=== PATIENT | male | born 1950 | race Hispanic/Latino ===

== ENCOUNTER 2017-11-30 22:30 | Observation (INO) | payer MEDICARE, MEDICAID ==
[2017-11-30 23:05] LABS: #Eosinphils 0.3 thou/uL (0.0-0.7); #Lymphocytes 2.6 thou/uL (1.20-3.40); #Monocytes 0.7 thou/uL (0.11-0.59); #Neutrophils 9.5 thou/uL (1.40-6.50); %Basophils 0.3 % (0.0-1.0); %Eosinophils 2.1 % (0.0-10.0); %Lymphocytes 19.7 % (21.0-51.0); %Monocytes 5.2 % (0.0-10.0); %Neutrophils 72.7 % (42.0-75.0); Hemoglobin 12.4 g/dL (14.0-18.0); Mean Corpuscular Hemoglobin 28.3 pg (27.0-31.0); Mean Corpuscular Volume 88.2 fl (80.0-94.0); Mean Platelet Volume 7.5 fL (7.4-10.4); Platelet Count 179 thou/uL (130-400); RBC Distribution Width 14.1 % (11.5-14.5); Red Blood Cell (RBC) Count 4.37 mill/uL (4.70-6.10); White Blood Cell (WBC) Count 13.1 thou/uL (4.8-10.8)
[2017-11-30 23:17] LABS: ALT (SGPT) 16 U/L (8-55); AST (SGOT) 17 U/L (5-34); Albumin 3.5 g/dL (3.4-4.8); Alkaline Phosphatase 103 U/L (40-150); Anion Gap 16 mmol/L (10-20); BUN (Urea Nitrogen) 37 mg/dL (8.4-25.7); Bilirubin, Total 0.3 mg/dL (0.2-1.2); CK (CPK) 98 U/L (30-200); Calc. Creatinine Clearance 0 mL/min (70-130); Calcium 8.5 mg/dL (7.8-10.44); Carbon Dioxide 22 mmol/L (23-31); Chloride 105 mmol/L (98-107); Estimated GFR-MDRD 48; Globulin 3.5 g/dL (2.4-3.5); Glucose 203 mg/dL (80-115); Potassium 4.1 mmol/L (3.5-5.1); Sodium 139 mmol/L (136-145)
[2017-11-30 23:20] LABS: CKMB 0.8 ng/mL (0-6.6); Troponin I Less than 0.010 ng/mL (< 0.028)
--- NOTE | 2017-11-30 23:26 | RAD ---
CHEST ONE VIEW: 11/30/17 HISTORY: Chest pain. COMPARISON: Chest radiograph 11/05/16. FINDINGS: The heart size is enlarged. No focal air space consolidation, pneumothorax or effusion. Scarring left upper lobe. IMPRESSION: No acute intrathoracic abnormality. POS: [facility]
[2017-12-01 00:21] LABS: Bilirubin Negative (Negative); Blood, Urine Negative (Negative); Clarity CLEAR (Clear); Glucose, Urine (Dipstick) Negative (Negative); Leukocyte Negative (Negative); Nitrite Negative (Negative); Protein, Urine (Dipstick) Negative (Neg-Trace); Specific Gravity, Urine 1.014 (1.002-1.036); Urobilinogen 0.2 mg/dL (0.2-1.0); pH, Urine 6.5 (5.0-9.0)
[2017-12-01] MEDS ORDERED: Ondansetron ODT 4 MG TAB ONE (01:27)
[2017-12-01] MEDS ORDERED: Nitroglycerin 0.4 MG TAB (25 Tab Bottle) SL PRN (03:20)
[2017-12-01 05:31] VITALS: BMI 54.3
--- NOTE | 2017-12-01 08:24 | CT ---
PRELIMINARY REPORT/[facility]/EMERGENCY AFTER HOURS PROCEDURE: EXAM: CT Angiography Chest With Intravenous Contrast CLINICAL HISTORY: 67 years old, male; Pain; Chest pain; On breathing; Patient HX: M67 presents to ed for nausea and SOB . Pt also reports tingling and twitching on left side of face. Pt also reports a shooting pain from b ehind left shoulder to front of chest. Pt denies fever. Hx- quad bypass and valve replaced, hbp, chol esterol, sleep apnea. TECHNIQUE: Axial computed tomographic angiography images of the chest with intravenous contrast using pulmonary embolism protocol. MIP reconstructed images were created and reviewed. COMPARISON: No relevant prior studies available. FINDINGS: Pulmonary arteries: No pulmonary embolism. Aorta: No acute findings. Lungs: Linear atelectasis and/or scarring within the left upper lobe. Pleural space: Normal. No significant effusion. No pneumothorax. Heart: See below. Bones/joints: Changes of prior sternotomy and aortic valve repair. Multilevel thoracic spine degenera tive changes. No acute fracture. No dislocation. Soft tissues: Moderate-sized fat and bowel-containing ventral hernia, without acute complications. Lymph nodes: Normal. Kidneys and ureters: 2.3 cm simple right renal cyst. IMPRESSION: 1. No pulmonary embolism. 2. Incidental/non-acute findings are described above. Thank you for allowing us to participate in the care of your patient. Dictated and Authenticated by: Kain Phillips MD 12/01/2017 1:08 AM Central Time ([place] & [place]) FINAL REPORT CT ARTERIOGRAM CHEST WITH IV CONTRAST AND 3D MIP IMAGING PERFORMED ON AN EMERGENCY BASIS: Date: 11/30/17 Time: 0002 hours HISTORY: Chest pain. Dyspnea. COMPARISON: 11/05/16. FINDINGS: Findings agree with the preliminary report by Jacey. There is no CT evidence of pulmonary embolus. Lar ge anterior abdominal wall hernia containing colon is noted with the colon extending far superiorly a t the midline, lying anterior to the sternal metallic sutures. POS: [facility]
[2017-12-01] MEDS ORDERED: Ondansetron ODT 4 MG TAB PO PRN (08:52)
[2017-12-01] MEDS ORDERED: Ondansetron HCl/PF 4 MG/2 ML Vial IVP PRN (08:52)
[2017-12-01] MEDS ORDERED: Prevnar 13-Val Conj/PF 0.5 ML SYRINGE IM ONE (09:00)
[2017-12-01] MEDS: Acetaminophen 325 MG TAB PO PRN ×2 (09:12→20:11)
[2017-12-01] MEDS ORDERED: Regadenoson 0.4 MG/5 ML SYRINGE ONE (09:51)
[2017-12-01] MEDS ORDERED: Senokot 8.6 MG TAB PO PRN (11:00)
[2017-12-01 11:03] LABS: Troponin I 0.017 ng/mL (< 0.028)
[2017-12-01 11:21] LABS: Hemoglobin A1c 6.4 % (4.0-6.0)
--- NOTE | 2017-12-01 11:28 | HP ---
DATE OF ADMISSION: 12/01/2017 PRIMARY CARE PHYSICIAN: Patient has followed [facility] in the past , Dr. Goodwin. PRIMARY SUPERVISOR NURSE: The patient has seen [facility] in the past. CHIEF COMPLAINT: Chest discomfort. HISTORY OF PRESENT ILLNESS: Patient is a 67-year-old male with coronary artery disease, status post CABG, hypertension, morbid obesity with a BMI 54.4, presented to the emergency room with chest discomfort that has been ongoing for the last 1-2 days. The chest discomfort is on the left side of the chest radiating to his left arm. He also had some shortness of breath along with nausea and "twitching" on his left side of the face. He denies palpitations or syncope. No recent changes in his medications. He denies any cough, wheezing. No vomiting reported. In the emergency room, initial vital signs showed temperature 99.4, respirations 20, pulse of 76 with a blood pressure of 150/77. EKG showed sinus rhythm with nonspecific ST-T wave changes. The CT angiogram of the chest was negative for pulmonary embolism. He received 2 mg morphine with Zofran in the emergency room. His chest pain initially was intermittent; however, has been coming more often lasting each time for 10 minutes or so per patient report. He denies any aggravating or relieving factor. PAST MEDICAL HISTORY: 1. Coronary artery disease, status post coronary artery bypass graft. 2. Obstructive sleep apnea, unable to tolerate CPAP. 3. Morbid obesity with a BMI 54.4. 4. Abdominal hernia. 5. Hypertension. 6. Hyperlipidemia. 7. Benign prostatic hypertrophy. 8. Diabetes mellitus type 2. 9. Mild intermittent Asthma PAST SURGICAL HISTORY: 1. Coronary artery bypass grafting. 2. Hernia repair. 3. Bioprosthetic aortic valve replacement. ALLERGIES: No known drug allergies. CURRENT HOME MEDICATIONS: Albuterol inhaler as needed, aspirin 81 mg daily, Lipitor 40 mg daily, Lasix 80 mg daily, hydrochlorothiazide 25 mg daily, indomethacin 50 mg b.i.d., lisinopril 40 mg daily, Flomax 0.4 mg daily. SOCIAL HISTORY: Patient currently lives at home with his family. No current use of smoking, alcohol or drug use. He is FULL CODE, makes his own decisions with the help of his family. FAMILY HISTORY: Negative for diabetes mellitus type 2, hypertension. REVIEW OF SYSTEMS: The following complete review of systems was negative, unless otherwise mentioned in the HPI or below: Constitutional: Weight loss or gain, ability to conduct usual activities. Skin: Rash, itching. Eyes: Double vision, pain. ENT/Mouth: Nose bleeding, neck stiffness, pain, tenderness. Cardiovascular: Palpitations, dyspnea on exertion, orthopnea. Respiratory: Shortness of breath, wheezing, cough, hemoptysis, fever or night sweats. Gastrointestinal: Poor appetite, abdominal pain, heartburn, nausea, vomiting, constipation, or diarrhea. Genitourinary: Urgency, frequency, dysuria, nocturia. Musculoskeletal: Pain, swelling. Neurologic/Psychiatric: Anxiety, depression. Allergy/Immunologic: Skin rash, bleeding tendency. PHYSICAL EXAMINATION: VITAL SIGNS: As discussed above. GENERAL: A 67-year-old male in no apparent distress. His chest discomfort has improved. HEENT: Head is atraumatic, normocephalic. Sclerae are anicteric. Moist mucous membrane, no oral lesion. NECK: Supple, no JVD, no carotid bruit. LUNGS: Clear to auscultation bilaterally, no wheezing, rales or rhonchi. HEART: S1, S2 present. Regular rate and rhythm. Healed midline scar from previous CABG. There is questionable tenderness over the left chest wall. LUNGS: Clear to auscultation bilaterally, no wheezing, rales, rhonchi. ABDOMEN: Soft, mild epigastric tenderness, without any rebound, guarding, no costovertebral angle tenderness. Abdominal hernia noted. EXTREMITIES: No edema or calf tenderness. NEUROLOGIC: Grossly nonfocal, moves all four extremities. PSYCHIATRY: Alert, awake, oriented x3. SKIN: Warm and dry. LYMPH NODES: No palpable lymph nodes in the neck. PERIPHERAL VASCULAR: Radial pulses palpable bilaterally. MUSCULOSKELETAL: No joint swelling or tenderness. LABORATORY DATA AND IMAGING: Troponins were negative. BNP 65. CBC showed WBC 13.1 with hemoglobin 12.4, platelet 179. BUN 37, creatinine 1.47, glucose of 203. Hemoglobin A1c in 2016 was 6.7. EKG by my review as discussed above. CT angiogram of the chest by my review as discussed above. IMPRESSION: 1. Atypical chest pain, rule out acute coronary syndrome. 2. Morbid obesity with a BMI 54.4. 3. Obstructive sleep apnea, unable to tolerate CPAP. 4. Diabetes mellitus type 2, currently on no medications. 5. Hypertension. 6. Hyperlipidemia. 7. Chronic kidney disease stage 3. 8. Chronic back pain. 9. Abdominal hernia. 10. History of bioprosthetic aortic valve repair. 11. Benign prostatic hypertrophy. PLAN: The patient will be monitored as a 23-hour observation. He will benefit from a stress test since it has not been done for several years. We will resume his home medications including aspirin. We will avoid NSAIDs. He takes indomethacin every day, which will be discontinued. We will hold Lasix. The patient was extensively counseled to continue using his CPAP if possible. Plan of care was discussed with the patient in detail. He stated understanding. VITO
[2017-12-01] MEDS: PROVENTIL INHALER 6.7 G (200 INHALATIONS) INH SCH ×3 (13:52→23:50)
[2017-12-01 19:42] LABS: Troponin I Less than 0.010 ng/mL (< 0.028)
[2017-12-01] MEDS: Docusate 100 MG CAP PO SCH (20:06)
[2017-12-01] MEDS: Tamsulosin HCl 0.4 MG CAP PO SCH (20:06)
[2017-12-01 22:02] LABS: Troponin I Less than 0.010 ng/mL (< 0.028)
[2017-12-02] MEDS: PROVENTIL INHALER 6.7 G (200 INHALATIONS) INH SCH ×3 (07:15→19:08)
[2017-12-02] MEDS ORDERED: Prevnar 13-Val Conj/PF 0.5 ML SYRINGE IM ONE (09:00)
[2017-12-02] MEDS ORDERED: Lisinopril 20 MG TAB PO SCH (09:00)
[2017-12-02] MEDS ORDERED: Furosemide 80 MG TAB PO SCH (09:00)
[2017-12-02] MEDS ORDERED: Enoxaparin Sodium 40 MG/0.4 ML SYRINGE SC SCH (09:00)
[2017-12-02] MEDS: Aspirin 325 MG TAB PO SCH (10:20)
[2017-12-02] MEDS: Docusate 100 MG CAP PO SCH ×2 (10:21→19:39)
[2017-12-02] MEDS: Atorvastatin Calcium 40 MG TAB PO SCH (10:21)
--- NOTE | 2017-12-02 10:34 | NM ---
CARDIAC SPECT: CLINICAL HISTORY: 67-year-old male with chest pain, coronary artery disease, CABG, COPD, hypertension, and dys lipidemia. TECHNIQUE: A myocardial perfusion scan was performed using the single isotope two day protocol with 33 mCi techn etium-99m sestamibi injected intravenously for both stress and rest images. Pharmacologic stress with Lexiscan was monitored and interpreted by Dr. Aranda. FINDINGS: Fairly homogeneous tracer distribution is seen in the myocardial segments on the rest images. The str ess images demonstrate a small area of mildly decreased tracer localization in the distal lateral wal l. GATED SPECT LVEF: 74%. WALL MOTION EXAM: Normal. IMPRESSION: Small area of mild ischemia with complete reversibility in the distal lateral wall. POS: [facility]
[2017-12-02] MEDS ORDERED: Sodium Chloride 0.9% 1,000 ML IV SCH (18:45)
[2017-12-02] MEDS: Tamsulosin HCl 0.4 MG CAP PO SCH (19:39)
--- NOTE | 2017-12-02 20:10 | PDOC.PN ---
- Subjective Encounter Start Date: 12/02/17 Encounter Start Time: 12:00 Patient seen and examined for CP. CP improving. No Palpitations/syncope. No new complaints. No overnight events - Objective Resuscitation Status: Resuscitation Status FULL:Full Resuscitation MAR Reviewed: Yes Vital Signs & Weight: Vital Signs (12 hours) Temp Pulse Resp BP BP Pulse Ox 12/02/17 19:34 98.8 F 65 20 112/55 L 93 L 12/02/17 19:08 75 16 95 12/02/17 16:06 74 16 141/71 H 94 L 12/02/17 13:38 81 14 97 12/02/17 11:54 73 16 115/64 97 12/02/17 10:21 127/79 Weight Weight 394 lb 9.6 oz I&O: 12/01/17 12/02/17 12/03/17 06:59 06:59 06:59 Intake Total 0 540 Output Total 550 Balance 0 -10 Result Diagrams: 11/30/17 22:45 11/30/17 22:45 Additional Labs: Accuchecks 12/01/17 20:15 POC Glucose 122 H EKG Reviewed by me: Yes (Tele SR) Phys Exam - Physical Examination Constitutional: NAD Respiratory: no wheezing, no rales, no rhonchi Dec AE at bases Cardiovascular: RRR, no rub no heaves/pulsations Gastrointestinal: soft, non-tender, no distention, positive bowel sounds Musculoskeletal: no edema Neurological: non-focal, normal sensation, moves all 4 limbs Psychiatric: normal affect, A&O x 3 Dx/Plan - Plan DVT proph w/SCDs IMPRESSION: 1. Atypical chest pain, rule out acute coronary syndrome. Stress test abnormal 2. Morbid obesity with a BMI 54.4. 3. Obstructive sleep apnea, unable to tolerate CPAP. 4. Diabetes mellitus type 2, currently on no medications. A1c 6.4 5. Hypertension. 6. Hyperlipidemia. 7. Chronic kidney disease stage 3. 8. Chronic back pain. 9. Abdominal hernia. 10. History of bioprosthetic aortic valve repair. 11. Benign prostatic hypertrophy. PLAN: * Consult Cardiology due to abnormal stress test * BMP in AM * Cont Lisinopril * Cont ASA * Cont current meds as below Review of Systems - Review of Systems Respiratory: negative: Cough, Dry, Shortness of Breath, Hemoptysis, SOB with Excertion, Pleuritic Pain, Sputum, Wheezing Cardiovascular: negative: chest pain, palpitations, orthopnea, paroxysmal nocturnal dyspnea, edema, light headedness, other - Medications/Allergies Allergies/Adverse Reactions: Allergies Allergy/AdvReac Type Severity Reaction Status Date / Time No Known Drug Allergies Allergy Verified 12/01/17 05:18 Medications: Current Medications Acetaminophen (Tylenol) 650 mg PO Q4H PRN PRN Reason: Headache/Fever or Mild Pain Last Admin: 12/01/17 20:11 Dose: 650 mg Albuterol Sulfate (Proventil Hfa) 1 puff INH [id number] [facility] Last Admin: 12/02/17 19:08 Dose: 1 puff Aspirin (Aspirin) 325 mg PO DAILY [facility] Last Admin: 12/02/17 10:20 Dose: 325 mg Atorvastatin Calcium (Lipitor) 40 mg PO DAILY [facility] Last Admin: 12/02/17 10:21 Dose: 40 mg Docusate Sodium (Colace) 100 mg PO BID [facility] Last Admin: 12/02/17 19:39 Dose: 100 mg Sodium Chloride (Normal Saline 0.9%) 1,000 mls @ 75 mls/hr IV .[id number] [facility] Last Admin: 12/02/17 19:41 Dose: 1,000 mls Nitroglycerin (Nitrostat) 0.4 mg SL Q5MIN PRN PRN Reason: Chest Pain Ondansetron HCl (Zofran Odt) 4 mg PO Q6H PRN PRN Reason: Nausea/Vomiting Last Admin: 12/01/17 09:12 Dose: 4 mg Ondansetron HCl (Zofran) 4 mg IVP Q6H PRN PRN Reason: Nausea/Vomiting Senna (Senokot) 2 tab PO HSPRN PRN PRN Reason: Constipation Sodium Chloride (Flush - Normal Saline) 10 ml IVF Q12HR [facility] Last Admin: 12/02/17 19:40 Dose: 10 ml Sodium Chloride (Flush - Normal Saline) 10 ml IVF PRN PRN PRN Reason: Saline Flush Tamsulosin HCl (Flomax) 0.4 mg PO HS [facility] Last Admin: 12/02/17 19:39 Dose: 0.4 mg
[2017-12-03] MEDS: PROVENTIL INHALER 6.7 G (200 INHALATIONS) INH SCH ×4 (00:36→19:33)
--- NOTE | 2017-12-03 04:47 | CON ---
DATE OF CONSULTATION: 12/03/2017 HISTORY OF PRESENT ILLNESS: Martín Casillas is a 67-year-old [place] male admitted with chest discomfort. In 11/2007, he was hospitalized here with chest discomfort, underwent cardiac catheterization by Dr. Beltran. The peak gradient across the aortic valve was 29 mm and mild aortic stenosis. Left ventricular pressure was 181/32. Aorta 124/77. There was a 30%-40% distal left main. The LAD had [id number] luminal irregularities. There was a 60 % to 65% lesion in the proximal portion of the first diagonal. Circumflex had [id number] luminal irregularities and plaquing. The right coronary artery was small. He does not recall when he underwent cardiac surgery and he thought it was around the time of that catheterization; however, he did not have very significant disease at that time. At some other time, he was referred to [facility] in [place] and underwent CABG x4 and aortic valve replacement. He had been followed by [facility]; however, approximately 2 years ago , he was there as an outpatient to have an echo. He started to feel bad and became nauseous and the pulmonary function technologist took him to the emergency room. He became very upset having to wait in the emergency room. He left and then ultimately came to the emergency room here. He was found to have urosepsis. He now is admitted with chest discomfort. Initially, this was a sharp sticking like pain that started in his left back. It radiated around to the anterior part of the left chest. Initially, this would just last for a few seconds, but then last up to 30 minutes at a time. There was no pleuritic component to the pain. He did not feel significantly short of breath or become diaphoretic. He was admitted. Cardiac enzymes were unremarkable and underwent Cardiolite testing. This revealed a small area of mild ischemia in the distal lateral wall. Ejection fraction was 74%. PAST MEDICAL HISTORY: Remarkable for coronary artery disease, aortic stenosis with aortic valve replacement, morbid obesity, obstructive sleep apnea, unable to tolerate CPAP, hypertension, hyperlipidemia, diabetes, benign prostatic hypertrophy, asthma. OPERATIONS: Multiple ventral hernia repairs, CABG, bioprosthetic aortic valve replacement. MEDICATIONS: Albuterol 1 puff q.6 hours, aspirin 81 daily, atorvastatin 40 daily, furosemide 80 q.a.m., hydrochlorothiazide unknown dose q.p.m., indomethacin 50 b.i.d., lisinopril 40 daily, Flomax 0.4 daily. ALLERGIES: None. SOCIAL HISTORY: He stopped smoking 20 years ago. FAMILY HISTORY: Negative for coronary artery disease. REVIEW OF SYSTEMS: Twelve-point review of systems, otherwise unremarkable. PHYSICAL EXAMINATION: VITAL SIGNS: Blood pressure 141/71, pulse of 74, although at times during this admission, he has had blood pressures in the low 100s and even 99/69. HEENT: PERRL. NECK: Supple. LUNGS: Chest is clear. CARDIAC: S1 and S2 are normal, without any S3, S4. There is a 2/6 systolic murmur in the aortic area. ABDOMEN: Normal bowel sounds without tenderness, organomegaly, or masses. The abdomen is morbidly obese. MUSCULOSKELETAL: Revealed significant palpable tenderness on the left ribs that reproduces his pain. EXTREMITIES: Revealed trace pretibial edema. NEUROLOGIC: Grossly intact. SKIN: Warm and dry. LABORATORY DATA: EKG revealed normal sinus rhythm with nonspecific ST segment changes. Cardiolite finding as noted above. Hemoglobin 12.4, hematocrit 38.6, white count 13,100, platelets 179,000. Sodium 139, potassium 4.1, chloride 105 , carbon dioxide 22, BUN 37, creatinine 1.47. Cardiac enzymes are unremarkable. IMPRESSION: 1. Atypical chest discomfort with palpable chest tenderness as well as sharp stabbing type pain. 2. Abnormal Cardiolite with distal lateral wall ischemia. 3. Status post coronary artery bypass graft x4 and aortic valve replacement in [place]. 4. Hypertension. 5. Hyperlipidemia. 6. Diabetes. 7. Morbid obesity. 8. Former smoker. 9. Ventral and inguinal hernias. 10. Obstructive sleep apnea unable to tolerate CPAP. 11. Asthma. 12. Chronic kidney disease versus acute kidney injury. RECOMMENDATIONS: Mr. Casillas had a creatinine of 1.47 on admission and after that underwent CT angiogram of the chest. Creatinine has not been repeated since that time and as best I can tell, it did not receive any IV fluids. He will be started on saline at 75 mL per hour at this time and his renal function will be checked in the morning. His Lasix and hydrochlorothiazide have been held, and I also will discontinue his lisinopril at this time and he needs to stay off Indocin, which he takes at home also. An attempt will be made to obtain a copy of his operative report at the time of CABG and aortic valve replacement; however, I am not certain how long it will take to obtain that. We did discuss cardiac catheterization and risks involved including , myocardial infarction, dye reaction, vascular injury, CVA, transfusion, limb loss, vascular injury and especially kidney damage. We discussed risk of intervention with PTCA and stent placement including , myocardial infarction, emergent CABG, restenosis, stent thrombosis, vessel perforation etc. With his multiple medical problems and possible need for hernia repair in the future, we will only place a bare metal stent. His renal function will be reassessed in the morning before any decision regarding proceeding with catheterization. VITO
[2017-12-03 05:09] LABS: Anion Gap 11 mmol/L (10-20); BUN (Urea Nitrogen) 21 mg/dL (8.4-25.7); Calc. Creatinine Clearance 171 mL/min (70-130); Calcium 8.6 mg/dL (7.8-10.44); Carbon Dioxide 24 mmol/L (23-31); Chloride 106 mmol/L (98-107); Estimated GFR-MDRD 70; Glucose 99 mg/dL (80-115); Potassium 4.2 mmol/L (3.5-5.1); Sodium 137 mmol/L (136-145)
[2017-12-03] MEDS ORDERED: Communication Order-Pharmacy FS SCH (07:45)
[2017-12-03] MEDS ORDERED: Sodium Chloride 0.9% 1,000 ML IV SCH ×2 (07:45→11:15)
[2017-12-03] MEDS ORDERED: Lidocaine 1% (PF) 30 ML VIAL ONE (08:01)
[2017-12-03] MEDS ORDERED: Heparin 10,000 UNITS/1 ML VIAL ONE (08:23)
[2017-12-03] MEDS ORDERED: Fentanyl 100 MCG/2 ML VIAL ONE (09:16)
[2017-12-03] MEDS ORDERED: Midazolam HCl 2 mg/2 ml Vial ONE (09:16)
[2017-12-03] MEDS ORDERED: Iopamidol 370 76% 50 ML VIAL FS ONE (09:45)
[2017-12-03] MEDS ORDERED: Iopamidol 370 76% 100 ML VIAL ONE (09:45)
[2017-12-03] MEDS ORDERED: Metoprolol Tartrate 5 MG/5 ML VIAL ONE (10:35)
[2017-12-03] MEDS ORDERED: Nitroglycerin 100MG/250ML BOT 250 ML ONE (10:36)
[2017-12-03] MEDS ORDERED: Nitroglycerin 0.4 MG TAB (25 Tab Bottle) SL PRN (11:14)
[2017-12-03] MEDS ORDERED: traMADol HCl 50 MG TAB PO PRN (11:14)
[2017-12-03] MEDS ORDERED: Acetaminophen/Codeine 30-300mg Tablet PO PRN ×2 (11:14)
[2017-12-03] MEDS ORDERED: Lisinopril 10 MG TAB PO SCH (11:15)
[2017-12-03] MEDS ORDERED: Lisinopril 20 MG TAB PO SCH (11:15)
[2017-12-03] MEDS ORDERED: Sodium Chloride 0.9% 200 ML IV PRN (11:15)
[2017-12-03] MEDS: Aspirin 325 MG TAB PO SCH (12:04)
[2017-12-03] MEDS: Atorvastatin Calcium 40 MG TAB PO SCH (12:04)
[2017-12-03] MEDS: Docusate 100 MG CAP PO SCH ×2 (12:05→20:11)
--- NOTE | 2017-12-03 18:14 | PDOC.PN ---
- Subjective Encounter Start Date: 12/03/17 Encounter Start Time: 17:15 Patient seen and examined for CP. s/p Cardiac Cath. No new complaints. No overnight events - Objective Resuscitation Status: Resuscitation Status FULL:Full Resuscitation MAR Reviewed: Yes Vital Signs & Weight: Vital Signs (12 hours) Temp Pulse Resp BP BP Pulse Ox 12/03/17 15:25 63 16 159/65 H 94 L 12/03/17 12:05 139/67 12/03/17 07:48 98.5 F 64 15 114/63 93 L Weight Weight 394 lb 9.6 oz I&O: 12/02/17 12/03/17 12/04/17 06:59 06:59 06:59 Intake Total 540 1063 Output Total 550 750 600 Balance -10 313 -600 Result Diagrams: 11/30/17 22:45 12/03/17 04:15 EKG Reviewed by me: Yes (Tele SR) Phys Exam - Physical Examination Constitutional: NAD Respiratory: no wheezing, no rhonchi Cardiovascular: RRR, no rub Gastrointestinal: soft, non-tender, positive bowel sounds Musculoskeletal: no edema Neurological: moves all 4 limbs Dx/Plan - Plan IMPRESSION: 1. Atypical chest pain, rule out acute coronary syndrome. Stress test abnormal - s/p Cath 2. Morbid obesity with a BMI 54.4. 3. Obstructive sleep apnea, unable to tolerate CPAP. 4. Diabetes mellitus type 2, currently on no medications. A1c 6.4 5. Hypertension. 6. Hyperlipidemia. 7. DANAY on Chronic kidney disease stage 2. Improving 8. Chronic back pain. 9. Abdominal hernia. 10. History of bioprosthetic aortic valve repair. 11. Benign prostatic hypertrophy. PLAN: * Cardio input appreciated * Monitor overnight per Cardiology * BMP in AM * Cont ASA and other meds as below * ACEI dose reduced due to CKD Review of Systems - Review of Systems Respiratory: negative: Cough, Dry, Shortness of Breath, Hemoptysis, SOB with Excertion, Pleuritic Pain, Sputum, Wheezing Cardiovascular: negative: chest pain, palpitations, orthopnea, paroxysmal nocturnal dyspnea, edema, light headedness, other - Medications/Allergies Allergies/Adverse Reactions: Allergies Allergy/AdvReac Type Severity Reaction Status Date / Time No Known Drug Allergies Allergy Verified 12/01/17 05:18 Medications: Current Medications Acetaminophen (Tylenol) 650 mg PO Q4H PRN PRN Reason: Headache/Fever or Mild Pain Last Admin: 12/01/17 20:11 Dose: 650 mg Acetaminophen/Codeine Phosphate (Tylenol #3) 1 tab PO Q4H PRN PRN Reason: Mild Pain (1-3) Acetaminophen/Codeine Phosphate (Tylenol #3) 2 tab PO Q4H PRN PRN Reason: Moderate Pain (4-6) Albuterol Sulfate (Proventil Hfa) 1 puff INH [id number] Last Admin: 12/03/17 13:43 Dose: 1 puff Aspirin (Aspirin) 325 mg PO DAILY [facility] Last Admin: 12/03/17 12:04 Dose: 325 mg Atorvastatin Calcium (Lipitor) 40 mg PO DAILY [facility] Last Admin: 12/03/17 12:04 Dose: 40 mg Docusate Sodium (Colace) 100 mg PO BID [facility] Last Admin: 12/03/17 12:05 Dose: Not Given Sodium Chloride (Normal Saline 0.9%) 200 mls @ 0 mls/hr IV ONE PRN; As Directed PRN Reason: (Bolus PRN SBP < 90 mm Hg) Stop: 12/06/17 11:16 Lisinopril (Zestril) 20 mg PO DAILY [facility] Miscellaneous Information (Communication Order-Pharmacy) 0 each FS ONE [facility] Stop: 12/03/17 21:00 Nitroglycerin (Nitrostat) 0.4 mg SL Q5MIN PRN PRN Reason: Chest Pain Ondansetron HCl (Zofran Odt) 4 mg PO Q6H PRN PRN Reason: Nausea/Vomiting Last Admin: 12/01/17 09:12 Dose: 4 mg Ondansetron HCl (Zofran) 4 mg IVP Q6H PRN PRN Reason: Nausea/Vomiting Senna (Senokot) 2 tab PO HSPRN PRN PRN Reason: Constipation Sodium Chloride (Flush - Normal Saline) 10 ml IVF Q12HR [facility] Last Admin: 12/03/17 12:05 Dose: Not Given Sodium Chloride (Flush - Normal Saline) 10 ml IVF PRN PRN PRN Reason: Saline Flush Tamsulosin HCl (Flomax) 0.4 mg PO HS [facility] Last Admin: 12/02/17 19:39 Dose: 0.4 mg Tramadol HCl (Ultram) 50 mg PO Q6H PRN PRN Reason: Moderate Pain (4-6)
[2017-12-03] MEDS: Tamsulosin HCl 0.4 MG CAP PO SCH (20:12)
[2017-12-04 04:38] LABS: Anion Gap 10 mmol/L (10-20); BUN (Urea Nitrogen) 16 mg/dL (8.4-25.7); Calc. Creatinine Clearance 200 mL/min (70-130); Calcium 8.6 mg/dL (7.8-10.44); Carbon Dioxide 23 mmol/L (23-31); Chloride 108 mmol/L (98-107); Estimated GFR-MDRD 83; Glucose 110 mg/dL (80-115); Potassium 4.3 mmol/L (3.5-5.1); Sodium 137 mmol/L (136-145)
[2017-12-04] MEDS: PROVENTIL INHALER 6.7 G (200 INHALATIONS) INH SCH ×3 (06:37→11:48)
[2017-12-04 08:14] VITALS: TEMP 98.2
[2017-12-04] MEDS ORDERED: Lisinopril 20 MG TAB PO SCH (09:00)
[2017-12-04] MEDS: Atorvastatin Calcium 40 MG TAB PO SCH (09:04)
[2017-12-04] MEDS: Aspirin 325 MG TAB PO SCH (09:04)
[2017-12-04] MEDS: Docusate 100 MG CAP PO SCH (09:04)
[2017-12-04 12:19] VITALS: BP 145/82
--- NOTE | 2017-12-04 15:48 | DIS ---
DATE OF ADMISSION: 12/01/2017 DATE OF DISCHARGE: 12/04/2017 ADMITTING DIAGNOSIS: Unstable angina. DISCHARGE DIAGNOSIS: Unstable angina. SECONDARY DIAGNOSES: 1. Abnormal cardiac stress test. 2. Coronary artery disease with coronary artery bypass grafting. 3. Hypertension. 4. Hyperlipidemia. 5. Diabetes. 6. Morbid obesity. CONSULTANTS INVOLVED IN THIS CARE: Dr. Emery Varela. PROCEDURES DONE: Cardiac catheterization and a nuclear stress test, which was abnormal. HISTORY OF PRESENT ILLNESS AND HOSPITAL COURSE: In brief, this is a 67-year-old morbidly obese white male. He is admitted with chest discomfort and was hospitalized here with chest discomfort and unde rwent cardiac catheterization by Dr. Beltran. The patient had a 30%-40% distal left main of the LAD a nd dem-iv-dxsenzje luminal irregularities. There was 60%-65% lesion of the proximal portion of the f irst diagonal. Circumflex and vvas-lo-ryfnoclk luminal irregularities and plaquing was noted. Durin g this admission, the patient was having sharp sticking like pain that started in his left side of th e back and radiates around to the anterior part of the left chest initially for a few seconds, but la sts for almost 30 minutes. There was no pleuritic component in this chest pain. His cardiac enzymes were unremarkable and he underwent Cardiolite testing. This revealed a small area of mild ischemia in the distal lateral wall. The patient was admitted and was closely monitored by Cardiology and he had a following cardiac catheterization, which was described above. He was started on normal saline to improve his renal functions following the catheterization. His Lasix and hydrochlorothiazide were held and also his lisinopril was held at this time and also advised the patient to hold off on his I ndocin, which he should not be taking according to Dr. Varela. The patient was closely monitored after the cardiac catheterization and advised only medical manageme nt and Cardiology did address his lisinopril, which was reduced in dose and also the Lasix was reduce d in dose. The patient was explained about a complex heart at this time and advised to have a close followup with Cardiology at [facility]. The patient was discharged home in stable condition. PHYSICAL EXAMINATION: On the day of discharge, VITAL SIGNS: Blood pressure is 145/82, heart rate is 72, respirations are 18, saturation 95%. GENERAL: The patient is moderately built and moderately nourished. He does not appear to be in acut e distress. He is an alert and oriented x3. HEENT: Atraumatic, normocephalic. PERRLA. Extraocular movements were intact. Oral mucosa is pink and moist. CARDIOVASCULAR: S1, S2 normal. No murmurs, no rubs, no gallops. LUNGS: Bilateral air entry was equal. No wheezing, no crackles. ABDOMEN: Soft, nontender, no guarding, no rebound tenderness. Bowel sounds normal. MUSCULOSKELETAL: No calf tenderness. No pedal edema. No joint tenderness. No joint swelling. SKIN: No cyanosis, no erythema, no rash, no pallor. NEUROLOGIC: Cranial nerve examination II-XII intact. No focal deficits were noted. DISCHARGE MEDICATIONS: 1. Albuterol 1 puff inhalation q.6 hours. 2. Aspirin 81 mg daily. 3. Atorvastatin 40 mg daily. 4. Lasix 40 mg p.o. daily. 5. Lisinopril 20 mg p.o. daily. 6. Tamsulosin 0.4 mg p.o. daily. DISCHARGE INSTRUCTIONS: Continue activity as tolerated. Advised to follow up with Cardiology in 1-2 weeks. Advised to return back to the ER if the patient develops any further chest pains. Continue with the cardiac diet. Continue physical activity to reduce weight. I spent 35 minutes with this patient on the date of discharge.
[2017-12-05] MEDS ORDERED: Furosemide 40 MG TAB PO SCH (07:30)
== END 2017-12-04 14:32 | disposition home or self-care (01) ==
LOC: ERS 22:30 → 2SW 12-01 03:20
PROVIDERS: ADMIT Internal Medicine; ATTEND Internal Medicine
DX: I25.110 Atherosclerotic heart disease of native coronary artery with unstable angina pectoris (principal); E78.5 Hyperlipidemia, unspecified; E66.01 Morbid (severe) obesity due to excess calories; E11.22 Type 2 diabetes mellitus with diabetic chronic kidney disease; G47.33 Obstructive sleep apnea (adult) (pediatric); J45.909 Unspecified asthma, uncomplicated; E78.00 Pure hypercholesterolemia, unspecified; N17.9 Acute kidney failure, unspecified; I12.9 Hypertensive chronic kidney disease with stage 1 through stage 4 chronic kidney disease, or unspecified chronic kidney disease; G89.29 Other chronic pain; M54.9 Dorsalgia, unspecified; N18.3 Chronic kidney disease, stage 3 (moderate); Z95.5 Presence of coronary angioplasty implant and graft; Z79.82 Long term (current) use of aspirin; Z79.899 Other long term (current) drug therapy; Z87.891 Personal history of nicotine dependence; Z68.43 Body mass index [BMI] 50.0-59.9, adult
CPT/HCPCS: 71045; 71275; 78452; 80048 ×2; 80053; 81003; 82550; 82553; 82962; 83036; 83735; 83880; 84484 ×3; 85025; 85347; 87086; 90670; 93005; 93017; 93306; 93455; 93567; 93798; 94640 ×4; 94664; 94760 ×2; 96361 ×2; 96374; 99285; A9500; C1769; G0009; G0378 ×2; 36415; 36416; 90471; 99152; 99153; A4216; J1644; J2001; J2250; J2270; J2785; J3010; Q0162

== ENCOUNTER 2018-07-30 16:31 | Emergency (ER) | payer MEDICARE, MEDICAID ==
[2018-07-30] MEDS ORDERED: Ondansetron PF 4 MG/2 ML Vial ONE (18:19)
[2018-07-30] MEDS ORDERED: Morphine 4 MG/ML VIAL ONE (18:19)
[2018-07-30 18:25] LABS: #Eosinphils 0.2 thou/uL (0.0-0.7); #Lymphocytes 1.8 thou/uL (1.20-3.40); #Monocytes 0.8 thou/uL (0.11-0.59); #Neutrophils 9.3 thou/uL (1.40-6.50); %Basophils 0.2 % (0.0-1.0); %Eosinophils 1.5 % (0.0-10.0); %Lymphocytes 15.2 % (21.0-51.0); %Monocytes 6.4 % (0.0-10.0); %Neutrophils 76.7 % (42.0-75.0); Hemoglobin 12.1 g/dL (14.0-18.0); Mean Corpuscular HGB CONC 31.6 g/dL (32.0-36.0); Mean Corpuscular Hemoglobin 27.7 pg (27.0-31.0); Mean Corpuscular Volume 87.8 fL (78.0-98.0); Mean Platelet Volume 7.8 fL (7.4-10.4); Platelet Count 208 thou/uL (130-400); RBC Distribution Width 13.3 % (11.5-14.5); Red Blood Cell (RBC) Count 4.35 mill/uL (4.70-6.10); White Blood Cell (WBC) Count 12.1 thou/uL (4.8-10.8)
[2018-07-30 18:48] LABS: ALT (SGPT) 10 U/L (8-55); AST (SGOT) 15 U/L (5-34); Albumin 3.4 g/dL (3.4-4.8); Alkaline Phosphatase 95 U/L (40-150); Anion Gap 14 mmol/L (10-20); BUN (Urea Nitrogen) 19 mg/dL (8.4-25.7); Bilirubin, Total 0.5 mg/dL (0.2-1.2); Calc. Creatinine Clearance 0 mL/min (70-130); Calcium 8.7 mg/dL (7.8-10.44); Carbon Dioxide 23 mmol/L (23-31); Chloride 105 mmol/L (98-107); Estimated GFR-MDRD 55; Globulin 3.7 g/dL (2.4-3.5); Glucose 126 mg/dL (80-115); Protein, Total 7.1 g/dL (5.8-8.1); Sodium 138 mmol/L (136-145)
[2018-07-30] MEDS ORDERED: Ketorolac Tromethamine 30 MG/ML VIAL ONE (19:38)
[2018-07-30] MEDS ORDERED: Dexamethasone 10 MG/ML VIAL ONE (20:28)
[2018-07-30 20:51] LABS: Bilirubin Negative (Negative); Blood, Urine Negative (Negative); Clarity CLEAR (Clear); Glucose, Urine (Dipstick) Negative (Negative); Leukocyte Negative (Negative); Nitrite Negative (Negative); Protein, Urine (Dipstick) Negative (Neg-Trace); Urobilinogen 0.2 mg/dL (0.2-1.0)
== END 2018-07-30 21:23 | disposition home or self-care (01) ==
LOC: ERS 16:31
DX: M25.50 Pain in unspecified joint (principal); F41.9 Anxiety disorder, unspecified; J44.9 Chronic obstructive pulmonary disease, unspecified; E78.5 Hyperlipidemia, unspecified; I10 Essential (primary) hypertension; M10.9 Gout, unspecified; Z79.899 Other long term (current) drug therapy; Z79.82 Long term (current) use of aspirin
CPT/HCPCS: 80053; 81003; 85025; 85652; 86140; 87086; 96374; 96375; J1100; J1885; J2270; J2405

== ENCOUNTER 2018-09-24 15:06 | Emergency (ER) | payer MEDICARE, MEDICAID ==
--- NOTE | 2018-09-24 17:00 | RAD ---
FEXAM: Left index digit radiographs 3 views PROVIDED CLINICAL HISTORY: Pain FINDINGS: There is no evidence for fracture or other acute osseous abnormality. Alignment appears anatomic. Sosa nt spaces appear preserved. IMPRESSION: No evidence for an acute osseous abnormality. If there is persistent clinical concern, conservative m anagement and follow-up imaging advised.
[2018-09-24] MEDS ORDERED: Ketorolac Tromethamine 60 MG/2 ML VIAL ONE (17:20)
== END 2018-09-24 17:42 | disposition home or self-care (01) ==
LOC: ERS 15:06
DX: M79.645 Pain in left finger(s) (principal); M10.9 Gout, unspecified; J44.9 Chronic obstructive pulmonary disease, unspecified; E78.5 Hyperlipidemia, unspecified; I10 Essential (primary) hypertension; F41.9 Anxiety disorder, unspecified; Z79.899 Other long term (current) drug therapy; Z79.82 Long term (current) use of aspirin
CPT/HCPCS: 96372; J1885

== ENCOUNTER 2018-12-26 16:31 | Inpatient (IN) | payer MEDICARE, MEDICAID ==
[2018-12-26 17:40] LABS: #Eosinphils 0.2 thou/uL (0.0-0.7); #Lymphocytes 1.6 thou/uL (1.20-3.40); #Monocytes 0.7 thou/uL (0.11-0.59); %Basophils 0.2 % (0.0-1.0); %Eosinophils 1.5 % (0.0-10.0); %Lymphocytes 13.7 % (21.0-51.0); %Neutrophils 78.6 % (42.0-75.0); Hemoglobin 12.3 g/dL (14.0-18.0); Mean Corpuscular HGB CONC 32.5 g/dL (32.0-36.0); Mean Corpuscular Hemoglobin 27.9 pg (27.0-31.0); Mean Corpuscular Volume 85.9 fL (78.0-98.0); Mean Platelet Volume 7.9 fL (7.4-10.4); Platelet Count 216 thou/uL (130-400); RBC Distribution Width 13.3 % (11.5-14.5); Red Blood Cell (RBC) Count 4.41 mill/uL (4.70-6.10); White Blood Cell (WBC) Count 11.5 thou/uL (4.8-10.8)
--- NOTE | 2018-12-26 17:52 | RAD ---
RADIOGRAPH CHEST 1 VIEW: DATE: 12/26/2018 HISTORY: 68-year-old male with chest pain FINDINGS: There is no airspace density, pulmonary edema, or pneumothorax. The lateral costophrenic angles are n ot effaced. Magnification of the cardiac shadow. Prosthetic cardiac valve. Sternotomy wires. Mild linear scar in left upper lobe from hilum to pleural surface. IMPRESSION: 1. No acute pulmonary findings. 2. Prosthetic aortic valve.
[2018-12-26] MEDS ORDERED: Dexamethasone 4 mg/ml Vial ONE (17:58)
[2018-12-26 18:00] LABS: ALT (SGPT) 15 U/L (8-55); AST (SGOT) 16 U/L (5-34); Albumin 3.6 g/dL (3.4-4.8); Alkaline Phosphatase 99 U/L (40-150); Anion Gap 13 mmol/L (10-20); BUN (Urea Nitrogen) 21 mg/dL (8.4-25.7); Bilirubin, Total 0.7 mg/dL (0.2-1.2); Calc. Creatinine Clearance 0 mL/min (70-130); Calcium 8.9 mg/dL (7.8-10.44); Carbon Dioxide 25 mmol/L (23-31); Chloride 103 mmol/L (98-107); Estimated GFR-MDRD 62; Globulin 3.6 g/dL (2.4-3.5); Glucose 161 mg/dL (80-115); Potassium 3.1 mmol/L (3.5-5.1); Protein, Total 7.2 g/dL (5.8-8.1); Sodium 138 mmol/L (136-145)
[2018-12-26] MEDS ORDERED: Ondansetron PF 4 MG/2 ML Vial ONE (18:22)
--- NOTE | 2018-12-26 18:45 | CT ---
CT BRAIN NONCONTRAST: DATE: 12/26/2018 HISTORY: 68-year-old male with nausea FINDINGS: There is a horizontally oriented approximately 1.8 x 0.8 cm focal hypodense lesion in the right cereb ellar hemisphere laterally. There is no evidence of acute intra-axial or extra-axial hemorrhage. There is no midline shift or any other mass effect. There is no extra-axial fluid collection. There i s no evidence of obstructive hydrocephalus. Calvarium is intact. IMPRESSION: 1. Small infarction, probably old, in the right cerebellar hemisphere. 2. Otherwise no acute intracranial findings.
[2018-12-26] MEDS ORDERED: Potassium Chloride 20 MEQ TAB ONE (19:53)
[2018-12-26 21:09] LABS: Troponin I Less than 0.010 ng/mL (< 0.028)
[2018-12-26] MEDS ORDERED: Ondansetron ODT 4 MG TAB PO PRN (21:54)
[2018-12-26] MEDS ORDERED: Ondansetron PF 4 MG/2 ML Vial IVP PRN (21:54)
[2018-12-26] MEDS ORDERED: Acetaminophen 650 MG Suppository PR PRN (21:54)
[2018-12-27 00:07] LABS: Troponin I Less than 0.010 ng/mL (< 0.028)
[2018-12-27 05:06] VITALS: BMI 52.3
[2018-12-27 05:23] LABS: #Lymphocytes 0.8 thou/uL (1.20-3.40); #Monocytes 0.2 thou/uL (0.11-0.59); %Basophils 0.1 % (0.0-1.0); %Eosinophils 0.3 % (0.0-10.0); %Lymphocytes 7.5 % (21.0-51.0); %Monocytes 1.8 % (0.0-10.0); %Neutrophils 90.3 % (42.0-75.0); Hemoglobin 12.5 g/dL (14.0-18.0); Mean Corpuscular HGB CONC 32.6 g/dL (32.0-36.0); Mean Corpuscular Hemoglobin 28.5 pg (27.0-31.0); Mean Corpuscular Volume 87.4 fL (78.0-98.0); Mean Platelet Volume 7.9 fL (7.4-10.4); Platelet Count 228 thou/uL (130-400); RBC Distribution Width 13.1 % (11.5-14.5); Red Blood Cell (RBC) Count 4.38 mill/uL (4.70-6.10)
[2018-12-27 05:49] LABS: Anion Gap 12 mmol/L (10-20); BUN (Urea Nitrogen) 25 mg/dL (8.4-25.7); Calc. Creatinine Clearance 146 mL/min (70-130); Calcium 9.4 mg/dL (7.8-10.44); Carbon Dioxide 22 mmol/L (23-31); Cardiac Risk 3.7 (Less than 4.5); Chloride 105 mmol/L (98-107); Cholesterol 152 mg/dl (< 200 Desired); Estimated GFR-MDRD 60; Glucose 249 mg/dL (80-115); HDL Cholesterol 41 mg/dL (>60 Neg Risk); LDL Cholesterol, Calculated 89 mg/dL; Potassium 3.8 mmol/L (3.5-5.1); Sodium 135 mmol/L (136-145); Triglycerides 111 mg/dL (Less than 150)
[2018-12-27] MEDS ORDERED: Prevnar 13-Val Conj/PF 0.5 ML SYRINGE IM ONE (06:45)
--- NOTE | 2018-12-27 07:05 | HP ---
PRIMARY CARE DOCTOR: The patient goes to the [facility]. CODE STATUS: Full code. TIME OF EVALUATION: 2100 hours. CHIEF COMPLAINT: Left-sided pain in the shoulder, foot, and the knee. HISTORY OF PRESENT ILLNESS: A 68-year-old male patient with past medical history of COPD, hyperlipidemia, hypertension, came to the hospital after having left-sided shoulder pain, also including the left knee and the left foot. The symptoms started 3 days ago with no clear triggers, no alleviating factors. The symptoms were mild to moderate and improving. The CT scan showed stroke in the right cerebellar hemisphere; therefore, was concerned for possible TIA, the reason why the patient has been admitted to the hospital. REVIEW OF SYSTEMS: CONSTITUTIONAL: No fever, chills, or generalized weakness. RESPIRATORY: No cough, sputum production, or shortness of breath. CARDIOVASCULAR: No chest pain or palpitations. GASTROINTESTINAL: No nausea. No vomiting, diarrhea, or abdominal pain. MATERIALS BRANCH CHIEF: No dizziness, headache, or feeling lightheaded. The patient has left-sided weakness/pain. GENITOURINARY: No burning on urination. EXTREMITIES: No leg swelling. All other systems were reviewed and negative except for the findings mentioned above. PAST MEDICAL HISTORY: Includes hyperlipidemia, hypertension, and gout. PAST SURGICAL HISTORY: The patient had hernia repair in his stomach x3, CABG x4, aortic valve replacement, cardiac stent, and cyst removal in the right index finger. PSYCHIATRIC HISTORY: Anxiety. SOCIAL HISTORY: Lives at home with family. No alcohol. No drugs. FAMILY HISTORY: The patient has no family history. ALLERGIES: NO KNOWN DRUG ALLERGIES. FAMILY HISTORY: Reviewed. Noncontributory to the current presentation. REPORTED MEDICATIONS: 1. Indomethacin. 2. Furosemide. 3. Aspirin. 4. Hydrochlorothiazide. 5. Tamsulosin. 6. Lisinopril. 7. . 8. Naprosyn. PHYSICAL EXAMINATION: VITAL SIGNS: On presentation, blood pressure 120/65, heart rate 64, O2 saturation 96% on room air. GENERAL APPEARANCE: The patient is alert, oriented, in no acute distress. HEENT: Eyes, normal conjunctivae. Moist oral mucosa. Anicteric. No JVD. RESPIRATORY: Bilateral air entry. No rales. No wheezes. Symmetric expansion. CARDIOVASCULAR: Normal rate, regular rhythm. No murmurs. No gallops. No edema. ABDOMEN: Soft. Normal bowel sounds. The patient is obese. MUSCULOSKELETAL: Baseline range of motion and strength except for the left shoulder, left knee, and left foot, where the patient reports weakness. SKIN: Warm, intact. No pallor. No rash. No redness. Capillary refill seems to be intact. NEUROLOGIC: No evidence of any new focal weakness. Cranial nerves seems to be intact. PSYCH: The patient is in good mood. No anxiety. Optimal judgment. IMAGING: EKG was reviewed. The patient has sinus rhythm with some PVCs. QRS 104, QT corrected 438. Brain CT shows some infarction, probably old in the right cerebral hemisphere, otherwise no acute intracranial findings. The chest x-ray showed no acute pulmonary findings, prosthetic aortic valve. LABORATORY DATA: Reviewed. The patient has a white count of 11.5, hemoglobin 12.3, MCV 85.9, and platelet count 216. Chemistry, sodium 138, potassium 3.1, chloride 103, carbon dioxide 25, anion gap 13, BUN 31, creatinine 1.17, GFR 62, glucose 161, calcium 9.9, total bilirubin 0.7. LFTs were negative. Troponin was negative x2. ASSESSMENT AND PLAN: The patient will be placed in the hospital with the following medical problems: 1. Possible transient ischemic attack. The patient has left-sided tenderness with some old stroke in the CT, concerned for patient having left-sided numbness associated with the tenderness. Stroke protocol will be done. We will follow the results and recommendations . We will do echo, MRI, and carotid Doppler. 2. Hypokalemia, potassium 3.1. We will monitor and treat accordingly. 3. Hyperglycemia. No history of diabetes reported, reconcile home medications. We will monitor the blood sugar. We will treat accordingly. 4. History of chronic obstructive pulmonary disease exacerbation. This is chronic, seems to be stable, reconcile home medications. 5. Hyperlipidemia. Low-cholesterol diet is advised, reconcile home medications. 6. Uncontrolled hypertension on presentation with systolic blood pressure 154. We will allow permissive hypertension given neurological symptoms on presentation. 7. Deep venous thrombosis prophylaxis. Job ID: [id number]
[2018-12-27] MEDS ORDERED: Aspirin 325 mg Enteric Coated Tablet PO SCH (09:00)
[2018-12-27] MEDS: Acetaminophen 325 MG TAB PO PRN ×2 (09:15→19:27)
--- NOTE | 2018-12-27 13:43 | CON ---
DATE OF TELEMEDICINE CONSULTATION: 12/27/2018 CHIEF COMPLAINT: Pain in the left shoulder. HISTORY OF PRESENT ILLNESS: The patient is a 68-year-old man, who comes to the hospital following pain in the left shoulder. He could not raise his arms and pain went behind his ear, therefore, he came to the hospital. His knee also started to hurt. He could not bend his knee. He took 1200 mg of ibuprofen. His daughter called his primary care doctor, who told him to come to the hospital and during the ER visit, they thought he might have had a mild stroke. The patient does not report any weakness, numbness, incoordination, or vision problem. 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 He fell about 2 months ago when he was walking down the stairs. He reports pain in the shoulder is associated with movement. PREVIOUS MEDICAL HISTORY: Hypertension, hypercholesterolemia, gout, and arthritis. PAST SURGICAL HISTORY: Positive for coronary artery bypass graft in 2007. The patient also had a right knee surgery and abdominal surgeries for hernia repair and during this bypass graft for his heart, he also had aortic valve replacement. PSYCHIATRIC HISTORY: Positive for anxiety. SOCIAL HISTORY: He lives at home with his family. He does drink occasional alcohol. He used to smoke 25 years ago and does not smoke anymore. FAMILY HISTORY: Two brothers and five sisters. Diabetes and heart disease are common in his family. One sister of coronary artery disease and diabetes. One brother from heart disease and diabetes. One brother had a stroke. His mother at 75. She had a cardiac murmur and also had heart surgery. His father at 87. The patient does not know how he . He was short of breath and they could not figure out what the cause of was. REVIEW OF SYSTEMS: PULMONARY: Negative for shortness of breath or cough. CARDIAC: Negative for chest pain or palpitations. MUSCULOSKELETAL: Positive for left arm pain and arthritis. GENITOURINARY: Negative for any bladder issues. GASTROINTESTINAL: Negative for any vomiting, nausea, or diarrhea. NEUROLOGICAL: Negative for any acute stroke-like symptoms. DERMATOLOGIC: Negative for rash. LABORATORY WORKUP: White count 11, hemoglobin 12.5, hematocrit 38.2, platelet count 228. Sodium 135, potassium 3.8, chloride 105, bicarb 22, BUN 25, creatinine 1.2 , glucose 249. Cholesterol and lipid profile are within normal limits. His CT of the head showed small infarct possibly old in the right cerebellar hemisphere, otherwise no acute intracranial finding. I understand that he cannot have an MRI due to his mechanical valve. PHYSICAL EXAMINATION: VITAL SIGNS: Temperature 98.7, pulse 78, respiratory rate 18, blood pressure 150/67. GENERAL: Moderately obese individual, who is comfortable in bed. CHEST: Clear vesicular breathing. CARDIOVASCULAR: S1 and S2 heard. He has systolic murmur and mild click. NEUROLOGICAL: Higher intellectual functions. Normal orientation to time, place , and person. Appropriate conversation. Cranial nerves, normal extraocular movements. Pupils are 2 mm bilaterally. Tongue midline. No atrophy noted. Normal facial sensation bilaterally. No facial asymmetry. Normal hearing to finger rub bilaterally. Motor, bulk normal, tone normal. Strength 5/5 throughout in upper and lower extremities bilaterally. Deep tendon reflexes are 1+ throughout and there was some shoulder pain on the left side. Coordination normal. Tqqqwy-ug-cbzd gzho-xa-onbl was difficult to perform, but normal coordination. Sensory, normal bilaterally. IMPRESSION: The patient is a 68-year-old man, who was having some left shoulder pain and his examination does not show any weakness or numbness or cerebellar dysfunction. I do not think he has an acute stroke at this time and his neurological examination currently is normal. He might have had a transient ischemic attack, has done earlier physician's examination which documented some left-sided numbness and I am not sure if we can get an MRI done per nursing staff. He is unable to have an MRI. RECOMMENDATIONS: 1. Obtain MRI if possible. 2. Aspirin for stroke prophylaxis along with statin. Please call me if you have any further questions. I will see him as needed. Job ID: [id number] [facility]
--- NOTE | 2018-12-27 18:15 | PRG ---
DATE OF SERVICE: 12/27/2018 SUBJECTIVE: Mr. Casillas is a morbidly obese 68-year-old gentleman with past medical history significant for coronary artery disease, status post bypass; aortic stenosis, status post valve repair; chronic left shoulder and left knee pain, who presented with worsening pain and limited range of motion of his left shoulder and knee pain. There was concern for TIA, and so the patient was admitted for stroke rule out. Neurology has been consulted, who has diagnosed old CVA, was continued aspirin and statin. The patient at this time denies any chest pain or shortness of breath. He states that his left shoulder pain is improved along with its range of motion. He denies any further numbness of his left arm or left leg. OBJECTIVE: VITAL SIGNS: Blood pressure 146/74, pulse 69, respirations 20, O2 saturation is 95% on room air, temperature is 97.5. GENERAL: The patient is a morbidly obese gentleman, resting comfortably in bed, in no acute distress. HEENT: Head is atraumatic and normocephalic. Mucous membranes are moist. NECK: Obese. Trachea appears midline. CV: S1 and S2. Regular rate and rhythm. No appreciable murmurs, rubs, or gallops. LUNGS: Regular respiratory rate and pattern. Clear to auscultation bilaterally. ABDOMEN: Morbidly obese. Positive bowel sounds. The patient does have what appears to be a substernal herniation, which is nonreducible. EXTREMITIES: Trace edema. SKIN: Warm and dry. NEUROLOGIC: Cranial nerves 2 through 12 are intact. The patient has no focal weaknesses upon my exam. LABORATORY DATA: White blood cell count 11, RBC is 4.32, hemoglobin 12.5, platelets are 228. Sodium 135, potassium 3.8, BUN is 25, creatinine 1.2. Troponin is negative x2. Triglycerides 111, cholesterol 152, LDL 89, HDL 41. ASSESSMENT: 1. Left shoulder pain/tenderness along with limited range of motion, consistent with possible supraspinatus impingement versus bursitis. Also, chronic left knee pain. 2. Left-sided numbness associated with above originally concerning for transient ischemic attack, resolved. 3. Old cerebrovascular accident, nothing acute per Neurology. 4. Morbid obesity. 5. History of coronary artery bypass graft and aortic valve replacement. PLAN: At this time, the patient's carotid Dopplers are still pending and we will await results. We are awaiting physical therapy recommendations as well. He will continue aspirin and statin. The patient is unable to have MRI unfortunately due to his size. He may be able to have this at an outlying facility in the future as an outpatient. Hopeful to discharge tomorrow once workup is complete. Job ID: [id number]
--- NOTE | 2018-12-27 18:21 | ULT ---
Exam: Carotid ultrasound with Doppler HISTORY: Transient ischemic attack COMPARISON: None TECHNIQUE: Grayscale, color flow, Doppler imaging and spectral waveform analysis performed the paroti d and vertebral arteries FINDINGS: Right carotid: Minimal atherosclerotic disease of the bifurcation and proximal internal carotid arter y. Peak systolic velocity of the common carotid artery is 122.5 cm/s. Peak systolic velocity of the internal carotid artery is 113.0 cm/s. Systolic ICA to CCA ratio is 0.92. The left carotid: Calcified plaque with shadowing in the left carotid bifurcation. Peak systolic [place] in the common carotid arteries 81.2 cm/s. Peak systolic velocity internal carotid is 125.8 cm/s. Systolic ICA to CCA ratio is 1.6. Right vertebral is not appreciated. Antegrade flow in the left vertebral artery IMPRESSION: 1. Examination was technically difficult due to patient movement and body habitus. There is flow in t he left vertebral artery. Right vertebral artery cannot be appreciated. 2. Calcified plaque with possible moderate (50-69%) stenosis involving the proximal left internal car otid artery. Better interrogation with CT angiogram of the neck Transcribed Date/Time: 12/27/2018 6:25 PM
[2018-12-27] MEDS: Furosemide 80 MG TAB PO SCH (22:35)
[2018-12-27] MEDS: Atorvastatin Calcium 40 MG TAB PO SCH (22:35)
[2018-12-27] MEDS: Colchicine 0.3 MG TAB PO SCH (22:36)
[2018-12-27] MEDS: Metoprolol Tartrate 50 MG TAB PO SCH (22:36)
[2018-12-28] MEDS ORDERED: traMADol HCl 50 MG TAB PO SCH ×2 (04:45→12:30)
[2018-12-28] MEDS: Acetaminophen 325 MG TAB PO PRN (09:14)
[2018-12-28] MEDS: Cyanocobalamin (Vitamin B-12) 1,000 MCG TAB PO SCH (09:15)
[2018-12-28] MEDS: Furosemide 80 MG TAB PO SCH ×2 (09:15→23:12)
[2018-12-28] MEDS: Metoprolol Tartrate 50 MG TAB PO SCH ×2 (09:15→23:11)
[2018-12-28] MEDS: Lisinopril 20 MG TAB PO SCH (09:15)
[2018-12-28] MEDS: Aspirin 81 mg Enteric Coated Tablet PO SCH (09:16)
[2018-12-28] MEDS: Potassium Chloride 20 MEQ TAB PO SCH (09:16)
[2018-12-28] MEDS: Tamsulosin HCl 0.4 MG CAP PO SCH (09:16)
[2018-12-28] MEDS: Colchicine 0.3 MG TAB PO SCH (09:16)
[2018-12-28] MEDS: Hydrochlorothiazide 25 MG TAB PO SCH (09:16)
[2018-12-28] MEDS: Ferrous Gluconate 324 MG TAB PO SCH (09:16)
[2018-12-28] MEDS: Allopurinol 300 MG TAB PO SCH (09:18)
--- NOTE | 2018-12-28 12:31 | CT ---
CTA ANGIO HEAD WITH AND WITHOUT CONTRAST: CT BRAIN WITHOUT CONTRAST: HISTORY: Cerebrovascular accident. COMPARISON: CT brain 2 days prior. FINDINGS: Precontrast brain CT as well as postcontrast CT angiogram of the head was performed after the intrave nous ministration of contrast. 3-D rendering provided. Noncontrast portion of the examination, no acute hemorrhage or infarct. No midline shift. No mass eff ect. Ventricular size and extra-axial CSF spaces are normal. Old right cerebellar infarction, similar. Paranasal sinuses and mastoids are clear. There is high-grade narrowing of the right vertebral artery as it crosses the dura. There is also hig h-grade narrowing of the right vertebral artery at the level of C1 transverse foramen. Basilar artery is patent. Posterior cerebral arteries are patent. Both carotid terminus are patent. Anterior cerebral arteries are patent. Middle cerebral arteries are patent. Globes are intact. No retrobulbar hematoma. Mastoids are clear. Mild degenerative changes of both tem poromandibular joints. IMPRESSION: 1. Intact [place] with possible stenosis, thrombosis, nor aneurysm formation. 2. Multifocal high-grade 75-80% narrowing of the right V3 and V4 segments vertebral artery. Transcribed Date/Time: 12/28/2018 12:40 PM
[2018-12-28] MEDS ORDERED: ISOVUE-370 76%-LOCM 1 ML ONE (12:37)
--- NOTE | 2018-12-28 12:39 | CT ---
CTA ANGIO NECK WITH AND WITHOUT CONTRAST: HISTORY: Old right cerebellar cerebrovascular accident. COMPARISON: Ultrasound prior day. FINDINGS: CT angiogram of the neck was performed after the intravenous administration of contrast. 3-D renderin g provided. Multifocal occlusions right vertebral artery of the V1 and V2 segments. Left vertebral artery appears be patent although limited due to photon starvation from patient size. Common carotid arteries are patent. Per NASCET criteria, approximately 60-70% stenosis proximal right internal carotid artery for a length at 3 mm. Per NASCET criteria there is a high-grade 70-80% stenosis left internal carotid artery at the carotid bulb for a length of 2 mm. IMPRESSION:: 1. Multifocal occlusions right vertebral artery. 2. Per NASCET criteria 60-70% stenosis right internal carotid artery for a length of 3 mm at the childress tid bulb. 3. Per NASCET criteria 70-80% stenosis left internal carotid artery for a length of 2 mm at the carot id bulb. Transcribed Date/Time: 12/28/2018 12:47 PM
[2018-12-28] MEDS ORDERED: Clopidogrel Bisulfate 300 MG TAB PO SCH (15:30)
[2018-12-28] MEDS ORDERED: HumaLOG 300 UNITS/3 ML VIAL SC PRN ×2 (18:04)
[2018-12-28] MEDS ORDERED: Dextrose 5% in Water 1,000 ML IV PRN (18:04)
[2018-12-28] MEDS ORDERED: Dextrose 50% Abboject 50 ML SYRINGE SLOW IVP PRN (18:04)
[2018-12-28] MEDS: Ibuprofen 600 MG TAB PO PRN (18:25)
--- NOTE | 2018-12-28 18:26 | PRG ---
DATE OF SERVICE: 12/28/2018 SUBJECTIVE: Mr. Casillas is a morbidly obese 68-year-old gentleman with past medical history significant for coronary artery disease, type 2 diabetes mellitus, and hypertension, who presented to the hospital with complaints of left upper and lower extremity paresthesia. The patient was admitted for stroke rule out secondary to the above complaints. MRI was unable to be performed due to the patient's size. CT did show old right cerebellar infarct. The patient continues to complain of left shoulder pain along with chronic left knee pain. He was evaluated by Physical Therapy today. He has no cardiac complaints. He has no chest pain or shortness of breath. He denies any dizziness. No nausea or vomiting. OBJECTIVE: VITAL SIGNS: Blood pressure 104/57, pulse is 53, O2 saturation is 93% on room air, temperature is 97.9. GENERAL: The patient is morbidly obese gentleman, he is resting comfortably in bed. No acute distress. HEENT: Head is atraumatic and normocephalic. Mucous membranes are moist. NECK: Obese. Trachea appears midline. CV: S1 and S2. Regular rhythm, mildly bradycardic, no appreciable murmurs, rubs, or gallops. LUNGS: Regular respiratory rate and pattern, overall clear to auscultation bilaterally. ABDOMEN: Morbidly obese, positive bowel sounds. Positive hernia. Upper epigastric region. EXTREMITIES: Trace edema. SKIN: Warm and dry. NEUROLOGIC: Cranial nerves 2 through 12 are intact. Overall grossly nonfocal. LABORATORY DATA: White blood cell count 11, hemoglobin 12.5, hematocrit 38.2, platelets are 228. Sodium 135, potassium 3.8, chloride 105, CO2 of 22, anion gap 12, BUN 25, creatinine 1.2, glucose is 249, triglycerides 111, cholesterol 152, LDL 89, HDL 41. ASSESSMENT: 1. Left upper and lower extremity paresthesia at presentation, resolved, questionable for transient ischemic attack. 2. 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 3. Newly diagnosed carotid artery stenosis with 70% stenosis bilaterally of internal carotid arteries, and high-grade stenosis of right vertebral artery along with high-grade focal occlusion of some branching arteries. 4. Chronic left shoulder and left knee pain. 5. Morbid obesity. 6. Coronary artery disease, status post coronary artery bypass grafting. 7. Status post aortic valve replacement. 8. Type 2 diabetes mellitus. PLAN: I have discussed the case with Dr. Cardenas of Neurology. At this point, given the patient's CTA findings of the head and neck, she does recommend dual anti-platelet therapy with Plavix and aspirin. We will also go ahead and continue the patient's statin. Dr. Cardenas is also recommending CV surgery consult given the new diagnoses of carotid artery stenosis. The lesions are borderline and that will likely need intervention in the future at some point. We will cover the patient with sliding scale insulin at this time. He continues to complain of left knee pain and will get an x-ray to rule out any gross abnormalities. We will continue PT. The patient has numerous comorbidities and is high risk for complication. This case was discussed with Dr. Cardenas and with Dr. Jim who agrees with the above. Job ID: [id number]
[2018-12-28] MEDS ORDERED: Clopidogrel Bisulfate 75 MG TAB PO SCH (18:30)
--- NOTE | 2018-12-28 18:31 | RAD ---
Exam:4 views left knee HISTORY: Acute on chronic pain. COMPARISON: None FINDINGS: Moderate medial compartment and patellofemoral compartment degenerative change. No joint ef fusion. No fracture or malalignment. IMPRESSION: Moderate bicompartmental degenerative change.
[2018-12-28] MEDS: Atorvastatin Calcium 40 MG TAB PO SCH (23:12)
[2018-12-28] MEDS: traMADol HCl 50 MG TAB PO PRN (23:13)
[2018-12-28] MEDS: Colchicine 0.6 MG TAB PO SCH (23:13)
[2018-12-28] MEDS: Enoxaparin Sodium 40 MG/0.4 ML SYRINGE SC SCH (23:14)
--- NOTE | 2018-12-29 00:17 | CON ---
DATE OF CONSULTATION: HISTORY OF PRESENT ILLNESS: Mr. Casillas is a 68-year-old gentleman, who presented to the hospital with left knee pain. He is morbidly obese. It is not surprising to me that he has left knee pain. He also had left shoulder impingement type symptoms. He had no loss of function of either upper or lower extremity. He had no speech difficulties. He had no visual changes or facial droop. As part of his workup, he underwent a carotid Doppler study, which due to his size was technically difficult. The right vertebral artery appeared to be occluded. The left vertebral artery was normal. He had calcified plaque involving the proximal left internal carotid artery. This was followed with a CT angiogram which shows plaque, but no significant stenosis in either carotid system. His right vertebral artery is occluded. CT scan of the brain at the time of initial admission did show a cerebellar infarct. Currently, he is resting comfortably in bed without any complaints. PAST MEDICAL HISTORY: 1. Morbid obesity. 2. Old cerebellar infarct. 3. Hyperlipidemia. 4. Hypertension. 5. Gout. 6. Coronary artery disease, status post coronary artery bypass grafting in 2007 in [place]. PAST SURGICAL HISTORY: 1. Hernia repair x3. 2. Coronary artery bypass grafting with aortic valve replacement. 3. Coronary stenting. 4. Right ganglion cyst removal from his index finger. SOCIAL HISTORY: He does not use alcohol, drugs, or tobacco. He lives with his family. MEDICATIONS: Noted and include a statin and aspirin. ALLERGIES: NONE. REVIEW OF SYSTEMS: A 10-point review of systems is performed and was negative except as above. PHYSICAL EXAMINATION: GENERAL: This is a morbidly obese gentleman, resting comfortably in bed. VITAL SIGNS: Height is 6 feet, weight is 385 pounds. BSA is 2.98. Temperature is 97.9, heart rate is 53 and regular, blood pressure is 104/57. HEENT: Sclerae nonicteric. Pupils are equal and round bilaterally. NECK: Very large. I cannot auscultate a bruit, but I am not sure I could auscultate one even if he did have one. CHEST: Clear bilaterally. HEART: Rhythm is regular. ABDOMEN: Obese and soft. EXTREMITIES: No edema. VASCULAR: He has palpable radial pulses. I cannot palpate pulses anywhere else. RADIOLOGIC DATA: I reviewed all the above films personally. ASSESSMENT AND PLAN: Mr. Casillas is a morbidly obese 68-year-old gentleman, who has had an old cerebellar infarct, which does not impact his current presenting symptom of left knee and shoulder pain. He does not have significant carotid disease and is asymptomatic currently from a carotid standpoint. I would continue his aspirin and statin. Job ID: [id number]
[2018-12-29] MEDS: Cyanocobalamin (Vitamin B-12) 1,000 MCG TAB PO SCH (08:53)
[2018-12-29] MEDS: Allopurinol 300 MG TAB PO SCH (08:53)
[2018-12-29] MEDS: Colchicine 0.6 MG TAB PO SCH ×2 (08:53→22:36)
[2018-12-29] MEDS: Potassium Chloride 20 MEQ TAB PO SCH (08:53)
[2018-12-29] MEDS: Aspirin 81 mg Enteric Coated Tablet PO SCH (08:53)
[2018-12-29] MEDS: Clopidogrel Bisulfate 75 MG TAB PO SCH (08:53)
[2018-12-29] MEDS: Metoprolol Tartrate 50 MG TAB PO SCH ×2 (08:54→22:36)
[2018-12-29] MEDS: traMADol HCl 50 MG TAB PO PRN ×3 (08:54→22:36)
[2018-12-29] MEDS: Furosemide 80 MG TAB PO SCH ×2 (08:54→22:38)
[2018-12-29] MEDS: Hydrochlorothiazide 25 MG TAB PO SCH (08:54)
[2018-12-29] MEDS: Ferrous Gluconate 324 MG TAB PO SCH (08:54)
[2018-12-29] MEDS: Tamsulosin HCl 0.4 MG CAP PO SCH (08:54)
[2018-12-29] MEDS: Lisinopril 20 MG TAB PO SCH (08:54)
[2018-12-29] MEDS: Ibuprofen 600 MG TAB PO PRN (10:58)
[2018-12-29] MEDS ORDERED: Senokot S 8.6-50 MG TAB PO SCH (13:15)
[2018-12-29] MEDS ORDERED: Polyethylene Glycol 3350 17 GM Packet PO SCH (13:15)
--- NOTE | 2018-12-29 15:53 | RAD ---
THREE VIEWS LEFT SHOULDER: Comparison: None. History: Left shoulder pain. FINDINGS: Three views of the left shoulder shows no evidence of acute fracture or dislocation. No degenerative changes are seen. No soft tissue swelling is seen. IMPRESSION: No evidence of acute osseous abnormality. POS: C
--- NOTE | 2018-12-29 16:05 | PRG ---
DATE OF SERVICE: 12/29/2018 SUBJECTIVE: A 68-year-old male with morbid obesity, hypertension, hyperlipidemia, and gout, presented to the hospital with left knee pain as well as left shoulder pain. The family was concerned that the patient may have mild stroke. The pain in the shoulder is associated with movement. He was admitted to the Stroke Unit with the above diagnoses. CT scan of the brain showed probable old small infarction in the right cerebellar hemisphere. He was evaluated by Neurology, Dr. Cardenas, who recommended MRI of the brain. Due to body habitus, MRI could not be done. He underwent a CT angiogram of the head and neck that showed multifocal high-grade 75% to 80% narrowing of the right V3 and V4 segment vertebral artery as well as 60% to 70% stenosis in the right ICA and 70% to 80% stenosis in the left ICA. He was evaluated by cardiovascular, who recommended continuing aspirin along with statins. Telemetry monitoring by my review showed sinus rhythm. PHYSICAL EXAMINATION: VITAL SIGNS: Temperature 98.4, pulse 61, blood pressure of 106/55, respiration of 18, and O2 saturation 95% on room air. GENERAL: A 68-year-old male, in no apparent distress. Continues to have significant pain in the left knee. He is unable to ambulate due to this reason. LUNGS: Clear to auscultation bilaterally. No wheezing, rales, or rhonchi. HEART: S1 and S2 present. Regular rate and rhythm. ABDOMEN: Soft, obese. Bowel sounds present. EXTREMITIES: No edema or calf tenderness. NEUROLOGIC: No new focal findings. Cranial nerves 2 through 12 are normal on examination. SKIN: Warm and dry. PSYCHIATRY: Normal affect. The patient is alert, awake, and oriented x3. LABORATORY FINDINGS: Fasting lipid cholesterol 152, LDL 89, triglyceride 111, HDL of 41. Troponin negative. Potassium was 3.1 initially that has improved to 3.8. Left knee x-ray showed moderate bicompartmental degenerative disease. CT scan of the brain and CT angiogram of the head and neck by my review as discussed above. IMPRESSION: 1. Suspected small-vessel cerebrovascular accident versus transient ischemic attack. 2. Moderate obesity with a BMI 52.3. 3. Hypokalemia, replaced. 4. Bilateral internal carotid stenosis. 5. 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 6. Acute on chronic left shoulder and left knee pain. 7. Coronary artery disease, status post coronary artery bypass grafting. 8. History of aortic valve replacement. 9. Diabetes mellitus type 2, diet controlled. His hemoglobin A1c last year was 6.4. PLAN: The patient will undergo a left shoulder x-ray. We will consult Orthopedic Team. We will consult inpatient rehabilitation for evaluation due to significant left knee pain. He has been started on Plavix. I called Dr. Cardenas, who recommended to continue aspirin 81 mg with 75 mg Plavix until he is seen by Neurology, Dr. Davila. We will continue all other home medications including metoprolol, lisinopril, hydrochlorothiazide, and Lasix. We will recheck potassium in a.m. We will continue other medications including statins. Plan was discussed with the patient in detail. He stated understanding. DISPOSITION: Based on Orthopedic input. The patient can probably be discharged to inpatient rehabilitation if accepted. Job ID: [id number]
[2018-12-29] MEDS ORDERED: Ondansetron PF 4 MG/2 ML Vial IVP PRN (18:24)
[2018-12-29] MEDS ORDERED: Ondansetron ODT 4 MG TAB PO PRN (18:24)
[2018-12-29 20:00] LABS: Bilirubin Negative (Negative); Blood, Urine Negative (Negative); Glucose, Urine (Dipstick) Negative (Negative); Leukocyte Negative (Negative); Nitrite Negative (Negative); Protein, Urine (Dipstick) Negative (Neg-Trace); Urobilinogen 0.2 mg/dL (Less than 2)
[2018-12-29 20:02] LABS: Clarity Clear (Clear)
[2018-12-29 20:03] LABS: Bacteria/HPF None Seen HPF (None Seen); RBC/HPF 0-3 HPF (0-3); Squamous Epithelial None Seen HPF (0-3); WBC/HPF 0-3 HPF (0-3)
--- NOTE | 2018-12-29 22:25 | CON ---
DATE OF CONSULTATION: This is Barrett Ramirez PA-C dictating a report for Martin Rivers MD. HISTORY OF PRESENT ILLNESS: We were asked by the hospitalist to see patient. The patient is in the stroke unit, room 219 for a possible TIA. He has had some ongoing chronic left shoulder, left knee pain that we have been asked to see patient for. He is also apparently has some extensive health issues and history of old stroke. The patient had a shoulder x-ray a few years ago and it showed some significant degenerative changes to the acromial hook of articular joint. His knee was x-rayed while he was here and does show some collapse in the medial compartment and some arthritic changes. These have worsened a little bit since he has been unfortunately lying around in the hospital, but are not miserable. He is moving all his extremities. He is able to point to his left AC joint as where most of his pain is and also the surrounding tissues in the shoulder. He has a small nodule at the lateral knee that is mildly tender to palpation. Both areas show no signs of erythema though and for us today, he was able to move the left upper and lower extremities fairly well. His past medical history, surgical history, social history, family history, medications, allergies can all be gleaned from his very recent consults and history and physical. PHYSICAL EXAMINATION: GENERAL: Very pleasant, obese male, resting in the hospital bed in room 219, in no acute distress. Speech is clear. Affect pleasant. Answers questions appropriately. He is oriented x3. HEENT: Face is symmetric. Tongue is midline. NECK: Supple. Trachea is midline. EXTREMITIES: Upper extremities, he has significant tenderness to palpation over the left acromioclavicular joint. He can move the shoulder fairly well, but anything with abduction causes him some pain. His paper tester strength is equal. Lower extremities, equal size, shape, symmetry, normal bulk and tone with the exception of the left knee, a little bit of swelling, but no effusion appreciated. He does have a firm nodule, lateral aspect of the knee, could be a lipoma or some thickened bursa. DP and PT pulses are equal. X-RAYS: Again, x-ray of the shoulder 2 years ago shows significant acromioclavicular joint degeneration. The patient has a new film ordered of the shoulder. I told him we will discuss that tomorrow. As for the knee, again he has some medial compartment narrowing and some bony arthritic changes. ASSESSMENT: Chronic left shoulder, left knee pain. PLAN: I will talk to the patient tomorrow morning about new shoulder films and go over those with him. As for his chronic issues, we will get him to see one of our OA doctors on an outpatient basis, on a p.r.n. basis and will put all that information in the chart so we can follow up appropriately. Again, if the patient now wants his x-rays done, I would go over the films with him and discuss findings. He is happy with plan. Job ID: [id number]
[2018-12-29] MEDS: Senokot S 8.6-50 MG TAB PO SCH (22:36)
[2018-12-29] MEDS: Enoxaparin Sodium 40 MG/0.4 ML SYRINGE SC SCH (22:38)
[2018-12-29] MEDS: Atorvastatin Calcium 40 MG TAB PO SCH (22:39)
[2018-12-30 06:03] LABS: Anion Gap 12 mmol/L (10-20); BUN (Urea Nitrogen) 29 mg/dL (8.4-25.7); Calc. Creatinine Clearance 140 mL/min (70-130); Calcium 8.7 mg/dL (7.8-10.44); Carbon Dioxide 28 mmol/L (23-31); Chloride 98 mmol/L (98-107); Estimated GFR-MDRD 57; Glucose 112 mg/dL (80-115); Magnesium 1.7 mg/dL (1.6-2.6); Potassium 3.9 mmol/L (3.5-5.1); Sodium 134 mmol/L (136-145)
[2018-12-30] MEDS: Cyanocobalamin (Vitamin B-12) 1,000 MCG TAB PO SCH (08:45)
[2018-12-30] MEDS: Tamsulosin HCl 0.4 MG CAP PO SCH (08:47)
[2018-12-30] MEDS: Ferrous Gluconate 324 MG TAB PO SCH (08:47)
[2018-12-30] MEDS: traMADol HCl 50 MG TAB PO PRN ×2 (08:47→18:01)
[2018-12-30] MEDS: Senokot S 8.6-50 MG TAB PO SCH ×2 (08:47→21:50)
[2018-12-30] MEDS: Allopurinol 300 MG TAB PO SCH (08:50)
[2018-12-30] MEDS: Clopidogrel Bisulfate 75 MG TAB PO SCH (08:50)
[2018-12-30] MEDS: Aspirin 81 mg Enteric Coated Tablet PO SCH (08:50)
[2018-12-30] MEDS: Potassium Chloride 20 MEQ TAB PO SCH (08:50)
[2018-12-30] MEDS: Colchicine 0.6 MG TAB PO SCH ×2 (08:50→21:50)
[2018-12-30] MEDS: Polyethylene Glycol 3350 17 GM Packet PO SCH (08:51)
[2018-12-30] MEDS: Lisinopril 20 MG TAB PO SCH (11:55)
[2018-12-30] MEDS: Metoprolol Tartrate 50 MG TAB PO SCH ×2 (11:56→21:50)
[2018-12-30] MEDS: Hydrochlorothiazide 25 MG TAB PO SCH (11:56)
[2018-12-30] MEDS: Furosemide 80 MG TAB PO SCH ×2 (11:56→21:50)
[2018-12-30] MEDS ORDERED: Atorvastatin Calcium 10 MG TAB PO SCH (21:00)
[2018-12-30] MEDS: Ibuprofen 600 MG TAB PO PRN (21:50)
--- NOTE | 2018-12-30 21:54 | PRG ---
DATE OF SERVICE: 12/30/2018 SUBJECTIVE: A 68-year-old male with morbid obesity, hypertension, hyperlipidemia and gout, presented to the hospital with left knee as well as shoulder pain. The family was concerned that patient may have a mild stroke. CT scan showed probable old small infarction in the right cerebellar hemisphere. He was evaluated by Neurology, Dr. Cardenas, who recommended MRI. However, due to body habitus, MRI could not be done. CT angiogram of the head and neck showed multifocal high-grade stenosis of the vertebral artery, as well as bilateral internal carotid artery. Plavix has been added to aspirin. The patient continues to have significant pain in the left knee that gets worse with ambulation. He denies any new focal deficit. No chest pain, shortness of breath or palpitations. REVIEW OF SYSTEMS: He has mild nausea; however, denies any vomiting. He denies any constipation. No fever or chills. PHYSICAL EXAMINATION: VITAL SIGNS: Temperature 98.6, pulse 64, respirations 18, blood pressure 122/60, O2 saturation 92% on room air. GENERAL: A 68-year-old male, in no apparent distress. LUNGS: Clear to auscultation bilaterally. HEART: S1, S2 present. Regular rate and rhythm. ABDOMEN: Soft, nontender. Bowel sounds present. EXTREMITIES: No edema or calf tenderness. NEUROLOGIC: No new focal findings. MUSCULOSKELETAL: Unchanged. LABORATORY FINDINGS: Sodium 134, potassium 3.9, BUN 29, creatinine 1.25. IMAGING: Shoulder x-ray showed degenerative changes. IMPRESSION: 1. Suspected small vessel CVA versus transient ischemic attack, on aspirin and Plavix. 2. Significant left shoulder and left knee pain. The patient has been evaluated by Orthopedic Service. 3. Morbid obesity with a BMI of 52.3. 4. Bilateral internal carotid artery stenosis. 5. 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 6. Hypokalemia, corrected. 7. Coronary artery disease, status post coronary artery bypass grafting. 8. Diabetes mellitus type 2, diet controlled. 9. History of aortic valve replacement. PLAN: The patient is stable for discharge to inpatient rehab, however, there are no beds available today. We will continue current medications including aspirin, Plavix and statins. The patient will be discharged to inpatient rehabilitation when bed available. Plan was discussed with the patient in detail, he stated understanding. Job ID: [id number]
[2018-12-31] MEDS: Aspirin 81 mg Enteric Coated Tablet PO SCH (08:07)
[2018-12-31] MEDS: Cyanocobalamin (Vitamin B-12) 1,000 MCG TAB PO SCH (08:07)
[2018-12-31] MEDS: Colchicine 0.6 MG TAB PO SCH (08:09)
[2018-12-31] MEDS: Allopurinol 300 MG TAB PO SCH (08:10)
[2018-12-31] MEDS: Tamsulosin HCl 0.4 MG CAP PO SCH (08:10)
[2018-12-31] MEDS: Clopidogrel Bisulfate 75 MG TAB PO SCH (08:11)
[2018-12-31] MEDS: Metoprolol Tartrate 50 MG TAB PO SCH (08:11)
[2018-12-31] MEDS: Furosemide 80 MG TAB PO SCH (08:11)
[2018-12-31] MEDS: Lisinopril 20 MG TAB PO SCH (08:11)
[2018-12-31] MEDS: Ferrous Gluconate 324 MG TAB PO SCH (08:12)
[2018-12-31] MEDS: Potassium Chloride 20 MEQ TAB PO SCH (08:12)
[2018-12-31] MEDS: Hydrochlorothiazide 25 MG TAB PO SCH (08:12)
[2018-12-31] MEDS: Polyethylene Glycol 3350 17 GM Packet PO SCH (08:15)
[2018-12-31] MEDS: Senokot S 8.6-50 MG TAB PO SCH (08:15)
--- NOTE | 2018-12-31 11:23 | DIS ---
DATE OF ADMISSION: 12/28/2018 DATE OF DISCHARGE: 12/31/2018 DISCHARGE DISPOSITION: Inpatient rehabilitation. The patient was seen and examined on the day of discharge. Denies any new complaints. No new focal deficit. No chest pain or shortness of breath reported. DISCHARGE MEDICATIONS: 1. Aspirin 81 mg daily. 2. Plavix 75 mg daily. 3. Albuterol inhaler as needed. 4. Tylenol as needed. 5. MiraLAX as needed. 6. Low-dose tramadol as needed. 7. Lisinopril 40 mg daily. 8. Hydrochlorothiazide 25 mg daily. 9. Lasix 40 mg b.i.d. 10. Ferrous gluconate 324 mg daily. 11. Vitamin B12 daily. 12. Colchicine 0.6 mg b.i.d. 13. Lipitor 40 mg at bedtime. 14. Allopurinol 300 mg daily. INPATIENT CONSULTS: 1. Cardiovascular, Dr. Pk Castro. 2. Neurology, Dr. Cardenas. 3. Orthopedic, RENETTA Gaytan. BRIEF HOSPITAL COURSE: The patient is a 68-year-old male with morbid obesity with a BMI of 52.3, coronary artery disease status post CABG, hypertension, hyperlipidemia, and CVA in the past, presented to the emergency room with left-sided pain, mainly in the shoulder and the knee. Please refer to the history and physical for further details. The patient was admitted to the Stroke Unit with a diagnosis of possible transient ischemic attack. His CT scan of the brain in the emergency room showed a small infarction in the right cerebellar hemisphere. He was evaluated by Neurology, Dr. Cardenas. MRI was not done due to body habitus. Plavix was added by Neurology, Dr. Cardenas due to multifocal stenosis in the right vertebral artery as well as bilateral internal carotid artery stenosis. He was seen by Dr. Pk Castro, who recommended no surgical intervention at this time. Due to significant and persistent left shoulder and knee pain, he was evaluated by Orthopedic. He was advised to follow up with Orthopaedic as outpatient for possible steroid injection versus surgical intervention. He was evaluated by inpatient rehab and has been accepted. He will be discharged today. He was advised to follow up with his primary care physician at [facility], [place], operated by [facility]. He will follow up with Neurology, Dr. Davila; Cardiovascular, Dr. Castro; as well as Orthopedic, Dr. Rodriguez. He appears stable for discharge. FINAL DIAGNOSES: 1. Suspected small-vessel cerebrovascular accident versus transient ischemic attack. The patient has been started on Plavix in addition to his home dose of aspirin 81 mg. 2. Significant left shoulder and left knee pain. An Orthopedic followup as outpatient is recommended. 3. Morbid obesity with a BMI of 52.3. 4. Bilateral internal carotid artery stenosis. 5. 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 6. Coronary artery disease status post coronary artery bypass grafting. 7. Diabetes mellitus, type 2. 8. History of aortic valve replacement. 9. Anxiety. 10. Gout. 11. Hypokalemia, replaced. 12. Benign prostatic hypertrophy. SIGNIFICANT LABS: Fasting lipid profile showed triglyceride 111, cholesterol 152, LDL of 89. Plan was discussed with the patient in detail. He stated understanding. Job ID: [id number]
[2018-12-31 11:27] VITALS: TEMP 98.4
[2018-12-31 12:14] VITALS: BP 168/72
--- NOTE | 2019-01-03 12:10 | EKG ---
Test Reason : Blood Pressure : / mmHG Vent. Rate : 066 BPM Atrial Rate : 066 BPM P-R Int : 172 ms QRS Dur : 104 ms QT Int : 418 ms P-R-T Axes : 000 -06 038 degrees QTc Int : 438 ms Sinus rhythm with Premature supraventricular complexes Minimal voltage criteria for LVH, may be normal variant Borderline ECG Confirmed by KEMI GOMEZ ([id number]), assignment editor MARYSOL HUSSEIN ([id number]) on 01/03/2019 12:10:04 PM Referred By: PATRICIA Confirmed By:KEMI GOMEZ
== END 2018-12-31 14:01 | DRG 69 ==
LOC: ERS 16:31 → 2SE 20:41 → OBSVTOIN 20:41 → INTOOBSV 20:41 → 2SE 21:55 → OBSVTOIN 12-28 23:26
PROVIDERS: ADMIT Hospitalist; ATTEND Hospitalist
DX: G45.9 Transient cerebral ischemic attack, unspecified (principal); Z68.43 Body mass index [BMI] 50.0-59.9, adult; I65.23 Occlusion and stenosis of bilateral carotid arteries; J44.9 Chronic obstructive pulmonary disease, unspecified; I10 Essential (primary) hypertension; F41.9 Anxiety disorder, unspecified; E87.6 Hypokalemia; E78.00 Pure hypercholesterolemia, unspecified; M10.9 Gout, unspecified; M19.90 Unspecified osteoarthritis, unspecified site; I25.10 Atherosclerotic heart disease of native coronary artery without angina pectoris; E66.01 Morbid (severe) obesity due to excess calories; E11.65 Type 2 diabetes mellitus with hyperglycemia; M25.512 Pain in left shoulder; R29.700 NIHSS score 0; G89.29 Other chronic pain; M25.562 Pain in left knee; N40.0 Benign prostatic hyperplasia without lower urinary tract symptoms; Z79.899 Other long term (current) drug therapy; Z79.82 Long term (current) use of aspirin; Z95.1 Presence of aortocoronary bypass graft; Z95.2 Presence of prosthetic heart valve; Z86.73 Personal history of transient ischemic attack (TIA), and cerebral infarction without residual deficits
CPT/HCPCS: 36415; 36416; 70450; 70496; 70498; 71045; 80048; 80053; 80061; 81001; 83735; 84484; 85025; 93005; 93306; 93880; 96374; 96375; J1100; J1650; J2405; Q9966

== ENCOUNTER 2019-02-12 12:44 | Emergency (ER) | payer MEDICARE, OTHER ==
[2019-02-12] MEDS ORDERED: Ondansetron PF 4 MG/2 ML Vial ONE (13:27)
[2019-02-12 13:46] LABS: #Eosinphils 0.2 thou/uL (0.0-0.7); #Lymphocytes 1.6 thou/uL (1.20-3.40); #Monocytes 0.5 thou/uL (0.11-0.59); #Neutrophils 8.1 thou/uL (1.40-6.50); %Basophils 0.3 % (0.0-1.0); %Eosinophils 1.8 % (0.0-10.0); %Lymphocytes 15.4 % (21.0-51.0); %Monocytes 4.5 % (0.0-10.0); Mean Corpuscular HGB CONC 33.3 g/dL (32.0-36.0); Mean Corpuscular Hemoglobin 28.9 pg (27.0-31.0); Platelet Count 201 thou/uL (130-400); RBC Distribution Width 14.1 % (11.5-14.5); Red Blood Cell (RBC) Count 4.16 mill/uL (4.70-6.10); White Blood Cell (WBC) Count 10.3 thou/uL (4.8-10.8)
--- NOTE | 2019-02-12 13:59 | CT ---
Exam: Abdomen CT without contrast Pelvic CT without contrast HISTORY: Bilateral flank pain. COMPARISON: 02/08/2016 FINDINGS: Abdomen CT: Lung bases:Chronic changes. Heart size: Normal heart size. No significant pericardial fluid Aorta: Normal caliber aorta. No periaortic fat stranding. Solid organs: Limited evaluation due to the lack of IV contrast. Grossly no solid organ abnormality Lymph nodes: No gastrohepatic, retrocrural or periportal lymphadenopathy. Gallbladder: Unremarkable Mesentery: No mass, lymphadenopathy, free air or free fluid Kidneys: Bilaterally, no hydronephrosis, nephrolithiasis or perinephric fat stranding. Bilateral uret ers have a normal caliber. No hydroureter, periureteral fat stranding or ureterolithiasis. Exophytic isodense lesion emanating from the mid right renal cortex measuring 2.0 x 1.7 cm (previous the measuring 2.2 cm in maximum dimension). No appreciable change. Hypodensity in the left renal pelvis, measuring 1.8 cm with an attenuation coefficient of 18 Hounsfield units. A complex left parap elvic cyst is suspected. Incomplete evaluation Alimentary canal: Limited evaluation due to lack of oral contrast. No evidence of bowel obstruction. Ileocecal junction is normal. Normal caliber appendix. Scattered fecal material in a nondistended, nondilated colon. No evidence of small bowel or colon obstruction. There are 2 separate anterior abdominal wall hernias. Superior abdominal wall hernia containing a seg ment of transverse colon and mesentery extending defect. No evidence of associated bowel incarceration. The inferior abdominal wall hernia containing mesenteric fat with mild mesenteric stra nding. Both hernias are similar to the prior exam. CT PELVIS: No mass, adenopathy, free air or free fluid. Urinary bladder: Unremarkable. Osseous structures: No lytic or blastic lesions IMPRESSION: 1. Bilaterally no obstructive uropathy 2. Indeterminate lesion in the right renal cortex and left renal pelvis. Nonemergent renal mass prot ocol CT is recommended 3. 2 separate ventral abdominal wall hernias as described above. No evidence of bowel incarceration. Nonemergent general surgical consultation is recommended to assess for possible hernia repair.
[2019-02-12 14:23] LABS: ALT (SGPT) 16 U/L (8-55); AST (SGOT) 22 U/L (5-34); Albumin 3.6 g/dL (3.4-4.8); Alkaline Phosphatase 90 U/L (40-150); Anion Gap 17 mmol/L (10-20); BUN (Urea Nitrogen) 60 mg/dL (8.4-25.7); Bilirubin, Total 0.5 mg/dL (0.2-1.2); Calc. Creatinine Clearance 0 mL/min (70-130); Calcium 9.5 mg/dL (7.8-10.44); Carbon Dioxide 19 mmol/L (23-31); Chloride 107 mmol/L (98-107); Estimated GFR-MDRD 30; Glucose 127 mg/dL (80-115); Lipase 39 U/L (8-78); Protein, Total 7.6 g/dL (5.8-8.1); Sodium 139 mmol/L (136-145)
[2019-02-12 15:53] LABS: Bacteria/HPF None Seen HPF (None Seen); Bilirubin Negative (Negative); Blood, Urine Negative (Negative); Clarity Clear (Clear); Glucose, Urine (Dipstick) Normal (Negative); Leukocyte 25 Leu/uL (Negative); Nitrite Negative (Negative); Protein, Urine (Dipstick) Negative (Neg-Trace); RBC/HPF 0-3 HPF (0-3); Squamous Epithelial None Seen HPF (0-3); Urobilinogen Normal mg/dL (Less than 2)
== END 2019-02-12 16:35 | disposition home or self-care (01) ==
LOC: ERS 12:44
DX: N17.9 Acute kidney failure, unspecified (principal); R10.9 Unspecified abdominal pain; N39.0 Urinary tract infection, site not specified; J44.9 Chronic obstructive pulmonary disease, unspecified; E78.5 Hyperlipidemia, unspecified; E78.00 Pure hypercholesterolemia, unspecified; I10 Essential (primary) hypertension; Z86.73 Personal history of transient ischemic attack (TIA), and cerebral infarction without residual deficits; Z79.899 Other long term (current) drug therapy; Z79.82 Long term (current) use of aspirin
CPT/HCPCS: 74176; 80053; 81003; 81015; 83690; 85025; 87086; 96361; 96374; J2405

== ENCOUNTER 2019-02-24 17:52 | Inpatient (IN) | payer MEDICARE, MEDICAID ==
[2019-02-24 18:28] LABS: #Basophils 0.1 thou/uL (0.0-0.2); #Eosinphils 0.2 thou/uL (0.0-0.7); #Lymphocytes 1.8 thou/uL (1.20-3.40); #Monocytes 0.7 thou/uL (0.11-0.59); #Neutrophils 12.6 thou/uL (1.40-6.50); %Basophils 0.4 % (0.0-1.0); %Eosinophils 1.5 % (0.0-10.0); %Lymphocytes 11.7 % (21.0-51.0); %Monocytes 4.8 % (0.0-10.0); %Neutrophils 81.7 % (42.0-75.0); Hemoglobin 12.7 g/dL (14.0-18.0); Mean Corpuscular HGB CONC 33.2 g/dL (32.0-36.0); Mean Corpuscular Hemoglobin 29.3 pg (27.0-31.0); Mean Platelet Volume 7.6 fL (7.4-10.4); Platelet Count 227 thou/uL (130-400); RBC Distribution Width 14.6 % (11.5-14.5); Red Blood Cell (RBC) Count 4.34 mill/uL (4.70-6.10); White Blood Cell (WBC) Count 15.4 thou/uL (4.8-10.8)
[2019-02-24] MEDS ORDERED: Nitroglycerin 0.4 MG TAB 1 EACH ONE (18:29)
[2019-02-24] MEDS ORDERED: Aspirin Chewable 81 MG TAB ONE (18:29)
[2019-02-24 18:47] LABS: Anion Gap 16 mmol/L (10-20); BUN (Urea Nitrogen) 26 mg/dL (8.4-25.7); Calc. Creatinine Clearance 0 mL/min (70-130); Carbon Dioxide 19 mmol/L (23-31); Chloride 106 mmol/L (98-107); Estimated GFR-MDRD 59; Potassium 3.7 mmol/L (3.5-5.1); Sodium 137 mmol/L (136-145)
[2019-02-24 18:48] LABS: ALT (SGPT) 27 U/L (8-55); AST (SGOT) 30 U/L (5-34); Albumin 3.7 g/dL (3.4-4.8); Alkaline Phosphatase 102 U/L (40-150); Bilirubin, Total 0.5 mg/dL (0.2-1.2); CK (CPK) 60 U/L (30-200); Calcium 8.6 mg/dL (7.8-10.44); Globulin 3.1 g/dL (2.4-3.5); Glucose 117 mg/dL (80-115); Protein, Total 6.8 g/dL (5.8-8.1)
--- NOTE | 2019-02-24 19:13 | RAD ---
CHEST ONE VIEW: 02/24/19 INDICATION: Chest pain. COMPARISON: Prior exam dated 01/09/19. FINDINGS: Postoperative change consistent with a mid sternotomy is similar appearing. Aortic valvular replaceme nt is unchanged. Cardiomegaly is stable. No pleural effusion or pneumothorax evident. IMPRESSION: No definite acute abnormality. POS: [facility]
[2019-02-24] MEDS ORDERED: Nitroglycerin 2% Ointment 1 INCH/1 GM Packet ONE (22:58)
[2019-02-24] MEDS ORDERED: Morphine 4 MG/ML VIAL ONE (22:58)
[2019-02-25 00:24] LABS: Troponin I 0.022 ng/mL (< 0.028)
[2019-02-25] MEDS ORDERED: Morphine 4 MG/ML VIAL ONE (00:31)
[2019-02-25] MEDS ORDERED: Ketorolac Tromethamine 30 MG/ML VIAL IVP SCH (02:15)
[2019-02-25] MEDS ORDERED: Ondansetron ODT 4 MG TAB PO PRN (02:17)
[2019-02-25] MEDS ORDERED: Acetaminophen 325 MG TAB PO PRN (02:17)
[2019-02-25] MEDS ORDERED: Ondansetron PF 4 MG/2 ML Vial IVP PRN (02:17)
[2019-02-25] MEDS ORDERED: Acetaminophen 650 MG Suppository PR PRN (02:17)
[2019-02-25 02:42] LABS: #Eosinphils 0.1 thou/uL (0.0-0.7); #Monocytes 0.7 thou/uL (0.11-0.59); #Neutrophils 13.1 thou/uL (1.40-6.50); %Eosinophils 0.7 % (0.0-10.0); %Lymphocytes 12.3 % (21.0-51.0); %Monocytes 4.7 % (0.0-10.0); %Neutrophils 82.3 % (42.0-75.0); Hemoglobin 12.1 g/dL (14.0-18.0); Mean Corpuscular HGB CONC 33.1 g/dL (32.0-36.0); Mean Corpuscular Volume 87.7 fL (78.0-98.0); Mean Platelet Volume 7.5 fL (7.4-10.4); Platelet Count 202 thou/uL (130-400); RBC Distribution Width 14.6 % (11.5-14.5); Red Blood Cell (RBC) Count 4.16 mill/uL (4.70-6.10); White Blood Cell (WBC) Count 15.9 thou/uL (4.8-10.8)
[2019-02-25 02:54] VITALS: BMI 50.0
[2019-02-25 02:59] LABS: Lactic Acid 2.2 mmol/L (0.5-2.2)
[2019-02-25 03:08] LABS: Anion Gap 15 mmol/L (10-20); BUN (Urea Nitrogen) 27 mg/dL (8.4-25.7); Calc. Creatinine Clearance 124 mL/min (70-130); Calcium 9.5 mg/dL (7.8-10.44); Carbon Dioxide 22 mmol/L (23-31); Chloride 104 mmol/L (98-107); Estimated GFR-MDRD 53; Glucose 164 mg/dL (80-115); Potassium 3.7 mmol/L (3.5-5.1); Sodium 137 mmol/L (136-145)
[2019-02-25] MEDS ORDERED: Colchicine 0.6 MG TAB PO PRN (03:33)
--- NOTE | 2019-02-25 04:09 | HP ---
PRIMARY CARE PHYSICIAN: Piedad Joseph. CHIEF COMPLAINT: Right shoulder and chest pain. HISTORY OF PRESENT ILLNESS: Mr. Casillas is a 68-year-old gentleman, who is morbidly obese and presents with complaints of severe right shoulder pain. He states he woke up with pain rating 7/10 in severity and states they gradually got worse throughout the day. He states his main issue leading to multiple attendances to the ER for the last couple of months, has been due to persistent bilateral shoulder pain. He states when he comes in, he has been found to have other issues such as UTI on the more recent admission. The patient states he has had injections before, which helped to control his pain. Early December 2018, he had an x-ray showing no evidence of acute osseous abnormality. No dislocation. There were no degenerative changes seen. He denies any falls, injuries or trauma. He is morbidly obese and says he tends to take turns lying on his left side or right side and feels that might be contributing to the pain. He also does repetitively use his arms to pull his weight up when sitting or standing. Sometimes he his side in order to sit up from a lying position due to his weight and abdominal hernia. The patient denies having any numbness or weakness in either extremity. In the right shoulder, he states the pain radiates to the right side of his neck. He has not noted any swelling. No skin changes. He does report experiencing chest pain. He states he feels the right shoulder pain comes down onto the right side of his chest. Earlier today, however, he reports having some discomfort in the middle of his chest and through to his back. He states that resolved and he has had no issues with chest pain since. In the emergency department, he underwent an EKG showing normal sinus rhythm with no ST changes or T-wave abnormalities. Heart rate 84. He did have an elevated blood pressure of 183/110. He was treated with Nitro-Bid. The patient also given morphine 4 mg x2 for his shoulder pain. He states his pain is usually very well controlled with morphine and does not believe that the nurses have given him morphine in the emergency department due to not having any relief with that. He has limited range of motion in the right shoulder. Sensation, however, is intact. A chest x-ray was done in the emergency department showing no definite acute abnormality. Cardiomegaly appears stable and he was noted to have postoperative changes consistent with mid sternotomy similar to prior x-ray. Aortic valvular replacement unchanged. PAST MEDICAL HISTORY: 1. Morbidly obese. 2. Gout. 3. Abdominal hernia. 4. Hiatal hernia. 5. Chronic obstructive pulmonary disease. 6. Hyperlipidemia. 7. Hypertension. 8. Transient ischemic attack. 9. Chronic bilateral shoulder pain. PAST SURGICAL HISTORY: 1. Abdominal hernia repair x3. 2. Coronary artery bypass grafting x4. 3. Aortic valve replacement. 4. Cardiac stents. 5. Cyst removal from right index finger. SOCIAL HISTORY: The patient lives at home with his son and his roommate. Denies any alcohol consumption, tobacco use, or illicit drug use. ALLERGIES: NO KNOWN DRUG ALLERGIES. CURRENT MEDICATIONS: 1. Furosemide. 2. Aspirin. 3. Hydrochlorothiazide. 4. Tamsulosin. 5. Lisinopril. 6. Atorvastatin. 7. Clopidogrel. 8. Allopurinol. 9. Zofran. PHYSICAL EXAMINATION: GENERAL: The patient appears well developed, well nourished, is in no acute distress. VITAL SIGNS: Temperature 98, pulse 72, respirations 24, O2 saturation 98% on room air, and blood pressure 159/91. HEENT: Normocephalic and atraumatic. Pupils are equal, round, and reactive to light. Sclerae without icterus. Oropharynx is clear. NECK: Supple. LUNGS: Clear to auscultation bilaterally. CARDIAC: Regular rate and rhythm. ABDOMEN: Soft, obese. Palpable reducible abdominal hernia in the epigastric region. No guarding or rigidity. No renal angle tenderness. EXTREMITIES: Lower leg swelling, chronic and at baseline. No pitting edema. NEUROLOGIC: Alert and oriented x3. Power 5/5 in bilateral upper extremities with sensation intact. No neuro deficits. SKIN: No rash or jaundice. INVESTIGATIONS: As mentioned above in HPI. IMPRESSION AND PLAN: Mr. Casillas is a 68-year-old gentleman, who is morbidly obese, presenting with severe right shoulder pain. This has been ongoing for the last 2 months. He has been referred for management of the following. 1. Right shoulder pain/chest pain. The patient seems to think the pain is progressively worsening for the last 2 months and it radiates down into the right side of his chest. He did mention pain going through to his back between shoulder blades. Also has pain radiating up into his neck. There was concern regarding the chest pain. Therefore, troponins have been trended and negative x3. He is extremely sedentary and reports shortness of breath with ambulation, likely associated with morbid obesity. However, we will obtain a D-dimer. The patient has no chest pain at present, but continues complaining of severe right shoulder pain, which is very tender to palpation and his range of motion in the right shoulder is limited. We will obtain CT of the right shoulder. We will try Toradol for his pain. 2. Leukocytosis. The patient with a white count of 15.4. Reports having an occasional cough, but this is long-standing. No fevers, chills, or sweats. He does have complaints of dysuria and states his urine smells strong. We will obtain urinalysis/urine culture. We will add on procalcitonin and lactic acid to laboratory studies done today. 3. Coronary artery disease. We will resume home medications including Plavix. 4. Hypertension. We will resume home medications and monitor blood pressure. 5. Gastrointestinal prophylaxis. 6. Code status. The patient requesting to be DNAR. We will place a consultation to Palliative Care for advance directives. The patient's case to be discussed with attending for further recommendations. Job ID: [id number]
[2019-02-25] MEDS ORDERED: Enoxaparin Sodium 40 MG/0.4 ML SYRINGE SC SCH (05:00)
[2019-02-25] MEDS ORDERED: Enoxaparin Sodium 120 MG/0.8 ML SYRINGE SC SCH (05:00)
[2019-02-25] MEDS: Sodium Chloride 0.9% 1,000 ML IV SCH ×2 (06:06→19:03)
--- NOTE | 2019-02-25 08:44 | CT ---
PRELIMINARY REPORT/[facility]/EMERGENCY AFTER HOURS PROCEDURE: EXAM: CT Right Upper Extremity Without Contrast, Shoulder EXAM DATE/TIME: 02/25/2019 2:13 AM CLINICAL HISTORY: 68 years old, male; Patient HX: [id number] presents to ED for right shoulder pain radiating to chest. PT say s pain worsens with movement and is SOB. 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 PT states he was told he had a stroke and was sent to rehab. PT says he came back for similar pain a few days later and was told he had a kidney infection, was given tylenol 3 and abx but did not drink enough water, had difficulties with the pain killers. Last stress test unknown, "n ot too long ago". TECHNIQUE: Imaging protocol: CT of the Right upper extremity without contrast was performed. Exam focused on the shoulder. COMPARISON: No relevant prior studies available. FINDINGS: Bones/joints: Degenerative changes of the shoulder joint. No definite acute fracture. No dislocation. No lytic or blastic lesions. Soft tissues: Normal. IMPRESSION: No definite acute process. Thank you for allowing us to participate in the care of your patient. Dictated and Authenticated by: Ashley Whatley DO 02/25/2019 3:29 AM Central Time ([place] & [place]) FINAL REPORT CT RIGHT SHOULDER WITHOUT IV CONTRAST: 02/25/2019 2:15 a.m. FINDINGS: Severe arthrosis of the AC joint, as well as some degenerative changes of the glenohumeral joint. No fracture or dislocation. This report is in agreement with the preliminary report. POS: DARRIN
--- NOTE | 2019-02-25 08:54 | CT ---
PRELIMINARY REPORT/[facility]/EMERGENCY AFTER HOURS PROCEDURE: Addendum created by Ashley Whatley DO on 02/25/2019 4:58 AM Central Time ([place]) THIS REPORT CON TAINS FINDINGS THAT MAY BE CRITICAL TO PATIENT CARE. The findings were verbally communicated via tele phone conference with Dr. Jennings at 4:58 AM CDT on 02/25/2019. The findings were acknowledged and und erstood. Initial Report created on 02/25/2019 4:53 AM Central Time ([place] & [place]) EXAM: CT Angiography Chest With Contrast EXAM DATE/TIME: 02/25/2019 4:22 AM CLINICAL HISTORY: 68 years old, male; Chest pain; Patient HX: [id number] presents to ED for right shoulder pain radiating to c hest. PT says pain worsens with movement and is SOB. 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 PT states he was told he had a stroke and was sent to rehab. PT says he came back for similar pain a few days later and was told he had a kidney infection, was given tylenol 3 and abx but did not drink enough water, had difficulties with the pain killers. Last stres s test unknown, "not too long ago". TECHNIQUE: Imaging protocol: Computed tomographic angiography of the chest with intravenous contrast. 3D renderi ng: MIP reconstructed images were created and reviewed. COMPARISON: No relevant prior studies available. FINDINGS: Pulmonary arteries: There are filling defects involving subsegmental vessels to the right middle lobe . Great vessels off aortic arch: Aorta: small aneurysm of ascending thoracic aorta. The descending thoracic aorta is within normal hadley its for size. Aortic valve replacement. Lungs: No consolidation. Linear atelectasis at the left upper lobe. Pleural space: Unremarkable. No pneumothorax. No pleural effusion. Heart: Unremarkable. No cardiomegaly. No pericardial effusion. Stomach and bowel: There is ventral midline hernia containing partial segment of the colon. Lymph nodes: Unremarkable. No enlarged lymph nodes. Bones/joints: Postoperative change of median sternotomy. Soft tissues: Unremarkable. IMPRESSION: Nonocclusive filling defects involving subsegmental vessels to the right middle lobe. No lung consoli dation. Thank you for allowing us to participate in the care of your patient. Dictated and Authenticated by: Ashley Whatley DO 02/25/2019 4:53 AM Central Time ([place] & [place]) FINAL REPORT CT PULMONARY ANGIOGRAM CHEST WITH 3D RENDERIN02/25/2019 4:24 a.m. HISTORY: Chest pain. FINDINGS: There are severe nonocclusive subsegmental filling defects in the right middle lobe and right upper l obe branches. Large lower abdominal anterior wall hernia, containing colon. This report is in agreement with the preliminary report. POS: DONTE
[2019-02-25] MEDS ORDERED: Furosemide 40 MG TAB PO SCH (09:00)
[2019-02-25] MEDS ORDERED: Famotidine/PF 20 mg/2ml Vial SLOW IVP SCH (09:00)
[2019-02-25] MEDS ORDERED: Lisinopril 20 MG TAB PO SCH (09:00)
--- NOTE | 2019-02-25 11:21 | ULT ---
EXAM: Bilateral lower extremity venous ultrasound HISTORY: Bilateral lower extremity pain and edema COMPARISON: None TECHNIQUE: Multiplanar grayscale and color Doppler images were obtained in a bilateral lower extremit y venous ultrasound. Spectral analysis of the Doppler waveforms were performed. FINDINGS: The bilateral common femoral vein, profunda femoral veins, superficial femoral veins, and p opliteal veins are normal in appearance without visible thrombus. These vessels demonstrate normal compression, flow, and augmentation. The bilateral posterior tibial veins and greater saphenous veins are patent without evidence of throm bus. IMPRESSION: No evidence of DVT.
--- NOTE | 2019-02-25 12:26 | CON ---
DATE OF CONSULTATION: HISTORY OF PRESENT ILLNESS: Martín Casillas is a 68-year-old morbidly obese gentleman, whose primary care physician is at the [facility]. He is 167 kg, presented with right shoulder pain. In fact, he was in the hospital no more than several weeks ago with left shoulder pain. Told me he has had CVA and was at the rehab when he presented with right-sided shoulder pain and chest pain. No shortness of breath. No coughing. No wheezing. Nonpleuritic nature. Chest x-ray was clear. CT angio shows a small subsegmental defect in the right middle lobe branch. No other defects were seen. No other mass was seen. He can barely walk 50 feet without getting markedly short of breath. This has been going on for almost 10 years ever since he had a bypass surgery. He has sleep apnea, but he has been noncompliant with his CPAP machine. He is a nonsmoker and nondrinker. No history of TB, pneumonia, or asthma. PAST MEDICAL HISTORY: Morbid obesity, coronary artery disease, hyperlipidemia, high cholesterol, hypertension, previous CVA, arthritis, bilateral internal carotid artery stenosis, gout, BPH, and old cerebellar infarct. PAST SURGICAL HISTORY: Otherwise previous surgeries; hernia x3, bypass, aortic valve replacement, coronary artery stenting, and ganglion cyst. HOME MEDICATIONS: Includes; 1. Flomax 0.4. 2. Plavix 75. 3. Lipitor 40. 4. Aspirin. 5. Zyloprim. 6. Metoprolol 50 b.i.d. 7. Zestril 40. 8. Lasix 40 b.i.d. 9. Hydrochlorothiazide 25. 10. Colchicine p.r.n. ALLERGIES: NO KNOWN ALLERGIES. 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 REVIEW OF SYSTEMS: A 10-point negative. PHYSICAL EXAMINATION: VITAL SIGNS: Saturations are 98% on 2 L, temperature 97, pulse 74, and blood pressure 95/50. CHEST: No wheezing or crackles. CARDIAC: Normal S1 and S2. Regular. ABDOMEN: Massive. EXTREMITIES: Stasis changes. Minimal edema. LABORATORY DATA: Creatinine 1.35. Lytes are normal. White count 15,000, H and H 12 and 36, and platelet count is normal. Chest x-ray shows cardiomegaly. No other masses were seen. CT angio shows as noted small subsegmental defect right middle lobe branches only. CT of the upper extremities performed, which showed degenerative changes in the shoulder joint. ASSESSMENT AND PLAN: 1. Subsegmental PE right middle lobe, probably an incidental finding. I doubt this was his presenting symptom. 2. Morbid obesity and severe deconditioning. 3. Sleep apnea, poor compliance. 4. Azotemia. 5. Gout. 6. Hypertension and high cholesterol. Ultrasound of both legs have been ordered. Meantime, we have no choice but to continue Lovenox, switch him over to p.o. medication in the next 24 to 48 hours. Encourage use of CPAP. Encourage to lose weight. Eventually back to the rehab. This is a consultation note, 70 minutes, 50% direct patient care. Job ID: [id number]
--- NOTE | 2019-02-25 12:31 | PDOC.HOSPP ---
- Subjective Encounter Date: 02/25/19 Encounter Time: 08:00 Subjective: c/o right shoulder pain, no chest pain or palp no cough or expectoration - Objective Vital Signs & Weight: Vital Signs (12 hours) Temp Pulse Pulse Pulse Resp BP BP 02/25/19 11:30 97.7 F 74 24 H 02/25/19 10:03 83 85 108/56 L 106/60 02/25/19 07:52 97.9 F 74 20 02/25/19 02:17 98.2 F 89 19 BP Pulse Ox 02/25/19 11:30 108/60 99 02/25/19 10:03 02/25/19 07:52 95/50 L 98 02/25/19 02:17 141/72 H 94 L Weight Weight 368 lb 14.4 oz I&O: 02/24/19 02/25/19 02/26/19 06:59 06:59 06:59 Intake Total 360 Balance 360 Result Diagrams: 02/25/19 02:34 02/25/19 02:34 Hospitalist ROS - Medication Medications: Active Medications Generic Name Dose Route Start Last Admin Trade Name Freq PRN Reason Stop Dose Admin Sodium Chloride 1,000 mls @ 70 mls/hr 02/25/19 05:00 02/25/19 06:06 Normal Saline 0.9% IV 1,000 mls .[id number] JACQUE Administration - Exam General Appearance: NAD, awake alert Eye: PERRL, anicteric sclera ENT: no oropharyngeal lesions, moist mucosa Neck: supple, no JVD Heart: RRR, no murmur Respiratory: no wheezes, no rales Gastrointestinal: soft, non-tender, normal bowel sounds Extremities: no cyanosis, no edema Neurological: CN's grossly intact, no focal deficits Psychiatric: normal affect, A&O x 3 Hosp A/P (1) Pulmonary embolism Code(s): I26.99 - OTHER PULMONARY EMBOLISM WITHOUT ACUTE COR PULMONALE Status : Acute Qualifiers: Chronicity: acute (2) Right shoulder pain Code(s): M25.511 - PAIN IN RIGHT SHOULDER Status: Acute (3) CAD (coronary artery disease) Code(s): I25.10 - ATHSCL HEART DISEASE OF [place] CORONARY ARTERY W/O ANG PCTRS Status: Chronic Qualifiers: Coronary Disease-Associated Artery/Lesion type: bypass graft [place] vs. transplanted heart: [place] heart Associated angina: without angina Qualified Code(s): I25.810 - Atherosclerosis of coronary artery bypass graft(s) without angina pectoris (4) Dyslipidemia Code(s): E78.5 - HYPERLIPIDEMIA, UNSPECIFIED Status: Chronic (5) Gout Code(s): M10.9 - GOUT, UNSPECIFIED Status: Chronic Qualifiers: Gout site: unspecified site (6) HTN (hypertension) Code(s): I10 - ESSENTIAL (PRIMARY) HYPERTENSION Status: Chronic Qualifiers: Hypertension type: essential hypertension Qualified Code(s): I10 - Essential (primary) hypertension (7) Morbid (severe) obesity due to excess calories Code(s): E66.01 - MORBID (SEVERE) OBESITY DUE TO EXCESS CALORIES Status: Chronic (8) KOURTNEY (obstructive sleep apnea) Code(s): G47.33 - OBSTRUCTIVE SLEEP APNEA (ADULT) (PEDIATRIC) Status: Chronic - Plan is on full dose lovenox, may switch to coumadin or NOAC if he is eligible with 368lbs prior cath showed 1 of 4 grafts patent with normal ef ortho opinion for right shoulder pain usg venous doppler is -ve for dvt ambulate as tolerated switch to inpt status continue asp, plavix, lipitor, lopressor, lisinopril
[2019-02-25] MEDS: Metoprolol Tartrate 50 MG TAB PO SCH ×2 (12:54→20:12)
[2019-02-25] MEDS: Clopidogrel Bisulfate 75 MG TAB PO SCH (12:54)
[2019-02-25] MEDS: Aspirin 81 mg Enteric Coated Tablet PO SCH (12:54)
[2019-02-25] MEDS: Allopurinol 300 MG TAB PO SCH (12:54)
[2019-02-25 14:50] LABS: Bacteria/HPF None Seen HPF (None Seen); Bilirubin Negative (Negative); Blood, Urine Negative (Negative); Clarity Clear (Clear); Glucose, Urine (Dipstick) Normal (Negative); Leukocyte Negative Leu/uL (Negative); Nitrite Negative (Negative); Protein, Urine (Dipstick) Negative (Neg-Trace); RBC/HPF 0-3 HPF (0-3); Squamous Epithelial None Seen HPF (0-3); Urobilinogen Normal mg/dL (Less than 2); WBC/HPF 0-3 HPF (0-3)
[2019-02-25 14:51] LABS: Urine Culture Reflex No No
[2019-02-25] MEDS: Ketorolac Tromethamine 30 MG/ML VIAL IVP PRN (15:30)
[2019-02-25] MEDS ORDERED: ISOVUE-370 76%-LOCM 1 ML ONE (16:37)
--- NOTE | 2019-02-25 18:14 | CON ---
DATE OF CONSULTATION: 02/25/2019 REQUESTING PHYSICIAN: Freddy Lane MD CONSULTING PHYSICIAN: Epifanio De Souza MD REASON FOR CONSULTATION: Right shoulder pain. BRIEF CLINICAL HISTORY: Martín is a 68-year-old male, who was admitted to the Medicine Team this morning for right shoulder pain. He has had similar symptoms on the left side and this anterior upper thoracic and shoulder pain prompted an DE rule out since he has a significant cardiovascular history with prior CABG and stent placements. He has been morbidly obese most of his life. He has had three abdominal hernia repairs, four coronary artery bypass grafts, aortic valve replacement, multiple stents, and currently he has a diffuse pulmonary emboli. PHYSICAL EXAMINATION: Visual inspection of the right upper extremity demonstrates him to have discomfort with raising the shoulder, difficult to assess the rotator cuff, but external landmarks appear normal. He is obese and palpation is exquisitely tender and point tenderness is elicited with palpation of the AC joint, it is provocative and concordant pain. He also has diffuse discomfort with range of motion of the right shoulder to include internal and external rotation and abduction, which are limited due to pain and I cannot tell if he has cuff arthropathy. He is neurovascularly intact in the right upper extremity, however, and adequate motion is noted for his size. CT examination demonstrates a little bit of cephalad migration of the humeral head relative to the glenoid. His AC joint appears arthritic and it is tough to assess cuff integrity. IMPRESSION: 1. Right shoulder acromioclavicular arthropathy with pain. 2. Suspect right shoulder rotator cuff arthropathy due to cephalad migration noted on CT examination. PLAN: 1. This gentleman has multiple comorbidities to include cardiovascular disease, currently pulmonary emboli, however, he tends to think he is a surgical candidate. At this point, further workup would probably be a visit to the clinic, followed up by may be an outpatient open MRI due to his morbidly obese state, but I think he is a poor candidate for surgery currently. We will refrain from therapeutic AC injection since he is on thinners currently. 2. Follow up in clinic with either Dr. Rodriguez or . Job ID: [id number]
[2019-02-25] MEDS: Tamsulosin HCl 0.4 MG CAP PO SCH (20:09)
[2019-02-25] MEDS: Atorvastatin Calcium 40 MG TAB PO SCH (20:09)
[2019-02-25] MEDS: Acetaminophen 325 MG TAB PO PRN (20:12)
[2019-02-25] MEDS ORDERED: Lisinopril 10 MG TAB PO SCH (21:00)
--- NOTE | 2019-02-25 23:34 | CON ---
DATE OF CONSULTATION: HISTORY OF PRESENT ILLNESS: Martín Casillas is a 68-year-old male with previous bypass surgery, who was admitted with right shoulder and right neck discomfort. In November 2007, he was hospitalized here with chest discomfort, underwent cardiac catheterization by Dr. Beltran. The peak gradient across his aortic valve was 29 mm with mild aortic stenosis. Left ventricular pressure was 181/32, aorta 124/77. There was a 30% to 40% distal left main. The LAD had [id number] luminal irregularities. There was a 60% to 65% lesion in the proximal portion of the first diagonal. The circumflex had [id number] luminal irregularities and plaquing. The right coronary artery was small. He does not recall when he had cardiac surgery and he thought it was around the time of that catheterization; however, he did not have very significant disease at that time. At some other time, he was referred to [facility] in [place], underwent CABG x4 and aortic valve replacement. He has been followed by [facility]. However, approximately 3 years ago, he was there as an outpatient to have an echo. He started to feel bad, became nauseous and the certified scrub tech took him to the emergency room. He became very upset, having to wait in the emergency room. He left and ultimately came to the emergency room here and was found to have urosepsis. I first evaluated him in November 2017, when he was admitted with chest discomfort. Initially, this was a sharp sticking like pain that started in his left back. It radiated to the anterior part of his left chest. Initially, this just would last for a seconds but then it would last up to 30 minutes at a time. There was no pleuritic component to the pain. He did not feel significantly short of breath or become diaphoretic. Cardiac enzymes were unremarkable. He underwent Cardiolite testing, which revealed a small area of mild ischemia in the distal lateral wall, ejection fraction 74%. He underwent cardiac catheterization. Ejection fraction was normal at 60% to 65%. Aortic root revealed no prosthetic aortic valve insufficiency. There was a 50% left main, 40% proximal LAD. The ramus had a 30% lesion. The right coronary was small with an 80% proximal stenosis with pressure dampening with no change with intracoronary nitroglycerin. Bypass grafts revealed patent JULES to the LAD. The sequential ramus/obtuse marginal graft was occluded at the aorta; however, the distal portion of the graft between the ramus and the obtuse marginal was patent. The right coronary artery graft was occluded. It was felt best to treat him medically as he did not have any significant disease and he subsequently has a very small right coronary artery. He was seen in the office in January 2018 and continued to have sharp sticking pain lasting for 5 minutes. He was to return 6 weeks later for check of his cholesterol; however, I have not seen him since that time. He now is admitted with right shoulder pain and discomfort with movement of his shoulder and even very tender to the touch. This pain radiates to his left neck and then into his back and somewhat into his chest. Cardiac enzymes have been unremarkable. The episodes would last for 1-2 minutes at a time. PAST MEDICAL HISTORY: Coronary artery disease, aortic stenosis with aortic valve replacement, morbid obesity, obstructive sleep apnea, unable to tolerate CPAP, hypertension, hyperlipidemia, diabetes, benign prostatic hypertrophy, and asthma. He is morbidly obese. He has gout. PAST SURGICAL HISTORY: CABG x4 and aortic valve replacement, abdominal hernia repair x3, cyst removed from his right index finger. SOCIAL HISTORY: He does not smoke or drink at the present time. He stopped smoking 20 years ago. FAMILY HISTORY: Negative for coronary artery disease. MEDICATIONS: 1. Allopurinol 300 mg daily. 2. Aspirin 81 daily. 3. Atorvastatin 40 at bedtime. 4. Plavix 75 daily. 5. Lasix 40 mg b.i.d. 6. Hydrochlorothiazide 25 daily. 7. Lisinopril 40 daily. 8. Metoprolol 50 b.i.d. 9. Flomax 0.4 daily. ALLERGIES: NONE. REVIEW OF SYSTEMS: A 10-point review of systems unremarkable except as noted above. PHYSICAL EXAMINATION: VITAL SIGNS: Blood pressure 124/60, pulse of 81, sinus rhythm. HEENT: PERRL. NECK: Supple. CHEST: Clear. CARDIAC: S1 and S2 normal without any S3 or S4. There is a 2/6 systolic murmur in the aortic area. ABDOMEN: Morbidly obese. Normal bowel sounds. No tenderness. EXTREMITIES: Revealed trace pretibial edema. NEUROLOGICAL: Grossly intact. MUSCULOSKELETAL: Revealed severe palpable tenderness of his left shoulder that reproduces pain. NEUROLOGIC: Grossly intact. SKIN: Warm and dry. LABORATORY DATA: EKG reveals normal sinus rhythm and is unremarkable. Hemoglobin 12.1, hematocrit 36.5, white count 45357, platelets 202,000. Sodium 137, potassium 3.7, chloride 104, carbon dioxide 22, BUN 27, creatinine 1.35. Troponin I has been normal. IMPRESSION: 1. Musculoskeletal left shoulder pain that seems to be the main source of his current discomfort. 2. Status post CABG x4 and bioprosthetic aortic valve replacement with only one of his bypass grafts patent-JULES to the LAD. His disease in his [place] arteries is not that significant. 3. Hypertension. 4. Hypercholesterolemia. 5. Diabetes. 6. Morbid obesity. 7. Former smoker. 8. Ventral hernia. 9. Obstructive sleep apnea. 10. Asthma. 11. Acute kidney injury. PLAN: In December 2018, his LDL was 89 and this will be repeated. His atorvastatin may need to be increased. From a cardiac standpoint, I do not feel that this is cardiac pain and with his coronary anatomy at catheterization a little over a year ago, I do not feel any further cardiac evaluation is warranted. Job ID: [id number] [facility] SYSTEMJanine
[2019-02-26] MEDS: Lidocaine 5% Patch TD SCH (08:16)
[2019-02-26] MEDS: Enoxaparin Sodium 40 MG/0.4 ML SYRINGE SC SCH (08:16)
[2019-02-26] MEDS: Allopurinol 300 MG TAB PO SCH (08:17)
[2019-02-26] MEDS: Enoxaparin Sodium 120 MG/0.8 ML SYRINGE SC SCH (08:17)
[2019-02-26] MEDS: Aspirin 81 mg Enteric Coated Tablet PO SCH (08:17)
[2019-02-26] MEDS: Clopidogrel Bisulfate 75 MG TAB PO SCH (08:17)
[2019-02-26] MEDS: Lisinopril 5 MG TAB PO SCH ×2 (08:17→21:12)
[2019-02-26] MEDS: Metoprolol Tartrate 25 MG TAB PO SCH ×2 (08:17→21:12)
[2019-02-26] MEDS: Ketorolac Tromethamine 30 MG/ML VIAL IVP PRN ×3 (08:26→22:19)
--- NOTE | 2019-02-26 10:37 | PRG ---
DATE OF SERVICE: 02/26/2019 SUBJECTIVE: This morning, he is better. He said he is less short of breath, less pain, stand and walk in the hill. His ultrasound of his legs was negative. OBJECTIVE: VITAL SIGNS: His saturations were 99% on 3 L, temperature 98 resp 16, and blood pressure 110/67. CHEST: No wheezing or crackles. CARDIAC: Normal S1 and S2. No gallops. ABDOMEN: No masses. IMPRESSION: Pulmonary emboli, found incidental on CT angio. I doubt this is cause of his admission. No evidence of any deep venous thrombosis. Morbid obesity, sleep apnea, noncompliant, coronary artery disease. PLAN: encourage to lose weight. I guess_ anticoagulation for maybe 3 months. Disposition as per primary care physician. Job ID: [id number] MTDD
[2019-02-26 10:50] LABS: Hemoglobin 10.9 g/dL (14.0-18.0); Platelet Count 193 thou/uL (130-400)
[2019-02-26 10:56] LABS: Cardiac Risk 3.3 (Less than 4.5)
--- NOTE | 2019-02-26 12:29 | PDOC.HOSPP ---
- Subjective Encounter Date: 02/26/19 Encounter Time: 07:30 Subjective: no sob or chest pain right shoulder pain is better at rest now is ambulating in room - Objective Vital Signs & Weight: Vital Signs (12 hours) Temp Pulse Resp BP Pulse Ox 02/26/19 08:17 85 02/26/19 08:00 99 02/26/19 07:46 98.7 F 76 18 110/67 99 02/26/19 03:27 98.4 F 85 14 103/56 L 97 Weight Weight 375 lb 3.2 oz I&O: 02/25/19 02/26/19 02/27/19 06:59 06:59 06:59 Intake Total 360 480 Balance 360 480 Result Diagrams: 02/26/19 09:33 02/26/19 09:32 Hospitalist ROS - Medication Medications: Active Medications Generic Name Dose Route Start Last Admin Trade Name Freq PRN Reason Stop Dose Admin Acetaminophen 650 mg 02/25/19 03:33 02/25/19 20:12 Tylenol PO 650 mg Q4H PRN Administration Headache/Fever/Mild Pain (1-3) Allopurinol 300 mg 02/25/19 09:00 02/26/19 08:17 Zyloprim PO 300 mg DAILY JACQUE Administration Aspirin 81 mg 02/25/19 09:00 02/26/19 08:17 Ecotrin PO 81 mg DAILY JACQUE Administration Atorvastatin Calcium 40 mg 02/25/19 21:00 02/25/19 20:09 Lipitor PO 40 mg HS JACQUE Administration Clopidogrel Bisulfate 75 mg 02/25/19 09:00 02/26/19 08:17 Plavix PO 75 mg DAILY JACQUE Administration Enoxaparin Sodium 120 mg 02/26/19 09:00 02/26/19 08:17 Lovenox SC 120 mg 0900 JACQUE Administration Enoxaparin Sodium 40 mg 02/26/19 09:00 02/26/19 08:16 Lovenox SC 40 mg 0900 JACQUE Administration Ketorolac Tromethamine 15 mg 02/25/19 15:04 02/26/19 08:26 Toradol IVP 03/02/19 15:05 15 mg Q6H PRN Administration Pain Lidocaine 1 patch 02/26/19 09:00 02/26/19 08:16 Lidoderm 5% Patch TD 1 patch DAILY JACQUE Administration Lisinopril 5 mg 02/26/19 09:00 09/05/19 08:17 Zestril PO 5 mg BID JACQUE Administration Metoprolol Tartrate 25 mg 02/26/19 09:00 02/26/19 08:17 Lopressor PO 25 mg BID JACQUE Administration Pantoprazole Sodium 40 mg 02/26/19 09:00 02/26/19 08:17 Protonix PO 40 mg DAILY JACQUE Administration Tamsulosin HCl 0.4 mg 02/25/19 21:00 02/25/19 20:09 Flomax PO 0.4 mg HS JACQUE Administration - Exam General Appearance: NAD, awake alert Eye: PERRL, anicteric sclera ENT: no oropharyngeal lesions, moist mucosa Neck: supple, no JVD Heart: RRR, no murmur Respiratory: no wheezes, no rales Gastrointestinal: soft, non-tender, non-distended, normal bowel sounds Extremities: no cyanosis, no edema Neurological: CN's grossly intact, no focal deficits Psychiatric: normal affect, A&O x 3 Hosp A/P (1) Pulmonary embolism Code(s): I26.99 - OTHER PULMONARY EMBOLISM WITHOUT ACUTE COR PULMONALE Status : Acute Qualifiers: Chronicity: acute (2) Right shoulder pain Code(s): M25.511 - PAIN IN RIGHT SHOULDER Status: Acute (3) CAD (coronary artery disease) Code(s): I25.10 - ATHSCL HEART DISEASE OF [place] CORONARY ARTERY W/O ANG PCTRS Status: Chronic Qualifiers: Coronary Disease-Associated Artery/Lesion type: bypass graft [place] vs. transplanted heart: [place] heart Associated angina: without angina Qualified Code(s): I25.810 - Atherosclerosis of coronary artery bypass graft(s) without angina pectoris (4) Dyslipidemia Code(s): E78.5 - HYPERLIPIDEMIA, UNSPECIFIED Status: Chronic (5) Gout Code(s): M10.9 - GOUT, UNSPECIFIED Status: Chronic Qualifiers: Gout site: unspecified site (6) HTN (hypertension) Code(s): I10 - ESSENTIAL (PRIMARY) HYPERTENSION Status: Chronic Qualifiers: Hypertension type: essential hypertension Qualified Code(s): I10 - Essential (primary) hypertension (7) Morbid (severe) obesity due to excess calories Code(s): E66.01 - MORBID (SEVERE) OBESITY DUE TO EXCESS CALORIES Status: Chronic (8) KOURTNEY (obstructive sleep apnea) Code(s): G47.33 - OBSTRUCTIVE SLEEP APNEA (ADULT) (PEDIATRIC) Status: Chronic - Plan is on full dose lovenox, coumadin, weighs around 368lbs prior cath showed 1 of 4 grafts patent with normal ef right shoulder pain stable now, for outpt w/u usg venous doppler is -ve for dvt ambulate as tolerated continue asp, plavix, lipitor, lopressor, lisinopril tx to med floor
[2019-02-26] MEDS ORDERED: Warfarin Sodium 5 MG TAB PO SCH (17:00)
[2019-02-26 19:08] LABS: INR-International Normal Ratio 1.1; Prothrombin Time 14.4 SEC (12.0-14.7)
[2019-02-26 19:09] LABS: PTT 35.3 SEC (22.9-36.1)
[2019-02-26] MEDS: Tamsulosin HCl 0.4 MG CAP PO SCH (21:12)
[2019-02-26] MEDS: Atorvastatin Calcium 40 MG TAB PO SCH (21:12)
[2019-02-26] MEDS: Lidocaine Patch Removal 1 EACH TOP SCH (21:12)
[2019-02-26] MEDS: Acetaminophen 325 MG TAB PO PRN (22:19)
[2019-02-27 05:44] LABS: INR-International Normal Ratio 1.2; PTT 37.8 SEC (22.9-36.1); Prothrombin Time 14.9 SEC (12.0-14.7)
--- NOTE | 2019-02-27 08:57 | PRG ---
DATE OF SERVICE: 02/27/2019 SUBJECTIVE: This morning, he is awake, alert, and responsive. Less pain, less shortness of breath. OBJECTIVE: VITAL SIGNS: Saturations are 96% on 2 L, temperature 98,4, pulse 69, blood pressure 95/54, respirations 16. CHEST: No wheezing, crackles. CARDIAC: Normal S1, S2. No gallops. ABDOMEN: No masses. LABORATORY DATA: INR is 1.2. IMPRESSION: Small pulmonary embolism. No deep venous thrombosis. Morbid obesity, sleep apnea. Poor compliance. PLAN: Once INR is within therapeutic range around 2, could be discharged home. suggest three months of anticoagulation. Pulmonary will follow at a distance. Please call, if needed. Job ID: [id number] MTDD
[2019-02-27] MEDS: Enoxaparin Sodium 120 MG/0.8 ML SYRINGE SC SCH (09:17)
[2019-02-27] MEDS: Enoxaparin Sodium 40 MG/0.4 ML SYRINGE SC SCH (09:17)
[2019-02-27] MEDS: Ketorolac Tromethamine 30 MG/ML VIAL IVP PRN ×2 (09:18→21:16)
[2019-02-27] MEDS: Aspirin 81 mg Enteric Coated Tablet PO SCH (09:19)
[2019-02-27] MEDS: Lisinopril 5 MG TAB PO SCH ×2 (09:19→21:14)
[2019-02-27] MEDS: Clopidogrel Bisulfate 75 MG TAB PO SCH (09:19)
[2019-02-27] MEDS: Allopurinol 300 MG TAB PO SCH (09:19)
[2019-02-27] MEDS: Lidocaine 5% Patch TD SCH (09:20)
[2019-02-27] MEDS: Metoprolol Tartrate 25 MG TAB PO SCH ×2 (09:20→21:14)
--- NOTE | 2019-02-27 11:34 | PDOC.HOSPP ---
- Subjective Encounter Date: 02/27/19 Encounter Time: 10:00 Subjective: no sob or chest pain is amb in room - Objective Vital Signs & Weight: Vital Signs (12 hours) Temp Pulse Resp BP BP Pulse Ox 02/27/19 09:19 77 130/61 02/27/19 08:00 97.6 F 77 18 130/61 18 L 02/27/19 03:38 97.7 F 69 16 95/54 L 96 02/27/19 00:13 97.5 F L 60 16 106/63 96 Weight Weight 375 lb 3.2 oz I&O: 02/26/19 02/27/19 02/28/19 06:59 06:59 06:59 Intake Total 1930 Output Total 350 Balance 1580 Result Diagrams: 02/26/19 09:33 02/26/19 09:32 Hospitalist ROS - Medication Medications: Active Medications Generic Name Dose Route Start Last Admin Trade Name Freq PRN Reason Stop Dose Admin Acetaminophen 650 mg 02/25/19 03:33 02/26/19 22:19 Tylenol PO 650 mg Q4H PRN Administration Headache/Fever/Mild Pain (1-3) Allopurinol 300 mg 02/25/19 09:00 02/27/19 09:19 Zyloprim PO 300 mg DAILY JACQUE Administration Aspirin 81 mg 02/25/19 09:00 02/27/19 09:19 Ecotrin PO 81 mg DAILY JACQUE Administration Atorvastatin Calcium 40 mg 02/25/19 21:00 02/26/19 21:12 Lipitor PO 40 mg HS JACQUE Administration Clopidogrel Bisulfate 75 mg 02/25/19 09:00 02/27/19 09:19 Plavix PO 75 mg DAILY JACQUE Administration Enoxaparin Sodium 120 mg 02/26/19 09:00 02/27/19 09:17 Lovenox SC 120 mg 0900 JACQUE Administration Enoxaparin Sodium 40 mg 02/26/19 09:00 02/27/19 09:17 Lovenox SC 40 mg 0900 JACQUE Administration Ketorolac Tromethamine 15 mg 02/25/19 15:04 02/27/19 09:18 Toradol IVP 03/02/19 15:05 15 mg Q6H PRN Administration Pain Lidocaine 1 patch 02/26/19 09:00 02/27/19 09:20 Lidoderm 5% Patch TD 1 patch DAILY JACQUE Administration Lisinopril 5 mg 02/26/19 09:00 02/27/19 09:19 Zestril PO 5 mg BID JACQUE Administration Metoprolol Tartrate 25 mg 02/26/19 09:00 02/27/19 09:20 Lopressor PO 25 mg BID JACQUE Administration Miscellaneous Medication 1 each 02/26/19 21:00 02/26/19 21:12 Lidocaine Patch Removal TOP Not Given 2100 JACQUE Pantoprazole Sodium 40 mg 02/26/19 09:00 02/27/19 09:20 Protonix PO 40 mg DAILY JACQUE Administration Sodium Chloride 10 ml 02/25/19 02:17 02/26/19 16:21 Flush - Normal Saline IVF 10 ml PRN PRN Administration Saline Flush Tamsulosin HCl 0.4 mg 02/25/19 21:00 02/26/19 21:12 Flomax PO 0.4 mg HS JACQUE Administration - Exam General Appearance: NAD, awake alert Eye: PERRL, anicteric sclera ENT: no oropharyngeal lesions, moist mucosa Neck: supple, no JVD Heart: RRR, no murmur Respiratory: no wheezes, no rales Gastrointestinal: soft, non-tender, non-distended, normal bowel sounds Extremities: no cyanosis, no edema Neurological: CN's grossly intact, no focal deficits Psychiatric: normal affect, A&O x 3 Hosp A/P (1) Pulmonary embolism Code(s): I26.99 - OTHER PULMONARY EMBOLISM WITHOUT ACUTE COR PULMONALE Status : Acute Qualifiers: Chronicity: acute (2) Right shoulder pain Code(s): M25.511 - PAIN IN RIGHT SHOULDER Status: Acute (3) CAD (coronary artery disease) Code(s): I25.10 - ATHSCL HEART DISEASE OF [place] CORONARY ARTERY W/O ANG PCTRS Status: Chronic Qualifiers: Coronary Disease-Associated Artery/Lesion type: bypass graft [place] vs. transplanted heart: [place] heart Associated angina: without angina Qualified Code(s): I25.810 - Atherosclerosis of coronary artery bypass graft(s) without angina pectoris (4) Dyslipidemia Code(s): E78.5 - HYPERLIPIDEMIA, UNSPECIFIED Status: Chronic (5) Gout Code(s): M10.9 - GOUT, UNSPECIFIED Status: Chronic Qualifiers: Gout site: unspecified site (6) HTN (hypertension) Code(s): I10 - ESSENTIAL (PRIMARY) HYPERTENSION Status: Chronic Qualifiers: Hypertension type: essential hypertension Qualified Code(s): I10 - Essential (primary) hypertension (7) Morbid (severe) obesity due to excess calories Code(s): E66.01 - MORBID (SEVERE) OBESITY DUE TO EXCESS CALORIES Status: Chronic (8) KOURTNEY (obstructive sleep apnea) Code(s): G47.33 - OBSTRUCTIVE SLEEP APNEA (ADULT) (PEDIATRIC) Status: Chronic - Plan is on full dose lovenox, coumadin increased to 10mg today, weighs around 368lbs prior cath showed 1 of 4 grafts patent with normal ef right shoulder pain stable now, is able to mobilize with it a bit, for outpt w/u usg venous doppler is -ve for dvt ambulate as tolerated continue asp, plavix, lipitor, lopressor, lisinopril dc plan when INR is therapeutic, needs outpt coumadin clinic appt, 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
[2019-02-27] MEDS: Warfarin Sodium 10 MG TAB PO SCH (16:37)
[2019-02-27] MEDS: Acetaminophen 325 MG TAB PO PRN (21:14)
[2019-02-27] MEDS: Atorvastatin Calcium 40 MG TAB PO SCH (21:14)
[2019-02-27] MEDS: Lidocaine Patch Removal 1 EACH TOP SCH (21:15)
[2019-02-27] MEDS: Tamsulosin HCl 0.4 MG CAP PO SCH (21:15)
[2019-02-28 05:08] LABS: INR-International Normal Ratio 1.1; Prothrombin Time 14.6 SEC (12.0-14.7)
[2019-02-28] MEDS ORDERED: Cepastat Lozenges 1 LOZ PO PRN (08:04)
[2019-02-28] MEDS ORDERED: Sodium Chloride 0.65% Nasal 44 ML BOT EA NARE PRN (08:04)
[2019-02-28] MEDS ORDERED: Loperamide HCl 2 MG CAP PO PRN (08:04)
[2019-02-28] MEDS ORDERED: Loratadine 10 MG TAB PO PRN (08:04)
[2019-02-28] MEDS ORDERED: Senokot S 8.6-50 MG TAB PO PRN (08:04)
[2019-02-28] MEDS ORDERED: Calcium Carbonate 500 MG ChewTAB PO PRN (08:04)
[2019-02-28] MEDS ORDERED: hydrALAZINE 20 MG/ML VIAL SLOW IVP PRN (08:04)
[2019-02-28] MEDS ORDERED: Diabetic Tussin 200 MG/10 ML UDCUP PO PRN (08:04)
[2019-02-28] MEDS ORDERED: Bisacodyl 10 MG SUPP PR PRN (08:04)
[2019-02-28] MEDS: Lidocaine 5% Patch TD SCH (09:13)
[2019-02-28] MEDS: Enoxaparin Sodium 120 MG/0.8 ML SYRINGE SC SCH (09:13)
[2019-02-28] MEDS: Metoprolol Tartrate 25 MG TAB PO SCH ×2 (09:13→21:17)
[2019-02-28] MEDS: Enoxaparin Sodium 40 MG/0.4 ML SYRINGE SC SCH (09:13)
[2019-02-28] MEDS: Lisinopril 5 MG TAB PO SCH ×2 (09:14→21:17)
[2019-02-28] MEDS: Aspirin 81 mg Enteric Coated Tablet PO SCH (09:14)
[2019-02-28] MEDS: Clopidogrel Bisulfate 75 MG TAB PO SCH (09:14)
[2019-02-28] MEDS: Allopurinol 300 MG TAB PO SCH (09:14)
[2019-02-28] MEDS: HYDROcodone/Acetaminophen 5/325 mg Tablet PO PRN (09:25)
[2019-02-28] MEDS: Ketorolac Tromethamine 30 MG/ML VIAL IVP PRN ×2 (11:55→18:09)
--- NOTE | 2019-02-28 12:21 | PDOC.HOSPP ---
- Subjective Encounter Date: 02/28/19 Encounter Time: 08:00 Subjective: Patient seen and examined. No new complaints. No overnight events - Objective Vital Signs & Weight: Vital Signs (12 hours) Temp Pulse Resp BP BP Pulse Ox 02/28/19 09:14 72 142/84 H 96 02/28/19 07:35 97.6 F 72 16 142/84 H 96 02/28/19 04:37 98.3 F 82 16 130/83 96 Weight Weight 375 lb 3.2 oz I&O: 02/27/19 02/28/19 03/01/19 06:59 06:59 06:59 Intake Total 1930 810 Output Total 350 Balance 1580 810 Result Diagrams: 02/26/19 09:33 02/26/19 09:32 Radiology Reviewed by me: Yes Hospitalist ROS - Review of Systems ENT: denies: ear pain, ear discharge, nose pain, nose discharge, nose congestion , mouth pain, mouth swelling, throat pain, throat swelling, other Respiratory: denies: cough, dry, shortness of breath, hemoptysis, SOB with excertion, pleuritic pain, sputum, wheezing, other Cardiovascular: denies: chest pain, palpitations, orthopnea, paroxysmal noc. dyspnea, edema, light headedness, other Gastrointestinal: denies: nausea, vomitting, abdominal pain, diarrhea, constipation, melena, hematochezia, other Genitourinary: denies: dysuria, frequency, incontinence, hematuria, retention, other Musculoskeletal: denies: neck pain, shoulder pain, arm pain, back pain, hand pain, leg pain, foot pain, other Skin: denies: rash, lesions, [place], bruising, other - Medication Medications: Active Medications Generic Name Dose Route Start Last Admin Trade Name Freq PRN Reason Stop Dose Admin Acetaminophen 650 mg 02/25/19 03:33 02/27/19 21:14 Tylenol PO 650 mg Q4H PRN Administration Headache/Fever/Mild Pain (1-3) Hydrocodone Bitart/Acetaminophen 1 tab 02/28/19 08:04 02/28/19 09:25 [place] 5/325 PO 1 tab Q4H PRN Administration Moderate Pain (4-6) Allopurinol 300 mg 02/25/19 09:00 02/28/19 09:14 Zyloprim PO 300 mg DAILY JACQUE Administration Aspirin 81 mg 02/25/19 09:00 02/28/19 09:14 Ecotrin PO 81 mg DAILY JACQUE Administration Atorvastatin Calcium 40 mg 02/25/19 21:00 02/27/19 21:14 Lipitor PO 40 mg HS JACQUE Administration Clopidogrel Bisulfate 75 mg 02/25/19 09:00 02/28/19 09:14 Plavix PO 75 mg DAILY JACQUE Administration Enoxaparin Sodium 120 mg 02/26/19 09:00 02/28/19 09:13 Lovenox SC 120 mg 899 JACQUE Administration Enoxaparin Sodium 40 mg 02/26/19 09:00 02/28/19 09:13 Lovenox SC 40 mg 899 JACQUE Administration Ketorolac Tromethamine 15 mg 02/25/19 15:04 02/28/19 11:55 Toradol IVP 03/02/19 15:05 15 mg Q6H PRN Administration Pain Lidocaine 1 patch 02/26/19 09:00 02/28/19 09:13 Lidoderm 5% Patch TD 1 patch DAILY JACQUE Administration Lisinopril 5 mg 02/26/19 09:00 02/28/19 09:14 Zestril PO 5 mg BID [facility] Administration Metoprolol Tartrate 25 mg 02/26/19 09:00 02/28/19 09:13 Lopressor PO 25 mg BID JACQUE Administration Miscellaneous Medication 1 each 02/26/19 21:00 02/27/19 21:15 Lidocaine Patch Removal TOP Not Given 2100 [facility] Pantoprazole Sodium 40 mg 02/26/19 09:00 02/28/19 09:14 Protonix PO 40 mg DAILY JACQUE Administration Senna/Docusate Sodium 2 tab 02/28/19 08:04 02/28/19 09:21 Senokot S PO 2 tab BID PRN Administration Constipation Sodium Chloride 10 ml 02/25/19 02:17 02/26/19 16:21 Flush - Normal Saline IVF 10 ml PRN PRN Administration Saline Flush Tamsulosin HCl 0.4 mg 02/25/19 21:00 02/27/19 21:15 Flomax PO 0.4 mg HS JACQUE Administration Warfarin Sodium 10 mg 02/27/19 17:00 02/27/19 16:37 Coumadin PO 10 mg 1700 JACQUE Administration - Exam General Appearance: NAD, awake alert Eye: PERRL, anicteric sclera ENT: normocephalic atraumatic, no oropharyngeal lesions Neck: supple, symmetric, no JVD Heart: RRR, no murmur, no gallops Respiratory: CTAB, no wheezes, no rales, no ronchi Gastrointestinal: soft, non-tender, non-distended, normal bowel sounds Extremities: no cyanosis, no clubbing, no edema Skin: normal turgor, no lesions, no rashes Neurological: CN's grossly intact, normal sensation to touch Musculoskeletal: normal tone, normal strength Psychiatric: normal affect, normal behavior Hosp A/P (1) Pulmonary embolism Code(s): I26.99 - OTHER PULMONARY EMBOLISM WITHOUT ACUTE COR PULMONALE Status : Acute Qualifiers: Chronicity: acute (2) CAD (coronary artery disease) Code(s): I25.10 - ATHSCL HEART DISEASE OF [place] CORONARY ARTERY W/O ANG PCTRS Status: Chronic Qualifiers: Coronary Disease-Associated Artery/Lesion type: bypass graft [place] vs. transplanted heart: [place] heart Associated angina: without angina Qualified Code(s): I25.810 - Atherosclerosis of coronary artery bypass graft(s) without angina pectoris (3) Dyslipidemia Code(s): E78.5 - HYPERLIPIDEMIA, UNSPECIFIED Status: Chronic (4) Gout Code(s): M10.9 - GOUT, UNSPECIFIED Status: Chronic Qualifiers: Gout site: unspecified site (5) Morbid (severe) obesity due to excess calories Code(s): E66.01 - MORBID (SEVERE) OBESITY DUE TO EXCESS CALORIES Status: Chronic (6) KOURTNEY (obstructive sleep apnea) Code(s): G47.33 - OBSTRUCTIVE SLEEP APNEA (ADULT) (PEDIATRIC) Status: Chronic (7) BPH (benign prostatic hyperplasia) Code(s): N40.0 - BENIGN PROSTATIC HYPERPLASIA WITHOUT LOWER URINRY TRACT SYMP Status: Chronic (8) CKD (chronic kidney disease) stage 3, GFR 30-59 ml/min Code(s): N18.3 - CHRONIC KIDNEY DISEASE, STAGE 3 (MODERATE) Status: Chronic (9) Hypomagnesemia Code(s): E83.42 - HYPOMAGNESEMIA Status: Chronic (10) Anemia, normocytic normochromic Code(s): D64.9 - ANEMIA, UNSPECIFIED Status: Chronic - Plan old records reviewed/req he needs to continue lovenox and warfarin until INR therapeutic otherwise he is medically stable medication reviewed as above symptomatic treatment will repeat mag level tomorrow
[2019-02-28] MEDS: Warfarin Sodium 10 MG TAB PO SCH (17:03)
[2019-02-28] MEDS: Tamsulosin HCl 0.4 MG CAP PO SCH (21:17)
[2019-02-28] MEDS: Atorvastatin Calcium 40 MG TAB PO SCH (21:17)
[2019-02-28] MEDS: Acetaminophen 325 MG TAB PO PRN (21:17)
[2019-02-28] MEDS: Lidocaine Patch Removal 1 EACH TOP SCH (21:18)
[2019-03-01] MEDS: Ketorolac Tromethamine 30 MG/ML VIAL IVP PRN ×4 (00:41→22:01)
[2019-03-01 05:57] LABS: #Eosinphils 0.3 thou/uL (0.0-0.7); #Lymphocytes 1.8 thou/uL (1.20-3.40); #Monocytes 0.5 thou/uL (0.11-0.59); #Neutrophils 5.1 thou/uL (1.40-6.50); %Basophils 0.5 % (0.0-1.0); %Eosinophils 3.5 % (0.0-10.0); %Lymphocytes 22.9 % (21.0-51.0); %Monocytes 6.8 % (0.0-10.0); %Neutrophils 66.4 % (42.0-75.0); Hemoglobin 10.7 g/dL (14.0-18.0); Mean Corpuscular HGB CONC 32.9 g/dL (32.0-36.0); Mean Corpuscular Hemoglobin 29.2 pg (27.0-31.0); Mean Corpuscular Volume 88.9 fL (78.0-98.0); Mean Platelet Volume 7.9 fL (7.4-10.4); Platelet Count 196 thou/uL (130-400); RBC Distribution Width 14.3 % (11.5-14.5); Red Blood Cell (RBC) Count 3.66 mill/uL (4.70-6.10); White Blood Cell (WBC) Count 7.7 thou/uL (4.8-10.8)
[2019-03-01 06:04] LABS: INR-International Normal Ratio 1.4; PTT 39.4 SEC (22.9-36.1); Prothrombin Time 16.9 SEC (12.0-14.7)
[2019-03-01 06:18] LABS: Anion Gap 10 mmol/L (10-20); BUN (Urea Nitrogen) 24 mg/dL (8.4-25.7); Calc. Creatinine Clearance 151 mL/min (70-130); Calcium 8.4 mg/dL (7.8-10.44); Carbon Dioxide 23 mmol/L (23-31); Chloride 107 mmol/L (98-107); Estimated GFR-MDRD 65; Glucose 102 mg/dL (80-115); Magnesium 1.8 mg/dL (1.6-2.6); Potassium 4.1 mmol/L (3.5-5.1); Sodium 136 mmol/L (136-145)
[2019-03-01] MEDS: Enoxaparin Sodium 40 MG/0.4 ML SYRINGE SC SCH (08:27)
[2019-03-01] MEDS: Lisinopril 5 MG TAB PO SCH ×2 (08:27→21:56)
[2019-03-01] MEDS: Enoxaparin Sodium 120 MG/0.8 ML SYRINGE SC SCH (08:27)
[2019-03-01] MEDS: Lidocaine 5% Patch TD SCH (08:27)
[2019-03-01] MEDS: Aspirin 81 mg Enteric Coated Tablet PO SCH (08:28)
[2019-03-01] MEDS: Clopidogrel Bisulfate 75 MG TAB PO SCH (08:28)
[2019-03-01] MEDS: Metoprolol Tartrate 25 MG TAB PO SCH ×2 (08:28→21:57)
[2019-03-01] MEDS: Allopurinol 300 MG TAB PO SCH (08:28)
[2019-03-01 10:34] LABS: Hemoglobin 10.5 g/dL (14.0-18.0); Platelet Count 188 thou/uL (130-400)
--- NOTE | 2019-03-01 12:06 | PDOC.HOSPP ---
- Subjective Encounter Date: 03/01/19 Encounter Time: 08:30 Subjective: Patient seen and examined. No new complaints. No overnight events - Objective Vital Signs & Weight: Vital Signs (12 hours) Temp Pulse Resp BP BP BP Pulse Ox 03/01/19 08:28 93 L 03/01/19 08:27 51 L 141/65 H 03/01/19 07:36 97.8 F 51 L 18 141/65 H 93 L 03/01/19 03:20 97.6 F 70 18 166/71 H 97 Weight Weight 375 lb 3.2 oz I&O: 02/28/19 03/01/19 03/02/19 06:59 06:59 06:59 Intake Total 810 1675 Balance 810 1675 Result Diagrams: 03/01/19 10:11 03/01/19 10:11 Hospitalist ROS - Review of Systems ENT: denies: ear pain, ear discharge, nose pain, nose discharge, nose congestion , mouth pain, mouth swelling, throat pain, throat swelling, other Respiratory: denies: cough, dry, shortness of breath, hemoptysis, SOB with excertion, pleuritic pain, sputum, wheezing, other Cardiovascular: denies: chest pain, palpitations, orthopnea, paroxysmal noc. dyspnea, edema, light headedness, other Gastrointestinal: denies: nausea, vomitting, abdominal pain, diarrhea, constipation, melena, hematochezia, other Genitourinary: denies: dysuria, frequency, incontinence, hematuria, retention, other Musculoskeletal: denies: neck pain, shoulder pain, arm pain, back pain, hand pain, leg pain, foot pain, other Skin: denies: rash, lesions, [place], bruising, other - Medication Medications: Active Medications Generic Name Dose Route Start Last Admin Trade Name Freq PRN Reason Stop Dose Admin Acetaminophen 650 mg 02/25/19 03:33 02/28/19 21:17 Tylenol PO 650 mg Q4H PRN Administration Headache/Fever/Mild Pain (1-3) Hydrocodone Bitart/Acetaminophen 1 tab 02/28/19 08:04 02/28/19 09:25 [place] 5/325 PO 1 tab Q4H PRN Administration Moderate Pain (4-6) Allopurinol 300 mg 02/25/19 09:00 03/01/19 08:28 Zyloprim PO 300 mg DAILY JACQUE Administration Aspirin 81 mg 02/25/19 09:00 03/01/19 08:28 Ecotrin PO 81 mg DAILY JACQUE Administration Atorvastatin Calcium 40 mg 02/25/19 21:00 02/28/19 21:17 Lipitor PO 40 mg HS JACQUE Administration Clopidogrel Bisulfate 75 mg 02/25/19 09:00 03/01/19 08:28 Plavix PO 75 mg DAILY JACQUE Administration Enoxaparin Sodium 120 mg 02/26/19 09:00 03/01/19 08:27 Lovenox SC 120 mg 899 JACQUE Administration Enoxaparin Sodium 40 mg 02/26/19 09:00 03/01/19 08:27 Lovenox SC 40 mg 0900 JACQUE Administration Ketorolac Tromethamine 15 mg 02/25/19 15:04 03/01/19 07:28 Toradol IVP 03/02/19 15:05 15 mg Q6H PRN Administration Pain Lidocaine 1 patch 02/26/19 09:00 03/01/19 08:27 Lidoderm 5% Patch TD 1 patch DAILY JACQUE Administration Lisinopril 5 mg 02/26/19 09:00 03/01/19 08:27 Zestril PO 5 mg BID [facility] Administration Metoprolol Tartrate 25 mg 02/26/19 09:00 03/01/19 08:28 Lopressor PO 25 mg BID [facility] Administration Miscellaneous Medication 1 each 02/26/19 21:00 02/28/19 21:18 Lidocaine Patch Removal TOP Not Given 2100 [facility] Pantoprazole Sodium 40 mg 02/26/19 09:00 03/01/19 08:28 Protonix PO 40 mg DAILY JACQUE Administration Senna/Docusate Sodium 2 tab 02/28/19 08:04 02/28/19 09:21 Senokot S PO 2 tab BID PRN Administration Constipation Sodium Chloride 10 ml 02/25/19 02:17 03/01/19 00:42 Flush - Normal Saline IVF 10 ml PRN PRN Administration Saline Flush Tamsulosin HCl 0.4 mg 02/25/19 21:00 02/28/19 21:17 Flomax PO 0.4 mg HS JACQUE Administration Warfarin Sodium 10 mg 02/27/19 17:00 02/28/19 17:03 Coumadin PO 10 mg 1700 JACQUE Administration - Exam General Appearance: NAD, awake alert Eye: PERRL, anicteric sclera ENT: normocephalic atraumatic, no oropharyngeal lesions Neck: supple, symmetric, no JVD Heart: RRR, no murmur, no gallops, no rubs Respiratory: CTAB, no wheezes, no rales, no ronchi Gastrointestinal: soft, non-tender, non-distended, normal bowel sounds Extremities: no cyanosis, no clubbing, no edema Skin: normal turgor, no lesions Neurological: CN's grossly intact, normal sensation to touch Musculoskeletal: normal tone, normal strength, no muscle wasting Psychiatric: normal affect, normal behavior, A&O x 3 Hosp A/P (1) Pulmonary embolism Code(s): I26.99 - OTHER PULMONARY EMBOLISM WITHOUT ACUTE COR PULMONALE Status : Acute Qualifiers: Chronicity: acute (2) CAD (coronary artery disease) Code(s): I25.10 - ATHSCL HEART DISEASE OF [place] CORONARY ARTERY W/O ANG PCTRS Status: Chronic Qualifiers: Coronary Disease-Associated Artery/Lesion type: bypass graft [place] vs. transplanted heart: [place] heart Associated angina: without angina Qualified Code(s): I25.810 - Atherosclerosis of coronary artery bypass graft(s) without angina pectoris (3) Dyslipidemia Code(s): E78.5 - HYPERLIPIDEMIA, UNSPECIFIED Status: Chronic (4) Gout Code(s): M10.9 - GOUT, UNSPECIFIED Status: Chronic Qualifiers: Gout site: unspecified site (5) Morbid (severe) obesity due to excess calories Code(s): E66.01 - MORBID (SEVERE) OBESITY DUE TO EXCESS CALORIES Status: Chronic (6) KOURTNEY (obstructive sleep apnea) Code(s): G47.33 - OBSTRUCTIVE SLEEP APNEA (ADULT) (PEDIATRIC) Status: Chronic (7) BPH (benign prostatic hyperplasia) Code(s): N40.0 - BENIGN PROSTATIC HYPERPLASIA WITHOUT LOWER URINRY TRACT SYMP Status: Chronic (8) CKD (chronic kidney disease) stage 3, GFR 30-59 ml/min Code(s): N18.3 - CHRONIC KIDNEY DISEASE, STAGE 3 (MODERATE) Status: Chronic (9) Hypomagnesemia Code(s): E83.42 - HYPOMAGNESEMIA Status: Chronic (10) Anemia, normocytic normochromic Code(s): D64.9 - ANEMIA, UNSPECIFIED Status: Chronic - Plan old records reviewed/req he needs to continue lovenox and warfarin until INR therapeutic otherwise he is medically stable medication reviewed as above symptomatic treatment
[2019-03-01] MEDS: Warfarin Sodium 10 MG TAB PO SCH (17:41)
[2019-03-01] MEDS: Atorvastatin Calcium 40 MG TAB PO SCH (21:53)
[2019-03-01] MEDS: Lidocaine Patch Removal 1 EACH TOP SCH (21:56)
[2019-03-01] MEDS: Tamsulosin HCl 0.4 MG CAP PO SCH (21:57)
[2019-03-02] MEDS: HYDROcodone/Acetaminophen 5/325 mg Tablet PO PRN (00:50)
[2019-03-02] MEDS: Ketorolac Tromethamine 30 MG/ML VIAL IVP PRN ×2 (04:58→15:00)
[2019-03-02 06:15] LABS: INR-International Normal Ratio 1.9; PTT 43.2 SEC (22.9-36.1); Prothrombin Time 21.4 SEC (12.0-14.7)
[2019-03-02] MEDS: Lidocaine 5% Patch TD SCH (08:18)
[2019-03-02] MEDS: Allopurinol 300 MG TAB PO SCH (08:19)
[2019-03-02] MEDS: Aspirin 81 mg Enteric Coated Tablet PO SCH (08:19)
[2019-03-02] MEDS: Lisinopril 5 MG TAB PO SCH ×2 (08:19→20:03)
[2019-03-02] MEDS: Metoprolol Tartrate 25 MG TAB PO SCH ×2 (08:19→20:03)
[2019-03-02] MEDS: Clopidogrel Bisulfate 75 MG TAB PO SCH (08:19)
--- NOTE | 2019-03-02 08:49 | PRG ---
DATE OF SERVICE: 03/02/2019 SUBJECTIVE: This morning, he is better. No chest pain. No shortness of breath. His INR is 1.9. OBJECTIVE: VITAL SIGNS: His blood pressure is 152/78, pulse 69, temperature 98. _02 sat 96% no difficulty breathing. CHEST: Decreased breath sounds. No wheezing. CARDIAC: Normal S1, S2. No gallops. ABDOMEN: No mass. ASSESSMENT AND PLAN: Pulmonary embolism, morbid obesity, sleep apnea, severe deconditioning. I have told him to talk to his primary care physician regarding his CPAP machine , which can be finally tuned. He can be discharged home any time on Coumadin, followed by his primary care physician. Job ID: [id number] [facility]
[2019-03-02] MEDS: Warfarin Sodium 10 MG TAB PO SCH (17:16)
[2019-03-02] MEDS ORDERED: traMADol HCl 50 MG TAB PO PRN (17:22)
--- NOTE | 2019-03-02 20:00 | PRG ---
DATE OF SERVICE: 03/02/2019 SUBJECTIVE: A 68-year-old male with morbid obesity, coronary artery disease status post CABG with recent acute CVA, on aspirin and Plavix, presented to the hospital on 24 February 2019 with chest discomfort as well as right shoulder pain. He was found to have a right middle lobe subsegmental pulmonary embolism. He was started on Lovenox bridging with warfarin. He denies any chest discomfort at this time. He continues to have shoulder discomfort. No fever or chills reported. Current medications were reviewed. OBJECTIVE: VITAL SIGNS: Temperature 98.2, pulse 61, respirations of 16, blood pressure 152/82, and O2 saturation 95% on room air. GENERAL: A 68-year-old male, in no apparent distress. LUNGS: Clear to auscultation bilaterally. HEART: S1 and S2 present. Regular rate and rhythm. No rubs or gallops appreciated. ABDOMEN: Soft and nontender. Bowel sounds present. EXTREMITIES: No calf tenderness. SKIN: Warm and dry. LYMPH NODES: No palpable lymph nodes in the neck. LABORATORY FINDINGS: INR 1.9. Magnesium 1.[address] angiogram of the chest by my review as discussed above. Upper extremity CT showed severe degenerative disease. IMPRESSION: 1. Acute pulmonary embolism, started on anticoagulation. 2. Coronary artery disease, status post coronary artery bypass grafting. One of the four grafts are patent. 3. Recent acute cerebrovascular accident, on aspirin and Plavix. 4. Hypertension. 5. Hyperlipidemia. 6. Diabetes mellitus, type 2. 7. Morbid obesity with a BMI of 50.9. 8. Former smoker. 9. Obstructive sleep apnea. 10. Mild intermittent asthma. 11. Hypomagnesemia. 12. Mild acute kidney injury on chronic kidney disease, stage 2. 13. History of aortic valve replacement. 14. Gout. 15. Benign prostatic hypertrophy. 16. Bilateral internal carotid artery stenosis. 17. 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 18. Significant left shoulder pain secondary to degenerative disease. PLAN: The patient's INR today is 1.9. We will continue warfarin. Attempt was made to set up outpatient warfarin Clinic at [facility]. I discussed with Dr. Goodwin at [facility]. Dr. Goodwin is not working today. He will set up the Coumadin Clinic tomorrow. He also agreed to follow up the patient until the Coumadin Clinic takes over. We will recheck PT/INR in a.m. Lovenox will be discontinued. I discussed with Dr. Davila, who recommended discontinuation of Plavix. We will continue 81 mg of aspirin. We will avoid NSAIDs. We will continue warfarin at current dose. Monitor hemoglobin and hematocrit every 2 to 3 days. The patient is stable for discharge. However, due to lack of Coumadin Clinic setup, we will continue to monitor for one more day. Job ID: [id number]
[2019-03-02] MEDS: Atorvastatin Calcium 40 MG TAB PO SCH (20:03)
[2019-03-02] MEDS: Lidocaine Patch Removal 1 EACH TOP SCH (20:03)
[2019-03-02] MEDS: Tamsulosin HCl 0.4 MG CAP PO SCH (20:03)
[2019-03-03] MEDS: HYDROcodone/Acetaminophen 5/325 mg Tablet PO PRN (03:11)
[2019-03-03 04:42] LABS: INR-International Normal Ratio 2.3; Prothrombin Time 25.1 SEC (12.0-14.7)
[2019-03-03] MEDS: Lisinopril 5 MG TAB PO SCH (08:49)
[2019-03-03] MEDS: Allopurinol 300 MG TAB PO SCH (08:49)
[2019-03-03] MEDS: Metoprolol Tartrate 25 MG TAB PO SCH (08:49)
[2019-03-03] MEDS: Aspirin 81 mg Enteric Coated Tablet PO SCH (08:49)
[2019-03-03] MEDS: Lidocaine 5% Patch TD SCH (08:50)
[2019-03-03 11:19] VITALS: BP 185/64; TEMP 98.1
--- NOTE | 2019-03-04 08:21 | DIS ---
DATE OF ADMISSION: 02/25/2019 DATE OF DISCHARGE: 03/03/2019 DISCHARGE DISPOSITION: Home. FOLLOWUP: Follow up with primary care physician at [facility], Dr. Goodwin after 2 days. PT/INR at that time is recommended. ALLERGIES: NO KNOWN DRUG ALLERGIES. CODE STATUS: Do not resuscitate. DISCHARGE MEDICATIONS: 1. Warfarin 7.5 mg daily. 2. Plavix was discontinued. 3. The patient will continue 81 mg aspirin. All other home medications were left unchanged. The patient was seen and examined on the day of discharge. Denies any new complaints. No chest pain, shortness of breath, or palpitations reported. SIGNIFICANT LABORATORY DATA: INR on the day of discharge is 2.3 with creatinine 1.1 two days ago. Hemoglobin 10.[address] angiogram of the chest on February 25, 2019, showed nonocclusive filling defect involving the subsegmental vessels to the right middle lobe. Venous Doppler of bilateral lower extremity was negative for DVT. Upper extremity CT showed severe arthrosis of the acromioclavicular joint as well as some degenerative changes of the glenohumeral joint without any fractures or dislocation. BRIEF HOSPITAL COURSE: The patient is a 68-year-old male with morbid obesity, coronary artery disease, status post CABG with recent acute CVA, on aspirin and Plavix, presented to the hospital on February 24, 2019, with chest discomfort along with right shoulder pain. His workup was consistent with right middle lobe subsegmental pulmonary embolism. Venous Doppler was negative for bilateral lower extremity. He was started on Lovenox along with warfarin. His INR on the day of discharge is 2.3. I discussed with Neurology, Dr. Davila, who recommended discontinuation of Plavix. Cardiology was also involved during this hospitalization. The patient had significant pain in the right shoulder. He underwent CT scan of the upper extremity as discussed above. He was advised to follow up with Orthopedic Service as outpatient. He understands the risk associated with anticoagulation. FINAL DIAGNOSES: 1. Acute pulmonary embolism, started on anticoagulation. 2. Coronary artery disease status post coronary artery bypass grafting. One of the four grafts are patent. 3. Recent acute cerebrovascular accident. The patient was on aspirin and Plavix on admission. However, Plavix was discontinued while on warfarin. Once he completes warfarin, Plavix needs to be restarted. 4. Hypertension. 5. Hyperlipidemia. 6. Diabetes mellitus type 2. 7. Morbid obesity with a body mass index of 50.9. 8. Former smoker. 9. Obstructive sleep apnea. 10. Mild intermittent asthma. 11. Mild acute kidney injury on chronic kidney disease, stage 2, resolved. 12. History of aortic valve replacement. 13. Gout. 14. Hypomagnesemia. 15. Benign prostatic hypertrophy. 16. Bilateral internal carotid artery stenosis. The patient was advised to follow up with Dr. Castro as outpatient. 17. Significant right shoulder pain due to degenerative joint disease. 18. 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 19. Total time coordinating the discharge of this patient was 36 minutes. He was extensively counseled on warfarin as well as importance of followup and INR testing. Risk not limited to life threatening complications including was discussed with the patient, he stated understanding. Job ID: [id number]
== END 2019-03-03 14:50 | disposition home or self-care (01) | DRG 553 ==
LOC: ERS 17:52 → 2SW 23:59 → OBSVTOIN 02-25 09:57 → SJJU 02-26 20:46
PROVIDERS: ADMIT Hospitalist; ATTEND Hospitalist
DX: M19.011 Primary osteoarthritis, right shoulder (principal); I26.99 Other pulmonary embolism without acute cor pulmonale; Z68.43 Body mass index [BMI] 50.0-59.9, adult; N17.9 Acute kidney failure, unspecified; Z66 Do not resuscitate; E66.01 Morbid (severe) obesity due to excess calories; M10.9 Gout, unspecified; E78.5 Hyperlipidemia, unspecified; J44.9 Chronic obstructive pulmonary disease, unspecified; I25.10 Atherosclerotic heart disease of native coronary artery without angina pectoris; N40.0 Benign prostatic hyperplasia without lower urinary tract symptoms; K43.9 Ventral hernia without obstruction or gangrene; E78.00 Pure hypercholesterolemia, unspecified; G47.33 Obstructive sleep apnea (adult) (pediatric); I65.23 Occlusion and stenosis of bilateral carotid arteries; N18.3 Chronic kidney disease, stage 3 (moderate); D63.1 Anemia in chronic kidney disease; I65.01 Occlusion and stenosis of right vertebral artery; J45.20 Mild intermittent asthma, uncomplicated; E11.22 Type 2 diabetes mellitus with diabetic chronic kidney disease; I12.9 Hypertensive chronic kidney disease with stage 1 through stage 4 chronic kidney disease, or unspecified chronic kidney disease; D72.829 Elevated white blood cell count, unspecified; E83.42 Hypomagnesemia; Z79.02 Long term (current) use of antithrombotics/antiplatelets; Z79.82 Long term (current) use of aspirin; Z86.73 Personal history of transient ischemic attack (TIA), and cerebral infarction without residual deficits; Z95.2 Presence of prosthetic heart valve; Z95.5 Presence of coronary angioplasty implant and graft; Z95.1 Presence of aortocoronary bypass graft; Z87.891 Personal history of nicotine dependence; Z91.19 Patient's noncompliance with other medical treatment and regimen
CPT/HCPCS: 36415; 71045; 71275; 80048; 80053; 80061; 81001; 82550; 82565; 83605; 83735; 84145; 84484; 85014; 85018; 85025; 85049; 85379; 85610; 85730; 93005; 93970; 94760; 96374; 96376; J1650; J1885; J2270; Q9966; S0028

== ENCOUNTER 2019-03-31 09:12 | Emergency (ER) | payer MEDICARE, MEDICAID ==
[2019-03-31 10:03] LABS: #Basophils 0.1 thou/uL (0.0-0.2); #Eosinphils 0.4 thou/uL (0.0-0.7); #Monocytes 0.9 thou/uL (0.11-0.59); #Neutrophils 10.2 thou/uL (1.40-6.50); %Basophils 0.5 % (0.0-1.0); %Eosinophils 2.6 % (0.0-10.0); %Monocytes 6.7 % (0.0-10.0); %Neutrophils 75.3 % (42.0-75.0); Hemoglobin 11.8 g/dL (14.0-18.0); Mean Corpuscular HGB CONC 32.2 g/dL (32.0-36.0); Mean Corpuscular Hemoglobin 28.7 pg (27.0-31.0); Mean Corpuscular Volume 89.1 fL (78.0-98.0); Mean Platelet Volume 7.7 fL (7.4-10.4); Platelet Count 252 thou/uL (130-400); Red Blood Cell (RBC) Count 4.13 mill/uL (4.70-6.10); White Blood Cell (WBC) Count 13.5 thou/uL (4.8-10.8)
[2019-03-31] MEDS ORDERED: ISOVUE-370 76%-LOCM 1 ML ONE (10:04)
[2019-03-31 10:25] LABS: ALT (SGPT) 14 U/L (8-55); AST (SGOT) 13 U/L (5-34); Albumin 3.5 g/dL (3.4-4.8); Alkaline Phosphatase 91 U/L (40-110); Anion Gap 16 mmol/L (10-20); BUN (Urea Nitrogen) 15 mg/dL (8.4-25.7); Bilirubin, Total 0.7 mg/dL (0.2-1.2); Calc. Creatinine Clearance 0 mL/min (70-130); Calcium 8.9 mg/dL (7.8-10.44); Carbon Dioxide 22 mmol/L (23-31); Chloride 105 mmol/L (98-107); Estimated GFR-MDRD 65; Globulin 3.7 g/dL (2.4-3.5); Glucose 129 mg/dL (80-115); Lipase 52 U/L (8-78); Potassium 3.8 mmol/L (3.5-5.1); Protein, Total 7.2 g/dL (5.8-8.1); Sodium 139 mmol/L (136-145)
[2019-03-31] MEDS ORDERED: Ondansetron PF 4 MG/2 ML Vial ONE (10:53)
[2019-03-31] MEDS ORDERED: Morphine 4 MG/ML VIAL ONE ×2 (10:53→12:53)
[2019-03-31 12:34] LABS: Bilirubin Negative (Negative); Blood, Urine Negative (Negative); Clarity Clear (Clear); Glucose, Urine (Dipstick) Normal (Negative); Leukocyte Negative Leu/uL (Negative); Nitrite Negative (Negative); Protein, Urine (Dipstick) Negative (Neg-Trace); Urobilinogen Normal mg/dL (Less than 2)
--- NOTE | 2019-03-31 12:36 | CT ---
CT ABDOMEN AND PELVIS WITH IV CONTRAST: HISTORY: Right flank pain that started yesterday with a history of a UTI. Recently diagnosed with pyelonephrit is. COMPARISON: An 02/12/[address] study. FINDINGS: ABDOMEN: The lung bases are clear. The liver, spleen, pancreas and gallbladder regions appear unremarkable. The right and left adrenal glands are normal in appearance. The right and left kidneys are normal in size. The exophytic hypodensity involving the right kidney is stable in size, statistically most like ly a cyst, although CT numbers are higher than typically seen. This is in the mid pole region. There appears to be a smaller hypodensity in the medial cortex, also statistically most likely a cyst. Ther e is no significant periaortic or mesenteric adenopathy. Two ventral hernias are seen. A midline upper abdominal hernia just below the level of the xiphoid co ntains transverse colon without obstruction. The second is a fat-containing paraumbilical hernia. Thi s is a similar appearance to the previous study. PELVIS: No adenopathy, mass or free fluid. The appendix is retrocecal in location and normal in appea chaz. IMPRESSION: 1. Indeterminate hypodensities involving the right kidney, statistically most likely cysts. 2. Midline abdominal wall hernias, as described above. 3. No evidence of obstruction of either kidney or any evidence for pyelonephritis. POS: DARRIN
== END 2019-03-31 13:14 | disposition home or self-care (01) ==
LOC: ERS 09:12
DX: M54.5 Low back pain (principal); M53.3 Sacrococcygeal disorders, not elsewhere classified
CPT/HCPCS: 36415; 74177; 80053; 81003; 83690; 85025; 96374; 96375; 96376; J2270; J2405; Q9966

== ENCOUNTER 2019-04-09 12:07 | Emergency (ER) | payer MEDICARE, MEDICAID ==
[2019-04-09] MEDS ORDERED: Colchicine 0.6 MG TAB PO SCH (14:30)
== END 2019-04-09 14:49 | disposition home or self-care (01) ==
LOC: ERS 12:07
DX: M10.9 Gout, unspecified (principal); E78.5 Hyperlipidemia, unspecified; I10 Essential (primary) hypertension; J44.9 Chronic obstructive pulmonary disease, unspecified; Z79.899 Other long term (current) drug therapy
CPT/HCPCS: 99283

== ENCOUNTER 2019-11-24 16:16 | Inpatient (IN) | payer MEDICARE, MEDICAID ==
[~2019-11-24 16:16] MED LIST: Iopamidol-370 76% 500 ML 1 ML ONE
--- NOTE | 2019-11-24 16:33 | CT ---
CT OF BRAIN WITHOUT CONTRAST: 11/24/19 HISTORY: Level I stroke. Left sided weakness and facial droop. FINDINGS: Comparison is made with exam of 12/26/18. No evidence of acute infarct, hemorrhage, midline shift or abnormal extra-axial fluid collections ar e seen. The ventricular size is normal and the basilar cisterns patent. The bony calvarium is intact. The visualized paranasal sinuses and mastoid air cells are well aerated. IMPRESSION: No CT evidence of acute intracranial process. Discussed over the telephone with ER physician, Dr. Montejo at 4:29 p.m.
[2019-11-24] MEDS ORDERED: Ondansetron PF 4 MG/2 ML Vial ONE (16:35)
[2019-11-24 16:44] LABS: #Lymphocytes 1.1 thou/uL (1.20-3.40); #Monocytes 0.3 thou/uL (0.11-0.59); #Neutrophils 8.7 thou/uL (1.40-6.50); %Basophils 0.3 % (0.0-1.0); %Eosinophils 0.4 % (0.0-10.0); %Lymphocytes 10.4 % (21.0-51.0); %Monocytes 3.1 % (0.0-10.0); %Neutrophils 85.8 % (42.0-75.0); Mean Corpuscular HGB CONC 29.9 g/dL (32.0-36.0); Mean Corpuscular Volume 86.9 fL (78.0-98.0); Mean Platelet Volume 8.2 fL (7.4-10.4); Platelet Count 241 thou/uL (130-400); RBC Distribution Width 14.6 % (11.5-14.5); Red Blood Cell (RBC) Count 5.01 mill/uL (4.70-6.10); White Blood Cell (WBC) Count 10.1 thou/uL (4.8-10.8)
[2019-11-24 16:49] LABS: INR-International Normal Ratio 1.1
[2019-11-24] MEDS ORDERED: Aspirin Chewable 81 MG TAB ONE (16:55)
--- NOTE | 2019-11-24 17:00 | RAD ---
RADIOGRAPH CHEST 1 VIEW: DATE: 11/24/2019 HISTORY: 69-year-old male with acute stroke. Concern for aspiration. FINDINGS: There is no airspace density, pulmonary edema, or pneumothorax. The lateral costophrenic angles are n ot effaced. There are sternotomy wires. Magnification of cardiac shadow. IMPRESSION: 1. No acute pulmonary findings. 2. Evidence of previous open-heart surgery.
[2019-11-24 17:04] LABS: ALT (SGPT) 18 U/L (8-55); AST (SGOT) 19 U/L (5-34); Albumin 3.8 g/dL (3.4-4.8); Alkaline Phosphatase 123 U/L (40-110); Anion Gap 10 mmol/L (10-20); BUN (Urea Nitrogen) 27 mg/dL (8.4-25.7); Bilirubin, Total 0.5 mg/dL (0.2-1.2); CK (CPK) 87 U/L (30-200); Calc. Creatinine Clearance 0 mL/min (70-130); Calcium 9.1 mg/dL (7.8-10.44); Carbon Dioxide 30 mmol/L (23-31); Chloride 101 mmol/L (98-107); Estimated GFR-MDRD 57; Globulin 3.7 g/dL (2.4-3.5); Glucose 181 mg/dL (80-115); Potassium 4.7 mmol/L (3.5-5.1); Protein, Total 7.5 g/dL (5.8-8.1); Sodium 136 mmol/L (136-145)
--- NOTE | 2019-11-24 17:13 | CT ---
CT arteriogram neck with IV contrast and 3-D imaging CT arteriogram head with IV contrast and 3-D imaging HISTORY: Right-sided weakness. Facial droop. CVA. FINDINGS: Normal branching of the great vessels at the aortic arch with arterial calcification. A sma ll amount of intermittent flow is seen within the right vertebral artery, although much of the right vertebral artery shows no flow at all. Multifocal high-grade stenoses versus intermittent occlu charles and collateralization. Good flow into the carotid and left vertebral systems. Approximately 40% narrowing at the origin of t he left subclavian artery. At the right carotid bifurcation, there is calcified and noncalcified plaque. Short segment focus of approximately 70% stenosis at the origin of the ICA.. Good flow into the remainder of the right ICA. On the left, there is calcified and noncalcified plaque with a short segment focus of very high-grade stenosis, at least 90%, at the origin of the ICA. Intracranially, there is prominent calcification and narrowing of the cavernous portions of the carot id arteries. Good flow into each cerebral and cerebellar system. No focal aneurysm or occlusion evident. IMPRESSION : No acute intracranial vascular abnormalities are demonstrated. Prominent atherosclerosis, including very high-grade stenosis at the left carotid bifurcation ICA osmel gin. 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 Stenoses also involve the left subclavian artery and right ICA origin. Findings were called to Dr. Montejo in the emergency department at 1655 hours. Code CR.
[2019-11-24 17:26] LABS: CKMB 1.6 ng/mL (0-6.6)
[2019-11-24 19:50] LABS: Bilirubin Negative (Negative); Blood, Urine Negative (Negative); Clarity Clear (Clear); Glucose, Urine (Dipstick) Normal (Negative); Leukocyte Negative Leu/uL (Negative); Nitrite Negative (Negative); Protein, Urine (Dipstick) Negative (Neg-Trace); Urobilinogen Normal mg/dL (Less than 2)
[2019-11-24] MEDS ORDERED: Acetaminophen 325 MG TAB PO PRN ×3 (20:20→21:55)
[2019-11-24] MEDS ORDERED: Ondansetron PF 4 MG/2 ML Vial IVP PRN ×3 (20:20→21:55)
[2019-11-24] MEDS ORDERED: Ondansetron ODT 4 MG TAB PO PRN ×3 (20:20→21:55)
[2019-11-24] MEDS ORDERED: Acetaminophen 650 MG Suppository PR PRN ×2 (20:20→21:55)
[2019-11-24] MEDS ORDERED: Atorvastatin Calcium 40 MG TAB PO SCH ×2 (21:00)
[2019-11-24] MEDS ORDERED: Famotidine/PF 20 mg/2ml Vial SLOW IVP SCH ×2 (21:00)
--- NOTE | 2019-11-24 21:33 | PDOC.HHP ---
Hospitalist HPI - History of Present Illness Left facial numbness and tingling History of Present Illness: Patient presents with complaints of left facial numbness/tingling that started at 2pm this afternoon. Patient states he later began to experience discomfort on the right side of his chest wrapping around to the right lateral chest wall. He states he often has shortness of breath when he exerts himself and did not notice any trouble with his breathing that was worse than usual. Denies any associated extremity numbness or weakness. No dizziness. No headache. Reports having an episode of nausea with vomiting after having the contrast administered for the CTA done in the ED. He no longer has n/v. Has chronic RUQ discomfort which he states is associated with a cyst in his right kidney. Patient expressing concern over hernia repairs and worried that the discomfort maybe due to that. States he was told in the past he had "floating meshes". Of note patient had a recent stress test on 11/22/2019 which showed no evidence of reversible ischemia. He was noted to have septal hypokinesis, EF 61%. During recent admission he also had a CT A/P that showed no urinary tract calculi/obstruction and minimal increase in size of a right renal exophytic mass since 03/2019 with stable ventral abdominal wall hernias. ED Course: NSR< HR 76, No ST changes or T wave abnormalities. CT Head showed no acute intracranial abnormalities. Aspirin 162 mg PO given. Zofran 4 mg IV given. Labs notable for Trop of 0.057. CKMB 1.6 TSH 0.738. CTA head and neck: No acute intracranial vascular abnormalities are demonstrated. Prominent atherosclerosis, including very high-grade stenosis at the left carotid bifurcation ICA origin. 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 Stenoses also involve the left subclavian artery and right ICA origin. Hospitalist ROS - Medication Medications: ALLERGIES: No known drug allergies. CURRENT MEDICATIONS: furosemide oral SatNov 24, 2019 16:55 REESE Silvestre Bailey TABLET : Strength - 80 mg : ORAL Patient Dose: 40 mg Oral 2 times a day. aspirin oral SatNov 24, 2019 16:55 REESE Silvestre, Bailey TABLET : Strength - 81 mg : ORAL Patient Dose: 81 mg Oral once a day. lisinopril SatNov 24, 2019 16:55 Eiferle, RN, Bailey TABLET : Strength - 5 mg : ORAL Patient Dose: 40 mg Oral once a day. atorvastatin SatNov 24, 2019 16:55 REESE Silvestre Bailey TABLET : Strength - 40 mg : ORAL Patient Dose: 40 mg Oral once a day. metoprolol tartrate oral SatNov 24, 2019 16:55 REESE Silvestre Bailey TABLET : Strength - 50 mg : ORAL Patient Dose: 50 mg Oral 2 times a day. Eliquis SatNov 24, 2019 16:55 REESE Silvestre Bailey TABLET : Strength - 5 mg : ORAL Patient Dose: 5 mg Oral 2 times a day. hydroCHLOROthiazide SatNov 24, 2019 16:55 REESE Silvestre Bailey tablet : Strength - 25 mg : ORAL Patient Dose: 25 mg Oral 2 times a day. gabapentin SatNov 24, 2019 16:55 REESE Silvestre Bailey capsule : Strength - 100 mg : ORAL Patient Dose: 100 mg Oral 3 times a day. traZODone SatNov 24, 2019 16:55 REESE Silvestre Nicole tablet : Strength - 50 mg : ORAL Patient Dose: 50 mg Oral As Needed. tamsulosin SatNov 24, 2019 16:56 REESE Silvestre Nicole CAPSULE, EXT RELEASE 24 HR : Strength - 0.4 mg : ORAL Patient Dose: 1 tab(s) Oral once a day. Hospitalist History - Past Medical History Source: patient Cardiac: reports: CAD, HTN, Hyperlipidemia, Other (Morbid obesity) Pulmonary: reports: COPD [employer]: reports: TIA, Other (Carotid artery stenosis) Psych: reports: Anxiety - Past Surgical History Past Surgical History: reports: CABG, Hernia Repair, Other (coronary artery stents, AV replacement, right index finger surgery) - Family History Family History: reports: no pertinent history - Social History Smoking Status: Former smoker Alcohol: reports: None Drugs: reports: none Living Situation: With Family Activity level: uses cane/walker - Exam General Appearance: NAD, awake alert Eye: PERRL, anicteric sclera ENT: normocephalic atraumatic, moist mucosa Neck: supple, symmetric, no lymphadenopathy Heart: RRR, no murmur, no gallops, normal peripheral pulses Heart - other findings: right lateral wall chest tenderness to palpation Respiratory: CTAB, no wheezes, no rales, normal chest expansion Gastrointestinal: soft, non-tender, non-distended, normal bowel sounds, no palpable masses Extremities: no edema Skin: normal turgor, no lesions, no rashes Neurological - other findings: reduced sensation to left side of face, facial movements normal Musculoskeletal: no muscle wasting Psychiatric: normal affect, normal behavior, A&O x 3 Hospitalist Results - Labs Result Diagrams: 11/24/19 16:22 11/24/19 16:22 Lab results: WBC 10.1 thou/uL (4.8-10.8) 11/24/19 16:22 Hgb 13.0 g/dL (14.0-18.0) L 11/24/19 16:22 Hct 43.5 % (42.0-52.0) 11/24/19 16:22 MCV 86.9 fL (78.0-98.0) 11/24/19 16:22 Plt Count 241 thou/uL (130-400) 11/24/19 16:22 Neutrophils % 85.8 % (42.0-75.0) H 11/24/19 16:22 Sodium 136 mmol/L (136-145) 11/24/19 16:22 Potassium 4.7 mmol/L (3.5-5.1) 11/24/19 16:22 Chloride 101 mmol/L (98-107) 11/24/19 16:22 Carbon Dioxide 30 mmol/L (23-31) 11/24/19 16:22 BUN 27 mg/dL (8.4-25.7) H 11/24/19 16:22 Creatinine 1.25 mg/dL (0.7-1.3) 11/24/19 16:22 Glucose 181 mg/dL (80-115) H 11/24/19 16:22 Lactic Acid 1.2 mmol/L (0.5-2.2) 11/24/19 16:22 Calcium 9.1 mg/dL (7.8-10.44) 11/24/19 16:22 Total Bilirubin 0.5 mg/dL (0.2-1.2) 11/24/19 16:22 AST 19 U/L (5-34) 11/24/19 16:22 ALT 18 U/L (8-55) 11/24/19 16:22 Alkaline Phosphatase 123 U/L (40-110) H 11/24/19 16:22 Creatine Kinase 87 U/L (30-200) 11/24/19 16:22 CK-MB (CK-2) 1.6 ng/mL (0-6.6) 11/24/19 16:22 Troponin I 0.057 ng/mL (< 0.028) H 11/24/19 16:22 B-Natriuretic Peptide 120.6 pg/mL (0-100) H 11/24/19 16:22 Serum Total Protein 7.5 g/dL (5.8-8.1) 11/24/19 16:22 Albumin 3.8 g/dL (3.4-4.8) 11/24/19 16:22 Urine Ketones Negative mg/dL (Negative) 11/24/19 18:21 Urine Blood Negative (Negative) 11/24/19 18:21 Urine Nitrite Negative (Negative) 11/24/19 18:21 Ur Leukocyte Esterase Negative Rock/uL (Negative) 11/24/19 18:21 - Radiology Interpretation Chest x-ray Status: report reviewed by wa Hospitalist H&P A/P - Problem (1) Numbness and tingling of left side of face Code(s): R20.0 - ANESTHESIA OF SKIN; R20.2 - PARESTHESIA OF SKIN Status: Acute (2) Right-sided chest wall pain Code(s): R07.89 - OTHER CHEST PAIN Status: Acute (3) Elevated troponin Code(s): R79.89 - OTHER SPECIFIED ABNORMAL FINDINGS OF BLOOD CHEMISTRY Status : Acute (4) CAD (coronary artery disease) Code(s): I25.10 - ATHSCL HEART DISEASE OF [place] CORONARY ARTERY W/O ANG PCTRS Status: Chronic Qualifiers: (5) CKD (chronic kidney disease) stage 3, GFR 30-59 ml/min Code(s): N18.3 - CHRONIC KIDNEY DISEASE, STAGE 3 (MODERATE) Status: Chronic (6) Dyslipidemia Code(s): E78.5 - HYPERLIPIDEMIA, UNSPECIFIED Status: Chronic (7) HTN (hypertension) Code(s): I10 - ESSENTIAL (PRIMARY) HYPERTENSION Status: Chronic Qualifiers: (8) Morbid (severe) obesity due to excess calories Code(s): E66.01 - MORBID (SEVERE) OBESITY DUE TO EXCESS CALORIES Status: Chronic (9) KOURTNEY (obstructive sleep apnea) Code(s): G47.33 - OBSTRUCTIVE SLEEP APNEA (ADULT) (PEDIATRIC) Status: Chronic - Plan Plan: Cardiac monitoring. Trend troponins. Chest pain likely musculoskeletal in nature, given tenderness to palpation. Consider cardiology consult, as recent stress test last week was normal. MRI brain and Echo ordered. Neuro consulted. CV surgery consulted, given 90% stenosis at origin of the left ICA. Stenosis involving left subclavian artery as well. 70% stenosis at origin of right ICA. Lipid panel with AM labs. Continue daily aspirin and statin. Patient on anticoagulation with Eliquis, continue. Monitor BP. Reconcile home medications once verified. CODE status FULL. Surrogate decision maker: His daughter, Rakel Casillas.
[2019-11-24 23:11] LABS: CKMB 1.5 ng/mL (0-6.6)
[2019-11-24] MEDS ORDERED: Colchicine 0.6 MG TAB PO PRN (23:42)
[2019-11-24] MEDS ORDERED: Cyclobenzaprine 10 MG TAB PO PRN (23:42)
[2019-11-24] MEDS ORDERED: Apixaban 5 MG TAB PO SCH (23:45)
[2019-11-24] MEDS ORDERED: METHYLPREDNISOLONE 4 MG PO SCH (23:45)
[2019-11-25] MEDS: Acetaminophen/Codeine 30-300mg Tablet PO PRN ×3 (01:00→18:29)
[2019-11-25] MEDS: Lidocaine Patch Removal 1 EACH TOP SCH (08:36)
[2019-11-25] MEDS ORDERED: Aspirin 325 mg Enteric Coated Tablet PO SCH ×2 (09:00)
[2019-11-25] MEDS ORDERED: Apixaban 5 MG TAB PO SCH (09:00)
[2019-11-25] MEDS: Lisinopril 20 MG TAB PO SCH (09:02)
[2019-11-25] MEDS: Famotidine 20 MG TAB PO SCH ×2 (09:03→20:51)
[2019-11-25] MEDS: Aspirin 81 mg Enteric Coated Tablet PO SCH (09:03)
[2019-11-25] MEDS: Gabapentin 100 MG CAP PO SCH ×3 (09:03→20:50)
[2019-11-25] MEDS: methylPREDNISolone 4 mg Tablet PO SCH ×6 (09:03→20:51)
[2019-11-25] MEDS: Metoprolol Tartrate 50 MG TAB PO SCH ×2 (09:04→20:51)
[2019-11-25] MEDS: Furosemide 40 MG TAB PO SCH ×2 (09:04→20:51)
[2019-11-25] MEDS: Famotidine/PF 20 mg/2ml Vial SLOW IVP SCH ×2 (09:05→20:56)
--- NOTE | 2019-11-25 10:49 | CON ---
DATE OF CONSULTATION: 11/25/2019 HISTORY OF PRESENT ILLNESS: Mr. Casillas presented through the emergency department. He has had multiple emergency department visits and admissions over the last year. I saw him 1 year ago when he presented with left knee and shoulder pain. It was unclear to me why he ended up getting a carotid workup, but at that time, he had 60% to 70% bifurcation disease bilaterally in his carotid systems. He was asymptomatic. It was recommended that he stay on an aspirin and a cholesterol agent and try to lose some weight. Unfortunately, he has been unsuccessful in his weight loss and continues to weigh over 400 pounds. He presented through the emergency department this admission with a left-sided facial numbness. His motor system apparently worked without any difficulty - he never had any facial droop. He never had any paralysis of either upper or lower extremity. He did not have visual changes. His speech remained normal. As part of his workup, a CT angiogram of his neck and brain was obtained. The left internal carotid artery at the bifurcation has an approximately 90% lesion with an exophytic calcified plaque right at the bifurcation. On the right, the plaque appears to be softer by CT, but the lesion measures approximately 70%. The patient is currently back at his baseline. Has no numbness or other neurologic symptoms. PAST MEDICAL HISTORY: 1. Morbid obesity. 2. History of old cerebellar infarct. 3. Hypertension. 4. Dyslipidemia. 5. Gout. 6. Coronary artery disease/aortic stenosis, status post AVR and CABG in [place]. 7. Carotid disease. PAST SURGICAL HISTORY: 1. AVR, CABG in [place]. 2. Hernia repairs x3. 3. Removal of a right ganglion cyst from his index finger. SOCIAL HISTORY: He does not use alcohol, drugs, or tobacco. He lives with his family. HOME MEDICATIONS: 1. Eliquis 5 mg b.i.d. 2. Aspirin 81 mg daily. 3. Flomax 0.4 mg at bedtime. 4. Metoprolol 50 mg b.i.d. 5. Zestril 40 mg daily. 6. Gabapentin 100 mg t.i.d. 7. Lasix 40 mg b.i.d. 8. Pepcid 20 mg b.i.d. 9. Flexeril 10 mg t.i.d. p.r.n. 10. Colchicine 0.6 mg b.i.d. p.r.n. 11. Lipitor 40 mg at bedtime. ALLERGIES: NONE. PHYSICAL EXAMINATION: GENERAL: This is a morbidly obese gentleman who is sitting propped up in bed. VITAL SIGNS: His height is 6 feet, weight is 410 pounds. BSA is 3.06. BMI is 55. Temperature is 98.1, pulse is 68 and regular. Blood pressure is 171/88. HEENT: Sclerae nonicteric. Pupils are equal and round bilaterally. NECK: Supple. I cannot auscultate a bruit, although his neck is very thick. I have interrogated his carotid system with ultrasound. The common carotid is approximately 3.5 cm deep at the clavicle. Has approximately a 6.5-cm runway prior proximal to the carotid bifurcation. LUNGS: Have distant breath sounds bilaterally. HEART: Rhythm is regular without murmur. ABDOMEN: Soft and nontender without mass. EXTREMITIES: There is bilateral pitting edema. LABORATORY DATA: Of note, hemoglobin is 13, platelet count is 241,000. Creatinine is 1.25, potassium is 4.7. Troponin is 0.057. ASSESSMENT AND PLAN: Bilateral carotid disease greater than 70%. I have sent his films for TCAR (transcarotid artery revascularization)evaluation. Hopefully, we can approach him left first and then right at a later time. He will need to stay on aspirin and Plavix postoperatively along with his statin. I would stop his Eliquis postoperatively. Job ID: [id number]
--- NOTE | 2019-11-25 11:41 | PDOC.HOSPP ---
- Subjective Encounter Date: 11/25/19 Encounter Time: 09:00 Subjective: left facial tingling is gone but has some altered sensation over his left upper lip no weakness in legs or Upper extremities - Objective Vital Signs & Weight: Vital Signs (12 hours) Temp Pulse Resp BP BP Pulse Ox 11/25/19 09:02 171/88 H 11/25/19 07:36 98.1 F 68 18 171/88 H 94 L 11/25/19 04:00 98.1 F 52 L 20 152/84 H 94 L 11/25/19 00:20 97.8 F 59 L 18 146/78 H 96 Weight Weight 407 lb 3.1 oz I&O: 11/24/19 11/25/19 11/26/19 06:59 06:59 06:59 Intake Total 240 Output Total 550 Balance -310 Result Diagrams: 11/24/19 16:22 11/24/19 16:22 Additional Labs: Accuchecks 11/24/19 16:26 POC Glucose 167 H Hospitalist ROS - Medication Medications: Active Medications Generic Name Dose Route Start Last Admin Trade Name Freq PRN Reason Stop Dose Admin Acetaminophen/Codeine Phosphate 1 tab 11/24/19 23:27 11/25/19 11:24 Tylenol #3 PO 1 tab Q8H PRN Administration Mild-Moderate Pain (1-5) Aspirin 81 mg 11/25/19 09:00 11/25/19 09:03 Ecotrin PO 81 mg DAILY JACQUE Administration Famotidine 20 mg 11/25/19 09:00 11/25/19 09:05 Pepcid SLOW IVP Not Given Q12HR JACQUE Famotidine 20 mg 11/25/19 09:00 11/25/19 09:03 Pepcid PO 20 mg BID JACQUE Administration Furosemide 40 mg 11/25/19 09:00 11/25/19 09:04 Lasix PO 40 mg BID JACQUE Administration Gabapentin 100 mg 11/25/19 09:00 11/25/19 09:03 Neurontin PO 100 mg TID JACQUE Administration Lisinopril 40 mg 11/25/19 09:00 11/25/19 09:02 Zestril PO 40 mg DAILY JACQUE Administration Methylprednisolone 4 mg 11/25/19 07:00 11/25/19 11:26 Medrol PO 11/25/19 21:01 4 mg [id number] JACQUE Administration Metoprolol Tartrate 50 mg 11/25/19 09:00 11/25/19 09:04 Lopressor PO 50 mg BID JACQUE Administration Miscellaneous Medication 1 each 11/25/19 04:00 11/25/19 08:36 Lidocaine Patch Removal TOP Not Given 0400 JACQUE - Exam General Appearance: awake alert Eye: PERRL, anicteric sclera ENT: no oropharyngeal lesions, moist mucosa Neck: supple, no JVD Heart: RRR, no murmur Respiratory: no wheezes, no rales Gastrointestinal: soft, non-tender, non-distended, normal bowel sounds Extremities: no cyanosis, no edema Neurological: cranial nerve grossly intact, no new deficit Psychiatric: normal affect, A&O x 3 Hosp A/P (1) Carotid stenosis, bilateral Code(s): I65.23 - OCCLUSION AND STENOSIS OF BILATERAL CAROTID ARTERIES Status : Acute (2) Numbness and tingling of left side of face Code(s): R20.0 - ANESTHESIA OF SKIN; R20.2 - PARESTHESIA OF SKIN Status: Acute (3) Anemia, normocytic normochromic Code(s): D64.9 - ANEMIA, UNSPECIFIED Status: Chronic (4) BPH (benign prostatic hyperplasia) Code(s): N40.0 - BENIGN PROSTATIC HYPERPLASIA WITHOUT LOWER URINRY TRACT SYMP Status: Chronic Qualifiers: Lower urinary tract symptom presence: symptoms absent Qualified Code(s): N40.0 - Benign prostatic hyperplasia without lower urinary tract symptoms (5) CAD (coronary artery disease) Code(s): I25.10 - ATHSCL HEART DISEASE OF [place] CORONARY ARTERY W/O ANG PCTRS Status: Chronic Qualifiers: Coronary Disease-Associated Artery/Lesion type: bypass graft [place] vs. transplanted heart: [place] heart Associated angina: without angina Qualified Code(s): I25.810 - Atherosclerosis of coronary artery bypass graft(s) without angina pectoris (6) Dyslipidemia Code(s): E78.5 - HYPERLIPIDEMIA, UNSPECIFIED Status: Chronic (7) Gout Code(s): M10.9 - GOUT, UNSPECIFIED Status: Chronic Qualifiers: Gout site: unspecified site Chronicity: chronic Presence of tophus: without tophus (8) HTN (hypertension) Code(s): I10 - ESSENTIAL (PRIMARY) HYPERTENSION Status: Chronic Qualifiers: (9) Morbid (severe) obesity due to excess calories Code(s): E66.01 - MORBID (SEVERE) OBESITY DUE TO EXCESS CALORIES Status: Chronic (10) KOURTNEY (obstructive sleep apnea) Code(s): G47.33 - OBSTRUCTIVE SLEEP APNEA (ADULT) (PEDIATRIC) Status: Chronic - Plan d/w , will have carotid surgery/stent done during this hospitalization switch patient to inpatient status, has critical carotid stenosis with symptoms. He has to be full code for surgery and post op he can be switched to DNAR status if patient is willing then. prior h/o cabg with avr done in [place] (2007) Pt is right handed. stress test on 11/22/2019 is -ve but had septal hypokinesis will confirm why he is on steroids continue asp, lipitor, lisinopril, lopressor, flomax. Eliquis per CTS adv to ambulate as tolerated
--- NOTE | 2019-11-25 12:19 | CON ---
NEUROLOGY CONSULTATION DATE OF CONSULTATION: 11/25/2019 REASON FOR CONSULTATION: Left facial paresthesias. HISTORY OF PRESENT ILLNESS: Mr. Vinny Resendiz is a 69-year-old male with history significant for coronary artery disease, hypertension, hyperlipidemia, morbid obesity, prior TIAs, presented with left facial numbness and tingling that started around 2 p.m. on 11/24/2019. He later experienced discomfort on the right side of the chest with shortness of breath. He decided to come to the ER. The patient denies any focal weakness, focal paresthesias on either side, loss of vision, loss of consciousness, vertigo, headache, nausea, vomiting, dizziness associated with the episode. He does have one episode of nausea and vomiting after the contrast he received for CT angiogram. The patient had a recent stress test done on 2019, which shows reversible ischemia and septal hypokinesis with ejection fraction of 61%. In the emergency room, head CT was done, which did not reveal any acute intracranial pathology. He was given aspirin and Zofran. REVIEW OF SYSTEMS: Ten systems were reviewed and were negative except pertinent positives and negative mentioned in the HPI. HOME MEDICATIONS: 1. Furosemide 80 mg daily. 2. Aspirin 81 mg daily. 3. Lisinopril 5 mg daily. 4. Atorvastatin 40 mg daily. 5. Metoprolol 50 mg daily. 6. Eliquis 5 mg twice daily. 7. Hydrochlorothiazide 25 mg twice daily. 8. Gabapentin 100 mg three times a day. 9. Trazodone 50 mg daily. 10. Tamsulosin 0.4 mg daily. PAST MEDICAL HISTORY: Coronary artery disease, hypertension, hyperlipidemia, COPD, TIA, prior stroke. PAST SURGICAL HISTORY: Status post CABG, hernia repair. FAMILY HISTORY: No family history of stroke. SOCIAL HISTORY: . Lives with his . He is a former smoker. Denies alcohol or illegal drug use. He uses cane and a walker at baseline. - Objective Vital Signs & Weight: Vital Signs (12 hours) Temp Pulse Resp BP BP Pulse Ox 11/25/19 09:02 171/88 H 11/25/19 07:36 98.1 F 68 18 171/88 H 94 L 11/25/19 04:00 98.1 F 52 L 20 152/84 H 94 L 11/25/19 00:20 97.8 F 59 L 18 146/78 H 96 Weight Weight 407 lb 3.1 oz I&O: 11/24/19 11/25/19 11/26/19 06:59 06:59 06:59 Intake Total 240 Output Total 550 Balance -310 Result Diagrams: 11/24/19 16:22 11/24/19 16:22 Additional Labs: Accuchecks 11/24/19 16:26 POC Glucose 167 H - Medication Medications: Active Medications Generic Name Dose Route Start Last Admin Trade Name Freq PRN Reason Stop Dose Admin Acetaminophen/Codeine Phosphate 1 tab 11/24/19 23:27 11/25/19 11:24 Tylenol #3 PO 1 tab Q8H PRN Administration Mild-Moderate Pain (1-5) Aspirin 81 mg 11/25/19 09:00 11/25/19 09:03 Ecotrin PO 81 mg DAILY JACQUE Administration Famotidine 20 mg 11/25/19 09:00 11/25/19 09:05 Pepcid SLOW IVP Not Given Q12HR JACQUE Famotidine 20 mg 11/25/19 09:00 11/25/19 09:03 Pepcid PO 20 mg BID JACQUE Administration Furosemide 40 mg 11/25/19 09:00 11/25/19 09:04 Lasix PO 40 mg BID JACQUE Administration Gabapentin 100 mg 11/25/19 09:00 11/25/19 09:03 Neurontin PO 100 mg TID JACQUE Administration Lisinopril 40 mg 11/25/19 09:00 11/25/19 09:02 Zestril PO 40 mg DAILY JACQUE Administration Methylprednisolone 4 mg 11/25/19 07:00 11/25/19 11:26 Medrol PO 11/25/19 21:01 4 mg [id number] JACQUE Administration Metoprolol Tartrate 50 mg 11/25/19 09:00 11/25/19 09:04 Lopressor PO 50 mg BID JACQUE Administration Miscellaneous Medication 1 each 11/25/19 04:00 11/25/19 08:36 Lidocaine Patch Removal TOP Not Given 0400 JACQUE - Exam General Appearance: awake alert Eye: PERRL, anicteric sclera ENT: no oropharyngeal lesions, moist mucosa Neck: supple, no JVD Heart: RRR, no murmur Respiratory: no wheezes, no rales Gastrointestinal: soft, non-tender, non-distended, normal bowel sounds Extremities: no cyanosis, no edema NEUROLOGIC: Mental status, the patient is alert and oriented to person, place, and time. Speech is clear. Motor, muscle tone and bulk are normal. Strength 5/5 bilaterally. Sensory intact except decreased sensation on the left side of the face with tingling and paresthesias, hypersensitivity to touch. Cranial nerves 2 through 12 intact except hypersensitivity to touch with decreased sensation in V1, V2, V3 distribution. Reflexes symmetric bilaterally. Cerebellar finger-nose testing intact. Sensory intact. Gait now deferred due to patient's safety reasons. LABORATORY DATA: Data reviewed. I reviewed the CT scan which was negative for acute intracranial pathology. abs were essentially unremarkable. ASSESSMENT AND PLAN: Mr. Martín Casillas is consulted for tingling and numbness on the left side of the face which is now much improved.. No other focal deficits evident on exam. Telemetry, neuro checks every 4 hours. Recommend MRI to rule out acute intracranial pathology. He did have 90% stenosis at the origin of the left ICA. Recommend CV consult. Continue aspirin and statin for secondary stroke prevention. Continue Eliquis. PT/OT/Speech. Monitor blood pressure. Strict control of blood glucose. Continue home medications. Continue medical management per primary team. Thank you for the consult. Job ID: [id number] [facility]
--- NOTE | 2019-11-25 15:42 | CT ---
CT arteriogram neck with IV contrast and 3-D imaging CT arteriogram head with IV contrast and 3-D imaging HISTORY: Right-sided weakness. Facial droop. CVA. FINDINGS: Normal branching of the great vessels at the aortic arch with arterial calcification. A sma ll amount of intermittent flow is seen within the right vertebral artery, although much of the right vertebral artery shows no flow at all. Multifocal high-grade stenoses versus intermittent occlu charles and collateralization. Good flow into the carotid and left vertebral systems. Approximately 40% narrowing at the origin of t he left subclavian artery. At the right carotid bifurcation, there is calcified and noncalcified plaque. Short segment focus of approximately 70% stenosis at the origin of the ICA.. Good flow into the remainder of the right ICA. On the left, there is calcified and noncalcified plaque with a short segment focus of very high-grade stenosis, at least 90%, at the origin of the ICA. Intracranially, there is prominent calcification and narrowing of the cavernous portions of the carot id arteries. Good flow into each cerebral and cerebellar system. No focal aneurysm or occlusion evident. IMPRESSION : No acute intracranial vascular abnormalities are demonstrated. Prominent atherosclerosis, including very high-grade stenosis at the left carotid bifurcation ICA osmel gin. 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 Stenoses also involve the left subclavian artery and right ICA origin. Findings were called to Dr. Montejo in the emergency department at 1655 hours. Code CR. Transcribed Date/Time: 11/25/2019 3:42 PM
[2019-11-25] MEDS: Lidocaine 5% Patch TD SCH (16:05)
[2019-11-25] MEDS: Tamsulosin HCl 0.4 MG CAP PO SCH (20:50)
[2019-11-25] MEDS: Atorvastatin Calcium 40 MG TAB PO SCH (20:50)
[2019-11-26] MEDS: Lidocaine Patch Removal 1 EACH TOP SCH (04:33)
[2019-11-26 07:39] VITALS: BP 199/93
[2019-11-26] MEDS ORDERED: Clopidogrel Bisulfate 75 MG TAB PO SCH (09:00)
[2019-11-26] MEDS ORDERED: Protamine Sulfate 50 MG/5 ML VIAL ONE ×2 (10:14→14:00)
[2019-11-26] MEDS ORDERED: Heparin 5,000 UNITS/ML VIAL ONE (10:14)
[2019-11-26] MEDS ORDERED: Lorazepam 2 MG/ML VIAL SLOW IVP SCH (10:30)
--- NOTE | 2019-11-26 10:58 | PDOC.HOSPP ---
- Subjective Encounter Date: 11/26/19 Subjective: NEUROLOGY PROGRESS NOTE No acute events overnight. Scheduled for surgery today. - Objective Vital Signs & Weight: Vital Signs (12 hours) Temp Pulse Resp BP Pulse Ox 11/26/19 07:38 97.8 F 57 L 18 199/93 H 95 11/26/19 04:00 97.5 F L 50 L 18 157/73 H 95 11/26/19 00:00 97.2 F L 60 18 176/86 H 94 L Weight Weight 407 lb 3.1 oz I&O: 11/25/19 11/26/19 11/27/19 06:59 06:59 06:59 Intake Total 240 1500 Output Total 550 Balance -310 1500 Result Diagrams: 11/24/19 16:22 11/24/19 16:22 Radiology Reviewed by me: Yes EKG Reviewed by me: Yes Hospitalist ROS - Review of Systems Constitutional: denies: fever, chills, sweats, weakness, malaise, other Eyes: denies: pain, vision change, conjunctivae inflammation, eyelid inflammation, redness, other ENT: denies: ear pain, ear discharge, nose pain, nose discharge, nose congestion , mouth pain, mouth swelling, throat pain, throat swelling, other Respiratory: denies: cough, dry, shortness of breath, hemoptysis, SOB with excertion, pleuritic pain, sputum, wheezing, other Cardiovascular: denies: chest pain, palpitations, orthopnea, paroxysmal noc. dyspnea, edema, light headedness, other Gastrointestinal: denies: nausea, vomiting, abdominal pain, diarrhea, constipation, melena, hematochezia, other Genitourinary: denies: dysuria, frequency, incontinence, hematuria, retention, other Musculoskeletal: denies: neck pain, shoulder pain, arm pain, back pain, hand pain, leg pain, foot pain, other Skin: denies: rash, lesions, [place], bruising, other Neurological: reports: numbness Other: left face - Medication Medications: Active Medications Generic Name Dose Route Start Last Admin Trade Name Freq PRN Reason Stop Dose Admin Acetaminophen/Codeine Phosphate 1 tab 11/24/19 23:27 11/25/19 18:29 Tylenol #3 PO 1 tab Q8H PRN Administration Mild-Moderate Pain (1-5) Aspirin 81 mg 11/25/19 09:00 11/25/19 09:03 Ecotrin PO 81 mg DAILY JACQUE Administration Atorvastatin Calcium 40 mg 11/25/19 21:00 11/25/19 20:50 Lipitor PO 40 mg HS JACQUE Administration Famotidine 20 mg 11/25/19 09:00 11/25/19 20:51 Pepcid PO 20 mg BID JACQUE Administration Furosemide 40 mg 11/25/19 09:00 11/25/19 20:51 Lasix PO 40 mg BID JACQUE Administration Gabapentin 100 mg 11/25/19 09:00 11/25/19 20:50 Neurontin PO 100 mg TID JACQUE Administration Lidocaine 1 patch 11/25/19 16:00 11/25/19 16:05 Lidoderm 5% Patch TD 1 patch 1600 JACQUE Administration Lisinopril 40 mg 11/25/19 09:00 11/25/19 09:02 Zestril PO 40 mg DAILY JACQUE Administration Metoprolol Tartrate 50 mg 11/25/19 09:00 11/25/19 20:51 Lopressor PO 50 mg BID JACQUE Administration Miscellaneous Medication 1 each 11/25/19 04:00 11/26/19 04:33 Lidocaine Patch Removal TOP 1 each 0400 JACQUE Administration Tamsulosin HCl 0.4 mg 11/25/19 21:00 11/25/19 20:50 Flomax PO 0.4 mg HS JACQUE Administration - Exam General Appearance: awake alert Eye: PERRL ENT: normocephalic atraumatic Neck: supple Heart: RRR Respiratory: CTAB Gastrointestinal: soft Extremities: no cyanosis, no clubbing, no edema Skin: normal turgor, no lesions, no rashes Neurological: cranial nerve grossly intact, normal sensation to touch, no weakness, no focal deficits, no new deficit Neurological - other findings: left facial numbness almost resolved Musculoskeletal: normal tone, normal strength, no muscle wasting Psychiatric: normal affect, normal behavior, A&O x 3, oriented to person, oriented to place, oriented to time Hosp A/P (1) TIA (transient ischemic attack) Code(s): G45.9 - TRANSIENT CEREBRAL ISCHEMIC ATTACK, UNSPECIFIED Status: Acute (2) Carotid stenosis, bilateral Code(s): I65.23 - OCCLUSION AND STENOSIS OF BILATERAL CAROTID ARTERIES Status : Acute (3) Elevated troponin Code(s): R79.89 - OTHER SPECIFIED ABNORMAL FINDINGS OF BLOOD CHEMISTRY Status : Acute (4) Numbness and tingling of left side of face Code(s): R20.0 - ANESTHESIA OF SKIN; R20.2 - PARESTHESIA OF SKIN Status: Acute (5) Pulmonary embolism Code(s): I26.99 - OTHER PULMONARY EMBOLISM WITHOUT ACUTE COR PULMONALE Status : Acute (6) Right shoulder pain Code(s): M25.511 - PAIN IN RIGHT SHOULDER Status: Acute (7) Right-sided chest wall pain Code(s): R07.89 - OTHER CHEST PAIN Status: Acute (8) Anemia, normocytic normochromic Code(s): D64.9 - ANEMIA, UNSPECIFIED Status: Chronic - Plan PT/OT 69 year old consulted for left facial numbness which is almost resolved. He had symptomatic critical carotid stenosis. carotid surgery/stent scheduled today by CV surgery. switch patient to inpatient status, has with symptoms. Echocardiogram showed EF 50-55 %. No thrombus. Stress test from 11/22/2019 reviewed which was negative with septal hypokinesis Continue aspirin and high intensity statin for secondary stroke prevention. Strict control of BP and BG. Continue Eliquis. PT/OT Continue home medications. Continue medical management per primary team.
[2019-11-26] MEDS ORDERED: Fentanyl 100 MCG/2 ML VIAL ONE ×2 (11:14→15:35)
[2019-11-26] MEDS ORDERED: Midazolam HCl 2 mg/2 ml Vial ONE (11:14)
[2019-11-26] MEDS: methylPREDNISolone 4 mg Tablet PO SCH ×3 (11:27→17:54)
[2019-11-26] MEDS: Famotidine 20 MG TAB PO SCH ×2 (11:27→21:44)
[2019-11-26] MEDS: Aspirin 81 mg Enteric Coated Tablet PO SCH (11:27)
[2019-11-26] MEDS: Gabapentin 100 MG CAP PO SCH ×3 (11:28→21:45)
[2019-11-26] MEDS: Metoprolol Tartrate 50 MG TAB PO SCH ×2 (11:28→21:45)
[2019-11-26] MEDS: Lisinopril 20 MG TAB PO SCH (11:28)
[2019-11-26] MEDS: Furosemide 40 MG TAB PO SCH ×2 (11:28→21:45)
[2019-11-26] MEDS ORDERED: CEFAZOLIN 1 GM VIAL SLOW IVP SCH (12:00)
[2019-11-26] MEDS ORDERED: CEFAZOLIN 2 GM in Premix Bag 1 BAG IVPB SCH (12:00)
[2019-11-26] MEDS ORDERED: Rocuronium Bromide 10 MG/ML (10ML VIAL) ONE (12:51)
[2019-11-26] MEDS ORDERED: Glycopyrrolate 0.2 MG/ML 5 ML SYRINGE ONE (12:51)
[2019-11-26] MEDS ORDERED: EPHEDRINE 25 MG/5 ML SYRINGE ONE (12:51)
[2019-11-26] MEDS ORDERED: Ketorolac Tromethamine 30 MG/ML VIAL ONE (12:51)
[2019-11-26] MEDS ORDERED: PHENYLEPHRINE-NS 100 MCG/ML 10 ML SYRINGE ONE (12:51)
[2019-11-26] MEDS ORDERED: Ondansetron PF 4 MG/2 ML Vial ONE (12:51)
[2019-11-26] MEDS ORDERED: PROPOFOL 200 MG/20 ML VIAL ONE (12:51)
[2019-11-26] MEDS ORDERED: Lidocaine 1% PF 5 ML VIAL ONE (12:51)
[2019-11-26] MEDS ORDERED: Ondansetron HCl/PF 4 MG/2 ML Vial IVP PRN (14:31)
--- NOTE | 2019-11-26 15:42 | OP ---
DATE OF PROCEDURE: 11/26/2019 PREOPERATIVE DIAGNOSES: Symptomatic left carotid stenosis/hypertension/dyslipidemia/morbid obesity. POSTOPERATIVE DIAGNOSES: Symptomatic left carotid stenosis/hypertension/dyslipidemia/morbid obesity. PROCEDURES PERFORMED: 1. Ultrasound-guided right femoral vein access. 2. Ultrasound interrogation of the left carotid system for measurement. 3. TCAR with a 10 x 30 Enroute stent. CIRCULAR RIPSAW OPERATOR: Dwayne Alfaro MD ANESTHESIA: General endotracheal. ANESTHESIOLOGIST: Britney Acevedo MD TOTAL CONTRAST: 30 mL. TOTAL FLUORO TIME: 3 minutes 39 seconds. DESCRIPTION OF PROCEDURE: After appropriate consent was obtained, the patient was brought to the operating room, placed in supine position on the operating table. Appropriate central line was placed and general endotracheal anesthesia was induced. Using ultrasound guidance, the left carotid system was interrogated. Common carotid artery was marked just above the clavicle. Distance between the common carotid artery and bifurcation was measured at greater than 6 cm. Left neck and right groin were prepped and draped in usual sterile fashion. Using ultrasound interrogation, the left femoral vein was accessed and the [place] sheath placed in the femoral vein. This was flushed with heparinized saline. A skin incision was made above the clavicle over the carotid artery. The sternocleidomastoid heads were split. The common carotid was dissected free and circumferentially controlled with an umbilical tape. The patient was given 10,000 units of heparin. A 5-0 Prolene pursestring suture was placed in the common carotid artery. Proximal control with the clamp was obtained. The clamp was not clamped at this time. After an ACT of greater than 250, the carotid was accessed with micropuncture needle and wire. Micropuncture sheath was passed a 3 cm. Hand-injected arteriogram was performed. The carotid bifurcation laid out. The microwire was then replaced and guided up the external carotid artery. The sheath was guided up the external carotid artery. The micropuncture wire was removed and a J-wire placed in the external carotid artery. The Enroute sheath was then placed. A 5 x 2 angioplasty balloon was then passed over 0.014 wire. The 0.014 wire was stopped short of the carotid bulb. Common carotid artery was clamped. Retrograde flow was confirmed from the arterial sheath through the filter into the venous sheath. The angioplasty balloon was then guided into the internal carotid artery and inflated at the level of the critical stenosis. Followup angiogram showed a wider internal carotid artery. A 10 x 30 stent was selected and this was passed and positioned just distal to our angioplasty site. This crossed the bifurcation into the common carotid artery. Stent was deployed and then posted with a 5 x 2 balloon. Followup angiogram showed spasm just distal to the stent. Two views were taken. After another minute, another view was taken and the spasm had appeared to significantly decreased. The guidewire was removed. The clamp was removed. The arteriovenous shunt was then drained and removed. The arterial sheath was removed and pursestring suture secured. The venous sheath was removed and manual pressure held for hemostasis. 75 mg of protamine was given. After adequate hemostasis had been obtained, the wound was copiously irrigated and closed in layers. The wound was injected with 1% lidocaine with epinephrine. The patient tolerated the procedure well, was awakened, neurologically intact, and transferred to the intensive care unit in stable condition. Needle, sponge, and instrument counts were all reported as correct at the end of the procedure. Job ID: [id number]
[2019-11-26] MEDS ORDERED: Fentanyl 100 MCG/2 ML VIAL SLOW IVP PRN ×2 (15:49)
[2019-11-26] MEDS ORDERED: Ondansetron PF 4 MG/2 ML Vial IVP PRN (15:49)
[2019-11-26] MEDS ORDERED: hydrALAZINE 20 MG/ML VIAL SLOW IVP PRN (15:49)
[2019-11-26] MEDS ORDERED: Promethazine HCl 25 MG/ML VIAL IM PRN (15:49)
[2019-11-26] MEDS ORDERED: HYDROcodone/Acetaminophen 5/325 mg Tablet PO PRN ×2 (15:49)
[2019-11-26] MEDS ORDERED: Phenylephrine 10 MG/NS 250 ML 250 ML IVPB PRN (15:49)
[2019-11-26] MEDS ORDERED: Acetaminophen 325 MG TAB PO PRN (15:49)
--- NOTE | 2019-11-26 16:10 | PDOC.HOSPP ---
- Subjective Encounter Date: 11/26/19 Encounter Time: 08:30 Subjective: is a bit anxious about today's procedure no chest pain or sob or weakness daughter at bedside - Objective Vital Signs & Weight: Vital Signs (12 hours) Temp Pulse Resp BP Pulse Ox 11/26/19 07:38 97.8 F 57 L 18 199/93 H 95 Weight Weight 407 lb 3.1 oz I&O: 11/25/19 11/26/19 11/27/19 06:59 06:59 06:59 Intake Total 240 1500 Output Total 550 Balance -310 1500 Result Diagrams: 11/24/19 16:22 11/24/19 16:22 Hospitalist ROS - Medication Medications: Active Medications Generic Name Dose Route Start Last Admin Trade Name Freq PRN Reason Stop Dose Admin Acetaminophen/Codeine Phosphate 1 tab 11/24/19 23:27 11/25/19 18:29 Tylenol #3 PO 1 tab Q8H PRN Administration Mild-Moderate Pain (1-5) Aspirin 81 mg 11/25/19 09:00 11/26/19 11:27 Ecotrin PO Not Given DAILY [facility] Atorvastatin Calcium 40 mg 11/25/19 21:00 11/25/19 20:50 Lipitor PO 40 mg HS JACQUE Administration Clopidogrel Bisulfate 75 mg 11/26/19 09:00 11/26/19 11:27 Plavix PO Not Given DAILY [facility] Famotidine 20 mg 11/25/19 09:00 11/26/19 11:27 Pepcid PO Not Given BID [facility] Furosemide 40 mg 11/25/19 09:00 11/26/19 11:28 Lasix PO Not Given BID [facility] Gabapentin 100 mg 11/25/19 09:00 11/26/19 11:28 Neurontin PO Not Given TID [facility] Lidocaine 1 patch 11/25/19 16:00 11/25/19 16:05 Lidoderm 5% Patch TD 1 patch 1600 JACQUE Administration Lisinopril 40 mg 11/25/19 09:00 11/26/19 11:28 Zestril PO Not Given DAILY [facility] Methylprednisolone 4 mg 11/26/19 08:00 11/26/19 15:53 Medrol PO 11/26/19 18:01 Not Given 0800,1300,1800 [facility] Metoprolol Tartrate 50 mg 11/25/19 09:00 11/26/19 11:28 Lopressor PO Not Given BID JACQUE Miscellaneous Medication 1 each 11/25/19 04:00 11/26/19 04:33 Lidocaine Patch Removal TOP 1 each 0400 JACQUE Administration Tamsulosin HCl 0.4 mg 11/25/19 21:00 11/25/19 20:50 Flomax PO 0.4 mg HS JACQUE Administration - Exam General Appearance: awake alert Eye: PERRL, anicteric sclera ENT: no oropharyngeal lesions, moist mucosa Neck: supple, no JVD Heart: RRR, no murmur Respiratory: no wheezes, no rales Gastrointestinal: soft, non-tender, non-distended, normal bowel sounds Extremities: no cyanosis, no edema Neurological: cranial nerve grossly intact, no focal deficits Psychiatric: normal affect, A&O x 3 Hosp A/P (1) Carotid stenosis, bilateral Code(s): I65.23 - OCCLUSION AND STENOSIS OF BILATERAL CAROTID ARTERIES Status : Acute (2) Numbness and tingling of left side of face Code(s): R20.0 - ANESTHESIA OF SKIN; R20.2 - PARESTHESIA OF SKIN Status: Resolved (3) Anemia, normocytic normochromic Code(s): D64.9 - ANEMIA, UNSPECIFIED Status: Chronic (4) BPH (benign prostatic hyperplasia) Code(s): N40.0 - BENIGN PROSTATIC HYPERPLASIA WITHOUT LOWER URINRY TRACT SYMP Status: Chronic Qualifiers: Lower urinary tract symptom presence: symptoms absent Qualified Code(s): N40.0 - Benign prostatic hyperplasia without lower urinary tract symptoms (5) CAD (coronary artery disease) Code(s): I25.10 - ATHSCL HEART DISEASE OF [place] CORONARY ARTERY W/O ANG PCTRS Status: Chronic Qualifiers: Coronary Disease-Associated Artery/Lesion type: bypass graft [place] vs. transplanted heart: [place] heart Associated angina: without angina Qualified Code(s): I25.810 - Atherosclerosis of coronary artery bypass graft(s) without angina pectoris (6) Dyslipidemia Code(s): E78.5 - HYPERLIPIDEMIA, UNSPECIFIED Status: Chronic (7) Gout Code(s): M10.9 - GOUT, UNSPECIFIED Status: Chronic Qualifiers: Gout site: unspecified site Chronicity: chronic Presence of tophus: without tophus (8) HTN (hypertension) Code(s): I10 - ESSENTIAL (PRIMARY) HYPERTENSION Status: Chronic Qualifiers: (9) Morbid (severe) obesity due to excess calories Code(s): E66.01 - MORBID (SEVERE) OBESITY DUE TO EXCESS CALORIES Status: Chronic (10) KOURTNEY (obstructive sleep apnea) Code(s): G47.33 - OBSTRUCTIVE SLEEP APNEA (ADULT) (PEDIATRIC) Status: Chronic - Plan pt is s/p carotid stent done today for critical stenosis with symptoms prior h/o cabg with avr done in [place] (2007) Pt is right handed. stress test on 11/22/2019 is -ve but had septal hypokinesis continue asp, lipitor, lisinopril, lopressor, flomax. to ambulate as tolerated
[2019-11-26] MEDS: Lidocaine 5% Patch TD SCH (17:58)
[2019-11-26] MEDS ORDERED: methylPREDNISolone 4 mg Tablet PO SCH (21:00)
[2019-11-26] MEDS: Atorvastatin Calcium 40 MG TAB PO SCH (21:45)
[2019-11-26] MEDS: Tamsulosin HCl 0.4 MG CAP PO SCH (21:45)
[2019-11-26] MEDS: CEFAZOLIN 2 GM in Premix Bag 1 BAG IVPB SCH (21:45)
[2019-11-26] MEDS: Sodium Chloride 0.9% 1,000 ML IV SCH (21:46)
[2019-11-27] MEDS: CEFAZOLIN 2 GM in Premix Bag 1 BAG IVPB SCH (04:15)
[2019-11-27] MEDS: Sodium Chloride 0.9% 1,000 ML IV SCH (06:12)
[2019-11-27] MEDS: Lidocaine Patch Removal 1 EACH TOP SCH (06:23)
[2019-11-27 06:43] VITALS: BMI 55.3
[2019-11-27] MEDS ORDERED: Sodium Bicarb 50 MEQ/50 ML Abboject 8.4% SYRINGE ONE (06:49)
--- NOTE | 2019-11-27 07:16 | DIS ---
DATE OF ADMISSION: 11/24/2019 DATE OF DISCHARGE: 11/27/2019 DIAGNOSIS: Symptomatic left carotid stenosis with severe right carotid stenosis. PROCEDURE: TCAR carotid stenting of the left internal carotid artery. DESCRIPTION OF HOSPITAL STAY: Mr. Casillas presented with left facial numbness. He underwent workup including CT angiogram of the neck, which showed a critical left carotid stenosis. He also had 70% right carotid stenosis. He was taken to the operating room and underwent TCAR stenting of the left system. He has done well postoperatively and being sent home. He will follow up with me in 2 weeks for discussion about his right carotid at that time. DISCHARGE MEDICATIONS: Unchanged with the exception of the addition of Plavix 75 mg daily for one month. Job ID: [id number]
[2019-11-27 07:41] VITALS: TEMP 97.9
[2019-11-27] MEDS ORDERED: methylPREDNISolone 4 mg Tablet PO SCH (08:00)
[2019-11-28] MEDS ORDERED: methylPREDNISolone 4 mg Tablet PO SCH (08:00)
--- NOTE | 2019-11-28 14:10 | EKG ---
Test Reason : Blood Pressure : / mmHG Vent. Rate : 076 BPM Atrial Rate : 076 BPM P-R Int : 170 ms QRS Dur : 110 ms QT Int : 402 ms P-R-T Axes : 074 078 -17 degrees QTc Int : 452 ms Normal sinus rhythm Cannot rule out Inferior infarct , age undetermined Abnormal ECG Confirmed by KARINA MENCHACA DO ([id number]), copy editor MARYSOL HUSSEIN ([id number]) on 11/28/2019 2:10:14 PM Referred By: Confirmed By:KARINA MENCHACA DO
[2019-11-29] MEDS ORDERED: methylPREDNISolone 4 mg Tablet PO SCH (08:00)
[2019-11-30] MEDS ORDERED: methylPREDNISolone 4 mg Tablet PO SCH (08:00)
--- NOTE | 2019-11-30 10:50 | PQF ---
JAYLEEN SHELBY CHARLES H MD [id number] [facility] [id number] CLINICAL DOCUMENTATION CLARIFICATION FORM: POST DISCHARGE Addendum to original discharge summary date: ____ Late entry note date: __ DATE: 11/30/2019 ATTN: Pk Castro Please exercise your independent, professional judgment in responding to the clarification form. Clinical indicators are provided on the bottom of this form for your review Please check appropriate box(s): TIA TYPE: [ ] TIA Stenosis / Syndrome related to: [ ] Carotid Artery [ ] Other TIA [ ] Other diagnosis [ ] Unable to determine For continuity of documentation, please document condition throughout progress notes and discharge summary. Thank You. CLINICAL INDICATORS - SIGNS / SYMPTOMS / LABS PN 11/25 "TIA" PN 11/25 consulted for left facial numbness which is almost resolved. He had symptomatic critical carotid stenosis" HP 11/23 "CC:left facial numbness and tingling" Brain CT 11/23 "no acute intracranial process" ED Notes 11/23 "Left facial sensory changes" RISK FACTORS 69 years old-HP 11/23 Carotid stenosis-HP 11/23 CAD-HP 11/23 HTN-HP 11/23 HLD-HP 11/23 Morbid Obesity- 11/23 TREATMENT: Brain CT-Collected 11/23 CT angiogram of brain-Collected 11/23 Electrocardiogram-Collected 11/23 Stenting of carotid artery-OP Note 11/25 Aspirin 81mg Oral-AUG 27 (This form is maintained as a part of the permanent medical record) 2014 [employer]. All Rights Reserved Price [email or web address]
--- NOTE | 2019-11-30 10:53 | PQF ---
JAYLEEN SHELBY CHARLES H MD [id number] [facility] [id number] CLINICAL DOCUMENTATION CLARIFICATION FORM: POST DISCHARGE Addendum to original discharge summary date: ____ Late entry note date: __ DATE: 11/30/2019 ATTN:Pk Castro Please exercise your independent, professional judgment in responding to the clarification form. Clinical indicators are provided on the bottom of this form for your review Please check appropriate box(s) to clarify if the following diagnosis has been ruled in or ruled out: PULMONARY EMBOLISM [ ] Ruled in diagnosis [ ] Continue to treat [ ] Resolved [ ] Ruled out diagnosis [ ] Cannot rule out diagnosis [ ] Other diagnosis [ ] Unable to determine In addition, please specify: Present on Admission (POA): [ ] Yes [ ] No [ ] Unable to determine For continuity of documentation, please document condition throughout progress notes and discharge summary. Thank You. CLINICAL INDICATORS - SIGNS / SYMPTOMS / LABS PN 11/25 "acute pulmonary embolism" PN 11/25 "right shoulder pain" Chest Xray 11/23 "no acute pulmonary findings" HP 11/23 "CC:left facial numbness and tingling" ED Notes 11/23 "Left facial sensory changes" PN 11/25 "denies SOB" RISK FACTORS 69 years old-HP / Carotid stenosis-HP 11/23 CAD-HP 11/23 HTN-HP 11/23 HLD-HP 11/23 Morbid Obesity-HP 11/23 s/p carotid stenting-OP Note 11/25 TREATMENTS Chest Xray-Collected 11/23 IVF-MAR 11/23 (This form is maintained as a part of the permanent medical record) 2014 [employer]. All Rights Reserved Price [email or web address] [phone] [facility] HEALTHJanine
== END 2019-11-27 08:17 | disposition home or self-care (01) | DRG 35 ==
LOC: ERS 16:16 → OBSVTOIN 21:54 → 2SE 21:54 → CCU 11-26 13:37
PROVIDERS: ADMIT Internal Medicine; ATTEND Internal Medicine
PROC: 037L34Z Dilation of Left Internal Carotid Artery with Drug-eluting Intraluminal Device, Percutaneous Approach (ICD-10-PCS; principal; 2019-11-26)
DX: I65.23 Occlusion and stenosis of bilateral carotid arteries (principal); Z68.43 Body mass index [BMI] 50.0-59.9, adult; N28.1 Cyst of kidney, acquired; I25.10 Atherosclerotic heart disease of native coronary artery without angina pectoris; I12.9 Hypertensive chronic kidney disease with stage 1 through stage 4 chronic kidney disease, or unspecified chronic kidney disease; E78.5 Hyperlipidemia, unspecified; E66.01 Morbid (severe) obesity due to excess calories; J44.9 Chronic obstructive pulmonary disease, unspecified; F41.9 Anxiety disorder, unspecified; N18.3 Chronic kidney disease, stage 3 (moderate); G47.33 Obstructive sleep apnea (adult) (pediatric); M10.9 Gout, unspecified; D63.1 Anemia in chronic kidney disease; N40.0 Benign prostatic hyperplasia without lower urinary tract symptoms; Z79.02 Long term (current) use of antithrombotics/antiplatelets; Z79.82 Long term (current) use of aspirin; Z79.899 Other long term (current) drug therapy; Z86.73 Personal history of transient ischemic attack (TIA), and cerebral infarction without residual deficits; Z95.1 Presence of aortocoronary bypass graft; Z95.5 Presence of coronary angioplasty implant and graft; Z95.2 Presence of prosthetic heart valve
CPT/HCPCS: 36415; 36416; 70450; 70496; 70498; 71045; 74176; 76000; 78452; 80048; 80053; 81003; 82550; 82553; 83605; 83690; 83735; 83880; 84443; 84484; 85025; 85610; 93005; 93017; 93306; 94640; 94760; 96374; 96375; 96376; A9500; C1876; C1884; G0378; J0690; J1642; J1644; J1885; J2001; J2060; J2250; J2270; J2405; J2704; J2720; J2785; J3010; J7509; J7512; J7620; Q9967

== ENCOUNTER 2019-12-16 22:20 | Emergency (ER) | payer MEDICARE, MEDICAID, OTHER ==
[2019-12-16 23:12] LABS: #Eosinphils 0.5 thou/uL (0.0-0.7); #Lymphocytes 2.4 thou/uL (1.20-3.40); #Monocytes 0.6 thou/uL (0.11-0.59); #Neutrophils 7.8 thou/uL (1.40-6.50); %Basophils 0.4 % (0.0-1.0); %Eosinophils 4.1 % (0.0-10.0); %Lymphocytes 21.3 % (21.0-51.0); %Monocytes 5.3 % (0.0-10.0); Hemoglobin 12.2 g/dL (14.0-18.0); Mean Corpuscular HGB CONC 33.4 g/dL (32.0-36.0); Mean Corpuscular Hemoglobin 28.1 pg (27.0-31.0); Mean Corpuscular Volume 84.1 fL (78.0-98.0); Platelet Count 207 thou/uL (130-400); RBC Distribution Width 14.4 % (11.5-14.5); Red Blood Cell (RBC) Count 4.36 mill/uL (4.70-6.10); White Blood Cell (WBC) Count 11.2 thou/uL (4.8-10.8)
[2019-12-16 23:33] LABS: ALT (SGPT) 18 U/L (8-55); AST (SGOT) 16 U/L (5-34); Albumin 3.5 g/dL (3.4-4.8); Alkaline Phosphatase 130 U/L (40-110); Anion Gap 13 mmol/L (10-20); BUN (Urea Nitrogen) 26 mg/dL (8.4-25.7); Bilirubin, Total 0.3 mg/dL (0.2-1.2); Calc. Creatinine Clearance 0 mL/min (70-130); Calcium 8.9 mg/dL (7.8-10.44); Carbon Dioxide 23 mmol/L (23-31); Chloride 105 mmol/L (98-107); Estimated GFR-MDRD 53; Globulin 3.5 g/dL (2.4-3.5); Glucose 183 mg/dL (80-115); Sodium 137 mmol/L (136-145)
[2019-12-17] MEDS ORDERED: Ondansetron PF 4 MG/2 ML Vial ONE (00:02)
--- NOTE | 2019-12-17 07:57 | CT ---
CT ANGIO OF NECK PERFORMED WITH INTRAVENOUS CONTRAST ENHANCEMENT WITH 3D RECONSTRUCTIONS: HISTORY: Patient reports coming to the ER 2 weeks ago and having a stent placed in the left carotid artery bec ause of stenosis. Complaining of swelling and numbness on that side. COMPARISON: CT examination of 11/24/2019. FINDINGS: The lung apices are clear. No thyroid nodules are identified. No significant jugular chain adenopat hy. The parotid and submandibular glands appear unremarkable. Angiographic portions of the study yielded a good examination. There is a separate origin of the lef t common carotid artery from the aortic arch. Evaluation at the level of the aortic arch is difficul t due to body habitus. There is intermittent flow again demonstrated within a very small right verte bral. Flow is better seen more distally and the right vertebral disk contributed to the formation of the basilar artery. The right common carotid artery is tortuous proximally. There is some moderate plaque formation at t he origin of the internal carotid artery. There is a moderate stenosis of the origin of the right in ternal carotid artery. It is difficult to estimate the exact degree of narrowing, although focally i t may approach 50-60% or possibly even more. On the left side, there has been placement of a stent. There is flow demonstrated through the stent. The external carotid artery appears patent. I do not see any inflammatory change associated with this region. No dissection is visualized. IMPRESSION: 1. Patent left internal carotid stent. 2. Moderate stenosis of the right internal carotid artery at its origin. 3. 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 POS: CLIFFORD
[2019-12-17 15:11] LABS: SARS-CoV-2 MS2 Positive; SARS-CoV-2 N Gene Negative; SARS-CoV-2 S Gene Negative; SARS-CoV-2 orf1ab Negative
--- NOTE | 2019-12-20 10:17 | EKG ---
Test Reason : Blood Pressure : / mmHG Vent. Rate : 076 BPM Atrial Rate : 076 BPM P-R Int : 196 ms QRS Dur : 118 ms QT Int : 390 ms P-R-T Axes : 001 -19 025 degrees QTc Int : 438 ms Normal sinus rhythm Left ventricular hypertrophy with QRS widening Abnormal ECG Confirmed by JAZ CALABRESE ([id number]), movie editor MARYSOL HUSSEIN ([id number]) on 12/20/2019 10:17:45 AM Referred By: Confirmed By:JAZ CALABRESE
== END 2019-12-17 00:58 | disposition home or self-care (01) ==
LOC: ERS 22:20
DX: R20.2 Paresthesia of skin (principal); E78.5 Hyperlipidemia, unspecified; I10 Essential (primary) hypertension; J44.9 Chronic obstructive pulmonary disease, unspecified; F41.9 Anxiety disorder, unspecified; Z87.891 Personal history of nicotine dependence; Z95.828 Presence of other vascular implants and grafts; Z86.73 Personal history of transient ischemic attack (TIA), and cerebral infarction without residual deficits; Z79.899 Other long term (current) drug therapy; Z79.82 Long term (current) use of aspirin; Z79.01 Long term (current) use of anticoagulants; Z20.828 Contact with and (suspected) exposure to other viral communicable diseases
CPT/HCPCS: 70498; 80053; 85025; 93005; 96374; 99284; U0003; 87635; J2405; Q9967

== ENCOUNTER 2020-01-20 06:18 | Outpatient (CLI) | payer MEDICARE, MEDICAID, OTHER ==
[2020-01-21 14:03] LABS: SARS-CoV-2 MS2 Positive; SARS-CoV-2 N Gene Negative; SARS-CoV-2 S Gene Negative; SARS-CoV-2 by NAA Not Detected (NotDetected); SARS-CoV-2 orf1ab Negative
== END 2020-01-20 06:19 | disposition home or self-care (01) ==
LOC: LABBT 06:18
PROVIDERS: ATTEND Thoracic Surgery (Cardiothoracic Vascular Surgery)
DX: Z01.812 Encounter for preprocedural laboratory examination (principal); Z11.59 Encounter for screening for other viral diseases; I65.21 Occlusion and stenosis of right carotid artery
CPT/HCPCS: 87635; U0003

== ENCOUNTER 2020-03-03 15:09 | Emergency (ER) | payer MEDICARE, MEDICAID ==
[2020-03-03 15:51] LABS: #Eosinphils 0.4 thou/uL (0.0-0.7); #Lymphocytes 1.5 thou/uL (1.20-3.40); #Monocytes 0.7 thou/uL (0.11-0.59); #Neutrophils 10.2 thou/uL (1.40-6.50); %Basophils 0.3 % (0.0-1.0); %Eosinophils 2.8 % (0.0-10.0); %Lymphocytes 11.9 % (21.0-51.0); %Monocytes 5.5 % (0.0-10.0); %Neutrophils 79.5 % (42.0-75.0); Hemoglobin 10.5 g/dL (14.0-18.0); Mean Corpuscular HGB CONC 31.2 g/dL (32.0-36.0); Mean Corpuscular Hemoglobin 26.5 pg (27.0-31.0); Mean Platelet Volume 7.9 fL (7.4-10.4); Platelet Count 290 thou/uL (130-400); RBC Distribution Width 15.2 % (11.5-14.5); Red Blood Cell (RBC) Count 3.95 mill/uL (4.70-6.10); White Blood Cell (WBC) Count 12.8 thou/uL (4.8-10.8)
[2020-03-03 16:01] LABS: INR-International Normal Ratio 1.1; PTT 34.6 sec (22.9-36.1); Prothrombin Time 14.6 sec (12.0-14.7)
[2020-03-03] MEDS ORDERED: Acetaminophen 500 MG TAB ONE (18:38)
--- NOTE | 2020-03-03 18:49 | CT ---
CT BRAIN NONCONTRAST: 03/03/20 at 6:11 p.m. HISTORY: 69-year-old male with headache and epistaxis. FINDINGS: There is no midline shift or any other mass effect. There is no evidence of acute intracranial hemor rhage, large cortical infarct, obstructive hydrocephalus, or extraaxial fluid collection. The calvar ium is intact. Nasal cavity, visualized portions of paranasal sinuses, and the bilateral tympanomasto id cavities, are clear. IMPRESSION: No acute intracranial findings. jn [] POS: OFF
== END 2020-03-03 18:48 | disposition home or self-care (01) ==
LOC: ERS 15:09
DX: R04.0 Epistaxis (principal); R51 Headache; Z86.73 Personal history of transient ischemic attack (TIA), and cerebral infarction without residual deficits; E78.5 Hyperlipidemia, unspecified; I10 Essential (primary) hypertension; J44.9 Chronic obstructive pulmonary disease, unspecified; F41.9 Anxiety disorder, unspecified; Z87.891 Personal history of nicotine dependence; Z79.01 Long term (current) use of anticoagulants; Z79.82 Long term (current) use of aspirin; Z79.84 Long term (current) use of oral hypoglycemic drugs; Z79.899 Other long term (current) drug therapy
CPT/HCPCS: 36415; 70450; 85025; 85610; 85730

== ENCOUNTER 2020-05-10 18:30 | Inpatient (IN) | payer MEDICARE, MEDICAID ==
[~2020-05-10 18:30] MED LIST changes: +Heparin 10,000 UNITS/ 10 ML VIAL ONE; -Iopamidol-370 76% 500 ML 1 ML ONE
[2020-05-10] MEDS ORDERED: Nitroglycerin 0.4 MG TAB 1 EACH ONE (18:33)
--- NOTE | 2020-05-10 18:51 | RAD ---
RADIOGRAPH CHEST 1 VIEW: DATE: 05/10/2020 HISTORY: 69-year-old male with chest pain COMPARISON: 11/24/2019 FINDINGS: There is no airspace density, pulmonary edema, or pneumothorax. The lateral costophrenic angles are n ot effaced. Sternotomy wires. No interval change. IMPRESSION: No acute pulmonary findings.
[2020-05-10 18:58] LABS: #Basophils 0.1 thou/uL (0.0-0.2); #Eosinphils 0.3 thou/uL (0.0-0.7); #Lymphocytes 2.3 thou/uL (1.20-3.40); #Monocytes 0.7 thou/uL (0.11-0.59); #Neutrophils 10.8 thou/uL (1.40-6.50); %Basophils 0.6 % (0.0-1.0); %Eosinophils 2.4 % (0.0-10.0); %Lymphocytes 15.9 % (21.0-51.0); %Monocytes 4.8 % (0.0-10.0); %Neutrophils 76.2 % (42.0-75.0); Hemoglobin 7.3 g/dL (14.0-18.0); Mean Corpuscular HGB CONC 30.5 g/dL (32.0-36.0); Mean Corpuscular Hemoglobin 25.2 pg (27.0-31.0); Mean Corpuscular Volume 82.7 fL (78.0-98.0); Mean Platelet Volume 7.5 fL (7.4-10.4); Platelet Count 339 thou/uL (130-400); RBC Distribution Width 17.2 % (11.5-14.5); White Blood Cell (WBC) Count 14.1 thou/uL (4.8-10.8)
[2020-05-10 19:03] LABS: INR-International Normal Ratio 1.2; PTT 31.2 sec (22.9-36.1); Prothrombin Time 15.6 sec (12.0-14.7)
[2020-05-10 19:24] LABS: ALT (SGPT) 26 U/L (8-55); AST (SGOT) 28 U/L (5-34); Albumin 3.8 g/dL (3.4-4.8); Alkaline Phosphatase 93 U/L (40-110); Anion Gap 19 mmol/L (10-20); BUN (Urea Nitrogen) 69 mg/dL (8.4-25.7); Bilirubin, Total 0.3 mg/dL (0.2-1.2); CK (CPK) 130 U/L (30-200); Calc. Creatinine Clearance 0 mL/min (70-130); Carbon Dioxide 20 mmol/L (23-31); Chloride 105 mmol/L (98-107); Estimated GFR-MDRD 36; Globulin 3.9 g/dL (2.4-3.5); Glucose 145 mg/dL (80-115); Lipase 50 U/L (8-78); Potassium 4.5 mmol/L (3.5-5.1); Protein, Total 7.7 g/dL (5.8-8.1); Sodium 139 mmol/L (136-145)
[2020-05-10 19:59] LABS: CKMB 6.6 ng/mL (0-6.6)
[2020-05-10] MEDS ORDERED: Nitroglycerin 50 MG/250 ML BOT 250 ML ONE (20:05)
[2020-05-10] MEDS ORDERED: Nitroglycerin 0.4 MG TAB (25 Tab Bottle) SL PRN (20:12)
[2020-05-10] MEDS ORDERED: Acetaminophen 325 MG TAB PO PRN (20:12)
[2020-05-10 21:39] LABS: Troponin I 1.181 ng/mL (< 0.028)
--- NOTE | 2020-05-10 22:00 | PDOC.BPN ---
- Brief Progress Note [id number] HP
[2020-05-11 00:32] LABS: Troponin I 1.459 ng/mL (< 0.028)
--- NOTE | 2020-05-11 00:43 | CON ---
DATE OF CONSULTATION: This is a critical care note, time will be 40 minutes. HISTORY OF PRESENT ILLNESS: Patient is an unfortunate 69-year-old gentleman with a long history of coronary artery disease, who presented with chest discomfort. The patient has a long history of coronary artery disease. He is status post coronary artery bypass graft surgery and aortic valve replaced in 2007. The patient states this was done at [facility] in [place]. He is followed primarily at [facility]. He has been admitted here on several occasions with chest discomfort. The patient has subsequently been on medical therapy. He was in his usual state of health when he presented with acute onset of severe substernal chest discomfort. PAST MEDICAL HISTORY: 1. Coronary artery disease. 2. Aortic valve replacement. 3. Sleep apnea. 4. Hypertension. 5. Dyslipidemia. 6. History of TIA's. PAST SURGICAL HISTORY: Coronary artery bypass surgery, aortic valve replacement, abdominal hernia surgery,and finger surgery. SOCIAL HISTORY: Nonsmoker. MEDICATIONS: See nursing list. PHYSICAL EXAMINATION: GENERAL: Ill-appearing pale gentleman, in no acute distress. VITAL SIGNS: Blood pressure was 140/70. NECK: No jugular venous distention. LUNGS: Clear to auscultation. HEART: Regular rate and rhythm. Normal S1, S2 with a 2/6 systolic murmur. ABDOMEN: Distended. EXTREMITIES: Moderate bilateral edema. LABORATORY RESULTS: White blood cell count 14.1, hemoglobin 7.3, hematocrit 24.0, platelets are 339. Sodium is 139, potassium 4.5, chloride 105, bicarbonate 20, BUN 69, creatinine 1.8. Troponin 1.2. White blood cell count 14.1, hemoglobin 7.3, hematocrit 24.0, platelets 339. EKG #1 revealed normal sinus rhythm with marked ST depression suggestive of ischemia. Followup EKG revealed normal sinus rhythm with mild ST depression. IMPRESSION: 1. Possible GI hemorrhage. 2. Non-Q-wave myocardial infarction. 3. History of coronary artery bypass surgery x4. 4. Aortic valve replacement. 5. History of transient ischemia attack. 6. Hypertension. 7. Morbid obesity. This gentleman presents with probable non-Q-wave myocardial infarction. He may have had a severe GI hemorrhage. From a cardiac standpoint, he will be transfused. He will be placed in ICU. The patient will be placed on IV nitroglycerin. We will follow this patient with you through his hospitalization. Job ID: [id number] VITO
--- NOTE | 2020-05-11 01:29 | HP ---
CHIEF COMPLAINT: Chest pain. HISTORY OF PRESENT ILLNESS: Mr. Casillas is a 69-year-old male, with past medical history of hyperlipidemia, hypertension, COPD, coronary artery bypass graft surgery, cardiac stents x4, among others, presented to the emergency room with chest pain that started 1.5 hours prior to arrival. Chest pain is associated with shortness of breath with any minimal exertion. Pain was severe, radiating to the arm. No sweating. Patient was given aspirin by EMS, was brought to the emergency room. Patient continued to have chest pain, was given nitro with partial relief of pain. Lab work, patient had elevated troponin of 1.1. EKG showed a sinus rhythm with ST depression in leads 1, aVL, V3, V4, V5, elevation in aVR. The ED physician consulted with mail superintendent and as per mail superintendent, no need for urgent heart cath. Cardiology came and saw the patient at the bedside, advised to start the patient on IV nitro drip. No need for anticoagulation since the patient is on Eliquis at home. Also, it was noted that the patient is anemic with hemoglobin of 7.3. Type and cross and blood transfusion started in the emergency room. Patient is being admitted to the critical care unit for further management. PAST MEDICAL HISTORY: As mentioned above in history of present illness. PAST SURGICAL HISTORY: 1. Cardiac stents x4. 2. Coronary artery bypass graft surgery. 3. Hernia repair. 4. Right index surgery. 5. Bilateral carotid surgery. FAMILY HISTORY: Reviewed and noncontributory. HOME MEDICATIONS: Please see home medication reconciliation form for updated medications. ALLERGIES: NO KNOWN ALLERGIES. REVIEW OF SYSTEMS: Review of 14 systems negative, except what is mentioned in history of present illness. PHYSICAL EXAMINATION: GENERAL: Patient is awake, alert, in moderate distress, morbidly obese. VITAL SIGNS: Blood pressure 112/67, pulse is 85, respiratory rate is 22, oxygen saturation is 100% on room air, and temperature 98.3. HEAD AND NECK: Normocephalic, atraumatic. NECK: Supple. No JVD. CHEST: Fair bilateral air entry. HEART: S1, S2. Regular. ABDOMEN: Obese, soft. Bowel sounds present. NEUROLOGIC: Awake, alert, and oriented x3. No focal deficits. PSYCH: Unable to assess. EXTREMITIES: No clubbing, no cyanosis. GENITOURINARY: No suprapubic tenderness. No flank tenderness. LABORATORY DATA: As mentioned above in history of present illness. Chest x-ray, no acute finding. ASSESSMENT: 1. [id number] myocardial infarction. 2. Coronary artery disease with history of cardiac stents and coronary artery bypass graft surgery. 3. Morbid obesity with BMI more than 40. 4. Hypertension. 5. Chronic obstructive pulmonary disease. 6. Hyperlipidemia. 7. Anemia, blood loss cannot be ruled out, patient is on Eliquis. Patient is anticoagulated. PLAN: 1. Admit to critical care unit. 2. Aspirin was already given. 3. Patient is already anticoagulated, on Eliquis. 4. Nitro drip was started as per mail superintendent's recommendations. 5. Cardiology consulted for evaluation further management. 6. Reconcile home medications. 7. Monitor hemoglobin, hematocrit. 8. Stool for occult blood. 9. DVT prophylaxis as appropriate. 10. Expected length of stay, 2 midnights or more. Job ID: [id number]
[2020-05-11] MEDS ORDERED: Famotidine/PF 20 mg/2ml Vial ONE ×2 (02:08→08:34)
[2020-05-11] MEDS: Famotidine/PF 20 mg/2ml Vial SLOW IVP SCH ×2 (02:12→08:55)
[2020-05-11] MEDS ORDERED: Atorvastatin Calcium 40 MG TAB PO SCH (02:15)
[2020-05-11] MEDS: Atorvastatin Calcium 40 MG TAB PO SCH ×2 (02:43→21:28)
[2020-05-11 05:37] LABS: #Eosinphils 0.2 thou/uL (0.0-0.7); #Lymphocytes 1.6 thou/uL (1.20-3.40); #Monocytes 0.9 thou/uL (0.11-0.59); #Neutrophils 9.4 thou/uL (1.40-6.50); %Basophils 0.3 % (0.0-1.0); %Eosinophils 1.8 % (0.0-10.0); %Lymphocytes 12.8 % (21.0-51.0); %Monocytes 7.6 % (0.0-10.0); %Neutrophils 77.4 % (42.0-75.0); Hemoglobin 7.8 g/dL (14.0-18.0); Mean Corpuscular Hemoglobin 26.5 pg (27.0-31.0); Mean Corpuscular Volume 82.9 fL (78.0-98.0); Mean Platelet Volume 7.6 fL (7.4-10.4); Platelet Count 309 thou/uL (130-400); RBC Distribution Width 16.9 % (11.5-14.5); Red Blood Cell (RBC) Count 2.94 mill/uL (4.70-6.10); White Blood Cell (WBC) Count 12.1 thou/uL (4.8-10.8)
[2020-05-11 05:54] LABS: Anion Gap 15 mmol/L (10-20); BUN (Urea Nitrogen) 55 mg/dL (8.4-25.7); Calc. Creatinine Clearance 0 mL/min (70-130); Calcium 8.8 mg/dL (7.8-10.44); Carbon Dioxide 21 mmol/L (23-31); Cardiac Risk 4.7 (Less than 4.5); Chloride 109 mmol/L (98-107); Cholesterol 122 mg/dl (< 200 Desired); Estimated GFR-MDRD 45; Glucose 132 mg/dL (80-115); HDL Cholesterol 26 mg/dL (>60 Neg Risk); LDL Cholesterol, Calculated 55 mg/dL; Potassium 4.1 mmol/L (3.5-5.1); Sodium 141 mmol/L (136-145); Triglycerides 206 mg/dL (Less than 150)
[2020-05-11] MEDS ORDERED: Aspirin Chewable 81 MG TAB ONE (08:34)
[2020-05-11] MEDS: Carvedilol 6.25 MG TAB PO SCH ×2 (08:48→19:40)
[2020-05-11] MEDS: Aspirin 81 mg Enteric Coated Tablet PO SCH (08:55)
[2020-05-11 11:20] LABS: SARS-CoV-2 NAA Rapid Test Not Detected (NotDetected)
[2020-05-11] MEDS ORDERED: Metoprolol Tartrate 5 MG/5 ML VIAL IVP PRN (12:03)
[2020-05-11] MEDS ORDERED: hydrALAZINE 20 MG/ML VIAL SLOW IVP PRN (12:03)
[2020-05-11 13:31] LABS: Critical Call Chem Troponin I RESULT DECREASING
[2020-05-11 13:49] LABS: CKMB 5.8 ng/mL (0-6.6)
--- NOTE | 2020-05-11 15:41 | PDOC.HOSPP ---
- Subjective Encounter Date: 05/11/20 Encounter Time: 10:10 Subjective: Patient seen in the ER room 18. He still has some ongoing chest pain. troponin elevation. - Objective Result Diagrams: 05/11/20 05:20 05/11/20 05:20 Hospitalist ROS - Medication Medications: Active Medications Generic Name Dose Route Start Last Admin Trade Name Kamila PRN Reason Stop Dose Admin Aspirin 81 mg 05/11/20 09:00 05/11/20 08:55 Aspirin 81 Mg Enteric Coated Tablet PO 81 mg DAILY JACQUE Administration Atorvastatin Calcium 40 mg 05/10/20 21:00 05/11/20 02:43 Atorvastatin Calcium 40 Mg Tab PO 40 mg HS JACQUE Administration Carvedilol 6.25 mg 05/11/20 08:00 05/11/20 08:48 Carvedilol 6.25 Mg Tab PO 6.25 mg BID-WM JACQUE Administration Famotidine 20 mg 05/10/20 21:00 05/11/20 08:55 Famotidine/Pf 20 Mg/2ml Vial SLOW IVP 20 mg Q12HR JACQUE Administration - Exam General Appearance: NAD, awake alert Eye: PERRL ENT: normocephalic atraumatic Neck: supple Heart: RRR, normal peripheral pulses Respiratory: CTAB, normal chest expansion Gastrointestinal: soft, normal bowel sounds Neurological: no focal deficits Psychiatric: A&O x 3 Hosp A/P - Plan NSTEMI--with EKG changes with ST depression and elevated troponin Coronary artery disease with history of stent placement as well as CABG remotely Hypertensive urgency status post nitro drip that has been discontinued as his blood pressure improved. -Lopressor and hydralazine as needed to keep the systolic below 150 --- Patient was on Eliquis which is on hold due to questionable GI bleed -Aspirin Coreg and statin. -he was on Plavix and Eliquis at home which is on hold until GI bleed ruled out. COPD -Looks clinically stable without exacerbation. Hyperlipidemia with LDL of 55 -Continue with lipid Leukocytosis Acute blood loss anemia -Status post 1 unit transfusion -Occult blood test pending. History of aortic valve replacement History of TIA [place]bit obesity Acute on chronic kidney disease -Hold his lisinopril.
--- NOTE | 2020-05-11 17:37 | PDOC.BPN ---
- Brief Progress Note No consult placed for GI at the time of admission, and It appears that his hgb dropped sign'ly from 10.5 in oct to 7.3 during admission. will do 1 unit transfusion, hold eliquis, start PPI bid IV, and I talk to Annamarie in IMCU, placed GI consult. serial H & H.
[2020-05-11 19:24] LABS: Hemoglobin 8.3 g/dL (14.0-18.0)
[2020-05-11] MEDS: Pantoprazole 40 MG VIAL IVP SCH (21:28)
[2020-05-12] MEDS: traMADol HCl 50 MG TAB PO PRN ×2 (06:32→20:00)
[2020-05-12] MEDS: Aspirin 81 mg Enteric Coated Tablet PO SCH (07:29)
[2020-05-12] MEDS: Pantoprazole 40 MG VIAL IVP SCH ×2 (07:29→20:05)
[2020-05-12] MEDS: Carvedilol 6.25 MG TAB PO SCH ×2 (07:29→15:07)
[2020-05-12] MEDS ORDERED: FLU VACC QS2020-21(65YR UP)/PF 240 MCG/0.7 ML SYRINGE IM ONE (09:00)
[2020-05-12 10:24] LABS: #Eosinphils 0.4 thou/uL (0.0-0.7); #Monocytes 0.8 thou/uL (0.11-0.59); #Neutrophils 8.4 thou/uL (1.40-6.50); %Basophils 0.3 % (0.0-1.0); %Eosinophils 3.2 % (0.0-10.0); %Monocytes 6.7 % (0.0-10.0); %Neutrophils 72.7 % (42.0-75.0); Hemoglobin 8.1 g/dL (14.0-18.0); Mean Corpuscular HGB CONC 31.3 g/dL (32.0-36.0); Mean Corpuscular Hemoglobin 26.5 pg (27.0-31.0); Mean Corpuscular Volume 84.6 fL (78.0-98.0); Mean Platelet Volume 7.5 fL (7.4-10.4); Platelet Count 335 thou/uL (130-400); RBC Distribution Width 17.1 % (11.5-14.5); Red Blood Cell (RBC) Count 3.05 mill/uL (4.70-6.10); White Blood Cell (WBC) Count 11.5 thou/uL (4.8-10.8)
[2020-05-12 10:37] LABS: Anion Gap 12 mmol/L (10-20); BUN (Urea Nitrogen) 32 mg/dL (8.4-25.7); Calc. Creatinine Clearance 109 mL/min (70-130); Carbon Dioxide 22 mmol/L (23-31); Chloride 111 mmol/L (98-107); Estimated GFR-MDRD 43; Glucose 139 mg/dL (80-115); Potassium 4.3 mmol/L (3.5-5.1); Sodium 141 mmol/L (136-145)
--- NOTE | 2020-05-12 12:25 | PDOC.HOSPP ---
- Subjective Encounter Date: 05/12/20 Encounter Time: 11:00 Subjective: Patient was seen and examined at the bedside. Patient report some pain in his left big toe due to possible gout exacerbation. Patient reports that he slept well last night. - Objective Vital Signs & Weight: Vital Signs (12 hours) Temp BP Pulse Ox 05/12/20 11:21 98.2 F 05/12/20 07:30 98.6 F 05/12/20 07:29 167/83 H 05/12/20 07:13 100 05/12/20 03:51 98.4 F Weight Weight 390 lb 9.6 oz Most Recent Monitor Data Heart Rate from ECG 78 NIBP 131/74 NIBP BP-Mean 93 Respiration from ECG 25 SpO2 100 I&O: 05/11/20 05/12/20 05/13/20 06:59 06:59 06:59 Intake Total 430 Output Total 1250 Balance -820 Result Diagrams: 05/12/20 10:07 05/12/20 10:07 Hospitalist ROS - Review of Systems Constitutional: reports: weakness. denies: fever, chills Respiratory: reports: cough, shortness of breath, sputum Cardiovascular: reports: chest pain, edema. denies: palpitations, orthopnea, paroxysmal noc. dyspnea Gastrointestinal: denies: nausea, vomiting, abdominal pain, diarrhea, constipation - Medication Medications: Active Medications Generic Name Dose Route Start Last Admin Trade Name Freq PRN Reason Stop Dose Admin Aspirin 81 mg 05/11/20 09:00 05/12/20 07:29 Aspirin 81 Mg Enteric Coated Tablet PO 81 mg DAILY JACQUE Administration Atorvastatin Calcium 40 mg 05/10/20 21:00 05/11/20 21:28 Atorvastatin Calcium 40 Mg Tab PO 40 mg HS JACQUE Administration Carvedilol 6.25 mg 05/11/20 08:00 05/12/20 07:29 Carvedilol 6.25 Mg Tab PO 6.25 mg BID-WM JACQUE Administration Pantoprazole Sodium 40 mg 05/11/20 21:00 05/12/20 07:29 Pantoprazole 40 Mg Vial IVP 40 mg BID JACQUE Administration Tramadol HCl 50 mg 05/12/20 06:28 05/12/20 06:32 Tramadol Hcl 50 Mg Tab PO 50 mg Q6H PRN Administration Pain - Exam General Appearance: awake alert Heart: RRR, no murmur, no gallops, no rubs, normal peripheral pulses Respiratory: CTAB, no wheezes, no rales, no ronchi, normal chest expansion, no t achypnea, normal percussion Gastrointestinal: soft, non-tender, non-distended, normal bowel sounds, no palpable masses, no hepatomegaly, no splenomegaly, no bruit, no guarding, no rigidity Extremities: 2+ LE edema Hosp A/P - Plan NSTEMI--with EKG changes with ST depression and elevated troponin Coronary artery disease with history of stent placement as well as CABG remotely Hypertensive urgency status post nitro drip that has been discontinued as his blood pressure improved. -Lopressor and hydralazine as needed to keep the systolic below 150 --- Patient was on Eliquis which is on hold due to questionable GI bleed -Aspirin Coreg and statin. -he was on Plavix and Eliquis at home which is on hold until GI bleed ruled out. COPD -Looks clinically stable without exacerbation. Hyperlipidemia with LDL of 55 -Continue with lipid Leukocytosis Acute blood loss anemia -Status post 1 unit transfusion -Occult blood test pending. History of aortic valve replacement History of TIA [place] obesity Acute on chronic kidney disease -Hold his lisinopril. 19th NSTEMI -Aspirin Coreg and Lipitor -Lopressor and hydralazine as needed to keep the systolic below 150 -he was on Plavix and Eliquis at home which is on hold until GI bleed ruled out. Acute gout/mild skin erythema along with blisters --- presumed cellulitis on left great toe -will manage with empiric augmentin -will not put patient on colchicine until renal function improves-- -contra for steroid given the GI bleed -Resume home regimen of allopurinol GI Bleed -cannot give NSAIDS, colchicine, and prednisone -1 units of packed RBCs was given -Eilquis on hold -GI evaluation for possible endoscopy is pending. He is stable to transfer him to the telemetry bed. Care discussed with the student and agree with the above plan.
[2020-05-12] MEDS: Morphine 2 MG/ML VIAL SLOW IVP PRN (15:07)
[2020-05-12] MEDS: Potassium Chloride 20 MEQ in Sodium Chloride 0.45% 1,000 ML IV SCH (15:07)
[2020-05-12] MEDS ORDERED: GoLYTELY 4,000 ml Bottle PO SCH (16:45)
--- NOTE | 2020-05-12 18:34 | CON ---
DATE OF CONSULTATION: 05/12/2020 CHIEF COMPLAINT: Chest pain and shortness of breath. HISTORY OF PRESENT ILLNESS: Mr. Casillas is a 69-year-old man with a history of aortic valve replacement and TIAs and peripheral vascular disease and coronary artery disease, who presented to the emergency room with severe aching pain in the substernal region that does not radiate. This pain worsens when he walks about 20 feet. He also gets shortness of breath on exertion. He has had no nausea or vomiting or abdominal pain or diarrhea or constipation. He has had brown stools. His weight has been stable. He was found to have an acute anemia with a hemoglobin of 7.3 on presentation on 05/10/2020, which was down from 10.5 on 03/03/2020. The patient has seen no overt bleeding, but does not really watch his stools. He did receive 1 unit blood transfusion on 05/10/2020, and his hemoglobin is stabilized at 8.1. PAST MEDICAL HISTORY: Significant for coronary artery disease, peripheral vascular disease, morbid obesity, diabetes, BPH, hypertension, gout, hyperlipidemia. PAST SURGICAL HISTORY: He has had carotid stent placement back in January 2020. He has had an aortic valve replacement, coronary artery bypass graft, coronary stents, hernia repairs. FAMILY HISTORY: Negative for GI malignancy. SOCIAL HISTORY: No alcohol, tobacco, or drugs. ALLERGIES: NO KNOWN DRUG ALLERGIES. OUTPATIENT MEDICATIONS: Include: 1. Trazodone. 2. Metformin. 3. Tamsulosin. 4. Metoprolol. 5. Lisinopril. 6. Gabapentin. 7. Furosemide. 8. Colchicine. 9. Clopidogrel. 10. Aspirin 81 mg daily. 11. Atorvastatin. 12. Eliquis. 13. Allopurinol. REVIEW OF SYSTEMS: Negative x10 systems reviewed except as stated in history of present illness. PHYSICAL EXAMINATION: VITAL SIGNS: Temperature is 98.2, blood pressure 167/83, pulse 77, weight 390 pounds. GENERAL: He is in no acute distress. He is alert and oriented x3. HEENT: Eyes have no scleral icterus. Oropharynx is clear without lesions. NECK: No cervical or supraclavicular lymphadenopathy. LUNGS: Clear to auscultation bilaterally. HEART: Regular rate and rhythm without murmur. ABDOMEN: Soft, obese, nontender, and nondistended. Bowel sounds are present. EXTREMITIES: Trace lower extremity edema. Cranial nerves are grossly intact. LABORATORY DATA: White blood cell count 11.5; hemoglobin is 8.1 after 1 unit transfusion and prior to that it was 7.3, back in February, his hemoglobin was 10.5; platelets 335. INR 1.2. Creatinine 1.6. Troponin peaked at 1.45. Bilirubin 0.3, AST 28, ALT 26, alkaline phosphatase 93, albumin 3.8, lipase 50. IMPRESSION: 1. Symptomatic anemia, presenting with a hemoglobin of 7.3, and shortness of breath and chest pain on exertion. He does not have overt bleeding and has brown stool on digital rectal exam currently. He did have a 3 g drop in his hemoglobin over the last 2 months, which indicates an acute drop, which certainly could indicate GI bleed as a source given that he is on Eliquis and Plavix and aspirin. He states he does not look at his stools. His last esophagogastroduodenoscopy and colonoscopy were normal in 2008, which I performed. I discussed his case with Dr. Varela, his road engineer. He believes that the mild increase in his troponin is from demand ischemia related to his anemia and that the anemia is a primary issue at hand leading to the other symptoms. He has peripheral vascular disease and has had a recent carotid stent. He has coronary stents. He has an aortic valve. He requires chronic anticoagulation and antiplatelet medication, which are currently held due to the anemia. 2. Coronary artery disease and prior aortic valve replacement. 3. Morbid obesity. History of obstructive sleep apnea. 4. Shortness of breath and chest pain on exertion. This has been evaluated by Cardiology and was felt to largely be secondary to the anemia. Cardiology has recommended a GI workup prior to further invasive cardiac procedures. RECOMMENDATIONS: 1. We will check iron studies and B12 and folate. However, given the abrupt drop in his hemoglobin and use of anticoagulation chronically, GI bleed is suspected. He is not actively bleeding now as he has brown stool on rectal exam. 2. We will plan to proceed with EGD and colonoscopy for tomorrow. 3. His Eliquis and Plavix are currently on hold. 4. He is on pantoprazole twice daily. Job ID: [id number]
[2020-05-12] MEDS: Amoxicillin/Potassium Clav 500 MG TAB PO SCH (20:01)
[2020-05-12] MEDS: Atorvastatin Calcium 40 MG TAB PO SCH (20:01)
[2020-05-13] MEDS: traMADol HCl 50 MG TAB PO PRN (01:28)
[2020-05-13] MEDS: Allopurinol 300 MG TAB PO SCH (07:05)
[2020-05-13] MEDS: Aspirin 81 mg Enteric Coated Tablet PO SCH (07:06)
[2020-05-13] MEDS: Amoxicillin/Potassium Clav 500 MG TAB PO SCH ×2 (07:06→22:32)
[2020-05-13 07:15] LABS: #Eosinphils 0.4 thou/uL (0.0-0.7); #Lymphocytes 1.9 thou/uL (1.20-3.40); #Monocytes 0.7 thou/uL (0.11-0.59); #Neutrophils 6.7 thou/uL (1.40-6.50); %Eosinophils 4.6 % (0.0-10.0); %Lymphocytes 19.2 % (21.0-51.0); %Neutrophils 69.1 % (42.0-75.0); Hemoglobin 8.2 g/dL (14.0-18.0); Mean Corpuscular HGB CONC 31.5 g/dL (32.0-36.0); Mean Corpuscular Hemoglobin 26.9 pg (27.0-31.0); Mean Corpuscular Volume 85.2 fL (78.0-98.0); Platelet Count 304 thou/uL (130-400); RBC Distribution Width 16.7 % (11.5-14.5); Red Blood Cell (RBC) Count 3.06 mill/uL (4.70-6.10); White Blood Cell (WBC) Count 9.6 thou/uL (4.8-10.8)
[2020-05-13] MEDS: Pantoprazole 40 MG VIAL IVP SCH (07:18)
[2020-05-13] MEDS: Carvedilol 6.25 MG TAB PO SCH ×2 (07:18→17:21)
[2020-05-13 07:27] LABS: Anion Gap 14 mmol/L (10-20); BUN (Urea Nitrogen) 26 mg/dL (8.4-25.7); Calc. Creatinine Clearance 121 mL/min (70-130); Calcium 8.7 mg/dL (7.8-10.44); Carbon Dioxide 21 mmol/L (23-31); Chloride 107 mmol/L (98-107); Estimated GFR-MDRD 49; Glucose 113 mg/dL (80-115); Potassium 4.1 mmol/L (3.5-5.1); Sodium 138 mmol/L (136-145)
[2020-05-13] MEDS ORDERED: 1/2 NS w/KCL 20 mEq 1,000 ML IV SCH (07:45)
[2020-05-13] MEDS: Potassium Chloride 20 MEQ in Sodium Chloride 0.45% 1,000 ML IV SCH (09:36)
--- NOTE | 2020-05-13 11:31 | PDOC.HOSPP ---
- Subjective Encounter Date: 05/13/20 Encounter Time: 15:00 Subjective: Patient seen after he came back from endoscopy he had both EGD as well as colonoscopy. - Objective Vital Signs & Weight: Vital Signs (12 hours) Temp Pulse Resp BP BP Pulse Ox 05/13/20 08:00 100 05/13/20 07:18 167/83 H 05/13/20 07:11 98.4 F 05/13/20 04:43 98.3 F 05/13/20 04:00 79 18 109/62 98 05/12/20 23:54 97.4 F L Weight Weight 390 lb 9.6 oz Most Recent Monitor Data Heart Rate from ECG 69 NIBP 133/73 NIBP BP-Mean 93 Respiration from ECG 19 SpO2 97 I&O: 05/12/20 05/13/20 05/14/20 06:59 06:59 06:59 Intake Total 430 4750 Output Total 1250 700 Balance -820 4050 Result Diagrams: 05/13/20 06:58 05/13/20 06:58 Hospitalist ROS - Medication Medications: Active Medications Generic Name Dose Route Start Last Admin Trade Name Freq PRN Reason Stop Dose Admin Allopurinol 300 mg 05/13/20 09:00 05/13/20 07:05 Allopurinol 300 Mg Tab PO Not Given DAILY JACQUE Amoxicillin/Clavulanate Potassium 500 mg 05/12/20 21:00 05/13/20 07:06 Amoxicillin/Potassium Clav 500 Mg Tab PO Not Given Q12HR JACQUE Aspirin 81 mg 05/11/20 09:00 05/13/20 07:06 Aspirin 81 Mg Enteric Coated Tablet PO Not Given DAILY JACQUE Atorvastatin Calcium 40 mg 05/10/20 21:00 05/12/20 20:01 Atorvastatin Calcium 40 Mg Tab PO 40 mg HS JACQUE Administration Carvedilol 6.25 mg 05/11/20 08:00 05/13/20 07:18 Carvedilol 6.25 Mg Tab PO 6.25 mg BID-WM JACQUE Administration Potassium Chloride/Sodium Chloride 1,000 mls @ 65 mls/hr 05/13/20 07:45 05/13/20 09:36 1/2 Ns W/Kcl 20 Meq IV 05/13/20 21:00 1,000 mls .[id number] JACQUE Administration Morphine Sulfate 2 mg 05/11/20 12:03 05/12/20 15:07 Morphine 2 Mg/Ml Vial SLOW IVP 2 mg Q6H PRN Administration Chest Pain Pantoprazole Sodium 40 mg 05/11/20 21:00 05/13/20 07:18 Pantoprazole 40 Mg Vial IVP 40 mg BID JACQUE Administration Tramadol HCl 50 mg 05/12/20 06:28 05/13/20 01:28 Tramadol Hcl 50 Mg Tab PO 50 mg Q6H PRN Administration Pain - Exam General Appearance: NAD, awake alert Eye: PERRL ENT: normocephalic atraumatic Neck: supple Heart: RRR Respiratory: CTAB, normal chest expansion Gastrointestinal: soft, normal bowel sounds Neurological: no focal deficits Psychiatric: A&O x 3 Hosp A/P - Plan NSTEMI--with EKG changes with ST depression and elevated troponin Coronary artery disease with history of stent placement as well as CABG remotely Hypertensive urgency status post nitro drip that has been discontinued as his blood pressure improved. -Lopressor and hydralazine as needed to keep the systolic below 150 --- Patient was on Eliquis which is on hold due to questionable GI bleed -Aspirin Coreg and statin. -he was on Plavix and Eliquis at home which is on hold until GI bleed ruled out. COPD -Looks clinically stable without exacerbation. Hyperlipidemia with LDL of 55 -Continue with lipid Leukocytosis Acute blood loss anemia -Status post 1 unit transfusion -Occult blood test pending. History of aortic valve replacement History of TIA [place] obesity Acute on chronic kidney disease -Hold his lisinopril. Acute gout/mild skin erythema along with blisters --- presumed cellulitis on left great toe -will manage with empiric augmentin -will not put patient on colchicine until renal function improves-- -contra for steroid given the GI bleed -Resume home regimen of allopurinol GI Bleed -cannot give NSAIDS, colchicine, and prednisone -1 units of packed RBCs was given -Eilquis on hold -EGD showed small antral erosion ventral epigastric hernia containing colon that was reduced. -On PPI 6-minute millimeter polyp removed -otherwise normal colonoscopy up to the terminal ileum. Given NSTEMI, he needs to be on anticoagulation/antithrombotic. -Start him on Eliquis tomorrow, and Dr. Crowley okay with starting him on anticoagulation tomorrow. Pay close attention to hemoglobin and any signs of bleeding. Follow-up on iron study panel.
--- NOTE | 2020-05-13 11:33 | PDOC.HOSPP ---
- Objective Vital Signs & Weight: Vital Signs (12 hours) Temp Pulse Resp BP BP Pulse Ox 05/13/20 08:00 100 05/13/20 07:18 167/83 H 05/13/20 07:11 98.4 F 05/13/20 04:43 98.3 F 05/13/20 04:00 79 18 109/62 98 05/12/20 23:54 97.4 F L Weight Weight 390 lb 9.6 oz Most Recent Monitor Data Heart Rate from ECG 69 NIBP 133/73 NIBP BP-Mean 93 Respiration from ECG 19 SpO2 97 I&O: 05/12/20 05/13/20 05/14/20 06:59 06:59 06:59 Intake Total 430 4750 Output Total 1250 700 Balance -820 4050 Result Diagrams: 05/13/20 06:58 05/13/20 06:58 Hospitalist ROS - Medication Medications: Active Medications Generic Name Dose Route Start Last Admin Trade Name Freq PRN Reason Stop Dose Admin Allopurinol 300 mg 05/13/20 09:00 05/13/20 07:05 Allopurinol 300 Mg Tab PO Not Given DAILY JACQUE Amoxicillin/Clavulanate Potassium 500 mg 05/12/20 21:00 05/13/20 07:06 Amoxicillin/Potassium Clav 500 Mg Tab PO Not Given Q12HR JACQUE Aspirin 81 mg 05/11/20 09:00 05/13/20 07:06 Aspirin 81 Mg Enteric Coated Tablet PO Not Given DAILY JACQUE Atorvastatin Calcium 40 mg 05/10/20 21:00 05/12/20 20:01 Atorvastatin Calcium 40 Mg Tab PO 40 mg HS JACQUE Administration Carvedilol 6.25 mg 05/11/20 08:00 05/13/20 07:18 Carvedilol 6.25 Mg Tab PO 6.25 mg BID-WM JACQUE Administration Potassium Chloride/Sodium Chloride 1,000 mls @ 65 mls/hr 05/13/20 07:45 09:36 1/2 Ns W/Kcl 20 Meq IV 05/13/20 21:00 1,000 mls .[id number] JACQUE Administration Morphine Sulfate 2 mg 05/11/20 12:03 05/12/20 15:07 Morphine 2 Mg/Ml Vial SLOW IVP 2 mg Q6H PRN Administration Chest Pain Pantoprazole Sodium 40 mg 05/11/20 21:00 05/13/20 07:18 Pantoprazole 40 Mg Vial IVP 40 mg BID JACQUE Administration Tramadol HCl 50 mg 05/12/20 06:28 05/13/20 01:28 Tramadol Hcl 50 Mg Tab PO 50 mg Q6H PRN Administration Pain Hosp A/P - Plan NSTEMI--with EKG changes with ST depression and elevated troponin Coronary artery disease with history of stent placement as well as CABG remotely Hypertensive urgency status post nitro drip that has been discontinued as his blood pressure improved. -Lopressor and hydralazine as needed to keep the systolic below 150 --- Patient was on Eliquis which is on hold due to questionable GI bleed -Aspirin Coreg and statin. -he was on Plavix and Eliquis at home which is on hold until GI bleed ruled out. COPD -Looks clinically stable without exacerbation. Hyperlipidemia with LDL of 55 -Continue with lipid Leukocytosis Acute blood loss anemia -Status post 1 unit transfusion -Occult blood test pending. History of aortic valve replacement History of TIA [place] obesity Acute on chronic kidney disease -Hold his lisinopril. NSTEMI -Aspirin Coreg and Lipitor -Lopressor and hydralazine as needed to keep the systolic below 150 -he was on Plavix and Eliquis at home which is on hold until GI bleed ruled out. Acute gout/mild skin erythema along with blisters --- presumed cellulitis on left great toe -will manage with empiric augmentin -will not put patient on colchicine until renal function improves-- -contra for steroid given the GI bleed -Resume home regimen of allopurinol GI Bleed -cannot give NSAIDS, colchicine, and prednisone -1 units of packed RBCs was given -Eilquis on hold -GI evaluation for possible endoscopy is pending. He is stable to transfer him to the telemetry bed. Care discussed with the student and agree with the above plan.
[2020-05-13] MEDS ORDERED: Midazolam HCl 2 mg/2 ml Vial ONE (12:12)
[2020-05-13] MEDS ORDERED: PROPOFOL 200 MG/20 ML VIAL ONE (12:38)
--- NOTE | 2020-05-13 14:16 | OP ---
DATE OF PROCEDURE: 05/13/2020 PROCEDURES PERFORMED: Esophagogastroduodenoscopy and colonoscopy with snare polypectomy. PREOPERATIVE DIAGNOSES: Symptomatic anemia with acute drop in his hemoglobin while on anticoagulation. Also substernal chest pain and question of GI bleed. DESCRIPTION OF PROCEDURE: Informed consent was obtained from the patient. He was sedated with total intravenous anesthesia. The bite block was placed and the endoscope was advanced easily to the second portion of the duodenum and retroflexion was performed in the stomach. The esophagus was normal. The GE junction was normal. There was a small erosion in the antrum, but no significant bleeding source in the stomach. Retroflexed views in the stomach were normal. The pylorus and first and second portions of the duodenum were normal. The patient was turned around. Rectal exam was performed and was normal. The colonoscope was advanced to the terminal ileum with some difficulty. There was a ventral hernia in the epigastric region that contained colon and this was reduced and pressure placed over this to help the scope get around. The preparation quality was fair to good. I removed a single 6 mm polyp from the descending colon by cold snare polypectomy. The mucosa of the terminal ileum was normal. The colonic mucosa was otherwise normal. Retroflexed views in the rectum were normal. IMPRESSION: 1. Small antral erosion, otherwise normal esophagogastroduodenoscopy. 2. Ventral epigastric hernia containing colon, which was reduced. 3. 6 mm descending polyp removed by cold snare. 4. Otherwise, normal colonoscopy to the terminal ileum. 5. No bleeding source was identified. There was no stigmata of recent bleeding. RECOMMENDATIONS: 1. Await histopathology. 2. Check iron studies. 3. No contraindication to anticoagulation identified by this exam. 4. I will sign off. Please call if GI can be of assistance. Job ID: [id number]
[2020-05-13] MEDS ORDERED: Apixaban 5 MG TAB PO SCH (21:00)
[2020-05-13] MEDS: Atorvastatin Calcium 40 MG TAB PO SCH (22:31)
[2020-05-14] MEDS: traMADol HCl 50 MG TAB PO PRN ×3 (00:22→15:47)
[2020-05-14 04:43] LABS: #Eosinphils 0.5 thou/uL (0.0-0.7); #Monocytes 0.8 thou/uL (0.11-0.59); #Neutrophils 8.1 thou/uL (1.40-6.50); %Basophils 0.3 % (0.0-1.0); %Eosinophils 4.5 % (0.0-10.0); %Lymphocytes 17.3 % (21.0-51.0); %Monocytes 6.8 % (0.0-10.0); %Neutrophils 71.2 % (42.0-75.0); Mean Corpuscular HGB CONC 30.7 g/dL (32.0-36.0); Mean Corpuscular Hemoglobin 25.7 pg (27.0-31.0); Mean Corpuscular Volume 83.8 fL (78.0-98.0); Mean Platelet Volume 7.1 fL (7.4-10.4); Platelet Count 317 thou/uL (130-400); RBC Distribution Width 16.5 % (11.5-14.5); Red Blood Cell (RBC) Count 3.11 mill/uL (4.70-6.10); White Blood Cell (WBC) Count 11.4 thou/uL (4.8-10.8)
[2020-05-14] MEDS: Morphine 2 MG/ML VIAL SLOW IVP PRN (04:53)
[2020-05-14 05:06] LABS: Anion Gap 14 mmol/L (10-20); BUN (Urea Nitrogen) 22 mg/dL (8.4-25.7); Calc. Creatinine Clearance 133 mL/min (70-130); Calcium 8.5 mg/dL (7.8-10.44); Carbon Dioxide 20 mmol/L (23-31); Chloride 105 mmol/L (98-107); Estimated GFR-MDRD 54; Glucose 101 mg/dL (80-115); Iron 23 ug/dL (65-175); Iron Binding Capacity, Total 339 mcg/dL (261-462); Potassium 4.2 mmol/L (3.5-5.1); Sodium 135 mmol/L (136-145)
[2020-05-14] MEDS: Carvedilol 6.25 MG TAB PO SCH ×2 (08:44→17:44)
[2020-05-14] MEDS: Aspirin 81 mg Enteric Coated Tablet PO SCH (08:45)
[2020-05-14] MEDS: Allopurinol 300 MG TAB PO SCH (08:45)
[2020-05-14] MEDS: Amoxicillin/Potassium Clav 500 MG TAB PO SCH ×2 (10:40→22:00)
[2020-05-14] MEDS ORDERED: Communication Order-Pharmacy FS SCH (14:15)
--- NOTE | 2020-05-14 15:54 | PDOC.HOSPP ---
- Subjective Encounter Date: 05/14/20 Encounter Time: 15:52 Subjective: F/u: NSTEMI Chest pain - patient walked with PT today. He reports chest pressure on exertion and shortness of breath on exertion Abd pain - patient reports chronic abdominal pain. He states he has had hernias repaired and needs to have them repaired again . No nausea or vomiting Left foot pain - patient states he thinks he hurt his foot when he came to the hospital, but is not sure how. He states the pain was unbearable and he was not able to sleep through the night. Morphine IV did not relieve his pain He says there is a blister on his left toe that was covered today. He is having pain while walking - Objective Vital Signs & Weight: Vital Signs (12 hours) Temp Pulse Pulse Pulse Resp BP BP 05/14/20 12:50 70 73 108/51 L 120/65 05/14/20 11:50 98.5 F 62 16 05/14/20 08:50 05/14/20 07:09 98.3 F 72 16 05/14/20 04:40 98.1 F 73 17 BP Pulse Ox Pulse Ox Pulse Ox 05/14/20 12:50 97 95 05/14/20 11:50 137/65 96 05/14/20 08:50 95 05/14/20 07:09 140/70 95 05/14/20 04:40 143/64 H 94 L Weight Weight 388 lb 3.2 oz Most Recent Monitor Data Heart Rate from ECG 72 NIBP 142/64 NIBP BP-Mean 90 Respiration from ECG 19 SpO2 100 I&O: 05/13/20 05/14/20 05/15/20 06:59 06:59 06:59 Intake Total 4750 455 Output Total 700 Balance 4050 455 Result Diagrams: 05/14/20 04:06 05/14/20 04:06 Hospitalist ROS - Review of Systems Constitutional: denies: fever, chills - Medication Medications: Active Medications Generic Name Dose Route Start Last Admin Trade Name Freq PRN Reason Stop Dose Admin Allopurinol 300 mg 05/13/20 09:00 05/14/20 08:45 Allopurinol 300 Mg Tab PO 300 mg DAILY JACQUE Administration Amoxicillin/Clavulanate Potassium 500 mg 05/12/20 21:00 05/14/20 10:40 Amoxicillin/Potassium Clav 500 Mg Tab PO 500 mg Q12HR JACQUE Administration Aspirin 81 mg 05/11/20 09:00 05/14/20 08:45 Aspirin 81 Mg Enteric Coated Tablet PO 81 mg DAILY JACQUE Administration Atorvastatin Calcium 40 mg 05/10/20 21:00 05/13/20 22:31 Atorvastatin Calcium 40 Mg Tab PO 40 mg HS JACQUE Administration Carvedilol 6.25 mg 05/11/20 08:00 05/14/20 08:44 Carvedilol 6.25 Mg Tab PO 6.25 mg BID-WM JACQUE Administration Morphine Sulfate 2 mg 05/11/20 12:03 05/14/20 04:53 Morphine 2 Mg/Ml Vial SLOW IVP 2 mg Q6H PRN Administration Chest Pain Pantoprazole Sodium 40 mg 05/14/20 09:00 05/14/20 08:45 Pantoprazole 40 Mg Tab PO 40 mg DAILY JACQUE Administration Tramadol HCl 50 mg 05/12/20 06:28 05/14/20 15:47 Tramadol Hcl 50 Mg Tab PO 50 mg Q6H PRN Administration Moderate Pain (4-6) - Exam General Appearance: NAD, awake alert General - other findings: obese Eye: PERRL, anicteric sclera ENT: normocephalic atraumatic, no oropharyngeal lesions Neck: no JVD Heart: RRR, no murmur, no gallops, no rubs, normal peripheral pulses Respiratory: CTAB, no wheezes, no rales, no ronchi Gastrointestinal: soft, non-tender, non-distended, normal bowel sounds Extremities: no cyanosis, no clubbing, no edema Skin: normal turgor, no lesions, no rashes Neurological: cranial nerve grossly intact, normal sensation to touch, no focal deficits, no new deficit Musculoskeletal: normal tone, normal strength, no muscle wasting Psychiatric: normal affect, normal behavior, A&O x 3, oriented to person Hosp A/P - Plan ECHO: EF 55-60%, mild MR Endoscopy: small antral erosion. Epigastric hernia containing colon which was reduced. 6 mm descending polyp This is a 69 year old male who presented with chest pain and was found to have ST depressions. He was anemic and underwent endoscopy which is normal. He is awaiting a cath NSTEMI - troponin was elevated at 1.22. He still has chest pressure on exertion - continue aspirin, statin, coreg - cardiology is following, plan for cardiac cath this week Left foot pain - possibly acute gout vs cellulitis vs musculoskeletal etiology -patient with severe tenderness to mild palpation. Has an ulcer on left toe, but no erythema to suggest cellulitis but has been on antibiotics since 05/12 - continue augmentin. Obtain left foot Xray - add morphine 10 mg po q4 hours prn for pain DANAY - resolving, creatinine down to 1.31. Continue IV fluids Anemia - check iron panel, folate, B12. EGD showed no evidence of bleeding 6 mm descending colon polyp - noted on colonoscopy. This was biopsied, results pending Small antral erosion - noted on EGD. Started on protonix daily
--- NOTE | 2020-05-14 17:21 | RAD ---
Left foot 3 views: 05/14/2020 HISTORY: Pain and swelling FINDINGS: There is a comminuted fracture of the first proximal phalanx with extension into the first metatarsal-phalangeal joint. No evidence for associated dislocation. This acute fracture demonstrates mild displacement. There is mid foot degenerative change. There is enthesophyte formation at the origin of the plantar a poneurosis. Old fractures of the distal left tibia and fibula suspected, incompletely assessed on this exam. IMPRESSION: Acute fracture of the first proximal phalanx with comminution and mild displacement exten ding into the first metatarsal-phalangeal joint.
--- NOTE | 2020-05-14 17:35 | EKG ---
Test Reason : Blood Pressure : / mmHG Vent. Rate : 094 BPM Atrial Rate : 094 BPM P-R Int : 168 ms QRS Dur : 108 ms QT Int : 436 ms P-R-T Axes : 021 -15 101 degrees QTc Int : 545 ms Sinus rhythm with Premature atrial complexes Marked ST abnormality, possible lateral subendocardial injury Prolonged QT Abnormal ECG Confirmed by BECKIE BONILLA ([id number]), script editor MARYSOL HUSSEIN ([id number] on 05/14/2020 5:35:23 PM Referred By: Confirmed By:BECKIE Mehta
--- NOTE | 2020-05-14 17:35 | EKG ---
Test Reason : Blood Pressure : / mmHG Vent. Rate : 085 BPM Atrial Rate : 085 BPM P-R Int : 146 ms QRS Dur : 108 ms QT Int : 374 ms P-R-T Axes : 058 -15 126 degrees QTc Int : 445 ms Sinus rhythm with Premature atrial complexes Marked ST abnormality, possible lateral subendocardial injury Abnormal ECG Confirmed by BECKIE BONILLA ([id number]), digital editor MARYSOL HUSSEIN ([id number] on 05/14/2020 5:35:25 PM Referred By: Confirmed By:BECKIE Mehta
[2020-05-14] MEDS: Morphine IR 10 MG/5 ML UDCUP PO PRN (18:44)
[2020-05-14 20:20] LABS: Bacteria/HPF None Seen HPF (None Seen); Bilirubin Negative (Negative); Blood, Urine Negative (Negative); Clarity Clear (Clear); Glucose, Urine (Dipstick) Normal (Negative); Ketone, Urine Negative (Negative); Leukocyte Negative Leu/uL (Negative); Nitrite Negative (Negative); Protein, Urine (Dipstick) Negative (Neg-Trace); RBC/HPF 0-3 HPF (0-3); Specific Gravity, Urine 1.013 (1.002-1.036); Squamous Epithelial None Seen HPF (0-3); Urobilinogen Normal mg/dL (Less than 2); WBC/HPF 0-3 HPF (0-3); pH, Urine 6.5 (5.0-9.0)
[2020-05-14 20:22] LABS: Urine Culture Reflex No No
[2020-05-14] MEDS: Atorvastatin Calcium 40 MG TAB PO SCH (21:59)
[2020-05-15 04:12] LABS: #Eosinphils 0.6 thou/uL (0.0-0.7); #Lymphocytes 1.8 thou/uL (1.20-3.40); #Monocytes 0.8 thou/uL (0.11-0.59); #Neutrophils 6.4 thou/uL (1.40-6.50); %Basophils 0.4 % (0.0-1.0); %Eosinophils 5.7 % (0.0-10.0); %Lymphocytes 18.9 % (21.0-51.0); %Monocytes 8.5 % (0.0-10.0); %Neutrophils 66.4 % (42.0-75.0); Hemoglobin 7.5 g/dL (14.0-18.0); Mean Corpuscular HGB CONC 30.6 g/dL (32.0-36.0); Mean Corpuscular Hemoglobin 25.6 pg (27.0-31.0); Mean Corpuscular Volume 83.5 fL (78.0-98.0); Mean Platelet Volume 7.5 fL (7.4-10.4); Platelet Count 311 thou/uL (130-400); RBC Distribution Width 16.6 % (11.5-14.5); Red Blood Cell (RBC) Count 2.95 mill/uL (4.70-6.10); White Blood Cell (WBC) Count 9.6 thou/uL (4.8-10.8)
[2020-05-15 04:30] LABS: Iron 34 ug/dL (65-175); Iron Binding Capacity, Total 315 mcg/dL (261-462)
[2020-05-15 04:31] LABS: Anion Gap 13 mmol/L (10-20); BUN (Urea Nitrogen) 19 mg/dL (8.4-25.7); Calc. Creatinine Clearance 137 mL/min (70-130); Calcium 8.3 mg/dL (7.8-10.44); Carbon Dioxide 19 mmol/L (23-31); Chloride 108 mmol/L (98-107); Estimated GFR-MDRD 56; Glucose 94 mg/dL (80-115); Iron 31 ug/dL (65-175); Iron Binding Capacity, Total 315 mcg/dL (261-462); Potassium 4.7 mmol/L (3.5-5.1); Sodium 135 mmol/L (136-145)
[2020-05-15 04:37] LABS: Ferritin 15.58 ng/mL (22-322); Thyroid Stimulating Hormone 0.9305 uIU/mL (0.35-4.94)
[2020-05-15] MEDS: Morphine IR 10 MG/5 ML UDCUP PO PRN ×3 (08:17→21:43)
[2020-05-15] MEDS: Carvedilol 6.25 MG TAB PO SCH ×2 (08:18→17:29)
[2020-05-15] MEDS: Amoxicillin/Potassium Clav 500 MG TAB PO SCH (08:18)
[2020-05-15] MEDS: Allopurinol 300 MG TAB PO SCH (08:18)
[2020-05-15] MEDS: Aspirin 81 mg Enteric Coated Tablet PO SCH (08:18)
[2020-05-15] MEDS: Ferrous Sulfate 325 MG TAB PO SCH ×2 (08:18→17:29)
--- NOTE | 2020-05-15 12:51 | CON ---
DATE OF CONSULTATION: 05/15/2020 HISTORY OF PRESENT ILLNESS: The patient is a 69-year-old male who states that he has been diagnosed with cardiac disease and had a mild heart attack. The patient states that he might have fallen and may have injured his left great toe, but is not sure. He does state that he has an open wound over the dorsum of the left great toe and that the toe is painful, swollen, and bruised and pain increases with weightbearing. He had x-rays obtained of the left foot yesterday and x-ray showed fracture at the base of the proximal phalanx of the left great toe. I reviewed him and agreed that the patient does have fracture at the base of the proximal phalanx, but overall the alignment of the fractures were very good. PHYSICAL EXAMINATION: The patient does have an open superficial wound over the dorsum of the left great toe. There is no erythema. No active drainage. No sign of infection. The great toe is in good alignment clinically and is neurovascularly intact. IMPRESSION: Essentially nondisplaced fracture of the base of the proximal phalanx of the left great toe. PLAN: I recommend that the patient jonnie tape his big toe to the second toe. He can also use postoperative shoe to help protect the great toe when he is up ambulating. I do not recommend any surgery. The fracture should be allowed to heal and he has extremely high chance of ending up with excellent result for the fracture. Job ID: [id number]
--- NOTE | 2020-05-15 15:30 | PDOC.HOSPP ---
- Subjective Encounter Date: 05/15/20 Encounter Time: 10:00 Subjective: Left foot pain - the patient states his pain is still severe, but tolerable. I explained that he had a fracture. He states that it has been broken in three places in the same foot before and wants to have it chopped off CAD - he has mild dyspnea and fatigue on exertion. He denies chest pain - Objective Vital Signs & Weight: Vital Signs (12 hours) Temp Pulse Resp BP BP Pulse Ox 05/15/20 11:40 99 F 73 16 151/70 H 96 05/15/20 08:09 98.5 F 75 22 H 113/59 L 95 05/15/20 04:00 71 20 112/54 L 94 L Weight Weight 388 lb 6.4 oz Most Recent Monitor Data Heart Rate from ECG 72 NIBP 142/64 NIBP BP-Mean 90 Respiration from ECG 19 SpO2 100 I&O: 05/14/20 05/15/20 05/16/20 06:59 06:59 06:59 Intake Total 455 1200 Balance 455 1200 Result Diagrams: 05/15/20 03:25 05/15/20 03:25 Hospitalist ROS - Review of Systems Constitutional: denies: fever, chills - Medication Medications: Active Medications Generic Name Dose Route Start Last Admin Trade Name Freq PRN Reason Stop Dose Admin Allopurinol 300 mg 05/13/20 09:00 05/15/20 08:18 Allopurinol 300 Mg Tab PO 300 mg DAILY JACQUE Administration Amoxicillin/Clavulanate Potassium 500 mg 05/12/20 21:00 05/15/20 08:18 Amoxicillin/Potassium Clav 500 Mg Tab PO 500 mg Q12HR JACQUE Administration Aspirin 81 mg 05/11/20 09:00 05/15/20 08:18 Aspirin 81 Mg Enteric Coated Tablet PO 81 mg DAILY JACQUE Administration Atorvastatin Calcium 40 mg 05/10/20 21:00 05/14/20 21:59 Atorvastatin Calcium 40 Mg Tab PO 40 mg HS JACQUE Administration Carvedilol 6.25 mg 05/11/20 08:00 05/15/20 08:18 Carvedilol 6.25 Mg Tab PO 6.25 mg BID-WM JACQUE Administration Ferrous Sulfate 325 mg 05/15/20 08:00 05/15/20 08:18 Ferrous Sulfate 325 Mg Tab PO 325 mg BID-WM JACQUE Administration Morphine Sulfate 2 mg 05/11/20 12:03 05/14/20 04:53 Morphine 2 Mg/Ml Vial SLOW IVP 2 mg Q6H PRN Administration Chest Pain Morphine Sulfate 10 mg 05/14/20 15:47 05/15/20 08:17 Morphine Ir 10 Mg/5 Ml Udcup PO 10 mg Q4H PRN Administration Severe Pain (7-10) Pantoprazole Sodium 40 mg 05/14/20 09:00 05/15/20 08:18 Pantoprazole 40 Mg Tab PO 40 mg DAILY JACQUE Administration Tramadol HCl 50 mg 05/12/20 06:28 05/14/20 15:47 Tramadol Hcl 50 Mg Tab PO 50 mg Q6H PRN Administration Moderate Pain (4-6) - Exam General Appearance: NAD, awake alert Eye: PERRL, anicteric sclera ENT: normocephalic atraumatic, no oropharyngeal lesions Neck: no JVD Heart: RRR, no murmur, no gallops, no rubs Respiratory: CTAB, no wheezes, no rales, no ronchi Gastrointestinal: soft, non-tender, non-distended, normal bowel sounds Extremities: no cyanosis, no clubbing, no edema Skin: normal turgor, no lesions, no rashes Neurological: cranial nerve grossly intact, normal sensation to touch, no weakness Musculoskeletal - other findings: left foot swollen, appears black and blue from bruising. Tend to palpation Psychiatric: normal affect, normal behavior, A&O x 3 Hosp A/P - Plan ECHO: EF 55-60%, mild MR Endoscopy: small antral erosion. Epigastric hernia containing colon which was reduced. 6 mm descending polyp Left foot X ray: acute fracture of first proximal phalanx with comminution and mild displacement extending into the first metatarsal-phalangeal joint This is a 69 year old male who presented with chest pain and was found to have ST depressions. He was anemic and underwent endoscopy which is normal. He is awaiting a cath NSTEMI - troponin was elevated at 1.22. He still has chest pressure on exertion - continue aspirin, statin, coreg - cardiology is following, plan for cardiac cath this week Left toe fracture - possibly acute gout vs cellulitis vs musculoskeletal etiology -patient with severe tenderness to mild palpation. Has an ulcer on left toe, but no surrounding erythema. Left foot X ray showed acute fracture of first proximal phalanx with communition and mild displacement extending to first MTP joint - ortho was consulted, recommended a post-operative shoe. Patient can walk with heels on ground, but should not put weight on his toes - will discontinue augmentin since no cellulitis currently. Uric acid normal , no suspicion of gout - continue morphine prn for pain DANAY - resolving, creatinine down to 1.31. Continue IV fluids Iron deficiency Anemia -ferritin was 16. EGD was normal - start iron supplementation. B12/folate/TSH normal 6 mm descending colon polyp - noted on colonoscopy. This was biopsied, results pending Small antral erosion - noted on EGD. Started on protonix daily Dispo: plan for cath tomorrow
[2020-05-15] MEDS: Atorvastatin Calcium 40 MG TAB PO SCH (21:04)
[2020-05-16] MEDS: traMADol HCl 50 MG TAB PO PRN ×2 (03:08→09:42)
[2020-05-16 04:39] LABS: #Basophils 0.1 thou/uL (0.0-0.2); #Eosinphils 0.5 thou/uL (0.0-0.7); #Neutrophils 7.3 thou/uL (1.40-6.50); %Basophils 0.6 % (0.0-1.0); %Eosinophils 4.7 % (0.0-10.0); %Lymphocytes 18.8 % (21.0-51.0); %Monocytes 8.7 % (0.0-10.0); %Neutrophils 67.2 % (42.0-75.0); Hemoglobin 8.4 g/dL (14.0-18.0); Mean Corpuscular HGB CONC 29.9 g/dL (32.0-36.0); Mean Corpuscular Hemoglobin 25.1 pg (27.0-31.0); Mean Platelet Volume 7.2 fL (7.4-10.4); Platelet Count 302 thou/uL (130-400); RBC Distribution Width 16.2 % (11.5-14.5); Red Blood Cell (RBC) Count 3.33 mill/uL (4.70-6.10); White Blood Cell (WBC) Count 10.9 thou/uL (4.8-10.8)
[2020-05-16] MEDS: Aspirin 81 mg Enteric Coated Tablet PO SCH (05:33)
[2020-05-16] MEDS: Allopurinol 300 MG TAB PO SCH (05:34)
[2020-05-16] MEDS: Carvedilol 6.25 MG TAB PO SCH ×2 (05:34→17:07)
[2020-05-16] MEDS: Ferrous Sulfate 325 MG TAB PO SCH ×2 (05:34→17:07)
[2020-05-16] MEDS: Sodium Chloride 0.9% 1,000 ML IV SCH ×2 (06:15→14:11)
[2020-05-16] MEDS: Morphine IR 10 MG/5 ML UDCUP PO PRN ×2 (14:10→18:19)
[2020-05-16 15:15] VITALS: BMI 55.7
--- NOTE | 2020-05-16 18:21 | PDOC.HOSPP ---
- Subjective Encounter Date: 05/16/20 Encounter Time: 09:00 Subjective: F/u: chest pain and left toe fracture He continues to report fatigue on exertion after a few steps. He also still left toe pain. He states the liquid morphine helps the most and lasts six hours. He gets intense throbbing pain when the morphine wears off and worries about his pain meds being coordinated with when his cath is happening because when he gets the throbbing pain, he starts to shiver The patient was supposed to get a cardiac cath today, however his procedure got post-poned from 8:30 to 1 pm and the patient was very upset. He stated he hadn't eaten since 5 pm yesterday. He says he was supposed to have a cath on Saturday and was NPO for most of Saturday as well. He wants to do the procedure tomorrow when there is a set time and his mindset is right. He understands there could be a risk of an emergency happening and his procedure being delayed again. Discussed with Dr. Varela who states he has a 7 am slot tomorrow. - Objective Vital Signs & Weight: Vital Signs (12 hours) Temp Pulse Pulse Resp BP BP BP 05/16/20 16:46 98.9 F 72 16 123/63 05/16/20 13:08 80 135/56 L 05/16/20 12:18 98.6 F 70 16 110/56 L 05/16/20 06:55 98.7 F 70 18 BP Pulse Ox Pulse Ox Pulse Ox 05/16/20 16:46 94 L 05/16/20 13:08 95 94 L 05/16/20 12:18 94 L 05/16/20 06:55 115/55 L 94 L Weight Admit Weight 390 lb 9.6 oz Weight 388 lb 6.4 oz Most Recent Monitor Data Heart Rate from ECG 72 NIBP 142/64 NIBP BP-Mean 90 Respiration from ECG 19 SpO2 100 I&O: 05/15/20 05/16/20 05/17/20 06:59 06:59 06:59 Intake Total 1200 1110 Balance 1200 1110 Result Diagrams: 05/16/20 04:20 05/15/20 03:25 Additional Labs: Accuchecks 05/16/20 06:48 POC Glucose 109 H Hospitalist ROS - Review of Systems Constitutional: denies: fever, chills - Medication Medications: Active Medications Generic Name Dose Route Start Last Admin Trade Name Freq PRN Reason Stop Dose Admin Acetaminophen 650 mg 05/10/20 20:12 05/15/20 15:30 Acetaminophen 325 Mg Tab PO 650 mg Q4H PRN Administration Headache/Fever/Mild Pain (1-3) Allopurinol 300 mg 05/13/20 09:00 05/16/20 05:34 Allopurinol 300 Mg Tab PO 300 mg DAILY JACQUE Administration Aspirin 81 mg 05/11/20 09:00 05/16/20 05:33 Aspirin 81 Mg Enteric Coated Tablet PO 81 mg DAILY JACQUE Administration Atorvastatin Calcium 40 mg 05/10/20 21:00 05/15/20 21:04 Atorvastatin Calcium 40 Mg Tab PO 40 mg HS JACQUE Administration Carvedilol 6.25 mg 05/11/20 08:00 05/16/20 17:07 Carvedilol 6.25 Mg Tab PO 6.25 mg BID-WM JACQUE Administration Ferrous Sulfate 325 mg 05/15/20 08:00 05/16/20 17:07 Ferrous Sulfate 325 Mg Tab PO 325 mg BID-WM JACQUE Administration Sodium Chloride 1,000 mls @ 100 mls/hr 05/16/20 06:00 05/16/20 14:11 Normal Saline 0.9% IV Not Given .Q10H JACQUE Morphine Sulfate 2 mg 05/11/20 12:03 05/14/20 04:53 Morphine 2 Mg/Ml Vial SLOW IVP 2 mg Q6H PRN Administration Chest Pain Morphine Sulfate 10 mg 05/14/20 15:47 05/16/20 14:10 Morphine Ir 10 Mg/5 Ml Udcup PO 10 mg Q4H PRN Administration Severe Pain (7-10) Pantoprazole Sodium 40 mg 05/14/20 09:00 05/16/20 05:35 Pantoprazole 40 Mg Tab PO 40 mg DAILY JACQUE Administration Tramadol HCl 50 mg 05/12/20 06:28 05/16/20 09:42 Tramadol Hcl 50 Mg Tab PO 50 mg Q6H PRN Administration Moderate Pain (4-6) - Exam General Appearance: NAD, awake alert Eye: PERRL ENT: normocephalic atraumatic, no oropharyngeal lesions Neck: no JVD Heart: RRR, no murmur, no gallops, no rubs Respiratory: CTAB, no wheezes, no rales, no ronchi Gastrointestinal: soft, non-tender, non-distended, normal bowel sounds Extremities - other findings: left toe pain and swelling, some bruising of left foot Skin: normal turgor, no lesions, no rashes Neurological: cranial nerve grossly intact, normal sensation to touch, no weakness Hosp A/P - Plan ECHO: EF 55-60%, mild MR Endoscopy: small antral erosion. Epigastric hernia containing colon which was reduced. 6 mm descending polyp Left foot X ray: acute fracture of first proximal phalanx with comminution and mild displacement extending into the first metatarsal-phalangeal joint This is a 69 year old male who presented with chest pain and was found to have ST depressions. He was anemic and underwent endoscopy which is normal. He is awaiting a cath NSTEMI - troponin was elevated at 1.22. He still has chest pressure on exertion - continue aspirin, statin, coreg - cardiology is following, plan for cardiac cath this week Left toe fracture -patient with severe tenderness to mild palpation. Has an ulcer on left toe, but no surrounding erythema. Left foot X ray showed acute fracture of first proximal phalanx with communition and mild displacement extending to first MTP joint - ortho was consulted, recommended a post-operative shoe. Patient can walk with heels on ground, but should not put weight on his toes -antibiotics discontinued . Uric acid was normal - continue morphine (liquid) prn for pain DANAY - resolved. Dc IV fluids Iron deficiency Anemia -ferritin was 16. Hb 8.4. EGD was normal - started iron supplementation. B12/folate/TSH normal Leukocytosis - WBC up to 10.9, no signs of infection currently, will monitor. If it continues to increase, will resume augmentin 6 mm descending colon polyp - noted on colonoscopy. This was biopsied, results pending Small antral erosion - noted on EGD. Started on protonix daily Dispo: plan for cath tomorrow
[2020-05-16] MEDS: Atorvastatin Calcium 40 MG TAB PO SCH (20:09)
[2020-05-17] MEDS: Morphine IR 10 MG/5 ML UDCUP PO PRN ×3 (00:47→11:05)
[2020-05-17 04:15] LABS: #Basophils 0.1 thou/uL (0.0-0.2); #Eosinphils 0.5 thou/uL (0.0-0.7); #Lymphocytes 1.8 thou/uL (1.20-3.40); #Neutrophils 8.2 thou/uL (1.40-6.50); %Basophils 0.5 % (0.0-1.0); %Eosinophils 4.6 % (0.0-10.0); %Lymphocytes 15.9 % (21.0-51.0); %Monocytes 8.6 % (0.0-10.0); %Neutrophils 70.4 % (42.0-75.0); Hemoglobin 8.7 g/dL (14.0-18.0); Mean Corpuscular HGB CONC 31.1 g/dL (32.0-36.0); Mean Corpuscular Hemoglobin 26.2 pg (27.0-31.0); Mean Corpuscular Volume 84.1 fL (78.0-98.0); Mean Platelet Volume 7.5 fL (7.4-10.4); Platelet Count 303 thou/uL (130-400); RBC Distribution Width 16.4 % (11.5-14.5); Red Blood Cell (RBC) Count 3.32 mill/uL (4.70-6.10); White Blood Cell (WBC) Count 11.6 thou/uL (4.8-10.8)
[2020-05-17] MEDS: Carvedilol 6.25 MG TAB PO SCH ×2 (05:25→18:03)
[2020-05-17] MEDS: Allopurinol 300 MG TAB PO SCH (05:25)
[2020-05-17] MEDS: Aspirin 81 mg Enteric Coated Tablet PO SCH (05:25)
[2020-05-17] MEDS: Ferrous Sulfate 325 MG TAB PO SCH ×2 (05:25→18:03)
[2020-05-17] MEDS: Sodium Chloride 0.9% 1,000 ML IV SCH (05:27)
[2020-05-17] MEDS ORDERED: Heparin 10,000 UNITS/ 10 ML VIAL ONE (06:10)
[2020-05-17] MEDS ORDERED: Fentanyl 100 MCG/2 ML VIAL ONE (07:04)
[2020-05-17] MEDS ORDERED: Midazolam HCl 2 mg/2 ml Vial ONE (07:04)
[2020-05-17] MEDS ORDERED: Ondansetron PF 4 MG/2 ML Vial ONE (07:22)
[2020-05-17] MEDS ORDERED: Lidocaine 1% (PF) 30 ML VIAL ONE (07:48)
[2020-05-17] MEDS ORDERED: Protamine Sulfate 50 MG/5 ML VIAL ONE (08:28)
[2020-05-17] MEDS ORDERED: Iopamidol 370 76% 100 ML VIAL ONE (08:46)
[2020-05-17] MEDS ORDERED: Iopamidol 370 76% 50 ML VIAL FS ONE (08:46)
[2020-05-17] MEDS ORDERED: Nitroglycerin 0.4 MG TAB (25 Tab Bottle) SL PRN (08:53)
[2020-05-17] MEDS ORDERED: Sodium Chloride 0.9% 200 ML IV PRN (08:53)
[2020-05-17] MEDS ORDERED: Acetaminophen/Codeine 30-300mg Tablet PO PRN ×2 (08:53)
[2020-05-17] MEDS ORDERED: Sodium Chloride 0.9% 1,000 ML IV SCH (08:55)
[2020-05-17] MEDS ORDERED: Amoxicillin/Potassium Clav 875 MG TAB PO SCH (09:00)
--- NOTE | 2020-05-17 10:18 | CON ---
DATE OF CONSULTATION: HISTORY OF PRESENT ILLNESS: Mr. Casillas has been admitted with a non-ST elevation myocardial infarction and chest pain. He has undergone cardiac catheterization today. He has a patent left internal mammary artery to LAD and a patent saphenous vein graft to his right coronary artery. He has a nonvisualized saphenous vein graft that was sequential to the ramus and OM. He has left main disease. The patient underwent bypass with aortic valve replacement in [place] in 2012. He has a #27 bioprosthetic valve along with the bypass grafts as outlined above. Unfortunately, the patient is 5 feet 10 inches, 388 pounds with a BSA of 2.95. BMI is 56. His size, deconditioning, and overall medical health make redo coronary artery bypass grafting an unreasonable undertaking. PAST MEDICAL HISTORY: 1. Morbid obesity. 2. Coronary artery disease. 3. Aortic stenosis status post aortic valve replacement. 4. Carotid stenosis status post bilateral TCAR. PAST SURGICAL HISTORY: 1. Coronary artery bypass grafting as above. 2. Aortic valve replacement. 3. Bilateral TCAR. 4. Hernia repair. 5. Right index finger surgery. MEDICATIONS: Reviewed. ALLERGIES: NONE. PHYSICAL EXAMINATION: GENERAL: This is a morbidly obese gentleman, resting in the telemetry unit. VITAL SIGNS: Temperature is 99.6, pulse is 70 and regular, and blood pressure is 120/63. LUNGS: Have diminished breath sounds bilaterally. HEART: Rhythm is regular. Sternotomy is healed. ABDOMEN: Obese and soft. There are no masses that we can palpate. EXTREMITIES: There is bilateral edema. ASSESSMENT AND PLAN: Medical therapy for recurrent coronary artery disease. Job ID: [id number]
[2020-05-17 11:51] VITALS: TEMP 98.5
[2020-05-17] MEDS: Morphine 2 MG/ML VIAL SLOW IVP PRN (15:08)
[2020-05-17 15:19] VITALS: BP 135/73
[2020-05-17 16:59] LABS: Hemoglobin A1c 5.4 % (4.0-6.0)
--- NOTE | 2020-05-17 19:17 | PDOC.DS.DS ---
Provider - Provider Date of Admission: 05/10/20 20:21 Date of Discharge: 05/17/20 Admitting Provider: Mukul Caputo MD Consultations: Cardiology (Dr. Emery Varela), Other (Vascular surgery with Dr Pk Castro) Primary Care Physician: EMILY BOURGEOIS MD Course - Hospital Course Hospital Course: Discharge Diagnoses: 1. NSTEMI with three-vessel CAD needing repeat CABG 2. Iron deficiency anemia 3. First toe fracture of the left foot 4. Hospital cellulitis of the left foot Brief HPI: This 69-year-old male with past medical history of COPD, CAD status post CABG who presented to the emergency room with chest pain. EKG showed ST depressions in leads I, aVL, V3, V4, V5. Patient had an elevated troponin of 1.122. He started on nitroglycerin drip and admitted for further work-up. Hospital Course: NSTEMI: Patient was originally admitted to the ICU on nitroglycerin drip. Since he initially presented with a hemoglobin of 7.3 he was transfused and cardiac cath was held off. GI was consulted and EGD and colonoscopy was performed with no active bleeding. On 05/16, patient underwent a cardiac cath which showed 99% blockage of the right coronary artery, 70% stenosis of the LAD. One of the 4 grafts were determined to be patent. Cardiovascular surgery was consulted and they felt the patient was not a good surgical candidate due to his BMI of 55 and multiple other medical problems. Medical management was recommended. The patient will be discharged on aspirin, statin, Coreg, and Plavix. 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 Castro in 1 to 2 weeks. Iron deficiency anemia: Patient had a ferritin of 15. He underwent upper endoscopy which showed a small antral erosion. Colonoscopy showed a 6 mm polyp in the descending colon which was biopsied and showed a tubular adenoma. He was discharged on iron supplementation. First toe fracture: Patient reported having left-sided foot pain. He reported a fracture in that foot in the past and is not sure if he injured himself. Left foot x-rays showed a first proximal phalanx fracture with mild displacement. Orthopedics was consulted and recommended that the patient wear a postop shoe. He should avoid bearing weight on his toes and walk on his heels. He is advised to follow-up with orthopedics in 3 weeks for consideration of repeat x-rays. His pain was controlled with liquid morphine so we will discharge with this for 3 days. Possible cellulitis of left foot: Patient had a blister on his left toe. Was very erythematous and swollen and originally there is a concern for cellulitis. He was started on Augmentin. This was discontinued when 05/16 when he was discovered to have a toe fracture. However after discontinuation, his white blood cell count continued to increase and he reported throbbing pain in his foot. Therefore Augmentin was restarted and he will be discharged with Augmentin for 4 days to complete a 7-day course of antibiotics Pertinent Studies: ECHO: EF 55-60%, mild MR Endoscopy: small antral erosion. Epigastric hernia containing colon which was reduced. 6 mm descending polyp Left foot X ray: acute fracture of first proximal phalanx with comminution and mild displacement extending into the first metatarsal-phalangeal joint Procedures: Cardiac cath 05/16 Resuscitation Status: 05/10/20 20:12 Resuscitation Status Routine Resuscitation Status: FULL: Full Resuscitation - Labs Lab Results: 05/17/20 03:20 05/15/20 03:25 Abnormal Lab Results - Last 48 hrs 05/15/20 13:36: Crossmatch See Detail 05/16/20 04:20: WBC 10.9 H, RBC 3.33 L, Hgb 8.4 L, Hct 27.9 L, MCH 25.1 L, MCHC 29.9 L, RDW 16.2 H, MPV 7.2 L, Lymphocytes % 18.8 L, Neutrophils # 7.3 H, Monocytes # 1.0 H 05/17/20 03:20: WBC 11.6 H, RBC 3.32 L, Hgb 8.7 L, Hct 27.9 L, MCH 26.2 L, MCHC 31.1 L, RDW 16.4 H, Lymphocytes % 15.9 L, Neutrophils # 8.2 H, Monocytes # 1.0 H - Physical Exam Vitals: Vital Signs (12 hours) Temp Pulse Resp BP BP BP Pulse Ox 05/17/20 15:15 98.5 F 73 16 135/73 93 L 05/17/20 11:50 98.5 F 68 16 105/50 L 93 L 05/17/20 09:00 97.8 F 69 16 127/60 95 Weight Admit Weight 390 lb 9.6 oz Weight 388 lb 6.4 oz Most Recent Monitor Data Heart Rate from ECG 72 NIBP 142/64 NIBP BP-Mean 90 Respiration from ECG 19 SpO2 100 Physical Exam: The patient was seen and examined on the day of discharge. General: Patient is alert, awake, oriented times three. Patient is morbidly obese CVS: RRR, no murmurs, rubs, gallops Lungs: CTAB Abdomen: +BS, soft, nontender, nondistended Extremities: Left foot is slightly swollen and tender to palpation to light touch. There is no significant erythema Problem - Time spent with Patient (mins): 35 Plan - Discharge Medications Prescriptions: Amoxicillin/Potassium Clav [Augmentin] 875 mg PO Q12HR #14 tab Docusate [Colace] 100 mg PO BID #60 tab Carvedilol [Coreg] 6.25 mg PO BID-WM #60 tab Ferrous Sulfate [Feosol] 325 mg PO BID-WM #60 tab Pantoprazole [Protonix] 40 mg PO DAILY #30 tab Sennosides [Senna] 8.6 mg PO HS PRN #30 tablet PRN Reason: Constipation Home Medications: Medication Instructions Recorded Confirmed Type Aspirin [Low Dose Aspirin EC] 81 mg PO DAILY 02/08/16 05/11/20 History Atorvastatin Calcium [Lipitor] 40 mg PO DAILY 02/08/16 05/11/20 History Tamsulosin HCl [Flomax] 0.4 mg PO HS 02/08/16 05/11/20 History Colchicine [Colcrys] 0.6 mg PO BID PRN 12/27/18 05/11/20 History Lisinopril [Zestril] 40 mg PO DAILY 12/27/18 05/11/20 History Apixaban [Eliquis] 5 mg PO DAILY 11/21/19 05/11/20 History Gabapentin 300 mg PO TID PRN 11/21/19 05/11/20 History Lidocaine 5% Patch [Lidoderm 5% 1 patch TD 1600 #30 patch 11/23/19 05/11/20 Rx Patch] Clopidogrel Bisulfate [Plavix] 75 mg PO DAILY 01/20/20 05/11/20 History Allopurinol 300 mg PO DAILY 05/11/20 05/11/20 History metFORMIN [Glucophage] 500 mg PO BID-WM 05/11/20 05/11/20 History traZODone HCl [Trazodone HCl] 50 mg PO HS PRN 05/11/20 05/11/20 History Amoxicillin/Potassium Clav 875 mg PO Q12HR #14 tab 05/17/20 Rx [Augmentin] Carvedilol [Coreg] 6.25 mg PO BID-WM #60 tab 05/17/20 Rx Docusate [Colace] 100 mg PO BID #60 tab 05/17/20 Rx Ferrous Sulfate [Feosol] 325 mg PO BID-WM #60 tab 05/17/20 Rx Pantoprazole [Protonix] 40 mg PO DAILY #30 tab 05/17/20 Rx Sennosides [Senna] 8.6 mg PO HS PRN #30 tablet 05/17/20 Rx Allergies: No Known Drug Allergies Allergy (Verified 01/20/20 11:00) - Discharge Instructions Activity:: Activity as Tolerated Nourishment:: Heart Healthy Diet - Follow up Plan Referrals: Emery Varela MD [Active] - 14 Days (Please follow up with Dr. Varela in 1-2 weeks. ) EMILY BOURGEOIS MD [Primary Care Provider] - 7 Days (Please follow up with your primary care provider in 7 days. ) Pk Castro MD [Active] - 14 Days (Please follow up with Dr. Castro in 1-2 weeks as well. ) Mulugeta Enriquez MD [Active] - 3-4 Weeks (Please follow up with Dr. Enriquez in 3 weeks to discuss getting follow up foot x-rays. ) Disposition: HOME Quality - Care Measures CORE MEASURES:: AMI - Stroke/TIA Did you prescribe antithrombotic therapy?: Yes Did you prescribe anticoagulant for A Fib/Flutter?: No Specify reason for no DC anticoagulant: Treatment not indicated Did you prescribe a statin medication?: Yes
== END 2020-05-17 18:15 | disposition home or self-care (01) | DRG 281 ==
LOC: ERS 18:30 → ERHOLD 20:21 → IMCU/EMU 05-11 18:37 → 2NO 05-13 19:12
PROVIDERS: ADMIT Internal Medicine; ATTEND Internal Medicine
PROC: 30233N1 Transfusion of Nonautologous Red Blood Cells into Peripheral Vein, Percutaneous Approach (ICD-10-PCS; 2020-05-10)
PROC: 0DJ08ZZ Inspection of Upper Intestinal Tract, Via Natural or Artificial Opening Endoscopic (ICD-10-PCS; 2020-05-13)
PROC: 0DBM8ZZ Excision of Descending Colon, Via Natural or Artificial Opening Endoscopic (ICD-10-PCS; 2020-05-13)
PROC: 4A023N8 Measurement of Cardiac Sampling and Pressure, Bilateral, Percutaneous Approach (ICD-10-PCS; principal; 2020-05-17)
PROC: B2131ZZ Fluoroscopy of Multiple Coronary Artery Bypass Grafts using Low Osmolar Contrast (ICD-10-PCS; 2020-05-17)
PROC: B2111ZZ Fluoroscopy of Multiple Coronary Arteries using Low Osmolar Contrast (ICD-10-PCS; 2020-05-17)
PROC: B2161ZZ Fluoroscopy of Right and Left Heart using Low Osmolar Contrast (ICD-10-PCS; 2020-05-17)
DX: I21.4 Non-ST elevation (NSTEMI) myocardial infarction (principal); L03.116 Cellulitis of left lower limb; Z68.43 Body mass index [BMI] 50.0-59.9, adult; D62 Acute posthemorrhagic anemia; N17.9 Acute kidney failure, unspecified; Z20.828 Contact with and (suspected) exposure to other viral communicable diseases; I25.10 Atherosclerotic heart disease of native coronary artery without angina pectoris; D50.9 Iron deficiency anemia, unspecified; J44.9 Chronic obstructive pulmonary disease, unspecified; G47.33 Obstructive sleep apnea (adult) (pediatric); E78.5 Hyperlipidemia, unspecified; E66.01 Morbid (severe) obesity due to excess calories; I16.0 Hypertensive urgency; D72.829 Elevated white blood cell count, unspecified; I12.9 Hypertensive chronic kidney disease with stage 1 through stage 4 chronic kidney disease, or unspecified chronic kidney disease; M10.9 Gout, unspecified; E11.51 Type 2 diabetes mellitus with diabetic peripheral angiopathy without gangrene; E11.22 Type 2 diabetes mellitus with diabetic chronic kidney disease; K25.9 Gastric ulcer, unspecified as acute or chronic, without hemorrhage or perforation; S92.415A Nondisplaced fracture of proximal phalanx of left great toe, initial encounter for closed fracture; X58.XXXA Exposure to other specified factors, initial encounter; N18.9 Chronic kidney disease, unspecified; Z86.73 Personal history of transient ischemic attack (TIA), and cerebral infarction without residual deficits; Z79.84 Long term (current) use of oral hypoglycemic drugs; Z79.82 Long term (current) use of aspirin; Z79.01 Long term (current) use of anticoagulants; Z95.2 Presence of prosthetic heart valve; Z95.1 Presence of aortocoronary bypass graft
CPT/HCPCS: 36415; 36416; 36430; 71045; 76942; 80048; 80053; 80061; 81001; 82550; 82553; 82607; 82728; 82746; 83036; 83540; 83550; 83690; 84443; 84484; 84550; 85025; 85347; 85610; 85730; 86850; 86900; 86901; 88305; 93005; 93306; 93461; 93798; 96365; 96375; 99152; 99153; 99292; C9113; J1644; J2001; J2250; J2270; J2405; J2704; J2720; J3010; J3480; P9016; Q9967; S0028; U0002

== ENCOUNTER 2020-07-22 18:58 | Inpatient (IN) | payer MEDICARE, MEDICAID ==
[2020-07-22] MEDS ORDERED: Ondansetron PF 4 MG/2 ML Vial ONE (19:52)
[2020-07-22 19:58] LABS: #Eosinphils 0.4 thou/uL (0.0-0.7); #Lymphocytes 1.3 thou/uL (1.20-3.40); #Monocytes 0.8 thou/uL (0.11-0.59); #Neutrophils 10.5 thou/uL (1.40-6.50); %Basophils 0.2 % (0.0-1.0); %Eosinophils 3.3 % (0.0-10.0); %Lymphocytes 10.3 % (21.0-51.0); %Monocytes 5.9 % (0.0-10.0); %Neutrophils 80.3 % (42.0-75.0); Hemoglobin 9.9 g/dL (14.0-18.0); Mean Corpuscular Hemoglobin 26.4 pg (27.0-31.0); Mean Corpuscular Volume 85.2 fL (78.0-98.0); Mean Platelet Volume 8.2 fL (7.4-10.4); Platelet Count 241 thou/uL (130-400); RBC Distribution Width 16.3 % (11.5-14.5); Red Blood Cell (RBC) Count 3.76 mill/uL (4.70-6.10)
[2020-07-22 20:18] LABS: ALT (SGPT) 23 U/L (8-55); AST (SGOT) 22 U/L (5-34); Albumin 3.8 g/dL (3.4-4.8); Alkaline Phosphatase 101 U/L (40-110); Anion Gap 17 mmol/L (10-20); BUN (Urea Nitrogen) 66 mg/dL (8.4-25.7); Bilirubin, Total 0.4 mg/dL (0.2-1.2); Calc. Creatinine Clearance 0 mL/min (70-130); Calcium 9.2 mg/dL (7.8-10.44); Carbon Dioxide 24 mmol/L (23-31); Chloride 99 mmol/L (98-107); Globulin 3.9 g/dL (2.4-3.5); Glucose 122 mg/dL (80-115); Potassium 4.4 mmol/L (3.5-5.1); Protein, Total 7.7 g/dL (5.8-8.1); Sodium 136 mmol/L (136-145)
[2020-07-22] MEDS ORDERED: Acetaminophen 500 MG TAB ONE (21:24)
[2020-07-22 22:19] LABS: SARS-CoV-2 NAA Rapid Test Not Detected (NotDetected)
[2020-07-22 22:30] LABS: Clarity Hazy (Clear)
[2020-07-22 22:31] LABS: Glucose, Urine (Dipstick) Unable to Interpret mg/dL (Negative); Ketone, Urine Unable to Interpret mg/dL (Negative); Leukocyte Unable to Interpret Leu/uL (Negative); Nitrite Unable to Interpret (Negative); Protein, Urine (Dipstick) Unable to Interpret mg/dL (Neg-Trace); Specific Gravity, Urine 1.016 (1.002-1.036); pH, Urine 4.9 (5.0-9.0)
[2020-07-22 22:32] LABS: Bacteria/HPF Rare-Few HPF (None Seen); Bilirubin Unable to Interpret (Negative); Blood, Urine Unable to Interpret (Negative); RBC/HPF None Seen HPF (0-3); Squamous Epithelial 0-3 HPF (0-3); Urobilinogen UNABLE TO INTERPRET mg/dL (Less than 2); WBC/HPF 0-3 HPF (0-3)
[2020-07-22 22:33] LABS: Calcium Oxalate Crystals Rare HPF (None Seen)
[2020-07-23] MEDS ORDERED: hydrALAZINE 20 MG/ML VIAL SLOW IVP PRN (00:56)
[2020-07-23] MEDS ORDERED: Guaifenesin DM 100-10/5 ML UDCUP PO PRN (00:56)
[2020-07-23] MEDS ORDERED: cloNIDine 0.1 MG TAB PO PRN (00:56)
[2020-07-23] MEDS ORDERED: HYDROcodone/Acetaminophen 5/325 mg Tablet PO PRN (00:56)
[2020-07-23] MEDS ORDERED: Ondansetron PF 4 MG/2 ML Vial IVP PRN ×2 (00:56→11:17)
[2020-07-23] MEDS ORDERED: Promethazine HCl 12.5 MG in Sodium Chloride 0.9% 50 ML IVPB PRN (00:56)
[2020-07-23] MEDS ORDERED: Labetalol HCl 100 MG/20 ML VIAL SLOW IVP PRN (00:56)
[2020-07-23] MEDS ORDERED: Electrolyte Replacement Protocol 1 EACH FS SCH (01:00)
[2020-07-23] MEDS ORDERED: traZODone HCl 50 MG TAB PO PRN (01:01)
[2020-07-23 01:13] VITALS: BMI 50.6
[2020-07-23] MEDS ORDERED: Gabapentin 300 MG CAP PO PRN (01:16)
[2020-07-23] MEDS: Sodium Chloride 0.9% 1,000 ML IV SCH ×3 (02:55→20:24)
[2020-07-23] MEDS: Transdermal Patch Removal TOP SCH (04:37)
[2020-07-23 06:01] LABS: #Basophils 0.1 thou/uL (0.0-0.2); #Eosinphils 0.9 thou/uL (0.0-0.7); #Lymphocytes 1.9 thou/uL (1.20-3.40); #Monocytes 0.7 thou/uL (0.11-0.59); #Neutrophils 9.3 thou/uL (1.40-6.50); %Basophils 0.4 % (0.0-1.0); %Lymphocytes 14.6 % (21.0-51.0); %Monocytes 5.5 % (0.0-10.0); %Neutrophils 72.5 % (42.0-75.0); Hemoglobin 9.3 g/dL (14.0-18.0); Mean Corpuscular Hemoglobin 26.2 pg (27.0-31.0); Mean Corpuscular Volume 84.4 fL (78.0-98.0); Mean Platelet Volume 8.3 fL (7.4-10.4); Platelet Count 212 thou/uL (130-400); RBC Distribution Width 16.2 % (11.5-14.5); Red Blood Cell (RBC) Count 3.54 mill/uL (4.70-6.10); White Blood Cell (WBC) Count 12.8 thou/uL (4.8-10.8)
[2020-07-23 06:20] LABS: Anion Gap 13 mmol/L (10-20); BUN (Urea Nitrogen) 64 mg/dL (8.4-25.7); Calc. Creatinine Clearance 51 mL/min (70-130); Calcium 8.7 mg/dL (7.8-10.44); Carbon Dioxide 25 mmol/L (23-31); Chloride 100 mmol/L (98-107); Glucose 107 mg/dL (80-115); Phosphorus 4.4 mg/dL (2.3-4.7); Sodium 134 mmol/L (136-145)
[2020-07-23] MEDS: Acetaminophen 325 MG TAB PO PRN ×2 (08:37→15:32)
[2020-07-23] MEDS: Clopidogrel Bisulfate 75 MG TAB PO SCH (08:38)
[2020-07-23] MEDS: Atorvastatin Calcium 40 MG TAB PO SCH (08:38)
[2020-07-23] MEDS: Aspirin 81 mg Enteric Coated Tablet PO SCH (08:38)
[2020-07-23] MEDS: Carvedilol 6.25 MG TAB PO SCH ×2 (08:38→17:41)
[2020-07-23] MEDS: Famotidine 20 MG TAB PO SCH ×2 (08:38→20:22)
[2020-07-23] MEDS: Heparin 5,000 UNITS/ML VIAL SC SCH ×2 (08:39→20:22)
[2020-07-23] MEDS ORDERED: FLU VACC QS2020-21(65YR UP)/PF 240 MCG/0.7 ML SYRINGE IM ONE (09:00)
[2020-07-23] MEDS ORDERED: Ondansetron ODT 4 MG TAB PO PRN (11:17)
[2020-07-23] MEDS: Lidocaine 5% Patch TD SCH (15:33)
[2020-07-23] MEDS: Acetaminophen 325 MG TAB PO SCH (20:22)
[2020-07-23] MEDS: Tamsulosin HCl 0.4 MG CAP PO SCH (20:22)
[2020-07-24] MEDS: Acetaminophen 325 MG TAB PO PRN ×2 (00:06→12:48)
[2020-07-24] MEDS: Transdermal Patch Removal TOP SCH (04:58)
[2020-07-24] MEDS: Sodium Chloride 0.9% 1,000 ML IV SCH ×4 (06:20→19:00)
[2020-07-24 08:09] LABS: #Basophils 0.1 thou/uL (0.0-0.2); #Eosinphils 0.6 thou/uL (0.0-0.7); #Lymphocytes 1.5 thou/uL (1.20-3.40); #Monocytes 0.3 thou/uL (0.11-0.59); #Neutrophils 5.9 thou/uL (1.40-6.50); %Basophils 0.7 % (0.0-1.0); %Eosinophils 7.6 % (0.0-10.0); %Lymphocytes 17.6 % (21.0-51.0); %Monocytes 3.8 % (0.0-10.0); %Neutrophils 70.3 % (42.0-75.0); Hemoglobin 9.2 g/dL (14.0-18.0); Mean Corpuscular HGB CONC 31.8 g/dL (32.0-36.0); Mean Corpuscular Hemoglobin 27.2 pg (27.0-31.0); Mean Corpuscular Volume 85.4 fL (78.0-98.0); Mean Platelet Volume 8.2 fL (7.4-10.4); Platelet Count 204 thou/uL (130-400); RBC Distribution Width 15.9 % (11.5-14.5); Red Blood Cell (RBC) Count 3.37 mill/uL (4.70-6.10); White Blood Cell (WBC) Count 8.4 thou/uL (4.8-10.8)
[2020-07-24 08:33] LABS: Anion Gap 10 mmol/L (10-20); BUN (Urea Nitrogen) 43 mg/dL (8.4-25.7); Calc. Creatinine Clearance 88 mL/min (70-130); Calcium 8.8 mg/dL (7.8-10.44); Carbon Dioxide 25 mmol/L (23-31); Chloride 107 mmol/L (98-107); Glucose 153 mg/dL (80-115); Phosphorus 2.2 mg/dL (2.3-4.7); Potassium 4.2 mmol/L (3.5-5.1); Sodium 138 mmol/L (136-145)
[2020-07-24] MEDS: Famotidine 20 MG TAB PO SCH (09:00)
[2020-07-24] MEDS: Acetaminophen 325 MG TAB PO SCH ×3 (09:00→20:52)
[2020-07-24] MEDS: Aspirin 81 mg Enteric Coated Tablet PO SCH (09:01)
[2020-07-24] MEDS: Carvedilol 6.25 MG TAB PO SCH ×2 (09:01→17:26)
[2020-07-24] MEDS: Heparin 5,000 UNITS/ML VIAL SC SCH ×2 (09:01→20:53)
[2020-07-24] MEDS: Clopidogrel Bisulfate 75 MG TAB PO SCH (09:01)
[2020-07-24] MEDS: Atorvastatin Calcium 40 MG TAB PO SCH (09:01)
[2020-07-24] MEDS: K-Phos Neutral 250 MG TAB PO SCH ×2 (12:20→17:26)
[2020-07-24] MEDS: Lidocaine 5% Patch TD SCH (17:26)
[2020-07-24] MEDS: Tamsulosin HCl 0.4 MG CAP PO SCH (20:52)
[2020-07-24] MEDS ORDERED: Fluticasone Propionate Nasal Spray 16 gm Bottle NASAL SCH (21:00)
[2020-07-24] MEDS ORDERED: Loratadine 10 MG TAB PO SCH (21:00)
[2020-07-25] MEDS: Transdermal Patch Removal TOP SCH (04:52)
[2020-07-25] MEDS: Acetaminophen 325 MG TAB PO PRN (04:58)
[2020-07-25] MEDS: Sodium Chloride 0.9% 1,000 ML IV SCH (04:59)
[2020-07-25 07:17] VITALS: TEMP 98.3
[2020-07-25 07:43] LABS: Anion Gap 9 mmol/L (10-20); BUN (Urea Nitrogen) 29 mg/dL (8.4-25.7); Calc. Creatinine Clearance 111 mL/min (70-130); Calcium 8.3 mg/dL (7.8-10.44); Carbon Dioxide 24 mmol/L (23-31); Chloride 111 mmol/L (98-107); Glucose 115 mg/dL (80-115); Potassium 4.2 mmol/L (3.5-5.1); Sodium 140 mmol/L (136-145)
[2020-07-25 07:51] LABS: Phosphorus 1.9 mg/dL (2.3-4.7)
[2020-07-25] MEDS: K-Phos Neutral 250 MG TAB PO SCH (08:44)
[2020-07-25] MEDS: Atorvastatin Calcium 40 MG TAB PO SCH (09:44)
[2020-07-25] MEDS: Acetaminophen 325 MG TAB PO SCH (09:44)
[2020-07-25] MEDS ORDERED: Amlodipine 5 MG TAB PO SCH (09:45)
[2020-07-25] MEDS: Clopidogrel Bisulfate 75 MG TAB PO SCH (09:45)
[2020-07-25] MEDS: Heparin 5,000 UNITS/ML VIAL SC SCH (09:45)
[2020-07-25] MEDS: Carvedilol 6.25 MG TAB PO SCH (09:45)
[2020-07-25] MEDS: Aspirin 81 mg Enteric Coated Tablet PO SCH (09:55)
[2020-07-25 10:49] VITALS: BP 156/73
[2020-07-26] MEDS ORDERED: Amlodipine 5 MG TAB PO SCH (09:00)
== END 2020-07-25 11:06 | disposition home or self-care (01) | DRG 683 ==
LOC: ERS 18:58 → T4-B 20:54 → OBSVTOIN 07-23 11:19
PROVIDERS: ADMIT Internal Medicine; ATTEND Internal Medicine
DX: N17.9 Acute kidney failure, unspecified (principal); E87.1 Hypo-osmolality and hyponatremia; Z68.43 Body mass index [BMI] 50.0-59.9, adult; Z20.822 Contact with and (suspected) exposure to COVID-19; N18.30 Chronic kidney disease, stage 3 unspecified; E78.5 Hyperlipidemia, unspecified; I12.9 Hypertensive chronic kidney disease with stage 1 through stage 4 chronic kidney disease, or unspecified chronic kidney disease; I25.10 Atherosclerotic heart disease of native coronary artery without angina pectoris; B34.9 Viral infection, unspecified; E83.39 Other disorders of phosphorus metabolism; G47.33 Obstructive sleep apnea (adult) (pediatric); E66.01 Morbid (severe) obesity due to excess calories; E11.22 Type 2 diabetes mellitus with diabetic chronic kidney disease; N40.0 Benign prostatic hyperplasia without lower urinary tract symptoms; J45.20 Mild intermittent asthma, uncomplicated; D63.1 Anemia in chronic kidney disease; J44.9 Chronic obstructive pulmonary disease, unspecified; Z28.21 Immunization not carried out because of patient refusal; Z79.82 Long term (current) use of aspirin; Z79.01 Long term (current) use of anticoagulants; Z95.1 Presence of aortocoronary bypass graft; Z79.899 Other long term (current) drug therapy; Z79.02 Long term (current) use of antithrombotics/antiplatelets; Z79.84 Long term (current) use of oral hypoglycemic drugs; Z86.73 Personal history of transient ischemic attack (TIA), and cerebral infarction without residual deficits; I25.2 Old myocardial infarction; Z95.2 Presence of prosthetic heart valve; Z95.5 Presence of coronary angioplasty implant and graft; Z90.49 Acquired absence of other specified parts of digestive tract; Z87.891 Personal history of nicotine dependence
CPT/HCPCS: 0240U; 36415; 36416; 51701; 70450; 71045; 80048; 80053; 81003; 81015; 83735; 84100; 85025; 86140; 87086; 93005; 96372; 96374; G0378; J1644; J2405

== ENCOUNTER 2020-07-26 14:34 | Emergency (ER) | payer MEDICARE, MEDICAID ==
[2020-07-26 15:17] LABS: #Eosinphils 0.6 thou/uL (0.0-0.7); #Monocytes 0.9 thou/uL (0.11-0.59); #Neutrophils 8.6 thou/uL (1.40-6.50); %Basophils 0.4 % (0.0-1.0); %Eosinophils 4.8 % (0.0-10.0); %Lymphocytes 16.3 % (21.0-51.0); %Monocytes 7.1 % (0.0-10.0); %Neutrophils 71.4 % (42.0-75.0); Hemoglobin 9.2 g/dL (14.0-18.0); Mean Corpuscular HGB CONC 31.4 g/dL (32.0-36.0); Mean Corpuscular Hemoglobin 26.4 pg (27.0-31.0); Mean Corpuscular Volume 84.1 fL (78.0-98.0); Platelet Count 230 thou/uL (130-400); RBC Distribution Width 16.4 % (11.5-14.5); Red Blood Cell (RBC) Count 3.49 mill/uL (4.70-6.10)
--- NOTE | 2020-07-26 15:23 | RAD ---
PORTABLE CHEST: HISTORY: Cough, chest pain. COMPARISON: 07/22/2020 study. FINDINGS: Heart size is enlarged with postop sternotomy changes. No signs of failure. No focal infiltrates. IMPRESSION: Cardiomegaly. POS: [facility]
[2020-07-26 15:45] LABS: ALT (SGPT) 20 U/L (8-55); AST (SGOT) 31 U/L (5-34); Albumin 3.4 g/dL (3.4-4.8); Alkaline Phosphatase 87 U/L (40-110); Anion Gap 11 mmol/L (10-20); BUN (Urea Nitrogen) 14 mg/dL (8.4-25.7); Bilirubin, Total 0.3 mg/dL (0.2-1.2); CK (CPK) 163 U/L (30-200); Calc. Creatinine Clearance 0 mL/min (70-130); Calcium 8.6 mg/dL (7.8-10.44); Carbon Dioxide 20 mmol/L (23-31); Chloride 110 mmol/L (98-107); Globulin 3.6 g/dL (2.4-3.5); Glucose 102 mg/dL (80-115); Lipase 58 U/L (8-78); Potassium 4.6 mmol/L (3.5-5.1); Sodium 136 mmol/L (136-145)
[2020-07-26] MEDS ORDERED: Acetaminophen 500 MG TAB ONE ×2 (16:46→16:52)
[2020-07-26 18:41] LABS: Bacteria/HPF None Seen HPF (None Seen); Bilirubin Negative (Negative); Blood, Urine Trace (Negative); Clarity Clear (Clear); Glucose, Urine (Dipstick) Normal (Negative); Ketone, Urine Negative (Negative); Leukocyte Negative Leu/uL (Negative); Nitrite Negative (Negative); Protein, Urine (Dipstick) Negative (Neg-Trace); RBC/HPF 0-3 HPF (0-3); Specific Gravity, Urine 1.015 (1.002-1.036); Squamous Epithelial None Seen HPF (0-3); Urobilinogen Normal mg/dL (Less than 2); WBC/HPF 0-3 HPF (0-3); pH, Urine 6.5 (5.0-9.0)
[2020-07-26 19:16] LABS: CKMB 2.1 ng/mL (0-6.6)
== END 2020-07-26 19:13 | disposition left against medical advice (07) ==
LOC: ERS 14:34
DX: R07.89 Other chest pain (principal); R51.9 Headache, unspecified; E78.5 Hyperlipidemia, unspecified; J44.9 Chronic obstructive pulmonary disease, unspecified; I12.9 Hypertensive chronic kidney disease with stage 1 through stage 4 chronic kidney disease, or unspecified chronic kidney disease; N18.9 Chronic kidney disease, unspecified; Z87.891 Personal history of nicotine dependence
CPT/HCPCS: 71045; 80053; 81003; 81015; 82550; 82553; 83690; 84484; 85025; 93005; 94760

== ENCOUNTER 2020-10-04 16:02 | Emergency (ER) | payer MEDICARE, MEDICAID | END 2020-10-04 19:21 | disposition home or self-care (01) | LOC: ERS 16:02 | DX: M79.81 Nontraumatic hematoma of soft tissue (principal); Z79.899 Other long term (current) drug therapy; Z79.82 Long term (current) use of aspirin; Z79.01 Long term (current) use of anticoagulants; Z79.84 Long term (current) use of oral hypoglycemic drugs; E78.5 Hyperlipidemia, unspecified; I12.9 Hypertensive chronic kidney disease with stage 1 through stage 4 chronic kidney disease, or unspecified chronic kidney disease; N18.9 Chronic kidney disease, unspecified; I25.2 Old myocardial infarction; Z87.891 Personal history of nicotine dependence; J44.9 Chronic obstructive pulmonary disease, unspecified ==

== ENCOUNTER 2020-10-10 22:52 | Inpatient (IN) | payer MEDICARE, MEDICAID ==
[~2020-10-10 22:52] MED LIST changes: -Heparin 10,000 UNITS/ 10 ML VIAL ONE; +Iopamidol-370 76% 500 ML 1 ML ONE
[2020-10-10 23:14] LABS: #Eosinphils 0.6 thou/uL (0.0-0.7); #Monocytes 0.8 thou/uL (0.11-0.59); #Neutrophils 9.2 thou/uL (1.40-6.50); %Basophils 0.3 % (0.0-1.0); %Eosinophils 4.9 % (0.0-10.0); %Monocytes 5.9 % (0.0-10.0); %Neutrophils 72.9 % (42.0-75.0); Hemoglobin 9.5 g/dL (14.0-18.0); Mean Corpuscular HGB CONC 30.6 g/dL (32.0-36.0); Mean Corpuscular Hemoglobin 24.9 pg (27.0-31.0); Mean Corpuscular Volume 81.3 fL (78.0-98.0); Mean Platelet Volume 8.1 fL (7.4-10.4); Platelet Count 222 thou/uL (130-400); RBC Distribution Width 17.5 % (11.5-14.5); Red Blood Cell (RBC) Count 3.81 mill/uL (4.70-6.10); White Blood Cell (WBC) Count 12.6 thou/uL (4.8-10.8)
[2020-10-10 23:23] LABS: INR-International Normal Ratio 1.1; PTT 31.9 sec (22.9-36.1); Prothrombin Time 14.4 sec (12.0-14.7)
[2020-10-10] MEDS ORDERED: Labetalol HCl 100 MG/20 ML VIAL ONE (23:38)
[2020-10-10 23:39] LABS: ALT (SGPT) 14 U/L (8-55); AST (SGOT) 15 U/L (5-34); Albumin 3.6 g/dL (3.4-4.8); Alkaline Phosphatase 96 U/L (40-110); Anion Gap 12 mmol/L (10-20); BUN (Urea Nitrogen) 41 mg/dL (8.4-25.7); Bilirubin, Total 0.3 mg/dL (0.2-1.2); Calc. Creatinine Clearance 0 mL/min (70-130); Carbon Dioxide 28 mmol/L (23-31); Chloride 101 mmol/L (98-107); Globulin 3.3 g/dL (2.4-3.5); Glucose 127 mg/dL (80-115); Potassium 3.8 mmol/L (3.5-5.1); Protein, Total 6.9 g/dL (5.8-8.1); Sodium 137 mmol/L (136-145)
[2020-10-10] MEDS ORDERED: Ondansetron PF 4 MG/2 ML Vial ONE (23:48)
[2020-10-11] MEDS ORDERED: Acetaminophen 500 MG TAB ONE (00:02)
[2020-10-11 00:16] LABS: CKMB 1.5 ng/mL (0-6.6)
[2020-10-11 02:09] VITALS: BMI 49.4
[2020-10-11 06:07] LABS: Troponin I 0.078 ng/mL (< 0.028)
[2020-10-11] MEDS ORDERED: Ondansetron PF 4 MG/2 ML Vial IVP PRN (07:08)
[2020-10-11] MEDS ORDERED: Acetaminophen 325 MG TAB PO PRN (07:08)
[2020-10-11] MEDS ORDERED: Sodium Chloride 0.9% 1,000 ML IV SCH (07:30)
[2020-10-11] MEDS ORDERED: Aspirin Chewable 81 MG TAB ONE ×3 (08:27→09:05)
[2020-10-11] MEDS ORDERED: Enoxaparin Sodium 40 MG/0.4 ML SYRINGE ONE (08:28)
[2020-10-11] MEDS: Aspirin 81 mg Enteric Coated Tablet PO SCH (09:02)
[2020-10-11] MEDS: Apixaban 5 MG TAB PO SCH (09:02)
[2020-10-11 10:04] LABS: SARS-CoV-2 PCR by NAA Not Detected (NotDetected)
[2020-10-11 14:02] LABS: Bacteria/HPF None Seen HPF (None Seen); Bilirubin Negative (Negative); Blood, Urine Negative (Negative); Clarity Clear (Clear); Glucose, Urine (Dipstick) Normal (Negative); Ketone, Urine Negative (Negative); Leukocyte 25 Leu/uL (Negative); Nitrite Negative (Negative); Protein, Urine (Dipstick) Negative (Neg-Trace); RBC/HPF 0-3 HPF (0-3); Specific Gravity, Urine 1.023 (1.002-1.036); Squamous Epithelial 0-3 HPF (0-3); Urobilinogen Normal mg/dL (Less than 2); WBC/HPF 0-3 HPF (0-3)
[2020-10-11 14:04] LABS: Urine Culture Reflex Yes Yes
[2020-10-11] MEDS: Clopidogrel Bisulfate 75 MG TAB PO SCH (20:48)
[2020-10-11] MEDS: Atorvastatin Calcium 40 MG TAB PO SCH (20:49)
[2020-10-11 23:39] LABS: Troponin I 0.045 ng/mL (< 0.028)
[2020-10-12] MEDS ORDERED: Melatonin 3 MG TAB PO SCH ×2 (01:40→20:00)
[2020-10-12 05:51] LABS: #Eosinphils 0.7 thou/uL (0.0-0.7); #Lymphocytes 1.9 thou/uL (1.20-3.40); #Monocytes 0.7 thou/uL (0.11-0.59); #Neutrophils 7.7 thou/uL (1.40-6.50); %Basophils 0.4 % (0.0-1.0); %Eosinophils 6.5 % (0.0-10.0); %Lymphocytes 17.1 % (21.0-51.0); Anion Gap 12 mmol/L (10-20); BUN (Urea Nitrogen) 31 mg/dL (8.4-25.7); Calc. Creatinine Clearance 117 mL/min (70-130); Calcium 8.6 mg/dL (7.8-10.44); Carbon Dioxide 24 mmol/L (23-31); Cardiac Risk 3.6 (Less than 4.5); Chloride 107 mmol/L (98-107); Cholesterol 114 mg/dl (< 200 Desired); Glucose 100 mg/dL (80-115); HDL Cholesterol 32 mg/dL (>60 Neg Risk); Hemoglobin 8.8 g/dL (14.0-18.0); LDL Cholesterol, Calculated 65 mg/dL; Mean Corpuscular HGB CONC 31.5 g/dL (32.0-36.0); Mean Corpuscular Hemoglobin 25.9 pg (27.0-31.0); Mean Corpuscular Volume 82.3 fL (78.0-98.0); Mean Platelet Volume 8.3 fL (7.4-10.4); Platelet Count 205 thou/uL (130-400); Potassium 4.2 mmol/L (3.5-5.1); RBC Distribution Width 17.6 % (11.5-14.5); Red Blood Cell (RBC) Count 3.41 mill/uL (4.70-6.10); Sodium 139 mmol/L (136-145); Triglycerides 84 mg/dL (Less than 150)
[2020-10-12 06:22] LABS: Troponin I 0.052 ng/mL (< 0.028)
[2020-10-12] MEDS: Apixaban 5 MG TAB PO SCH (09:09)
[2020-10-12] MEDS: Aspirin 81 mg Enteric Coated Tablet PO SCH (09:09)
[2020-10-12] MEDS: Atorvastatin Calcium 40 MG TAB PO SCH (20:45)
[2020-10-12] MEDS: Clopidogrel Bisulfate 75 MG TAB PO SCH (20:45)
[2020-10-13 08:35] LABS: #Eosinphils 0.6 thou/uL (0.0-0.7); #Lymphocytes 1.6 thou/uL (1.20-3.40); #Monocytes 0.5 thou/uL (0.11-0.59); #Neutrophils 7.4 thou/uL (1.40-6.50); %Basophils 0.4 % (0.0-1.0); %Eosinophils 5.9 % (0.0-10.0); %Lymphocytes 15.4 % (21.0-51.0); %Monocytes 5.1 % (0.0-10.0); %Neutrophils 73.2 % (42.0-75.0); Hemoglobin 9.9 g/dL (14.0-18.0); Mean Corpuscular HGB CONC 31.1 g/dL (32.0-36.0); Mean Corpuscular Hemoglobin 25.5 pg (27.0-31.0); Mean Platelet Volume 8.6 fL (7.4-10.4); Platelet Count 220 thou/uL (130-400); RBC Distribution Width 18.3 % (11.5-14.5); Red Blood Cell (RBC) Count 3.89 mill/uL (4.70-6.10); White Blood Cell (WBC) Count 10.1 thou/uL (4.8-10.8)
[2020-10-13 08:54] LABS: Anion Gap 12 mmol/L (10-20); BUN (Urea Nitrogen) 18 mg/dL (8.4-25.7); Calc. Creatinine Clearance 148 mL/min (70-130); Calcium 9.3 mg/dL (7.8-10.44); Carbon Dioxide 23 mmol/L (23-31); Chloride 107 mmol/L (98-107); Glucose 117 mg/dL (80-115); Sodium 138 mmol/L (136-145)
[2020-10-13] MEDS: Aspirin 81 mg Enteric Coated Tablet PO SCH (10:52)
[2020-10-13] MEDS: Apixaban 5 MG TAB PO SCH (10:53)
[2020-10-13 11:31] VITALS: BP 147/67; TEMP 98
[2020-10-13] MEDS ORDERED: Polyethylene Glycol 3350 17 GM Packet PO SCH (12:15)
[2020-10-13] MEDS ORDERED: Amlodipine 5 MG TAB PO SCH (12:30)
== END 2020-10-13 13:57 | disposition home or self-care (01) | DRG 69 ==
LOC: ERS 22:52 → OBSVTOIN 10-11 01:03 → INTOOBSV 10-11 01:03 → ERHOLD 10-11 01:03 → 2SE 10-11 18:30 → OBSVTOIN 10-12 18:23
PROVIDERS: ADMIT Internal Medicine; ATTEND Internal Medicine
DX: G45.9 Transient cerebral ischemic attack, unspecified (principal); N17.9 Acute kidney failure, unspecified; Z68.42 Body mass index [BMI] 45.0-49.9, adult; I25.10 Atherosclerotic heart disease of native coronary artery without angina pectoris; I12.9 Hypertensive chronic kidney disease with stage 1 through stage 4 chronic kidney disease, or unspecified chronic kidney disease; E78.5 Hyperlipidemia, unspecified; J44.9 Chronic obstructive pulmonary disease, unspecified; N18.30 Chronic kidney disease, stage 3 unspecified; R77.8 Other specified abnormalities of plasma proteins; E66.01 Morbid (severe) obesity due to excess calories; D72.829 Elevated white blood cell count, unspecified; I73.9 Peripheral vascular disease, unspecified; Z79.01 Long term (current) use of anticoagulants; Z95.1 Presence of aortocoronary bypass graft; Z95.5 Presence of coronary angioplasty implant and graft; Z98.890 Other specified postprocedural states; Z87.891 Personal history of nicotine dependence
CPT/HCPCS: 36415; 70450; 70496; 70498; 80048; 80053; 80061; 81001; 82553; 84443; 84484; 85025; 85610; 85730; 87077; 87086; 87186; 87635; 90471; 90732; 93005; 93010; 93306; 94760; 95712; 95819; 95957; 96374; 96375; 96376; G0009; G0378; J1650; J2405; Q9967; U0003; U0005

== ENCOUNTER 2020-11-21 21:35 | Emergency (ER) | payer MEDICARE, MEDICAID ==
[2020-11-21 22:18] LABS: #Eosinphils 0.2 thou/uL (0.0-0.7); #Lymphocytes 1.9 thou/uL (1.20-3.40); #Neutrophils 11.5 thou/uL (1.40-6.50); %Basophils 0.2 % (0.0-1.0); %Eosinophils 1.4 % (0.0-10.0); %Monocytes 6.5 % (0.0-10.0); %Neutrophils 78.8 % (42.0-75.0); Mean Corpuscular HGB CONC 32.9 g/dL (32.0-36.0); Mean Corpuscular Hemoglobin 27.9 pg (27.0-31.0); Mean Corpuscular Volume 84.7 fL (78.0-98.0); Mean Platelet Volume 8.3 fL (7.4-10.4); Platelet Count 287 thou/uL (130-400); RBC Distribution Width 17.9 % (11.5-14.5); White Blood Cell (WBC) Count 14.5 thou/uL (4.8-10.8)
[2020-11-21 22:35] LABS: ALT (SGPT) 15 U/L (8-55); AST (SGOT) 14 U/L (5-34); Albumin 3.7 g/dL (3.4-4.8); Alkaline Phosphatase 101 U/L (40-110); Anion Gap 13 mmol/L (10-20); BUN (Urea Nitrogen) 50 mg/dL (8.4-25.7); Bilirubin, Total 0.5 mg/dL (0.2-1.2); Calc. Creatinine Clearance 0 mL/min (70-130); Calcium 9.2 mg/dL (7.8-10.44); Carbon Dioxide 28 mmol/L (23-31); Chloride 98 mmol/L (98-107); Globulin 3.6 g/dL (2.4-3.5); Glucose 116 mg/dL (80-115); Potassium 4.2 mmol/L (3.5-5.1); Protein, Total 7.3 g/dL (5.8-8.1); Sodium 135 mmol/L (136-145)
[2020-11-22] MEDS ORDERED: Metoclopramide HCl 10 MG/2 ML VIAL ONE (00:49)
[2020-11-22] MEDS ORDERED: diphenhydrAMINE 50 MG/ML VIAL ONE (00:49)
[2020-11-22] MEDS ORDERED: Metoclopramide 10 MG/10 ML UDCUP ONE (00:49)
[2020-11-22 01:24] LABS: Lactic Acid 1.5 mmol/L (0.5-2.2)
[2020-11-22 01:34] LABS: Bacteria/HPF None Seen HPF (None Seen); Bilirubin Negative (Negative); Blood, Urine 1+ (Negative); Clarity Clear (Clear); Glucose, Urine (Dipstick) Normal (Negative); Ketone, Urine Negative (Negative); Leukocyte 25 Leu/uL (Negative); Nitrite Negative (Negative); Protein, Urine (Dipstick) Negative (Neg-Trace); RBC/HPF 0-3 HPF (0-3); Specific Gravity, Urine 1.019 (1.002-1.036); Squamous Epithelial 0-3 HPF (0-3); Urobilinogen Normal mg/dL (Less than 2); WBC/HPF 0-3 HPF (0-3)
[2020-11-22 01:44] LABS: CKMB 1.2 ng/mL (0-6.6)
== END 2020-11-22 02:12 | disposition home or self-care (01) ==
LOC: ERS 21:35
DX: R42 Dizziness and giddiness (principal); R07.89 Other chest pain; R51.9 Headache, unspecified; E78.5 Hyperlipidemia, unspecified; I12.9 Hypertensive chronic kidney disease with stage 1 through stage 4 chronic kidney disease, or unspecified chronic kidney disease; N18.9 Chronic kidney disease, unspecified; I25.2 Old myocardial infarction; J44.9 Chronic obstructive pulmonary disease, unspecified; Z87.891 Personal history of nicotine dependence; Z79.899 Other long term (current) drug therapy; Z79.82 Long term (current) use of aspirin
CPT/HCPCS: 36415; 36416; 70450; 71045; 80053; 81003; 81015; 82553; 83605; 83880; 84484; 85025; 93005; 96374; 96375; J1200; J2765

== ENCOUNTER 2020-12-08 22:02 | Emergency (ER) | payer MEDICARE, MEDICAID | END 2020-12-09 01:13 | disposition home or self-care (01) | LOC: ERS 22:02 | DX: M54.2 Cervicalgia (principal); E78.5 Hyperlipidemia, unspecified; J44.9 Chronic obstructive pulmonary disease, unspecified; I25.2 Old myocardial infarction; I12.9 Hypertensive chronic kidney disease with stage 1 through stage 4 chronic kidney disease, or unspecified chronic kidney disease; N18.9 Chronic kidney disease, unspecified; Z87.891 Personal history of nicotine dependence; Z79.899 Other long term (current) drug therapy; Z79.82 Long term (current) use of aspirin | CPT/HCPCS: 71046; 72040; 93005 ==

== ENCOUNTER 2021-03-11 15:18 | Inpatient (IN) | payer MEDICARE, MEDICAID ==
[2021-03-11] MEDS ORDERED: Ondansetron PF 4 MG/2 ML Vial ONE (15:40)
[2021-03-11] MEDS ORDERED: Pantoprazole 40 MG VIAL ONE (15:54)
[2021-03-11] MEDS ORDERED: Pantoprazole 80 MG, Admixture Fee 1 EACH in Sodium Chloride 0.9% 100 ML IVPB SCH (16:00)
[2021-03-11] MEDS ORDERED: [UNRECOGNIZED DRUG - OTHER] IV SCH (16:00)
[2021-03-11] MEDS ORDERED: HUMAN PROTHROMBIN COMPLX IV SCH (16:00)
[2021-03-11] MEDS ORDERED: HUM PROTHROMBIN CPLX IV SCH (16:00)
[2021-03-11 16:05] LABS: #Basophils 0.1 thou/uL (0.0-0.2); #Eosinphils 0.2 thou/uL (0.0-0.7); #Lymphocytes 2.6 thou/uL (1.20-3.40); #Monocytes 0.8 thou/uL (0.11-0.59); #Neutrophils 12.3 thou/uL (1.40-6.50); %Basophils 0.4 % (0.0-1.0); %Lymphocytes 16.4 % (21.0-51.0); %Neutrophils 77.2 % (42.0-75.0); Hemoglobin 6.5 g/dL (14.0-18.0); Mean Corpuscular HGB CONC 30.5 g/dL (32.0-36.0); Mean Corpuscular Hemoglobin 24.9 pg (27.0-31.0); Mean Corpuscular Volume 81.5 fL (78.0-98.0); Platelet Count 186 thou/uL (130-400); RBC Distribution Width 17.7 % (11.5-14.5); Red Blood Cell (RBC) Count 2.61 mill/uL (4.70-6.10); White Blood Cell (WBC) Count 15.9 thou/uL (4.8-10.8)
[2021-03-11 16:21] LABS: ALT (SGPT) 11 U/L (8-55); AST (SGOT) 13 U/L (5-34); Albumin 2.9 g/dL (3.4-4.8); Alkaline Phosphatase 57 U/L (40-110); Anion Gap 17 mmol/L (10-20); BUN (Urea Nitrogen) 115 mg/dL (8.4-25.7); Bilirubin, Total 0.4 mg/dL (0.2-1.2); Calc. Creatinine Clearance 0 mL/min (70-130); Calcium 8.5 mg/dL (7.8-10.44); Carbon Dioxide 18 mmol/L (23-31); Chloride 111 mmol/L (98-107); Globulin 2.5 g/dL (2.4-3.5); Glucose 149 mg/dL (80-115); Potassium 5.5 mmol/L (3.5-5.1); Protein, Total 5.4 g/dL (5.8-8.1); Sodium 140 mmol/L (136-145)
[2021-03-11] MEDS ORDERED: Norepinephrine 8 MG/0.9% NS 250 ML ONE (17:04)
[2021-03-11] MEDS ORDERED: PROPOFOL 200 MG/20 ML VIAL ONE (17:45)
[2021-03-11] MEDS ORDERED: Succinylcholine 200 MG/10 ml SYRINGE FS ONE (17:45)
[2021-03-11 18:04] LABS: SARS-CoV-2 NAA Rapid Test Not Detected (NotDetected)
[2021-03-11 20:03] LABS: Hemoglobin 9.7 g/dL (14.0-18.0)
[2021-03-11] MEDS ORDERED: Nitroglycerin 0.4 MG TAB (25 Tab Bottle) ONE (20:53)
[2021-03-11] MEDS: Nitroglycerin 0.4 MG TAB (25 Tab Bottle) SL PRN ×2 (20:55→21:50)
[2021-03-11] MEDS ORDERED: Ondansetron PF 4 MG/2 ML Vial IVP PRN (21:02)
[2021-03-11 21:44] LABS: INR-International Normal Ratio 1.3; PTT 28.8 sec (22.9-36.1); Prothrombin Time 16.4 sec (12.0-14.7)
[2021-03-11 21:50] LABS: Anion Gap 13 mmol/L (10-20); BUN (Urea Nitrogen) 114 mg/dL (8.4-25.7); Calc. Creatinine Clearance 0 mL/min (70-130); Calcium 8.4 mg/dL (7.8-10.44); Carbon Dioxide 20 mmol/L (23-31); Chloride 112 mmol/L (98-107); Glucose 119 mg/dL (80-115); Potassium 5.4 mmol/L (3.5-5.1); Sodium 140 mmol/L (136-145)
[2021-03-11 22:16] VITALS: BMI 48.1
[2021-03-11 22:18] LABS: CKMB 9.4 ng/mL (0-6.6)
[2021-03-11] MEDS ORDERED: HumaLOG 300 UNITS/3 ML VIAL SC PRN ×2 (22:41)
[2021-03-11] MEDS ORDERED: Dextrose 50% Abboject 50 ML SYRINGE SLOW IVP PRN (22:41)
[2021-03-11] MEDS ORDERED: Dextrose 5% in Water 1,000 ML IV PRN (22:41)
[2021-03-11] MEDS: Pantoprazole 80 MG, Admixture Fee 1 EACH in Sodium Chloride 0.9% 100 ML IVPB SCH (23:34)
[2021-03-11] MEDS: Sodium Chloride 0.9% 1,000 ML IV SCH (23:35)
[2021-03-12 00:28] LABS: Bacteria/HPF None Seen HPF (None Seen); Bilirubin Negative (Negative); Blood, Urine Negative (Negative); Clarity Clear (Clear); Glucose, Urine (Dipstick) Normal (Negative); Ketone, Urine Negative (Negative); Leukocyte Negative Leu/uL (Negative); Nitrite Negative (Negative); Protein, Urine (Dipstick) Negative (Neg-Trace); RBC/HPF 0-3 HPF (0-3); Specific Gravity, Urine 1.012 (1.002-1.036); Squamous Epithelial None Seen HPF (0-3); Urobilinogen Normal mg/dL (Less than 2); WBC/HPF None Seen HPF (0-3)
[2021-03-12 00:42] LABS: Urine Culture Reflex No No
[2021-03-12 01:00] LABS: Hemoglobin 8.6 g/dL (14.0-18.0)
[2021-03-12 02:14] LABS: Troponin I 6.157 ng/mL (< 0.028)
[2021-03-12] MEDS: Nitroglycerin 2% Ointment 1 INCH/1 GM Packet TOP SCH ×3 (03:32→21:00)
[2021-03-12] MEDS ORDERED: Metoprolol Tartrate 50 MG TAB PO SCH (09:00)
[2021-03-12 09:35] LABS: #Eosinphils 0.2 thou/uL (0.0-0.7); #Lymphocytes 1.5 thou/uL (1.20-3.40); #Monocytes 0.8 thou/uL (0.11-0.59); #Neutrophils 10.2 thou/uL (1.40-6.50); %Basophils 0.2 % (0.0-1.0); %Eosinophils 1.2 % (0.0-10.0); %Lymphocytes 12.1 % (21.0-51.0); %Neutrophils 80.5 % (42.0-75.0); Hemoglobin 8.4 g/dL (14.0-18.0); Mean Corpuscular HGB CONC 32.1 g/dL (32.0-36.0); Mean Corpuscular Hemoglobin 26.8 pg (27.0-31.0); Mean Corpuscular Volume 83.4 fL (78.0-98.0); Mean Platelet Volume 8.8 fL (7.4-10.4); Platelet Count 177 thou/uL (130-400); RBC Distribution Width 16.8 % (11.5-14.5); Red Blood Cell (RBC) Count 3.15 mill/uL (4.70-6.10); White Blood Cell (WBC) Count 12.7 thou/uL (4.8-10.8)
[2021-03-12] MEDS ORDERED: Aspirin 300 MG Suppository ONE (09:42)
[2021-03-12] MEDS ORDERED: Aspirin 300 MG Suppository PR SCH (09:45)
[2021-03-12 09:55] LABS: Anion Gap 11 mmol/L (10-20); BUN (Urea Nitrogen) 95 mg/dL (8.4-25.7); Calc. Creatinine Clearance 91 mL/min (70-130); Calcium 8.8 mg/dL (7.8-10.44); Carbon Dioxide 21 mmol/L (23-31); Chloride 116 mmol/L (98-107); Glucose 102 mg/dL (80-115); Potassium 4.4 mmol/L (3.5-5.1); Sodium 144 mmol/L (136-145)
[2021-03-12 10:08] LABS: Troponin I 17.418 ng/mL (< 0.028)
[2021-03-12] MEDS ORDERED: Morphine 4 MG/ML VIAL ONE (13:21)
[2021-03-12] MEDS: Morphine 4 MG/ML VIAL SLOW IVP PRN ×2 (13:33→20:33)
[2021-03-12] MEDS: Furosemide 20 MG/2 ML VIAL SLOW IVP SCH (13:34)
[2021-03-12] MEDS: Atorvastatin Calcium 40 MG TAB PO SCH (20:37)
[2021-03-12] MEDS: Pantoprazole 80 MG, Admixture Fee 1 EACH in Sodium Chloride 0.9% 100 ML IVPB SCH (20:37)
[2021-03-12] MEDS: Tamsulosin HCl 0.4 MG CAP PO SCH (20:37)
[2021-03-12] MEDS: Sodium Chloride 0.9% 1,000 ML IV SCH (21:05)
[2021-03-13] MEDS: Morphine 4 MG/ML VIAL SLOW IVP PRN ×3 (02:09→11:17)
[2021-03-13] MEDS: Nitroglycerin 2% Ointment 1 INCH/1 GM Packet TOP SCH ×3 (03:43→21:00)
[2021-03-13] MEDS: Melatonin 3 MG TAB PO PRN ×2 (03:43→21:01)
[2021-03-13 05:09] LABS: #Eosinphils 0.4 thou/uL (0.0-0.7); #Lymphocytes 1.7 thou/uL (1.20-3.40); #Monocytes 0.8 thou/uL (0.11-0.59); #Neutrophils 9.5 thou/uL (1.40-6.50); %Basophils 0.4 % (0.0-1.0); %Eosinophils 3.3 % (0.0-10.0); %Lymphocytes 13.6 % (21.0-51.0); %Monocytes 6.3 % (0.0-10.0); %Neutrophils 76.5 % (42.0-75.0); Hemoglobin 7.9 g/dL (14.0-18.0); Mean Corpuscular HGB CONC 32.7 g/dL (32.0-36.0); Mean Corpuscular Hemoglobin 27.9 pg (27.0-31.0); Mean Corpuscular Volume 85.2 fL (78.0-98.0); Mean Platelet Volume 9.2 fL (7.4-10.4); Platelet Count 149 thou/uL (130-400); RBC Distribution Width 17.6 % (11.5-14.5); Red Blood Cell (RBC) Count 2.83 mill/uL (4.70-6.10); White Blood Cell (WBC) Count 12.5 thou/uL (4.8-10.8)
[2021-03-13] MEDS: Pantoprazole 80 MG, Admixture Fee 1 EACH in Sodium Chloride 0.9% 100 ML IVPB SCH ×3 (05:30→22:33)
[2021-03-13] MEDS: Sodium Chloride 0.9% 1,000 ML IV SCH (05:30)
[2021-03-13 05:36] LABS: Anion Gap 8 mmol/L (10-20); BUN (Urea Nitrogen) 69 mg/dL (8.4-25.7); Calc. Creatinine Clearance 86 mL/min (70-130); Calcium 8.6 mg/dL (7.8-10.44); Carbon Dioxide 23 mmol/L (23-31); Chloride 116 mmol/L (98-107); Glucose 100 mg/dL (80-115); Magnesium 2.1 mg/dL (1.6-2.6); Potassium 4.4 mmol/L (3.5-5.1); Sodium 143 mmol/L (136-145)
[2021-03-13] MEDS: Furosemide 20 MG/2 ML VIAL SLOW IVP SCH ×2 (06:02→13:44)
[2021-03-13] MEDS: Aspirin 81 mg Enteric Coated Tablet PO SCH (08:39)
[2021-03-13] MEDS: Morphine 2 MG/ML VIAL SLOW IVP PRN ×2 (16:05→21:07)
[2021-03-13] MEDS: Tamsulosin HCl 0.4 MG CAP PO SCH (21:01)
[2021-03-13] MEDS: Atorvastatin Calcium 40 MG TAB PO SCH (21:01)
[2021-03-14] MEDS: Morphine 2 MG/ML VIAL SLOW IVP PRN (02:49)
[2021-03-14 05:33] LABS: #Eosinphils 0.5 thou/uL (0.0-0.7); #Monocytes 0.7 thou/uL (0.11-0.59); #Neutrophils 9.4 thou/uL (1.40-6.50); %Basophils 0.2 % (0.0-1.0); %Eosinophils 4.6 % (0.0-10.0); %Lymphocytes 8.5 % (21.0-51.0); %Monocytes 5.7 % (0.0-10.0); Hemoglobin 7.5 g/dL (14.0-18.0); Mean Corpuscular HGB CONC 31.8 g/dL (32.0-36.0); Mean Corpuscular Hemoglobin 27.2 pg (27.0-31.0); Mean Corpuscular Volume 85.6 fL (78.0-98.0); Mean Platelet Volume 9.1 fL (7.4-10.4); Platelet Count 135 thou/uL (130-400); Red Blood Cell (RBC) Count 2.76 mill/uL (4.70-6.10); White Blood Cell (WBC) Count 11.6 thou/uL (4.8-10.8)
[2021-03-14 05:57] LABS: Anion Gap 12 mmol/L (10-20); BUN (Urea Nitrogen) 65 mg/dL (8.4-25.7); Calc. Creatinine Clearance 80 mL/min (70-130); Calcium 8.4 mg/dL (7.8-10.44); Carbon Dioxide 22 mmol/L (23-31); Chloride 110 mmol/L (98-107); Glucose 106 mg/dL (80-115); Potassium 4.5 mmol/L (3.5-5.1); Sodium 139 mmol/L (136-145)
[2021-03-14] MEDS: Nitroglycerin 2% Ointment 1 INCH/1 GM Packet TOP SCH ×3 (05:58→23:02)
[2021-03-14] MEDS: Furosemide 20 MG/2 ML VIAL SLOW IVP SCH ×2 (05:58→14:25)
[2021-03-14] MEDS: Morphine 4 MG/ML VIAL SLOW IVP PRN ×3 (11:00→21:47)
[2021-03-14] MEDS: Aspirin 81 mg Enteric Coated Tablet PO SCH (11:01)
[2021-03-14] MEDS: Pantoprazole 80 MG, Admixture Fee 1 EACH in Sodium Chloride 0.9% 100 ML IVPB SCH (12:48)
[2021-03-14] MEDS: Tamsulosin HCl 0.4 MG CAP PO SCH (21:48)
[2021-03-14] MEDS: Atorvastatin Calcium 40 MG TAB PO SCH (21:48)
[2021-03-14] MEDS: Melatonin 3 MG TAB PO PRN (21:48)
[2021-03-15] MEDS: Pantoprazole 80 MG, Admixture Fee 1 EACH in Sodium Chloride 0.9% 100 ML IVPB SCH (01:40)
[2021-03-15] MEDS: Morphine 2 MG/ML VIAL SLOW IVP PRN ×3 (01:46→21:38)
[2021-03-15] MEDS: Nitroglycerin 2% Ointment 1 INCH/1 GM Packet TOP SCH ×3 (04:57→21:37)
[2021-03-15 05:31] LABS: Hemoglobin 7.7 g/dL (14.0-18.0); Platelet Count 138 thou/uL (130-400)
[2021-03-15] MEDS: Morphine 4 MG/ML VIAL SLOW IVP PRN (07:31)
[2021-03-15] MEDS: Aspirin 81 mg Enteric Coated Tablet PO SCH (08:51)
[2021-03-15] MEDS: Furosemide 20 MG/2 ML VIAL SLOW IVP SCH ×2 (08:53→15:16)
[2021-03-15] MEDS ORDERED: Polyethylene Glycol 3350 17 GM Packet PO SCH (11:00)
[2021-03-15] MEDS ORDERED: Senokot S 8.6-50 MG TAB PO SCH (11:00)
[2021-03-15] MEDS ORDERED: Apixaban 5 MG TAB PO SCH (13:30)
[2021-03-15] MEDS: Acetaminophen 325 MG TAB PO PRN (21:36)
[2021-03-15] MEDS: Apixaban 5 MG TAB PO SCH (21:37)
[2021-03-15] MEDS: Senokot S 8.6-50 MG TAB PO SCH (21:37)
[2021-03-15] MEDS: Atorvastatin Calcium 40 MG TAB PO SCH (21:37)
[2021-03-15] MEDS: Tamsulosin HCl 0.4 MG CAP PO SCH (21:37)
[2021-03-15] MEDS: Melatonin 3 MG TAB PO PRN (21:45)
[2021-03-16] MEDS: Morphine 4 MG/ML VIAL SLOW IVP PRN (03:05)
[2021-03-16 04:53] LABS: Hemoglobin 7.5 g/dL (14.0-18.0)
[2021-03-16 04:59] LABS: Hemoglobin A1c 4.8 % (4.0-6.0)
[2021-03-16] MEDS: Nitroglycerin 2% Ointment 1 INCH/1 GM Packet TOP SCH ×3 (06:31→20:09)
[2021-03-16] MEDS: Furosemide 20 MG/2 ML VIAL SLOW IVP SCH ×2 (06:46→14:25)
[2021-03-16] MEDS: Morphine 2 MG/ML VIAL SLOW IVP PRN ×3 (09:28→20:10)
[2021-03-16] MEDS: Polyethylene Glycol 3350 17 GM Packet PO SCH (09:29)
[2021-03-16] MEDS: Aspirin 81 mg Enteric Coated Tablet PO SCH (09:29)
[2021-03-16] MEDS: Apixaban 5 MG TAB PO SCH ×2 (09:29→20:09)
[2021-03-16] MEDS: Senokot S 8.6-50 MG TAB PO SCH ×2 (09:29→20:10)
[2021-03-16] MEDS: Acetaminophen 325 MG TAB PO PRN (16:38)
[2021-03-16] MEDS: Atorvastatin Calcium 40 MG TAB PO SCH (20:09)
[2021-03-16] MEDS: Melatonin 3 MG TAB PO PRN (20:10)
[2021-03-16] MEDS: Tamsulosin HCl 0.4 MG CAP PO SCH (20:10)
[2021-03-17] MEDS: Morphine 2 MG/ML VIAL SLOW IVP PRN ×2 (00:32→05:40)
[2021-03-17 05:09] LABS: Hemoglobin 7.5 g/dL (14.0-18.0)
[2021-03-17] MEDS: Furosemide 20 MG/2 ML VIAL SLOW IVP SCH (05:40)
[2021-03-17] MEDS: Nitroglycerin 2% Ointment 1 INCH/1 GM Packet TOP SCH (05:40)
[2021-03-17 08:06] VITALS: BP 121/72; TEMP 98.6
[2021-03-17] MEDS: Senokot S 8.6-50 MG TAB PO SCH (08:38)
[2021-03-17] MEDS: Aspirin 81 mg Enteric Coated Tablet PO SCH (08:38)
[2021-03-17] MEDS: Acetaminophen 325 MG TAB PO PRN (08:38)
[2021-03-17] MEDS: Polyethylene Glycol 3350 17 GM Packet PO SCH (08:39)
[2021-03-17] MEDS: Apixaban 5 MG TAB PO SCH (08:39)
== END 2021-03-17 13:14 | disposition home or self-care (01) | DRG 393 ==
LOC: ERS 15:18 → SDC/OP 18:16 → CCU 19:00 → 2NO 03-12 15:40
PROVIDERS: ADMIT Internal Medicine; ATTEND Internal Medicine
PROC: 0W3P8ZZ Control Bleeding in Gastrointestinal Tract, Via Natural or Artificial Opening Endoscopic (ICD-10-PCS; principal; 2021-03-11)
PROC: 3E033XZ Introduction of Vasopressor into Peripheral Vein, Percutaneous Approach (ICD-10-PCS; 2021-03-11)
PROC: 30233L1 Transfusion of Nonautologous Fresh Plasma into Peripheral Vein, Percutaneous Approach (ICD-10-PCS; 2021-03-11)
PROC: 30233N1 Transfusion of Nonautologous Red Blood Cells into Peripheral Vein, Percutaneous Approach (ICD-10-PCS; 2021-03-11)
PROC: 30233R1 Transfusion of Nonautologous Platelets into Peripheral Vein, Percutaneous Approach (ICD-10-PCS; 2021-03-11)
DX: K31.7 Polyp of stomach and duodenum (principal); R57.8 Other shock; I21.A1 Myocardial infarction type 2; R57.1 Hypovolemic shock; N17.9 Acute kidney failure, unspecified; Z68.42 Body mass index [BMI] 45.0-49.9, adult; D62 Acute posthemorrhagic anemia; Z20.822 Contact with and (suspected) exposure to COVID-19; I25.10 Atherosclerotic heart disease of native coronary artery without angina pectoris; I50.9 Heart failure, unspecified; J44.9 Chronic obstructive pulmonary disease, unspecified; E11.22 Type 2 diabetes mellitus with diabetic chronic kidney disease; E11.51 Type 2 diabetes mellitus with diabetic peripheral angiopathy without gangrene; E78.5 Hyperlipidemia, unspecified; N18.30 Chronic kidney disease, stage 3 unspecified; E66.01 Morbid (severe) obesity due to excess calories; E87.5 Hyperkalemia; D72.829 Elevated white blood cell count, unspecified; F41.9 Anxiety disorder, unspecified; F32.9 Major depressive disorder, single episode, unspecified; K25.9 Gastric ulcer, unspecified as acute or chronic, without hemorrhage or perforation; G47.33 Obstructive sleep apnea (adult) (pediatric); D63.1 Anemia in chronic kidney disease; N40.0 Benign prostatic hyperplasia without lower urinary tract symptoms; E78.00 Pure hypercholesterolemia, unspecified; Z95.1 Presence of aortocoronary bypass graft; I25.2 Old myocardial infarction; Z82.49 Family history of ischemic heart disease and other diseases of the circulatory system; Z95.2 Presence of prosthetic heart valve; Z95.5 Presence of coronary angioplasty implant and graft; Z87.891 Personal history of nicotine dependence; Z79.01 Long term (current) use of anticoagulants; Z79.82 Long term (current) use of aspirin; Z79.899 Other long term (current) drug therapy; Z86.73 Personal history of transient ischemic attack (TIA), and cerebral infarction without residual deficits; Z80.9 Family history of malignant neoplasm, unspecified
CPT/HCPCS: 36415; 36416; 36430; 71045; 80048; 80053; 81001; 82553; 83036; 83735; 84484; 85014; 85018; 85025; 85049; 85610; 85730; 86850; 86900; 86901; 93005; 93010; 93798; C9113; J1815; J1940; J2270; J2405; J2704; J3490; J7050; J7168; P9016; P9035; P9048; U0002

== ENCOUNTER 2022-01-01 19:37 | Inpatient (IN) | payer OTHER, MEDICAID ==
[2022-01-01] MEDS ORDERED: Pantoprazole 40 MG VIAL ONE (20:23)
[2022-01-01 20:28] LABS: #Eosinphils 0.7 thou/uL (0.0-0.7); #Lymphocytes 1.5 thou/uL (1.20-3.40); #Monocytes 0.7 thou/uL (0.11-0.59); #Neutrophils 8.4 thou/uL (1.40-6.50); %Basophils 0.2 % (0.0-1.0); %Eosinophils 6.6 % (0.0-10.0); %Monocytes 5.9 % (0.0-10.0); %Neutrophils 74.3 % (42.0-75.0); Hemoglobin 11.6 g/dL (14.0-18.0); Mean Corpuscular HGB CONC 32.5 g/dL (32.0-36.0); Mean Corpuscular Hemoglobin 29.3 pg (27.0-31.0); Mean Corpuscular Volume 90.1 fL (78.0-98.0); Mean Platelet Volume 8.9 fL (7.4-10.4); Platelet Count 119 thou/uL (130-400); RBC Distribution Width 14.8 % (11.5-14.5); Red Blood Cell (RBC) Count 3.95 mill/uL (4.70-6.10); White Blood Cell (WBC) Count 11.2 thou/uL (4.8-10.8)
[2022-01-01 20:35] LABS: INR-International Normal Ratio 1.1; Prothrombin Time 14.3 sec (12.0-14.7)
[2022-01-01 20:36] LABS: PTT 28.7 sec (22.9-36.1)
[2022-01-01 20:45] LABS: ALT (SGPT) 16 U/L (8-55); AST (SGOT) 20 U/L (5-34); Albumin 3.7 g/dL (3.4-4.8); Alkaline Phosphatase 93 U/L (40-110); Anion Gap 16 mmol/L (10-20); BUN (Urea Nitrogen) 94 mg/dL (8.4-25.7); Bilirubin, Total 0.4 mg/dL (0.2-1.2); Calc. Creatinine Clearance 0 mL/min (70-130); Calcium 9.2 mg/dL (7.8-10.44); Carbon Dioxide 22 mmol/L (23-31); Chloride 105 mmol/L (98-107); Estimated GFR 22; Globulin 3.7 g/dL (2.4-3.5); Glucose 112 mg/dL (83-110); Lipase 159 U/L (8-78); Potassium 5.6 mmol/L (3.5-5.1); Protein, Total 7.4 g/dL (5.8-8.1); Sodium 137 mmol/L (136-145)
[2022-01-01 20:47] LABS: Platelet Morphology Comment Appears Decreased; RBC Morphology Normal
[2022-01-01 21:06] LABS: CKMB 1.8 ng/mL (0-6.6)
[2022-01-01] MEDS ORDERED: CALCIUM GLUC 1GM/NS 50ML BAG ONE (21:18)
[2022-01-01] MEDS ORDERED: Calcium Gluc 4.6 MEQ/10 ML (100 MG/ML) ONE (21:29)
[2022-01-01] MEDS ORDERED: Bisacodyl 5 MG TAB PO PRN (22:40)
[2022-01-01] MEDS ORDERED: Ondansetron PF 4 MG/2 ML Vial IVP PRN (22:40)
[2022-01-01] MEDS ORDERED: Senokot S 8.6-50 MG TAB PO PRN (22:40)
[2022-01-01] MEDS ORDERED: Acetaminophen 325 MG TAB PO PRN (22:40)
[2022-01-01] MEDS ORDERED: hydrALAZINE 20 MG/ML VIAL SLOW IVP PRN (22:46)
[2022-01-01] MEDS ORDERED: Furosemide 20 MG/2 ML VIAL SLOW IVP SCH (23:00)
[2022-01-01] MEDS ORDERED: Albuterol Sulfate 2.5 mg/3 ml Neb NEB PRN (23:20)
[2022-01-02 00:04] VITALS: BMI 48.4
[2022-01-02] MEDS: Sodium Chloride 0.9% 1,000 ML IV SCH ×2 (00:42→18:22)
[2022-01-02 03:14] LABS: Platelet Count 115 thou/uL (130-400)
[2022-01-02 03:26] LABS: #Eosinphils 0.7 thou/uL (0.0-0.7); #Lymphocytes 1.6 thou/uL (1.20-3.40); #Monocytes 0.6 thou/uL (0.11-0.59); #Neutrophils 8.3 thou/uL (1.40-6.50); %Basophils 0.2 % (0.0-1.0); %Eosinophils 5.9 % (0.0-10.0); %Lymphocytes 14.1 % (21.0-51.0); %Monocytes 5.2 % (0.0-10.0); %Neutrophils 74.6 % (42.0-75.0); Hemoglobin 10.9 g/dL (14.0-18.0); Mean Corpuscular Hemoglobin 29.2 pg (27.0-31.0); Mean Corpuscular Volume 91.5 fL (78.0-98.0); Mean Platelet Volume 8.8 fL (7.4-10.4); RBC Distribution Width 14.8 % (11.5-14.5); Red Blood Cell (RBC) Count 3.74 mill/uL (4.70-6.10); White Blood Cell (WBC) Count 11.2 thou/uL (4.8-10.8)
[2022-01-02 03:39] LABS: Troponin I 0.054 ng/mL (< 0.028)
[2022-01-02 08:41] LABS: #Eosinphils 0.8 thou/uL (0.0-0.7); #Lymphocytes 1.7 thou/uL (1.20-3.40); #Monocytes 0.6 thou/uL (0.11-0.59); #Neutrophils 6.7 thou/uL (1.40-6.50); %Basophils 0.4 % (0.0-1.0); %Eosinophils 8.2 % (0.0-10.0); %Lymphocytes 17.4 % (21.0-51.0); %Monocytes 5.6 % (0.0-10.0); %Neutrophils 68.5 % (42.0-75.0); Hemoglobin 10.9 g/dL (14.0-18.0); Mean Corpuscular HGB CONC 31.4 g/dL (32.0-36.0); Mean Corpuscular Hemoglobin 28.6 pg (27.0-31.0); Mean Corpuscular Volume 91.2 fL (78.0-98.0); Mean Platelet Volume 9.4 fL (7.4-10.4); Platelet Count 128 thou/uL (130-400); RBC Distribution Width 14.9 % (11.5-14.5); Red Blood Cell (RBC) Count 3.82 mill/uL (4.70-6.10); White Blood Cell (WBC) Count 9.8 thou/uL (4.8-10.8)
[2022-01-02 09:00] LABS: Anion Gap 16 mmol/L (10-20); BUN (Urea Nitrogen) 84 mg/dL (8.4-25.7); Calc. Creatinine Clearance 64 mL/min (70-130); Calcium 9.5 mg/dL (7.8-10.44); Carbon Dioxide 21 mmol/L (23-31); Chloride 108 mmol/L (98-107); Estimated GFR 29; Glucose 94 mg/dL (83-110); Sodium 140 mmol/L (136-145)
[2022-01-02] MEDS: Pantoprazole 40 MG VIAL IVP SCH ×2 (09:26→20:47)
[2022-01-02] MEDS ORDERED: PROPOFOL 200 MG/20 ML VIAL ONE (13:05)
[2022-01-02] MEDS ORDERED: Lidocaine 1% PF 5 ML VIAL ONE (13:05)
[2022-01-02] MEDS ORDERED: Ondansetron HCl/PF 4 MG/2 ML Vial IVP PRN (13:37)
[2022-01-02] MEDS ORDERED: Promethazine HCl 25 MG/ML VIAL IVPB PRN (13:37)
[2022-01-02 14:13] LABS: #Eosinphils 0.8 thou/uL (0.0-0.7); #Lymphocytes 1.6 thou/uL (1.20-3.40); #Monocytes 0.7 thou/uL (0.11-0.59); #Neutrophils 7.2 thou/uL (1.40-6.50); %Basophils 0.4 % (0.0-1.0); %Eosinophils 7.7 % (0.0-10.0); %Lymphocytes 15.7 % (21.0-51.0); %Monocytes 6.3 % (0.0-10.0); Hemoglobin 11.3 g/dL (14.0-18.0); Mean Corpuscular HGB CONC 31.1 g/dL (32.0-36.0); Mean Corpuscular Hemoglobin 28.5 pg (27.0-31.0); Mean Corpuscular Volume 91.6 fL (78.0-98.0); Mean Platelet Volume 9.3 fL (7.4-10.4); Platelet Count 124 thou/uL (130-400); RBC Distribution Width 14.8 % (11.5-14.5); Red Blood Cell (RBC) Count 3.97 mill/uL (4.70-6.10); White Blood Cell (WBC) Count 10.3 thou/uL (4.8-10.8)
[2022-01-03 08:35] VITALS: BP 135/59; TEMP 98.7
[2022-01-03] MEDS: Pantoprazole 40 MG VIAL IVP SCH (09:18)
== END 2022-01-03 10:38 | disposition home or self-care (01) | DRG 378 ==
LOC: ERS 19:37 → 2NO 21:39
PROVIDERS: ADMIT Internal Medicine; ATTEND Internal Medicine
PROC: 0DB68ZX Excision of Stomach, Via Natural or Artificial Opening Endoscopic, Diagnostic (ICD-10-PCS; principal; 2022-01-02)
DX: K29.71 Gastritis, unspecified, with bleeding (principal); N17.9 Acute kidney failure, unspecified; N18.4 Chronic kidney disease, stage 4 (severe); Z68.42 Body mass index [BMI] 45.0-49.9, adult; Z20.822 Contact with and (suspected) exposure to COVID-19; I12.9 Hypertensive chronic kidney disease with stage 1 through stage 4 chronic kidney disease, or unspecified chronic kidney disease; E78.5 Hyperlipidemia, unspecified; E11.22 Type 2 diabetes mellitus with diabetic chronic kidney disease; F41.9 Anxiety disorder, unspecified; E87.5 Hyperkalemia; F32.A Depression, unspecified; D64.9 Anemia, unspecified; J44.9 Chronic obstructive pulmonary disease, unspecified; M10.9 Gout, unspecified; I25.10 Atherosclerotic heart disease of native coronary artery without angina pectoris; E66.01 Morbid (severe) obesity due to excess calories; K21.9 Gastro-esophageal reflux disease without esophagitis; E11.51 Type 2 diabetes mellitus with diabetic peripheral angiopathy without gangrene; R79.89 Other specified abnormal findings of blood chemistry; K29.81 Duodenitis with bleeding; G47.33 Obstructive sleep apnea (adult) (pediatric); Z79.899 Other long term (current) drug therapy; Z95.1 Presence of aortocoronary bypass graft; Z95.5 Presence of coronary angioplasty implant and graft; Z95.2 Presence of prosthetic heart valve; Z87.891 Personal history of nicotine dependence; Z79.82 Long term (current) use of aspirin; Z86.73 Personal history of transient ischemic attack (TIA), and cerebral infarction without residual deficits; I25.2 Old myocardial infarction; Z80.0 Family history of malignant neoplasm of digestive organs; Z79.84 Long term (current) use of oral hypoglycemic drugs; Z79.02 Long term (current) use of antithrombotics/antiplatelets; Z79.01 Long term (current) use of anticoagulants
CPT/HCPCS: 36415; 36416; 80048; 80053; 82553; 83036; 83690; 83880; 84443; 84484; 85025; 85610; 85730; 86850; 86900; 86901; 88305; 88312; 93005; 96361; 96374; 96375; C9113; J0610; J1940; J2704; J7050; U0003; U0005

== ENCOUNTER 2022-06-14 00:56 | Emergency (ER) | payer OTHER ==
[2022-06-14 01:36] LABS: #Eosinphils 0.7 thou/uL (0.0-0.7); #Lymphocytes 1.4 thou/uL (1.20-3.40); #Monocytes 0.6 thou/uL (0.11-0.59); #Neutrophils 8.1 thou/uL (1.40-6.50); %Basophils 0.4 % (0.0-1.0); %Eosinophils 6.3 % (0.0-10.0); %Lymphocytes 12.7 % (21.0-51.0); %Monocytes 5.8 % (0.0-10.0); %Neutrophils 74.8 % (42.0-75.0); Hemoglobin 11.4 g/dL (14.0-18.0); Mean Corpuscular Hemoglobin 29.1 pg (27.0-31.0); Mean Corpuscular Volume 90.9 fl (78.0-98.0); Mean Platelet Volume 8.6 fL (7.4-10.4); Platelet Count 155 10x3/uL (130-400); RBC Distribution Width 14.9 % (11.5-14.5); Red Blood Cell (RBC) Count 3.92 mill/uL (4.70-6.10); White Blood Cell (WBC) Count 10.8 10x3/uL (4.8-10.8)
[2022-06-14 01:56] LABS: ALT (SGPT) 12 U/L (8-55); AST (SGOT) 17 U/L (5-34); Albumin 3.5 g/dL (3.4-4.8); Alkaline Phosphatase 110 U/L (40-110); Anion Gap 15 mmol/L (10-20); BUN (Urea Nitrogen) 68 mg/dL (8.4-25.7); Bilirubin, Total 0.3 mg/dL (0.2-1.2); CK (CPK) 81 U/L (30-200); Calc. Creatinine Clearance 0 mL/min (70-130); Carbon Dioxide 18 mmol/L (23-31); Chloride 109 mmol/L (98-107); Estimated GFR 36; Globulin 3.3 g/dL (2.4-3.5); Glucose 126 mg/dL (83-110); Potassium 4.7 mmol/L (3.5-5.1); Protein, Total 6.8 g/dL (5.8-8.1); Sodium 137 mmol/L (136-145)
[2022-06-14 02:07] LABS: SARS-CoV-2 NAA Rapid Test Not Detected (NotDetected)
[2022-06-14] MEDS ORDERED: HYDROcodone/Acetaminophen 5/325 mg Tablet ONE (02:30)
== END 2022-06-14 02:42 | disposition home or self-care (01) ==
LOC: ERS 00:56
DX: H66.92 Otitis media, unspecified, left ear (principal); R07.9 Chest pain, unspecified; E11.22 Type 2 diabetes mellitus with diabetic chronic kidney disease; I12.9 Hypertensive chronic kidney disease with stage 1 through stage 4 chronic kidney disease, or unspecified chronic kidney disease; N18.9 Chronic kidney disease, unspecified; E78.5 Hyperlipidemia, unspecified; Z20.822 Contact with and (suspected) exposure to COVID-19; Z87.891 Personal history of nicotine dependence
CPT/HCPCS: 0240U; 71045; 80053; 82550; 83880; 85025; 93005; 99285; 36415